=== PATIENT | female | born 1960 ===

== ENCOUNTER 2019-12-23 17:37 | Outpatient (REF) | payer MEDICARE, MEDICAID, SELFPAY ==
--- NOTE | 2019-12-23 18:15 | MR_ITS ---
EXAMINATION: MR LUMBAR SPINE WITHOUT CONTRAST CLINICAL INFORMATION: Post laminectomy syndrome. Bilateral lower extremity numbness. COMPARISON: Lumbar spine radiographs 06/26/2017. CT abdomen and pelvis 10/28/2019. TECHNIQUE: MRI of the lumbar spine was obtained using routine sequences without contrast. FINDINGS: There are chronic postoperative changes of a spinal fusion with interbody hardware at L5-S1. Alignment is normal. There is a subtle chronic compression deformity of the L1 vertebral body with subtle impaction upper endplate resulting in 20% vertebral height loss anteriorly. Vertebral heights are otherwise maintained. There is slight loss of intervertebral disc height and T2 signal intensity at multiple levels related to disc degeneration. The tip of the conus medullaris is located at L2. No mass effect on the conus. Visualized distal cord signal intensity is normal. At L1-L2 there is a shallow central protrusion. No canal stenosis. No mass effect on the traversing or foraminal nerve roots. At L2-L3 there is a tiny left subarticular protrusion superimposed upon a bulging disc. Bilateral facet degenerative change. No canal stenosis. No mass effect on the traversing or foraminal nerve roots. At L3-L4 there is a slightly bulging disc. Bilateral facet degenerative change. No canal stenosis. No mass effect on the traversing or foraminal nerve root. At L4-L5 there is a shallow right foraminal protrusion superimposed upon a bulging disc. Bilateral facet degenerative change. No canal stenosis. Mild mass effect on the foraminal/extraforaminal segment of the right L4 nerve root. At L5-S1 the canal is decompressed. No mass effect on the traversing or foraminal nerve roots. Limited visualization of the retroperitoneal anatomy reveals no abnormal finding. Psoas and paraspinal muscle groups are symmetric. IMPRESSION: There chronic changes of a spinal fusion with interbody hardware at L5-S1. Mild degenerative spondylosis at multiple levels. A shallow right foraminal protrusion superimposed upon a bulging disc at L4-L5 causes mild mass effect on the foraminal/extraforaminal segment of the right L4 nerve root. Otherwise no substantial mass effect on the traversing or foraminal nerve roots elsewhere within the [id number] of this examination.
== END 2019-12-23 17:38 | disposition home or self-care (01) ==
LOC: HO.MRI 17:37
PROVIDERS: Visit Provider Anesthesiology
DX: M96.1 Postlaminectomy syndrome, not elsewhere classified (principal)
CPT/HCPCS: 72148

== ENCOUNTER → 2019-12-28 15:55 | Outpatient (BNVA) | payer MEDICARE, MEDICAID, SELFPAY | PROVIDERS: PCP Internal Medicine; Visit Provider Anesthesiology | DX: M51.36 Other intervertebral disc degeneration, lumbar region (principal); M54.16 Radiculopathy, lumbar region; M46.1 Sacroiliitis, not elsewhere classified; M16.11 Unilateral primary osteoarthritis, right hip | CPT/HCPCS: 99213 ==

== ENCOUNTER 2019-12-29 15:50 | Outpatient (REF) | payer MEDICARE, MEDICAID, SELFPAY ==
--- NOTE | 2019-12-29 15:58 | XR_ITS ---
EXAMINATION: XR HIP, RIGHT CLINICAL INFORMATION: Primary osteoarthritis of the right hip. COMPARISON: 09/22/2018 TECHNIQUE: Two views of the right hip. FINDINGS: There is no fracture or dislocation. The right hip is well aligned. The joint space is maintained. The right hemipelvis is intact. IMPRESSION: Normal appearance of the right hip.
== END 2019-12-29 15:51 | disposition home or self-care (01) ==
LOC: HO.XRAY 15:50
PROVIDERS: PCP Internal Medicine; Visit Provider Nurse Practitioner Family
DX: M16.11 Unilateral primary osteoarthritis, right hip (principal)
CPT/HCPCS: 73502

== ENCOUNTER → 2020-01-11 12:57 | Outpatient (BNVA) | payer MEDICARE, MEDICAID, SELFPAY | PROVIDERS: PCP Internal Medicine; Visit Provider Anesthesiology | DX: M51.36 Other intervertebral disc degeneration, lumbar region (principal); M46.1 Sacroiliitis, not elsewhere classified; M54.16 Radiculopathy, lumbar region; M16.11 Unilateral primary osteoarthritis, right hip | CPT/HCPCS: 99212 ==

== ENCOUNTER → 2020-01-25 10:05 | Outpatient (BNVA) | payer MEDICARE, MEDICAID, SELFPAY | PROVIDERS: Visit Provider Orthopaedic Surgery | DX: M25.562 Pain in left knee (principal) | CPT/HCPCS: 20610; 99212; J1100 ==

== ENCOUNTER 2020-02-18 11:26 | Outpatient (REF) | payer MEDICARE, MEDICAID, SELFPAY | END 2020-02-18 11:27 | disposition home or self-care (01) | LOC: HO.LAB 11:26 | PROVIDERS: PCP Internal Medicine; Visit Provider Internal Medicine | DX: Z20.828 Contact with and (suspected) exposure to other viral communicable diseases (principal) | CPT/HCPCS: C9803; U0003 ==

== ENCOUNTER → 2020-02-25 11:42 | Outpatient (BNVA) | payer MEDICARE, MEDICAID, SELFPAY | PROVIDERS: Visit Provider Internal Medicine | DX: Z13.89 Encounter for screening for other disorder (principal) | CPT/HCPCS: Q3014 ==

== ENCOUNTER → 2020-06-29 11:48 | Outpatient (BNVA) | payer MEDICARE, MEDICAID, SELFPAY | PROVIDERS: Visit Provider Internal Medicine | DX: J44.1 Chronic obstructive pulmonary disease with (acute) exacerbation (principal) | CPT/HCPCS: Q3014 ==

== ENCOUNTER 2020-08-22 11:16 | Outpatient (REF) | payer MEDICARE, MEDICAID, SELFPAY ==
[2020-08-22 12:49] LABS: Alanine Aminotransferase 23 U/L (0-31); Albumin Level 4.4 g/dL (3.5-5.0); Alkaline Phosphatase 128 U/L (39-117); Anion Gap 12 (12-20); Aspartate Amino Transferase 19 U/L (5-31); Bilirubin Total 0.5 mg/dL (0.0-1.0); Blood Urea Nitrogen 7 mg/dL (9-16); Calcium 9.8 mg/dL (8.4-10.2); Carbon Dioxide 24 mmol/L (22-29); Chloride 106 mmol/L (96-108); Cholesterol 175 mg/dL; Estimated Glomerular Filt Rate > 60; Glucose Fasting 111 mg/dL (60-99); HDL Cholesterol 32 mg/dL; LDL Cholesterol Calculated 100 mg/dl; Potassium 4.4 mmol/L (3.3-5.1); Sodium 138 mmol/L (135-145); Total Protein 7.2 g/dL (6.5-8.0); Triglycerides 217 mg/dL
[2020-08-26 17:02] LABS: Vitamin D 25-OH, D2 <4 ng/mL; Vitamin D 25-OH, D3 32 ng/mL; Vitamin D 25-OH, Total 32 ng/mL (30-100)
== END 2020-08-22 11:17 | disposition home or self-care (01) ==
LOC: HO.LAB 11:16
PROVIDERS: PCP Internal Medicine; Visit Provider Internal Medicine
DX: E78.5 Hyperlipidemia, unspecified (principal); I10 Essential (primary) hypertension; E55.9 Vitamin D deficiency, unspecified
CPT/HCPCS: 36415; 80053; 80061; 82306

== ENCOUNTER 2020-08-23 10:39 | Outpatient (REF) | payer MEDICARE, MEDICAID, SELFPAY ==
--- NOTE | ~2020-08-23 | MM_ITS ---
EXAMINATION: MM SCREENING DIGITAL BREAST TOMOSYNTHESIS, BILATERAL CLINICAL INFORMATION: Screening. Asymptomatic. Family history breast cancer, sister. The lifetime risk of breast cancer based on the Tyrer-Cuzick Model is 11%. COMPARISON: Mammography: 05/12/2019, 04/11/2018; outside mammography 12/09/2017 and 12/03/2016 ([facility]) TECHNIQUE: Digital breast tomosynthesis is performed in both the craniocaudal and mediolateral oblique views along with computer-aided detection (CAD). Synthesized 2D images are generated from the tomosynthesis. FINDINGS: There are scattered areas of fibroglandular density (ACR BI-RADS breast composition Category b). The left breast is unremarkable. There is no interval mass or architectural abnormality. Neither breast shows abnormal calcifications. The bilateral axilla and skin contours are unremarkable. There is a biopsy clip marker again noted anterior medial right breast. There is a chronic circumscribed nodule central right breast 4.5 cm from nipple which is increased in size. Current measurements are 0.8 x 0.6 cm compared with prior measurement 0.5 x 0.3 cm. This could represent a small cyst. Patient will be recalled for targeted ultrasound to further characterize. MM/MM tomosynthesis screening BI IMPRESSION: 1. Right: Chronic circumscribed nodule central breast slightly increased in size from prior studies, possibly a cyst. 2. Left: No mammographic evidence of malignancy. ASSESSMENT: BI-RADS 0: Incomplete - Need Additional Imaging Evaluation RECOMMENDATION: 1. Targeted ultrasound right breast. 2. Radiology department staff will contact the patient for additional imaging. This patient's information was entered into a reminder system with a target due date for their next mammogram.
== END 2020-08-23 10:40 | disposition home or self-care (01) ==
LOC: HO.MAMMO 10:39
PROVIDERS: PCP Internal Medicine; Visit Provider Internal Medicine
DX: Z12.31 Encounter for screening mammogram for malignant neoplasm of breast (principal)
CPT/HCPCS: 77063; 77067

== ENCOUNTER 2020-08-30 13:22 | Outpatient (REF) | payer MEDICARE, MEDICAID, SELFPAY ==
--- NOTE | ~2020-08-30 | US_ITS ---
EXAMINATION: US DIAGNOSTIC ULTRASOUND BREAST, RIGHT CLINICAL INFORMATION: Recall from screening for chronic subcentimeter nodule central right breast but increased in size from prior exams. COMPARISON: Mammography 08/23/2020, 05/12/2019, 04/11/2018, 12/20/2017. TECHNIQUE: Ultrasound right breast is targeted to the central breast is imaged from 9:00 through 12:00 position. Grayscale imaging and color Doppler are performed without and with harmonics. FINDINGS: There is a bilobed simple cyst central breast best visualized scanning from 9:00 position and measuring 0.7 x 0.5 cm. This is anechoic and shows increased through-transmission of sound on real-time imaging and no color flow and consistent with a cyst. There are a few other punctate cyst noted in the upper outer right breast. No solid mass or architectural abnormality. Results are discussed with the patient at time of visit. US/US breast RT limited IMPRESSION: Incidental cyst central right breast corresponding to finding on mammography. ASSESSMENT: BI-RADS 2: Benign RECOMMENDATION: Routine annual mammography screening. This patient's information was entered into a reminder system with a target due date for their next mammogram.
== END 2020-08-30 13:23 | disposition home or self-care (01) ==
LOC: HO.MAMMO 13:22
PROVIDERS: Visit Provider Internal Medicine
DX: N63.15 Unspecified lump in the right breast, overlapping quadrants (principal)
CPT/HCPCS: 76642

== ENCOUNTER 2020-08-31 10:03 | Outpatient (REF) | payer MEDICARE, MEDICAID, SELFPAY ==
--- NOTE | ~2020-08-31 | XR_ITS ---
EXAMINATION: XR LUMBOSACRAL SPINE CLINICAL INFORMATION: Radiculopathy. COMPARISON: MRI lumbar spine 12/23/2019. TECHNIQUE: Three views of the lumbosacral spine. FINDINGS: There is normal lumbar lordosis. There is an L1 deformity, likely old fracture. The vertebral heights and alignment are normal. There are 2 metallic cages at the L5-S1 disc level for fusion. There are posterior epidural electrodes at the T10-T11 disc level for pain management. XR/XR lumbar spine 2-3V IMPRESSION: L5-S1 fusion with [address] Posterior lower thoracic spine posterior epidural electrodes for pain management. Old L1 wedge deformity. Unchanged to MRI lumbar spine 12/23/2019.
== END 2020-08-31 10:04 | disposition home or self-care (01) ==
LOC: HO.XRAY 10:03
PROVIDERS: PCP Internal Medicine; Visit Provider Internal Medicine
DX: M54.16 Radiculopathy, lumbar region (principal)
CPT/HCPCS: 72100

== ENCOUNTER → 2020-09-28 11:03 | Outpatient (BNVA) | payer MEDICARE, MEDICAID, SELFPAY | PROVIDERS: PCP Internal Medicine; Visit Provider Nurse Practitioner Family | DX: M51.36 Other intervertebral disc degeneration, lumbar region (principal); M46.1 Sacroiliitis, not elsewhere classified; M54.16 Radiculopathy, lumbar region; M16.11 Unilateral primary osteoarthritis, right hip; M96.1 Postlaminectomy syndrome, not elsewhere classified; Z79.899 Other long term (current) drug therapy | CPT/HCPCS: 99212 ==

== ENCOUNTER → 2020-09-29 12:18 | Outpatient (BNVA) | payer MEDICARE, MEDICAID, SELFPAY | PROVIDERS: PCP Internal Medicine; Visit Provider Orthopaedic Surgery | DX: M25.562 Pain in left knee (principal) | CPT/HCPCS: 20610; 99212; J1100 ==

== ENCOUNTER → 2020-10-04 13:04 | Outpatient (BNVA) | payer MEDICARE, MEDICAID, SELFPAY | PROVIDERS: PCP Internal Medicine; Visit Provider Internal Medicine | DX: J30.9 Allergic rhinitis, unspecified (principal); J44.9 Chronic obstructive pulmonary disease, unspecified; F17.200 Nicotine dependence, unspecified, uncomplicated | CPT/HCPCS: 99212 ==

== ENCOUNTER → 2020-10-06 11:05 | Outpatient (BNVA) | payer MEDICARE, MEDICAID, SELFPAY | PROVIDERS: PCP Internal Medicine; Visit Provider Anesthesiology ==

== ENCOUNTER 2020-12-13 06:20 | Outpatient (REF) | payer MEDICARE, MEDICAID, SELFPAY ==
--- NOTE | ~2020-12-13 | FL_ITS ---
EXAMINATION: XR FLUOROSCOPY WITH IMAGES CLINICAL INFORMATION: Postlaminectomy syndrome COMPARISON: MRI dated 12/23/2019 TECHNIQUE: Fluoroscopy performed by Dr. Kennedy Hennessy. Fluoroscopy time: 0.4 minutes DAP: 2.28 Gycm2 Images: 1 FINDINGS: Single image submitted for review demonstrates a spinal needle projecting over the posterior epidural space at the level of L3 FL/FL guidance in treatment room IMPRESSION: Intraoperative fluoroscopy provided as above. Please see operative report.
== END 2020-12-13 06:21 | disposition home or self-care (01) ==
LOC: HO.RADIR 06:20
PROVIDERS: Visit Provider Anesthesiology
DX: M96.1 Postlaminectomy syndrome, not elsewhere classified (principal); M47.27 Other spondylosis with radiculopathy, lumbosacral region; M54.50 Low back pain, unspecified; M47.812 Spondylosis without myelopathy or radiculopathy, cervical region; M54.2 Cervicalgia
CPT/HCPCS: 62323; J1170; Q9967

== ENCOUNTER → 2020-12-21 08:41 | Outpatient (BNVA) | payer MEDICARE, MEDICAID, SELFPAY | PROVIDERS: PCP Internal Medicine; Visit Provider Anesthesiology | DX: M96.1 Postlaminectomy syndrome, not elsewhere classified (principal); M47.27 Other spondylosis with radiculopathy, lumbosacral region; M54.2 Cervicalgia; M47.812 Spondylosis without myelopathy or radiculopathy, cervical region; G89.4 Chronic pain syndrome | CPT/HCPCS: 99212 ==

== ENCOUNTER → 2021-02-15 14:32 | Outpatient (BNVA) | payer MEDICARE, MEDICAID, SELFPAY | PROVIDERS: PCP Internal Medicine; Visit Provider Internal Medicine | DX: J44.9 Chronic obstructive pulmonary disease, unspecified (principal); J30.9 Allergic rhinitis, unspecified; R05.9 Cough, unspecified; F17.210 Nicotine dependence, cigarettes, uncomplicated | CPT/HCPCS: 99212 ==

== ENCOUNTER 2021-02-21 14:03 | Outpatient (REF) | payer MEDICARE, MEDICAID, SELFPAY ==
--- NOTE | ~2021-02-21 | CT_ITS ---
EXAMINATION: CT CHEST SCREENING CLINICAL INFORMATION: Nicotine dependence. Current smoker with a 17-year history of smoking. COMPARISON: 09/07/2019 TECHNIQUE: Multidetector volumetric CT imaging of the chest is performed without contrast using low dose technique. Additional 2D coronal and sagittal reformatted images and axial 3D maximum intensity projection (MIP) images are generated on the CT workstation. This CT examination was performed using dose optimization techniques as appropriate, variously including the following: *Automated exposure control. *Adjustment of mA and/or kV according to patient size (this includes techniques or standardized protocols for targeted exams where dose is matched to indication/reason for exam; i.e. extremities or head). *Use of iterative reconstruction technique. DLP: 247 mGy-cm FINDINGS: LUNGS: Central airways are patent. There is some mild central bronchial wall thickening seen bilaterally. No bronchiectasis is noted. There are bilateral scattered sub-4 mm densities seen. No confluent parenchymal disease. Mild changes of centrilobular and paraseptal emphysema seen bilaterally. There are a few scattered calcified granulomas present. A few intrafissural lymph nodes are present. There is a linear region of scarring seen within the anterior lingula. There is a discoid density about the lateral left lower lobe measuring approximately 6 x 3 mm in size and is noncalcified with connection to the pleural surface. There is a 4 mm noncalcified nodule seen within the left upper lobe on image 174 of 517 in series #502. There is a stable 7 mm region of ground-glass opacity within the lingula on image 56 of 129 in series #9. MEDIASTINUM: There are some scattered calcifications seen about the right lobe of the thyroid. These were present previously. Heart normal size. Small amount of coronary artery calcifications seen in the main left coronary artery. No pericardial effusion. No thoracic aortic aneurysm. There is a 1.1 x 1.9 x 1.1 cm precarinal lymph node. There are other prominent but nonenlarged mediastinal lymph nodes. No definite hilar lymphadenopathy appreciated. PLEURA: There is no pleural effusion. No pleural mass or thickening. AXILLA: No lymphadenopathy. UPPER ABDOMEN: Unremarkable. OSSEOUS STRUCTURES: No suspicious destructive bony lesions identified. Patient is status post previous cervical spine surgery. A spine stimulator is seen in place with superior tip being at the level of the T9 vertebral body. CT/CT lung screening IMPRESSION: 1. Stable appearance compared to previous examination of 09/07/2019. 2. Old granulomatous disease. 3. Enlarged precarinal lymph node. ASSESSMENT: Lung-RADS category 2: Benign. RECOMMENDATION: Routine annual low-dose CT screening in 12 months.
== END 2021-02-21 14:04 | disposition home or self-care (01) ==
LOC: HO.CT 14:03
PROVIDERS: PCP Internal Medicine; Visit Provider Physician Assistant Medical
DX: F17.210 Nicotine dependence, cigarettes, uncomplicated (principal)
CPT/HCPCS: 71271

== ENCOUNTER 2021-03-11 08:13 | Emergency (ER) | payer MEDICARE, MEDICAID, SELFPAY ==
--- NOTE | ~2021-03-11 | XR_ITS ---
EXAMINATION: XR chest 1V CLINICAL INFORMATION: Pain COMPARISON: 11/03/2018 TECHNIQUE: XR chest 1V Tubes and lines: None Lungs and pleura: Both lungs are clear. Heart and mediastinum: The mediastinum is within normal limits.. Bones/soft tissue: Skeletal structures included are normal for patient's age. There are electrodes projecting over the lower dorsal spine. XR/XR chest 1V IMPRESSION: No radiographic evidence of acute cardiopulmonary disease. There are electrodes projecting over the lower dorsal spine remain in place unchanged.
[2021-03-11 09:25] VITALS: BP 136/95; PULSE 119; RESP 18; TEMP 36.4; O2SAT 99; BMI 30.1
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
== END 2021-03-11 12:26 | disposition home or self-care (01) ==
PROVIDERS: Emergency Provider Emergency Medicine; PCP Internal Medicine
DX: S39.012A Strain of muscle, fascia and tendon of lower back, initial encounter (principal); M54.6 Pain in thoracic spine; R07.89 Other chest pain; Y04.8XXA Assault by other bodily force, initial encounter; Y93.9 Activity, unspecified; Y92.9 Unspecified place or not applicable; Y99.9 Unspecified external cause status; F17.210 Nicotine dependence, cigarettes, uncomplicated; Z71.6 Tobacco abuse counseling; Z79.899 Other long term (current) drug therapy
CPT/HCPCS: 71045; 99282; 99283

== ENCOUNTER → 2021-03-29 15:11 | Outpatient (BNVA) | payer MEDICARE, MEDICAID, SELFPAY | PROVIDERS: PCP Internal Medicine; Visit Provider Anesthesiology | DX: M96.1 Postlaminectomy syndrome, not elsewhere classified (principal); M47.27 Other spondylosis with radiculopathy, lumbosacral region; M54.2 Cervicalgia; M47.812 Spondylosis without myelopathy or radiculopathy, cervical region; G89.4 Chronic pain syndrome | CPT/HCPCS: 99212 ==

== ENCOUNTER 2021-04-27 10:26 | Day surgery (SDC) | payer MEDICARE, MEDICAID, SELFPAY ==
--- NOTE | 2021-04-26 12:43 | HO.ANESPROP2 ---
Documented by User: Danna Lopez NP 04/26/21 13:03 HPI - Anesthesia Eval Consult details Narrative: 60yo F Cervical Spinal Cord Stimulation Trial *Multiple Med Allergies* Chronic opioids PMFSH Active Problems Active Problems: All Active Problems (Updated 03/29/21 @ 16:13 by Kennedy Hennessy MD) Cervical muscle strain (Acute) Cervicalgia (Acute) Spondylosis of lumbosacral spine with radiculopathy (Acute) Postlaminectomy syndrome, lumbar (Acute) Left knee pain (Acute) Chronic pain syndrome (Acute) Postlaminectomy syndrome, cervical (Acute) Spondylosis, cervical (Acute) Cervicalgia (Acute) Smoker (Acute) COPD exacerbation (Acute) Cough (Acute) COPD (chronic obstructive pulmonary disease) (Acute) Allergic rhinitis (Acute) Anterior knee pain (Acute) Osteoarthritis of right hip (Acute) Acute left lumbar radiculopathy (Acute) Sacroiliitis (Acute) Disc degeneration, lumbar (Acute) Depression with anxiety (Acute) Moderate asthma (Acute) Constipation due to opioid therapy (Acute) GERD (gastroesophageal reflux disease) (Acute) Hypovitaminosis D (Acute) Lumbar degenerative disc disease (Acute) Essential hypertension (Acute) Past Medical History Medical History Acute left lumbar radiculopathy Allergic rhinitis Anterior knee pain Asthma Cervical muscle strain Cervicalgia Cervicalgia Chronic pain syndrome Constipation due to opioid therapy COPD (chronic obstructive pulmonary disease) COPD exacerbation Cough Depression with anxiety Disc degeneration, lumbar Essential hypertension GERD (gastroesophageal reflux disease) History of DVT (deep vein thrombosis) Hypovitaminosis D Lumbar degenerative disc disease Migraines Osteoarthritis of right hip Postlaminectomy syndrome, cervical Sacroiliitis Smoker Spondylosis, cervical Family History Family History Father Diabetes Mother Diabetes Hypertension Sister Diabetes Breast cancer Maternal Uncle Prostate cancer Surgical History Surgical History History of abdominal hernia History of arthroscopy of both knees History of carpal tunnel surgery of left wrist History of carpal tunnel surgery of right wrist History of cholecystectomy History of hemicolectomy History of incisional hernia repair Hx of appendectomy Hx of fusion of cervical spine Hx of spinal fusion S/P YRN (total abdominal hysterectomy) Social History Social History Housing: Apartment Alcohol intake: never Patient Tobacco Use Status: Current everyday Tobacco user Tobacco use type: Cigarette Cigarette Packs Per Day: 0.5 Cigarettes Per Day: 10.0 e-Cigarette/Vaping Use: Never Used Second Hand Smoke Exposure: No Use of substances other than those prescribed or required for medical reasons: No Advance Directives: No Advance Directives Information Provided: Yes Recently lost weight without trying: No service: No Current occupational status: disabled Meds Allergies Allergy/AdvReac Type Severity Reaction Status Date / Time topiramate [From TOPAMAX] Allergy Severe SWELLING Verified 03/29/21 15:24 barium sulfate AdvReac Intermediate changes in Verified 03/29/21 15:24 behavior metronidazole [Flagyl] AdvReac Intermediate FISHER GILL NET, N/V Verified 03/29/21 15:24 morphine [MORPHINE] AdvReac Intermediate HEADACHE Verified 03/29/21 15:24 Penicillins AdvReac Intermediate Vomiting Verified 03/29/21 15:24 trazodone AdvReac Intermediate Palpitation Verified 03/29/21 15:24 s varenicline [From Chantix] AdvReac Mild changes in Verified 03/29/21 15:24 behavior hydrocodone-acetaminophen AdvReac Intermediate nausea Uncoded 02/13/21 12:55 Home Medications Medication Instructions Recorded Confirmed Last Taken Type aspirin 81 mg tablet,delayed 81 mg PO DAILY 12/21/19 02/13/21 Unknown History release (Adult Low Dose Aspirin) cholecalciferol (vitamin D3) 25 25 mcg PO DAILY 12/21/19 02/13/21 Unknown History mcg (1,000 unit) capsule dexlansoprazole 60 mg 60 mg PO DAILY 12/21/19 02/13/21 Unknown History capsule,biphase delayed release (Dexilant) escitalopram oxalate 10 mg tablet 10 mg PO DAILY 12/21/19 02/13/21 Unknown History fluticasone 100 mcg-salmeterol 50 1 ea PO BID 12/21/19 02/13/21 Unknown History mcg/dose blistr powdr for inhalation fluticasone propionate 50 1 spray INTRANASAL DAILY 12/21/19 02/13/21 Unknown History mcg/actuation nasal spray,suspension (Flonase Allergy Relief) linaclotide 290 mcg capsule 290 mcg PO DAILY 12/21/19 02/13/21 Unknown History (Linzess) flu vac qs 2019(4 yr up)CD(PF) 0.5 ml IM DIRECTED 12/28/19 01/03/21 Unknown History Exam Exam Date and Time: April 26, 2021 1243 Assessment and Plan Assessment Anesthesia Assessment: Chart Reviewed Documented by User: Daja Mejia MD 04/27/21 14:06 [facility] Past Medical History Medical History Acute left lumbar radiculopathy Allergic rhinitis Anterior knee pain Asthma Cervical muscle strain Cervicalgia Cervicalgia Chronic pain syndrome Constipation due to opioid therapy COPD (chronic obstructive pulmonary disease) COPD exacerbation Cough Depression with anxiety Disc degeneration, lumbar Essential hypertension GERD (gastroesophageal reflux disease) History of DVT (deep vein thrombosis) Hypovitaminosis D Lumbar degenerative disc disease Migraines Osteoarthritis of right hip Postlaminectomy syndrome, cervical Sacroiliitis Smoker Spondylosis, cervical Family History Family History Father Diabetes Mother Diabetes Hypertension Sister Diabetes Breast cancer Maternal Uncle Prostate cancer Family history of problems with anesthesia: No Surgical History Surgical History History of abdominal hernia History of arthroscopy of both knees History of carpal tunnel surgery of left wrist History of carpal tunnel surgery of right wrist History of cholecystectomy History of hemicolectomy History of incisional hernia repair Hx of appendectomy Hx of fusion of cervical spine Hx of spinal fusion S/P YRN (total abdominal hysterectomy) History of Problems with Anesthesia: No Social History Social History Housing: Apartment Alcohol intake: never Patient Tobacco Use Status: Current everyday Tobacco user Tobacco use type: Cigarette Cigarette Packs Per Day: 0.5 Cigarettes Per Day: 10.0 e-Cigarette/Vaping Use: Never Used Second Hand Smoke Exposure: No Use of substances other than those prescribed or required for medical reasons: No Advance Directives: No Advance Directives Information Provided: Yes Recently lost weight without trying: No service: No Current occupational status: disabled Meds Allergies Allergy/AdvReac Type Severity Reaction Status Date / Time topiramate [From TOPAMAX] Allergy Severe SWELLING Verified 03/29/21 15:24 barium sulfate AdvReac Intermediate changes in Verified 03/29/21 15:24 behavior metronidazole [Flagyl] AdvReac Intermediate FISHER GILL NET, N/V Verified 03/29/21 15:24 morphine [MORPHINE] AdvReac Intermediate HEADACHE Verified 03/29/21 15:24 Penicillins AdvReac Intermediate Vomiting Verified 03/29/21 15:24 trazodone AdvReac Intermediate Palpitation Verified 03/29/21 15:24 s varenicline [From Chantix] AdvReac Mild changes in Verified 03/29/21 15:24 behavior hydrocodone-acetaminophen AdvReac Intermediate nausea Uncoded 02/13/21 12:55 Home Medications Medication Instructions Recorded Confirmed Last Taken Type aspirin 81 mg tablet,delayed 81 mg PO DAILY 12/21/19 02/13/21 Unknown History release (Adult Low Dose Aspirin) cholecalciferol (vitamin D3) 25 25 mcg PO DAILY 12/21/19 02/13/21 Unknown History mcg (1,000 unit) capsule dexlansoprazole 60 mg 60 mg PO DAILY 12/21/19 02/13/21 Unknown History capsule,biphase delayed release (Dexilant) escitalopram oxalate 10 mg tablet 10 mg PO DAILY 12/21/19 02/13/21 Unknown History fluticasone 100 mcg-salmeterol 50 1 ea PO BID 12/21/19 02/13/21 Unknown History mcg/dose blistr powdr for inhalation fluticasone propionate 50 1 spray INTRANASAL DAILY 12/21/19 02/13/21 Unknown History mcg/actuation nasal spray,suspension (Flonase Allergy Relief) linaclotide 290 mcg capsule 290 mcg PO DAILY 12/21/19 02/13/21 Unknown History (Linzess) flu vac qs 2018(4 yr up)CD(PF) 0.5 ml IM DIRECTED 12/28/19 01/03/21 Unknown History Exam Height,Weight and Vital Signs: Height 5 ft 3 in Weight 77.111 kg Vital Signs Temp Pulse Resp BP Pulse Ox 04/27/21 11:09 97.3 F 90 17 120/71 97 Airway Mallampati Class: II TM Dist: >3cm Neck ROM: Full Loose/Missing/Broken Teeth: Yes (Poor dentition. Many missing. Several broken) Heart: RRR Lungs: CTAB Assessment and Plan Assessment Anesthesia Assessment: Anesthesia Plan Discussed Final Anesthetic Review Family History of Problems with Anesthesia: No History of Problems with Anesthesia: No NPO: Yes ASA Class: III Final Preanesthetic Review: No Changes in Pt Med Stat, Meds/Allgs Chart Reviewed, Consent Obtained/Reviewed and Anes Risks/Benef Reviewed Patient Risk: Intermediate Procedure Risk: Intermediate Assessment/Block/Sedation in SS: Assess/Block/Sedation-SS Anesthetic Plan Anesthetic Plan: MAC: Disposition: Standard PACU
--- NOTE | ~2021-04-27 | FL_ITS ---
EXAMINATION: XR FLUOROSCOPY WITH IMAGES CLINICAL INFORMATION: Stimulator trial COMPARISON: None. TECHNIQUE: Fluoroscopy performed by Dr. Kennedy Hennessy. Fluoroscopy time: 9.3 minus minutes DAP: 24.1 Gycm2 Images: 2 FINDINGS: 2 C-arm images are provided for review. Patient status post previous cervical spine surgery. 2 wires are seen projecting with the tips over the region of the C2-C3 disc space. FL/FL guidance in OR IMPRESSION: Stimulator trial
[2021-04-27 11:09] VITALS: BP 120/71; PULSE 90; RESP 17; TEMP 36.3; O2SAT 97; BMI 30.1
--- NOTE | 2021-04-27 11:58 | MHC.SHP ---
Pre-Procedural Eval Section A Date of Service: 04/27/21 The patient is an INPATIENT: No Changes since office visit: Yes Patient answered all questions The History & Physical has been completed within 30 days and I have reviewed it.: No Section B Chief Complaint: post laminectomy syndrome Details of Present Illness: as above Relevant Family History (Specify if Yes): No Relevant Social History: None Present Medications: see Short Stay Collaborative assessment Medical History: No relevant PMH History of Previous Operations: Relevant previous surgery/procedure and date(s) Allergies: Allergies Allergy/AdvReac Type Severity Reaction Status Date / Time topiramate [From TOPAMAX] Allergy Severe SWELLING Verified 03/29/21 15:24 barium sulfate AdvReac Intermediate changes in Verified 03/29/21 15:24 behavior metronidazole [Flagyl] AdvReac Intermediate SERVICE MANAGER, N/V Verified 03/29/21 15:24 morphine [MORPHINE] AdvReac Intermediate HEADACHE Verified 03/29/21 15:24 Penicillins AdvReac Intermediate Vomiting Verified 03/29/21 15:24 trazodone AdvReac Intermediate Palpitation Verified 03/29/21 15:24 s varenicline [From Chantix] AdvReac Mild changes in Verified 03/29/21 15:24 behavior hydrocodone-acetaminophen AdvReac Intermediate nausea Uncoded 02/13/21 12:55 Review of Systems Sugical H&P ROS: Negative: Constitution, Cardiovascular, Respiratory, Neurological, Psychiatric, Hem-Onc, Allergic/Immunologic, Gastrointestinal, Genitourinary, Musculoskeletal, Integumentary, Endocrine and Eyes/Ears/Nose/Throat Exam Surgical H&P Exam: Normal: HEENT, Normal: Heart, Normal: Lungs, Normal: Extremities, Normal: Abdomen, Normal: Skin and Normal: Neurological Plan Diagnosis/Plan: Unchanged I have reviewed the history and physical and performed a pertinent physical examination on my patient. No changes have occurred unless specified.
--- NOTE | 2021-04-27 12:51 | P.OP_ITS ---
Operative Note Operative Note Date of Service: 04/27/21 Narrative: Oriana is very pleasant 60 years old femalewho came today into the operating room for trial of spinal cord stimulator for the treatment of post laminectomy syndrome. Preoperatively patient received ..... approximately 30 minutes before the procedure. After obtaining informed consent the patient was brought to the operating room, SHE was positioned prone on operating table, [employer] monitors were applied and the patient was deeply sedated.? ?Time-out was performed delineating correct site, side, the nature of the procedure, patient's allergy, preoperative antibiotic if needed.? All operating room staff was participating in OR time-out procedure. Patient's entire back was prepped with DuraPrep twice and draped with full body fenestrated laparoscopy drape.? Sterilely draped C-arm was brought over operating field and square picture of the T6 -T7 -T8-T9 -T10 vertebrae as were demonstrated on the screen.? location of the epidural paddle at the T9-T10 posterior epidural space of previously inserted spinal cord stimulator [employer] was noted on the screen. Attention FIRST? was concentrated on the T6-T7 epidural interspace.? The location of the projection of the right pedicle center of the?T 9 vertebra was found on the skin using C-arm.? This location was injected with mixture of lidocaine 2% and Marcaine 0.5% 5 cc.? After that 11 blade was used to make a juanis on the skin.? 10 cm 14 gauge? introducer epidural needle was inserted through the juanis and advanced to? T6-T7 epidural interspace.? The advancement of the needle was performed on anterior posterior and lateral views.? Guitar wire and loss of resistance technique were used to locate epidural space.? When guitar wire was spread in the epidural fashion, epidural lead was inserted thro ugh the needle and it was advanced to T3 level. Due to epidural adhesion at this level there was difficulty to advance the lead higher. The introducer needle was withdrawn and blue sheath introducer was attempted to be inserted over the lead into the epidural space. However blue sheath introducer was deviating to the right and I was unable to advanced it beyond the T6-T7 intervertebral interspace. However I was managing to manipulate the epidural lead and I advanced the lead to the top of the C3 vertebra Strictly on the THE MIDLINE with the top of the lead slightly deviating to the right..? After that the location of the projection of the LEFT pedicle center of the T9 vertebra was found on the skin using C-arm.? This location was injected with mixture of lidocaine 2% and Marcaine 0.5% 5 cc.? After that 11 blade was used to make a juanis on the skin.? 10 cm 14 gauge introducer epidural needle was inserted through the juanis and advanced to T8-T9 epidural interspace.? The advancement of the needle was performed on anterior posterior and lateral views.? Guitar wire and loss of resistance technique were used to locate epidural space.? When guitar wire was spread in the epidural fashion, epidural lead was inserted through the needle and advanced to the middle of C3 epidural interspace slightly left to the existing electrode. Impedance was checked and was satisfactory .The needles were withdrawn, the stylette wires were removed from the epidural leads.? The anchoring devices were dislodged on the leads and advanced to the level of the skin.? The anchoring devices were sutured with two 0-0 silk sutures per each anchor to the skin of the patient. The central fixation screw of each anchor was rotated until three clicks were heard. The leads were connected to testing device.? Bacitracin ointment was applied to the entrance point of bilateral needles.? Sterile dressing was applied to the patient's back.? The testing device was also glued to the patient's back.? the patient tolerated procedure well she was awaken and taken outside of the operating room to recovery room.
[2021-04-27 14:46] VITALS: BP 95/59; PULSE 84; RESP 20; TEMP 36.1; O2SAT 95
[2021-04-27 14:51] VITALS: BP 112/69; PULSE 88; RESP 20; O2SAT 97
--- NOTE | 2021-04-27 14:51 | PM.OP ---
Brief Operative Note Date of Service: 04/27/21 Pre-op diagnosis: Postlaminectomy syndrome cervical spine Post-op diagnosis: same Procedure: trial of Nevro spinal cord stimulator Implants: none permanent Surgeon: Kennedy Hennessy MD Anesthesia: MAC Was an Registration Clerk used for this Procedure?: No Estimated blood loss (mL): 2 Pathology: none sent Condition: stable Disposition: PACU
[2021-04-27 15:01] VITALS: BP 104/81; PULSE 84; RESP 20; TEMP 36.1; O2SAT 98
== END 2021-04-27 15:35 ==
LOC: HO.SSS 10:27
PROVIDERS: PCP Internal Medicine; Visit Provider Anesthesiology
PROC: (CPT 63650; principal; 2021-04-27 12:40)
DX: M96.1 Postlaminectomy syndrome, not elsewhere classified (principal); M54.2 Cervicalgia; M47.812 Spondylosis without myelopathy or radiculopathy, cervical region; G89.4 Chronic pain syndrome; Z98.1 Arthrodesis status; M47.27 Other spondylosis with radiculopathy, lumbosacral region; M51.36 Other intervertebral disc degeneration, lumbar region; M46.1 Sacroiliitis, not elsewhere classified; M16.11 Unilateral primary osteoarthritis, right hip; J44.9 Chronic obstructive pulmonary disease, unspecified; I10 Essential (primary) hypertension; E55.9 Vitamin D deficiency, unspecified; Z88.0 Allergy status to penicillin; Z88.8 Allergy status to other drugs, medicaments and biological substances; F17.210 Nicotine dependence, cigarettes, uncomplicated
CPT/HCPCS: 63650 ×2; C1713; C1778; J2370

== ENCOUNTER → 2021-05-03 09:59 | Outpatient (BNVA) | payer MEDICARE, MEDICAID, SELFPAY | PROVIDERS: PCP Internal Medicine; Visit Provider Anesthesiology | DX: M96.1 Postlaminectomy syndrome, not elsewhere classified (principal); M47.27 Other spondylosis with radiculopathy, lumbosacral region; M54.2 Cervicalgia; M47.812 Spondylosis without myelopathy or radiculopathy, cervical region; G89.4 Chronic pain syndrome | CPT/HCPCS: 99212 ==

== ENCOUNTER 2021-05-08 15:00 | Outpatient (RCR) | payer MEDICARE, MEDICAID, SELFPAY ==
[2021-04-24 13:06] VITALS: BP 142/88; PULSE 97
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
--- NOTE | 2021-05-26 08:43 | MHC.PT.DC ---
[facility] [place] Office [place] Office [place] Office [address] Sandip Glass [address] [phone] F: [phone] F: [phone] F: [phone] F: [phone] Physical Therapy Discharge Report Diagnosis: Cervical muscle strain Date of Surgery: NA Date of Evaluation: 04/24/21 Date of Discharge: 05/26/21 Treatments to Date: 3 Cancellations to Date: 1 No Shows to Date: 3 Discharge Status: Visit Non-compliance Discharge Summary: Oriana has had 3 no shows and 1 cancellation. She is therefore being d/c for non compliance. Electronically signed by: Yocasta Dang PT DPT Please sign and return to therapist. Thank you for your referral.
== END 2021-05-26 08:43 | disposition home or self-care (01) ==
LOC: HO.PT 15:00
PROVIDERS: PCP Internal Medicine; Visit Provider Anesthesiology
DX: M54.2 Cervicalgia (principal)
CPT/HCPCS: 97110; 97112; 97161

== ENCOUNTER 2021-06-02 09:55 | Day surgery (SDC) | payer MEDICARE, MEDICAID, SELFPAY ==
[2021-05-29 11:23] VITALS: BMI 30.1
--- NOTE | 2021-06-01 10:28 | HO.ANESPROP2 ---
Documented by User: Danna Lopez NP 06/01/21 10:29 HPI - Anesthesia Eval Consult details Narrative: 60yo F for Cervical Spinal Stimulation Implant s/p trial 04/2021 with TIVA *Multiple Med Allergies* Chronic opioids PMFSH Active Problems Active Problems: All Active Problems (Updated 05/29/21 @ 11:18 by Stephanie Valenzuela, ALLIE) Spondylosis of lumbosacral spine with radiculopathy (Acute) Postlaminectomy syndrome, lumbar (Acute) Left knee pain (Acute) Tobacco abuse (Acute) Hypertriglyceridemia (Acute) Impaired fasting blood sugar (Acute) Chronic pain syndrome (Acute) Postlaminectomy syndrome, cervical (Acute) Smoker (Acute) Cough (Acute) COPD (chronic obstructive pulmonary disease) (Acute) Allergic rhinitis (Acute) Anterior knee pain (Acute) Osteoarthritis of right hip (Acute) Sacroiliitis (Acute) Depression with anxiety (Acute) Constipation due to opioid therapy (Acute) GERD (gastroesophageal reflux disease) (Acute) Hypovitaminosis D (Acute) Lumbar degenerative disc disease (Acute) Essential hypertension (Acute) Past Medical History Medical History Allergic rhinitis Anterior knee pain Asthma Chronic pain syndrome Constipation due to opioid therapy COPD (chronic obstructive pulmonary disease) COPD exacerbation Cough Depression with anxiety Essential hypertension GERD (gastroesophageal reflux disease) History of DVT (deep vein thrombosis) Hypovitaminosis D Lumbar degenerative disc disease Migraines Osteoarthritis of right hip Postlaminectomy syndrome, cervical Sacroiliitis Smoker Spondylosis, cervical Status post insertion of nerve stimulator Family History Family History Father Diabetes Mother Diabetes Hypertension Sister Diabetes Breast cancer Maternal Uncle Prostate cancer Family history of problems with anesthesia: No Surgical History Surgical History H/O colonoscopy History of abdominal hernia History of arthroscopy of both knees History of back surgery History of carpal tunnel surgery of left wrist History of carpal tunnel surgery of right wrist History of cholecystectomy History of esophagogastroduodenoscopy (EGD) History of hemicolectomy History of incisional hernia repair Hx of appendectomy Hx of fusion of cervical spine Hx of spinal fusion S/P YRN (total abdominal hysterectomy) History of Problems with Anesthesia: No Social History Social History Housing: Apartment Alcohol intake: never Patient Tobacco Use Status: Current everyday Tobacco user Tobacco use type: Cigarette Cigarette Packs Per Day: 0.5 Cigarettes Per Day: 10 e-Cigarette/Vaping Use: Never Used Second Hand Smoke Exposure: No Advance Directives: No Advance Directives Information Provided: Yes Advance Directives on File: No service: No Current occupational status: disabled Meds Allergies Allergy/AdvReac Type Severity Reaction Status Date / Time topiramate [From TOPAMAX] Allergy Severe SWELLING Verified 06/02/21 10:11 barium sulfate AdvReac Intermediate changes in Verified 06/02/21 10:11 behavior hydrocodone AdvReac Intermediate Nausea Verified 06/02/21 10:11 metronidazole [Flagyl] AdvReac Intermediate IT OPERATIONS MANAGER, N/V Verified 06/02/21 10:11 morphine [MORPHINE] AdvReac Intermediate HEADACHE Verified 06/02/21 10:11 Penicillins AdvReac Intermediate Vomiting Verified 06/02/21 10:11 trazodone AdvReac Intermediate Palpitation Verified 06/02/21 10:11 s varenicline [From Chantix] AdvReac Mild changes in Verified 06/02/21 10:11 behavior Home Medications Medication Instructions Recorded Confirmed Last Taken Type aspirin 81 mg tablet,delayed 81 mg PO DAILY 12/21/19 05/29/21 05/26/21 History release (Adult Low Dose Aspirin) cholecalciferol (vitamin D3) 25 25 mcg PO DAILY 12/21/19 05/29/21 Unknown History mcg (1,000 unit) capsule dexlansoprazole 60 mg 60 mg PO DAILY 12/21/19 05/29/21 06/02/21 08:30 History capsule,biphase delayed release (Dexilant) escitalopram oxalate 10 mg tablet 10 mg PO DAILY 12/21/19 05/29/21 Unknown History fluticasone 100 mcg-salmeterol 50 1 ea PO BID 12/21/19 05/29/21 06/02/21 08:30 History mcg/dose blistr powdr for inhalation fluticasone propionate 50 1 spray INTRANASAL DAILY 12/21/19 05/29/21 Unknown History mcg/actuation nasal spray,suspension (Flonase Allergy Relief) linaclotide 290 mcg capsule 290 mcg PO DAILY 12/21/19 05/29/21 Unknown History (Linzess) Exam Exam Date and Time: June 01, 2021 1028 Height,Weight and Vital Signs: Height 5 ft 3 in Weight 77.111 kg Assessment and Plan Assessment Anesthesia Assessment: Chart Reviewed Final Anesthetic Review Family History of Problems with Anesthesia: No History of Problems with Anesthesia: No Documented by User: Shena Camacho MD 06/02/21 13:08 [facility] Past Medical History Medical History Allergic rhinitis Anterior knee pain Asthma Chronic pain syndrome Constipation due to opioid therapy COPD (chronic obstructive pulmonary disease) COPD exacerbation Cough Depression with anxiety Essential hypertension GERD (gastroesophageal reflux disease) History of DVT (deep vein thrombosis) Hypovitaminosis D Lumbar degenerative disc disease Migraines Osteoarthritis of right hip Postlaminectomy syndrome, cervical Sacroiliitis Smoker Spondylosis, cervical Status post insertion of nerve stimulator Functional capacity: uses cane/walker Patient : No Family History Family History Father Diabetes Mother Diabetes Hypertension Sister Diabetes Breast cancer Maternal Uncle Prostate cancer Surgical History Surgical History H/O colonoscopy History of abdominal hernia History of arthroscopy of both knees History of back surgery History of carpal tunnel surgery of left wrist History of carpal tunnel surgery of right wrist History of cholecystectomy History of esophagogastroduodenoscopy (EGD) History of hemicolectomy History of incisional hernia repair Hx of appendectomy Hx of fusion of cervical spine Hx of spinal fusion S/P YRN (total abdominal hysterectomy) Social History Social History Housing: Apartment Alcohol intake: never Patient Tobacco Use Status: Current everyday Tobacco user Tobacco use type: Cigarette Cigarette Packs Per Day: 0.5 Cigarettes Per Day: 10 e-Cigarette/Vaping Use: Never Used Second Hand Smoke Exposure: No Advance Directives: No Advance Directives Information Provided: Yes Advance Directives on File: No service: No Current occupational status: disabled Meds Allergies Allergy/AdvReac Type Severity Reaction Status Date / Time topiramate [From TOPAMAX] Allergy Severe SWELLING Verified 06/02/21 10:11 barium sulfate AdvReac Intermediate changes in Verified 06/02/21 10:11 behavior hydrocodone AdvReac Intermediate Nausea Verified 06/02/21 10:11 metronidazole [Flagyl] AdvReac Intermediate IT OPERATIONS MANAGER, N/V Verified 06/02/21 10:11 morphine [MORPHINE] AdvReac Intermediate HEADACHE Verified 06/02/21 10:11 Penicillins AdvReac Intermediate Vomiting Verified 06/02/21 10:11 trazodone AdvReac Intermediate Palpitation Verified 06/02/21 10:11 s varenicline [From Chantix] AdvReac Mild changes in Verified 06/02/21 10:11 behavior Home Medications Medication Instructions Recorded Confirmed Last Taken Type aspirin 81 mg tablet,delayed 81 mg PO DAILY 12/21/19 05/29/21 05/26/21 History release (Adult Low Dose Aspirin) cholecalciferol (vitamin D3) 25 25 mcg PO DAILY 12/21/19 05/29/21 Unknown History mcg (1,000 unit) capsule dexlansoprazole 60 mg 60 mg PO DAILY 12/21/19 05/29/21 06/02/21 08:30 History capsule,biphase delayed release (Dexilant) escitalopram oxalate 10 mg tablet 10 mg PO DAILY 12/21/19 05/29/21 Unknown History fluticasone 100 mcg-salmeterol 50 1 ea PO BID 12/21/19 05/29/21 06/02/21 08:30 History mcg/dose blistr powdr for inhalation fluticasone propionate 50 1 spray INTRANASAL DAILY 12/21/19 05/29/21 Unknown History mcg/actuation nasal spray,suspension (Flonase Allergy Relief) linaclotide 290 mcg capsule 290 mcg PO DAILY 12/21/19 05/29/21 Unknown History (Linzess) Exam Airway Mallampati Class: III TM Dist: >3cm Neck ROM: Full Heart: RRR Lungs: CTA Assessment and Plan Final Anesthetic Review ASA Class: III Final Preanesthetic Review: No Changes in Pt Med Stat, Meds/Allgs Chart Reviewed, Consent Obtained/Reviewed and Anes Risks/Benef Reviewed Patient Risk: Intermediate Procedure Risk: Low Anesthetic Plan Anesthetic Plan: GA
--- NOTE | ~2021-06-02 | FL_ITS ---
EXAMINATION: XR FLUOROSCOPY WITH IMAGES CLINICAL INFORMATION: Cervical spine stimulator implant. COMPARISON: None. TECHNIQUE: Fluoroscopy performed by Dr. Kennedy Sparks Fluoroscopy time: 10 minutes DAP: 26.5 mGycm2 Images: 2 FINDINGS: There are 2 upper cervical images obtained revealing 2 cervical stimulator implants positioned posterior to C2 through C6-C7 disc levels. Visualized bones are grossly unremarkable. There is a lower anterior vertebral body fusion which is not fully included on the AP image. FL/FL guidance in OR IMPRESSION: Fluoroscopy guidance was provided to referring physician for cervical simulator implants.
[2021-06-02 10:23] VITALS: BP 137/74; PULSE 92; RESP 16; TEMP 36.3; O2SAT 97
[2021-06-02] MEDS: Lactated Ringers 1,000 ML 100 ML IVCONT (10:31)
--- NOTE | 2021-06-02 12:07 | MHC.SHP ---
Pre-Procedural Eval Section A Date of Service: 06/02/21 The patient is an INPATIENT: No Changes since office visit: Yes Cold of Flu in the past 2 weeks and Yes Patient answered all questions The History & Physical has been completed within 30 days and I have reviewed it.: No Section B Chief Complaint: Postlaminectomy syndrome Details of Present Illness: as above Relevant Family History (Specify if Yes): No Relevant Social History: None Medical History: No relevant PMH History of Previous Operations: No relevant previous surgery Allergies: Allergies Allergy/AdvReac Type Severity Reaction Status Date / Time topiramate [From TOPAMAX] Allergy Severe SWELLING Verified 06/02/21 10:11 barium sulfate AdvReac Intermediate changes in Verified 06/02/21 10:11 behavior hydrocodone AdvReac Intermediate Nausea Verified 06/02/21 10:11 metronidazole [Flagyl] AdvReac Intermediate TOBACCO WRAPPING MACHINE TENDER, N/V Verified 06/02/21 10:11 morphine [MORPHINE] AdvReac Intermediate HEADACHE Verified 06/02/21 10:11 Penicillins AdvReac Intermediate Vomiting Verified 06/02/21 10:11 trazodone AdvReac Intermediate Palpitation Verified 06/02/21 10:11 s varenicline [From Chantix] AdvReac Mild changes in Verified 06/02/21 10:11 behavior Review of Systems Sugical H&P ROS: Negative: Constitution, Cardiovascular, Respiratory, Neurological, Psychiatric, Hem-Onc, Allergic/Immunologic, Gastrointestinal, Genitourinary, Musculoskeletal, Integumentary, Endocrine and Eyes/Ears/Nose/Throat Exam Surgical H&P Exam: Normal: HEENT, Normal: Heart, Normal: Lungs, Normal: Extremities, Normal: Abdomen, Normal: Skin and Normal: Neurological Plan Diagnosis/Plan: Unchanged I have reviewed the history and physical and performed a pertinent physical examination on my patient. No changes have occurred unless specified.
--- NOTE | 2021-06-02 12:08 | W.PM.OPN ---
Operative Note Operative Note Date of Service: 04/27/21 Narrative: Oriana is very pleasant 60 years old female who came today into the operating room for trial of spinal cord stimulator for the treatment of post laminectomy syndrome. Preoperatively patient receive clindamycin 900 mgg IV approximately 30 minutes before the procedure. After obtaining informed consent the patient was brought to the operating room, SHE was positioned supine on the stretcher, [place] [employer] monitors were applied a general anesthesia of was administered with endotracheal intubation?. After that patient was repositioned prone on the operating table, all pressure points were protected. ?Time-out was performed delineating correct site, side, the nature of the procedure, patient's allergy, preoperative antibiotic if needed.? All operating room staff was participating in OR time-out procedure. Patient's entire back was prepped withChloraprep twice and draped with full body fenestrated laparoscopy drape including ioban film.? Sterilely draped C-arm was brought over operating field and square picture of the T6 -T7 -M4lfblpyce as were demonstrated on the screen.? location of the epidural paddle at the T9-T10 posterior epidural space of previously inserted spinal cord stimulator [employer] was noted on the screen. Location of the T6- T7 T8 spinous processes was injected with Local local anesthetic mixture lidocaine 2% and bupivacaine 0.5%. Strict midline 8 cm incision using scalpel 10 blade was made the projections of the spinous processes T6-T7 T8. thorough hemostasis was obtained using bipolar Bovie device and prevertebral fascia was freed from overlying tissues. Attention FIRST? was concentrated on the T5-T6 epidural interspace.? The location of the projection of the right pedicle center of the T7 vertebra was found on the skin using C-arm.? This location was injected with mixture of lidocaine 2% and Marcaine 0.5% 5 cc.?? 10 cm 14 gauge? introducer epidural needle was inserted through the juanis and advanced to? T5-T6 epidural interspace.? The advancement of the needle was performed on anterior posterior and lateral views.? Guitar wire and loss of resistance technique were used to locate epidural space.? When guitar wire was spread in the epidural fashion, epidural lead was inserted through the needle and it was advanced to bottom of C2 level in the posterior epidural space.. After that the location of the projection of the LEFT pedicle center of the T7 vertebra was foundusing C-arm.? This location was injected with mixture of lidocaine 2% and Marcaine 0.5% 5 cc.?.? 10 cm 14 gauge introducer epidural needle was inserted through the juanis and advanced to T5-T6 epidural interspace.? The advancement of the needle was performed on anterior posterior and lateral views.? Guitar wire and loss of resistance technique were used to locate epidural space.? When guitar wire was spread in the epidural fashion, epidural lead was inserted through the needle and advanced to the adenoid process of C2 projection in the posterior epidural space slightly right to the existing electrode. left to the existing electrode. The needles were withdrawn, the stylette wires were removed from the epidural leads.? The anchoring devices were dislodged on the leads and advanced to the level of the Prevertebral fascia? The anchoring devices were sutured with two 0-0 Tycron suture per each anchor to the skin of the patient. The central fixation screw of each anchor was rotated until three clicks were heard. thorough irrigation of the wound was performed and wound was packed with vancomycin soaked? 4 x 4. then attention was concentrated on the posterior flank were loin of the patient on the right were the decision was made to implant the battery. Preoperatively patient had intention to implant the battery on the left side however this specification of the Nevro battery stipulated that it should be 20 cm or more away from any other device. Because the patient had Medtronic spinal cord stimulator battery packed on the left side in the upper left buttock I had no other choice but implant the battery on the right side. 2 cm below the lowest point of the right rib horizontal incison was made 6.5 cm long using 10 blade scalpel hemostasis was performed using bipolar bovie. Using sharp and dull dissection pocket for the battery was formed in caudad direction from the incision. After that the wound pocket was ringing that we is vancomycin containing normal saline and tunneling device was used to connect midline incision and flank incision. The epidural leads were dislodged from midline incision to the flank incision through the tunneling device. After that they were connected to the Nevro HF 10 battery and H of 10 battery was connected with testing device. Impedance was found sides factory. Anchoring screws were fix on the back of the battery. Tycron of 1 0 sutures were applied to the superior lateral and superior medial corners of the upper portion of the pocket wound and after that the anchoring sutures were connected to the orifices on the battery. Electrodes were gathered behind the body of the battery and battery was dislodged into under skin pocket. The sutures were tied and regain omalley was repeated. After that 0 Vicryl sutures were used to close the both wounds and the2/o polisorb sutures were used to apptoximate the level of the skin , Joshua were applied to the skin and bacitracin ointment was applied to the staple lines. The sterile dressing comprised of several 4x4 for each wound was affixed to the skin usin medipore tape. The patient was transfered supine on the stretcher, awaken, extubated and transferred stable to the PACU.
--- NOTE | 2021-06-02 15:52 | PM.OP ---
Brief Operative Note Date of Service: 06/02/21 Pre-op diagnosis: Postlaminectomy syndrome cervical Procedure: implantation of cervical spinal cord stimulator Nevro Implants: omnia spinal cord stimulator battery and cervical epidural electrodes arrays x2 Surgeon: Kennedy Hennessy MD Anesthesia: GETA Was an Adding Machine Servicer used for this Procedure?: No Estimated blood loss (mL): 12 Pathology: none sent Condition: stable Disposition: PACU
[2021-06-02 15:55] VITALS: BP 130/70; PULSE 95; RESP 18; TEMP 36.2; O2SAT 99
[2021-06-02 16:00] VITALS: BP 141/78; PULSE 91; RESP 15; O2SAT 99
[2021-06-02 16:05] VITALS: BP 146/90; PULSE 91; RESP 16; O2SAT 100
[2021-06-02 16:10] VITALS: BP 143/88; PULSE 88; RESP 18; O2SAT 98
[2021-06-02 16:25] VITALS: BP 148/80; PULSE 83; RESP 18; TEMP 36.3; O2SAT 98
== END 2021-06-02 17:00 | disposition home or self-care (01) ==
PROVIDERS: PCP Internal Medicine; Visit Provider Anesthesiology
PROC: (CPT 63685; principal; 2021-06-02 11:30)
DX: M96.1 Postlaminectomy syndrome, not elsewhere classified (principal); G89.4 Chronic pain syndrome; M54.2 Cervicalgia; M54.50 Low back pain, unspecified; M47.27 Other spondylosis with radiculopathy, lumbosacral region; M47.812 Spondylosis without myelopathy or radiculopathy, cervical region; Z98.1 Arthrodesis status; I10 Essential (primary) hypertension; J44.9 Chronic obstructive pulmonary disease, unspecified; F32.9 Major depressive disorder, single episode, unspecified; E55.9 Vitamin D deficiency, unspecified; Z86.718 Personal history of other venous thrombosis and embolism; Z88.0 Allergy status to penicillin; Z88.8 Allergy status to other drugs, medicaments and biological substances; F17.210 Nicotine dependence, cigarettes, uncomplicated
CPT/HCPCS: 63685; 63650 ×2; C1713; C1778; C1787; C1816; J1100; J2250; J2370; J2405; J3010; J3370

== ENCOUNTER → 2021-06-08 09:09 | Outpatient (BNVA) | payer MEDICARE, MEDICAID, SELFPAY | PROVIDERS: PCP Internal Medicine; Visit Provider Anesthesiology | DX: M96.1 Postlaminectomy syndrome, not elsewhere classified (principal); M47.27 Other spondylosis with radiculopathy, lumbosacral region; M54.2 Cervicalgia; M47.812 Spondylosis without myelopathy or radiculopathy, cervical region; G89.4 Chronic pain syndrome | CPT/HCPCS: 99212 ==

== ENCOUNTER → 2021-06-15 08:58 | Outpatient (BNVA) | payer MEDICARE, MEDICAID, SELFPAY | PROVIDERS: PCP Internal Medicine; Visit Provider Anesthesiology | DX: M96.1 Postlaminectomy syndrome, not elsewhere classified (principal); M47.27 Other spondylosis with radiculopathy, lumbosacral region; M54.2 Cervicalgia; M47.812 Spondylosis without myelopathy or radiculopathy, cervical region; G89.4 Chronic pain syndrome | CPT/HCPCS: 99212 ==

== ENCOUNTER → 2021-06-19 10:15 | Outpatient (BNVA) | payer MEDICARE, MEDICAID, SELFPAY | PROVIDERS: PCP Internal Medicine; Visit Provider Orthopaedic Surgery | DX: M25.562 Pain in left knee (principal) | CPT/HCPCS: 99212 ==

== ENCOUNTER 2021-08-10 11:51 | Outpatient (REF) | payer MEDICARE, MEDICAID, SELFPAY ==
--- NOTE | ~2021-08-10 | XR_ITS ---
EXAMINATION: KNEE X-RAY CLINICAL INFORMATION: Pain COMPARISON: Previous x-ray August 2019 TECHNIQUE: Standing AP view of both knees and lateral and sunrise view of the left knee FINDINGS: Left: Bone alignment is normal. No fracture or dislocation is seen. There is mild arthritis at the patellofemoral joint. There is a small osteophyte at the quadriceps tendon insertion to the patella. Standing AP view of the right knee is unremarkable. XR/XR knee standing BI IMPRESSION: Left: Degenerative changes at the patellofemoral joint.
--- NOTE | ~2021-08-10 | XR_ITS ---
EXAMINATION: KNEE X-RAY CLINICAL INFORMATION: Pain COMPARISON: Previous x-ray August 2019 TECHNIQUE: Standing AP view of both knees and lateral and sunrise view of the left knee FINDINGS: Left: Bone alignment is normal. No fracture or dislocation is seen. There is mild arthritis at the patellofemoral joint. There is a small osteophyte at the quadriceps tendon insertion to the patella. Standing AP view of the right knee is unremarkable. XR/XR knee LT 2V IMPRESSION: Left: Degenerative changes at the patellofemoral joint.
== END 2021-08-10 11:52 | disposition home or self-care (01) ==
LOC: HO.HOSX 11:51
PROVIDERS: PCP Internal Medicine; Visit Provider Orthopaedic Surgery
DX: M17.12 Unilateral primary osteoarthritis, left knee (principal)
CPT/HCPCS: 20610; 73560; 73565; 99212; J1100

== ENCOUNTER 2021-10-03 13:38 | Outpatient (REF) | payer MEDICARE, MEDICAID, SELFPAY ==
--- NOTE | ~2021-10-03 | MM_ITS ---
EXAMINATION: MM SCREENING DIGITAL BREAST TOMOSYNTHESIS, BILATERAL CLINICAL INFORMATION: Screening. Asymptomatic. The lifetime risk of breast cancer based on the Tyrer-Cuzick Model is 8.3%. COMPARISON: Mammography: 08/30/2020 and studies dating back to 12/02/2015. TECHNIQUE: Digital breast tomosynthesis is performed in both the craniocaudal and mediolateral oblique views along with computer-aided detection (CAD). Synthesized 2D images are generated from the tomosynthesis. FINDINGS: There are scattered areas of fibroglandular density (ACR BI-RADS breast composition Category b). A stable density is seen about the right breast which was shown to represent a simple cyst on previous study. Within the inferior medial aspect of the left breast there is a circumscribed 5 mm density without calcifications lying approximately 6 cm from the nipple. Targeted left breast ultrasound is recommended. MM/MM tomosynthesis screening BI IMPRESSION: Left breast density inferior medial aspect for which ultrasound is recommended. ASSESSMENT: BI-RADS 0: Incomplete - Need Additional Imaging Evaluation RECOMMENDATION: Targeted ultrasound if warranted after review of the additional views. Radiology department staff will contact the patient for additional imaging. This patient's information was entered into a reminder system with a target due date for their next mammogram.
== END 2021-10-03 13:39 | disposition home or self-care (01) ==
LOC: HO.MAMMO 13:38
PROVIDERS: PCP Internal Medicine; Visit Provider Internal Medicine
DX: Z12.31 Encounter for screening mammogram for malignant neoplasm of breast (principal)
CPT/HCPCS: 77063; 77067

== ENCOUNTER 2021-10-06 14:02 | Outpatient (REF) | payer MEDICARE, MEDICAID, SELFPAY ==
--- NOTE | ~2021-10-06 | US_ITS ---
EXAMINATION: US DIAGNOSTIC ULTRASOUND BREAST, LEFT CLINICAL INFORMATION: Recall from screening for circumscribed nodule lower inner left breast. COMPARISON: Mammography 10/03/2021, 08/23/2020. TECHNIQUE: Ultrasound left breast is targeted to the lower inner quadrant using grayscale imaging and color Doppler without and with harmonics. FINDINGS: There is a complicated circumscribed cyst 7:00 position 7 cm from nipple measuring 4 x 5 mm in diameter with increased through-transmission of sound. There is a solitary avascular mural nodular component under 2 mm for which follow-up ultrasound in 6 months will be recommended. Remainder of the area interrogated shows no cystic or solid mass or architectural abnormality. Results are discussed with the patient at time of visit. US/US breast LT limited IMPRESSION: Complicated circumscribed cyst 4 x 5 mm lower inner quadrant corresponding to finding on mammography. ASSESSMENT: BI-RADS 3: Probably Benign RECOMMENDATION: Targeted left breast ultrasound in 6 months. This patient's information was entered into a reminder system with a target due date for their next breast imaging.
== END 2021-10-06 14:03 | disposition home or self-care (01) ==
LOC: HO.MAMMO 14:02
PROVIDERS: Visit Provider Internal Medicine
DX: R92.2 Inconclusive mammogram (principal)
CPT/HCPCS: 76642

== ENCOUNTER → 2021-10-26 14:15 | Outpatient (BNVA) | payer MEDICARE, MEDICAID, SELFPAY | PROVIDERS: PCP Internal Medicine; Visit Provider Internal Medicine | DX: J44.9 Chronic obstructive pulmonary disease, unspecified (principal); J30.9 Allergic rhinitis, unspecified; Z79.899 Other long term (current) drug therapy; Z79.891 Long term (current) use of opiate analgesic; F17.210 Nicotine dependence, cigarettes, uncomplicated; Z71.6 Tobacco abuse counseling | CPT/HCPCS: 99212 ==

== ENCOUNTER 2021-12-06 10:49 | Outpatient (REF) | payer MEDICARE, MEDICAID, SELFPAY ==
[2021-12-06 10:57] LABS: MANUAL DIFF FLAG NO
[2021-12-06 11:41] LABS: Basophils Absolute Auto 0.1 X10*3/uL (0.0-0.2); Basophils Percent Auto 0.7 % (0-2); Eosinophils Absolute Auto 0.4 X10*3/uL (0.0-0.4); Hematocrit 44.7 % (37.0-47.0); Hemoglobin 14.5 g/dl (12.0-16.0); Imm Gran Abs Auto 0.04 X10*3/uL (0.00-0.03); Imm Gran Pct Auto 0.3 % (0.0-0.4); Lymphocytes Absolute Auto 4.7 X10*3/uL (1.2-4.9); Lymphocytes Percent Auto 37.4 % (20-40); Mean Corpuscular HGB Conc 32.4 g/dl (31.0-35.0); Mean Corpuscular Hemoglobin 30.5 pg (27.0-33.0); Mean Corpuscular Volume 94.1 fL (80.0-98.0); Monocytes Absolute Auto 0.9 X10*3/uL (0.1-1.2); Monocytes Percent Auto 7.4 % (2-11); Neutrophils Absolute Auto 6.4 x10*3/uL (2.0-8.3); Neutrophils Percent Auto 51.2 % (45-73); Platelet Count 272 X10*3/uL (160-400); Red Blood Count 4.75 X10*6/uL (4.20-5.50); Red Cell Distribution Width 13.5 % (11.0-16.0); White Blood Count 12.5 X10*3/uL (4.8-10.8)
[2021-12-06 12:05] LABS: Alanine Aminotransferase 14 U/L (0-31); Alkaline Phosphatase 134 U/L (39-117); Anion Gap 19 (12-20); Aspartate Amino Transferase 13 U/L (5-31); Bilirubin Total 0.3 mg/dL (0.0-1.0); Blood Urea Nitrogen 8 mg/dL (9-16); Calcium 9.1 mg/dL (8.4-10.2); Carbon Dioxide 19 mmol/L (22-29); Chloride 107 mmol/L (96-108); Cholesterol 187 mg/dL; Estimated Glomerular Filt Rate > 60; Glucose Fasting 102 mg/dL (60-99); HDL Cholesterol 24 mg/dL; Potassium 4.5 mmol/L (3.3-5.1); Sodium 140 mmol/L (135-145); Total Protein 7.1 g/dL (6.5-8.0); Triglycerides 422 mg/dL
[2021-12-06 12:27] LABS: Vitamin D 25-OH Total 28.8 ng/mL (>30)
== END 2021-12-06 10:50 | disposition home or self-care (01) ==
LOC: HO.LAB 10:49
PROVIDERS: PCP Internal Medicine; Visit Provider Internal Medicine
DX: E55.9 Vitamin D deficiency, unspecified (principal); J44.9 Chronic obstructive pulmonary disease, unspecified; E78.5 Hyperlipidemia, unspecified
CPT/HCPCS: 36415; 80053; 80061; 82306; 85025

== ENCOUNTER → 2021-12-07 10:19 | Outpatient (REF) | payer MEDICARE, MEDICAID, SELFPAY ==
--- NOTE | 2021-12-07 10:23 | ECG_ITS ---
Test Reason : preop Blood Pressure : / mmHG Vent. Rate : 099 BPM Atrial Rate : 099 BPM P-R Int : 170 ms QRS Dur : 074 ms QT Int : 314 ms P-R-T Axes : 055 016 043 degrees QTc Int : 402 ms Normal sinus rhythm Normal ECG When compared with ECG of 03-MAR-2016 16:16, Criteria for Inferior infarct are no longer Present Heart rate has decreased Referred By: Chrissy Gao Electronically Signed By:CLEVE GUTIERREZ
== END ==
LOC: HO.CARD 10:19
PROVIDERS: Visit Provider Internal Medicine
DX: Z01.818 Encounter for other preprocedural examination (principal)
CPT/HCPCS: 93005

== ENCOUNTER 2021-12-21 12:52 | Outpatient (REF) | payer MEDICARE, MEDICAID, SELFPAY ==
--- NOTE | ~2021-12-21 | XR_ITS ---
EXAMINATION: XR SACRUM AND COCCYX CLINICAL INFORMATION: Sacrococcygeal disorder. COMPARISON: None TECHNIQUE: 2 views of the sacrum and 2 views of the coccyx were obtained. FINDINGS: There is L5-S1 cages for disc fusion. The SI joints are symmetrical and normal. No visible acute fracture or bony abnormality seen. No lytic or sclerotic process seen. XR/XR sacrum coccyx min 2V IMPRESSION: 1. Unremarkable sacrum and coccyx exam. 2. L5-S1 disc fusion with cages in place.
== END 2021-12-21 12:53 | disposition home or self-care (01) ==
LOC: HO.XRAY 12:52
PROVIDERS: PCP Internal Medicine; Visit Provider Internal Medicine
DX: M53.3 Sacrococcygeal disorders, not elsewhere classified (principal)
CPT/HCPCS: 72220

== ENCOUNTER 2022-01-26 12:42 | Emergency (ER) | payer MEDICARE, MEDICAID, SELFPAY ==
--- NOTE | ~2022-01-26 | XR_ITS ---
EXAMINATION: XR CHEST CLINICAL INFORMATION: Shortness of breath and wheezing COMPARISON: None TECHNIQUE: 2 views of the chest were obtained. FINDINGS: Lungs clear. No pleural effusions. Heart and pulmonary vessels are normal. Pain modulation device overlies the dorsal spine. There is postsurgical change in the C-spine. XR/XR chest 2V IMPRESSION: No active disease
[2022-01-26 12:50] VITALS: BP 134/83; PULSE 105; RESP 22; TEMP 36.5; O2SAT 98; BMI 29.0
--- NOTE | 2022-01-26 13:48 | ED.SOB ---
HPI - SOB/Dyspnea General Chief Complaint: Dyspnea Stated Complaint: asthma Time Seen by Provider: 01/26/22 12:55 Source: patient Mode of arrival: ambulatory Limitations: no limitations History of Present Illness HPI Narrative: Oriana is a 61-year-old female with a pertinent medical history of COPD, asthma, allergic rhinitis, and hypertension who presents to the emergency department today with chief complaint of 2 days of shortness of breath, chest tightness, wheezing and cough. She says her symptoms the past 2 days have been constant. She typically uses Advair and montelukast once a day and albuterol as needed. For the last couple days she has been using the Advair twice a day with no relief. Nothing appears to make her symptoms better. She has been treated in the hospital before for similar symptoms. She sources shortness of breath, coughing, fatigue,and lack of appetite. She is coughing clear phlegm only and reports chest tightness due to her cough. She additionally reports feeling hot, as well as one episode of diarrhea 2 days ago which resolved. She denies chills, headache, sore throat, chest pain, nausea, vomiting, constipation or difficulty urinating. She does admit to smoking 12-13 cigarettes per day. MD elicited complaint: shortness of breath and cough Pertinent past history: COPD and asthma Onset (ago): day(s) (2) Timing: constant Severity: moderate Exacerbating factors: stress and smoke Relieving factors: nothing Known history of: COPD and asthma Associated symptoms: cough and wheezing Related Data Home Medications Medication Instructions Recorded Confirmed aspirin 81 mg tablet,delayed 81 mg PO DAILY 12/21/19 12/20/21 release (Adult Low Dose Aspirin) escitalopram oxalate 10 mg tablet 10 mg PO DAILY 12/21/19 12/20/21 fluticasone 100 mcg-salmeterol 50 1 ea PO BID 12/21/19 12/20/21 mcg/dose blistr powdr for inhalation fluticasone propionate 50 1 spray intranasal DAILY 12/21/19 12/20/21 mcg/actuation nasal spray,suspension (Flonase Allergy Relief) Previous Rx's Medication Instructions Recorded albuterol sulfate 2.5 mg/3 mL 2.5 mg (3 mL) inhalation TID #90 mL 08/19/20 (0.083 %) solution for nebulization tizanidine 2 mg tablet 2 mg PO BEDTIME #30 tabs 09/28/20 montelukast 10 mg tablet 10 mg PO DAILY #30 tabs 10/11/20 lisinopril 20 mg tablet 20 mg PO DAILY #90 tabs 06/10/21 albuterol sulfate 90 mcg/actuation 2 puff PO Q4H PRN bronchospasm #54 09/18/21 aerosol inhaler grams diphenhydramine HCl 25 mg tablet 25 mg PO BEDTIME PRN sleep 90 days 09/26/21 (Allergy (diphenhydramine)) #90 tabs montelukast 10 mg tablet 10 mg PO DAILY #30 tabs 10/26/21 Advair Diskus 100 mcg-50 mcg/dose 2 ea PO BID for asthma #60 ea 11/27/21 powder for inhalation (fluticasone propion-salmeterol) cholecalciferol (vitamin D3) 25 25 mcg PO DAILY 90 days #90 caps 12/06/21 mcg (1,000 unit) capsule dexlansoprazole 60 mg 60 mg PO DAILY 90 days #90 caps 12/06/21 capsule,biphase delayed release (Dexilant) linaclotide 290 mcg capsule 290 mcg PO DAILY 90 days #90 caps 12/06/21 (Linzess) fenofibrate 160 mg tablet 160 mg PO DAILY 90 days #90 tabs 12/20/21 oxycodone 10 mg tablet 10 mg PO Q6H PRN pain 30 days #120 12/26/21 tabs prednisone 20 mg tablet 60 mg PO DAILY 5 days #15 tabs 01/26/22 Allergies Allergy/AdvReac Type Severity Reaction Status Date / Time topiramate [From TOPAMAX] Allergy Severe SWELLING Verified 01/26/22 12:53 barium sulfate AdvReac Intermediate changes in Verified 01/26/22 12:53 behavior hydrocodone AdvReac Intermediate Nausea Verified 01/26/22 12:53 metronidazole [Flagyl] AdvReac Intermediate PRODUCTION MANAGER, N/V Verified 01/26/22 12:53 morphine [MORPHINE] AdvReac Intermediate HEADACHE Verified 01/26/22 12:53 Penicillins AdvReac Intermediate Vomiting Verified 01/26/22 12:53 trazodone AdvReac Intermediate Palpitation Verified 01/26/22 12:53 s varenicline [From Chantix] AdvReac Mild changes in Verified 01/26/22 12:53 behavior Review of Systems Review of Systems: Yes all other systems are reviewed and are negative Constitutional: Constitutional: Reports chills and Reports fatigue Cardiovascular: Cardiovascular: Reports dyspnea Respiratory: Respiratory: Reports cough, Reports dyspnea and Reports wheezing (Bilateral) Endocrine: Endocrine: Reports fatigue Allergic/Immunologic: Allergic/Immunologic: Reports wheezing (Bilateral) [facility] Past Medical History [facility] Narrative: Past medical history: COPD, asthma, allergic rhinitis, hypertension Surgical history: 8 back surgery since last one in July of 2021, cholecystectomy 2003 Social: Smokes 12-13 cigarettes per day, denies alcohol, denies recreational drug Medical History Allergic rhinitis Anterior knee pain Asthma Chronic pain syndrome Constipation due to opioid therapy COPD (chronic obstructive pulmonary disease) COPD exacerbation Cough Depression with anxiety Essential hypertension GERD (gastroesophageal reflux disease) History of DVT (deep vein thrombosis) Hypovitaminosis D Lumbar degenerative disc disease Migraines Osteoarthritis of right hip Postlaminectomy syndrome, cervical Sacroiliitis Smoker Spondylosis, cervical Status post insertion of nerve stimulator Surgical History H/O colonoscopy History of abdominal hernia History of arthroscopy of both knees History of back surgery History of carpal tunnel surgery of left wrist History of carpal tunnel surgery of right wrist History of cholecystectomy History of esophagogastroduodenoscopy (EGD) History of hemicolectomy History of incisional hernia repair Hx of appendectomy Hx of fusion of cervical spine Hx of spinal fusion S/P YRN (total abdominal hysterectomy) Family History Family History Father Diabetes Mother Diabetes Hypertension Sister Diabetes Breast cancer Maternal Uncle Prostate cancer Social History Social History Housing: Apartment Alcohol intake: never Patient Tobacco Use Status: Current everyday Tobacco user Tobacco use type: Cigarette Cigarette Packs Per Day: 0.5 Cigarettes Per Day: 10 e-Cigarette/Vaping Use: Never Used Second Hand Smoke Exposure: No Advance Directives: Yes Advance Directives Information Provided: Yes Advance Directives on File: No service: No Current occupational status: disabled Cognitive needs: No Hearing needs: No Vision needs: No Physical Exam Vital Signs: Vital Signs: Last Vital Signs Temp 98.1 F 01/26/22 14:07 Pulse 100 01/26/22 15:06 Resp 18 01/26/22 15:06 BP 117/77 01/26/22 14:07 Pulse Ox 98 01/26/22 14:07 O2 Del Method 01/26/22 14:07 BMI result Body Mass Index 29.0 Const: General: cooperative, alert and awake Orientation/consciousness: oriented to person and oriented to place Limitations: no limitations HEENT: Head: Yes normal to inspection, Yes normocephalic and Yes atraumatic Ears: external ears normal General nose exam: Normal external nose present Face and sinus: Yes normal facial exam Mouth: Normal oral and palatal mucosa present Throat: Yes posterior oropharynx normal Eyes: General: appearance normal, both eyes and all related structures Pupils: Equal, round and reactive pupils present Neck: Neck: Yes normal visual inspection, Yes no lymphadenopathy, Yes trachea midline and Yes supple Chest: Chest palpation & inspection: normal inspection of the chest Resp: Effort & Inspection: able to speak in complete sentences, audible wheezes and Actively coughing Auscultation: wheezes Cardio: Rate: regular rate Rhythm: regular rhythm Heart sounds: S1 normal heart sound present, S2 normal heart sound present and no murmurs GI: Inspection: Yes normal to inspection Palpation (GI): Soft to palpation, nontender and no guarding Auscultation: normal bowel sounds : General: Yes no CVA tenderness Back/Spine/Pelvis: Back: no CVA tenderness Skin: General skin exam: no rashes or lesions noted Neuro: General: oriented to person and oriented to place Cranial nerves: Yes CN's II-XII intact bilaterally and Yes Equal, round and reactive pupils present Cognition (Neuro): normal cognition Motor exam (neuro): 5/5 motor strength present throughout Extrem: General: Yes normal to inspection Psych: Appearance: grossly normal Speech and movement: Normal speech and movement present Affect: normal affect Attitude: cooperative Thought process: Normal thought process present Thought content: Normal thought content present Course Course Course Narrative: Oriana is a 61-year-old female patient with a pertinent past medical history of COPD and asthma who presented to the emergency department today complaining of 2 days of shortness of breath. Based on her HPI and physical exam, as well as a negative chest x-ray and negative COVID and flu, it is likely her since symptoms are consistent with an exacerbation of her asthma. She was treated with a prednisone 60 mg orally and albuterol inhaler 6 puffs via spacer. Included discharge her home and I encouraged her to continue her at-home medications. Given her 60 mg of prednisone once a day for 5 days. Medications Administered Discontinued Medications Generic Name Dose Route Start Last Admin Trade Name [place] PRN Reason Stop Dose Admin Albuterol Sulfate 6 puff 01/26/22 13:36 01/26/22 15:04 Albuterol Sulfate 90 Mcg 8 Gm Inhaler INHALE 01/26/22 13:37 6 puff ONCE ONE Administration Prednisone 60 mg 01/26/22 13:36 01/26/22 13:52 Prednisone 20 Mg Tablet PO 01/26/22 13:37 60 mg ONCE STA Administration MDM - SOB/Dyspnea Lab Data Labs: Lab Results 01/26/22 01/26/22 Range/Units 13:51 13:51 COVID-19 (BELTRAN) Negative (Negative) COVID-19 Clin Com See Note Influenza Type A (DIMPLE) Negative (Negative) Influenza Type B (DIMPLE) Negative (Negative) Influenza A & B Note See Note Discharge Plan Discharge Clinical Impression: Asthma exacerbation with COPD (chronic obstructive pulmonary disease) Patient Disposition: Home, Self-Care Instructions: Asthma (ED) Additional Instructions: Based on your physical exam, x-ray, and labs, your symptoms are consistent with an exacerbation of your asthma and COPD. Your x-ray, COVID, and influenza tests were all normal. Take prednisone 60 mg every day for for 5 days. Consult continue the Advair twice a day as prescribed if you short of breath use the albuterol 2 puffs every 4 hours as needed. Follow-up with your doctor in 2 days. Please return to the emergency department if your symptoms get worse or if you develop any symptoms that are concerning to you. Prescriptions: New prednisone 20 mg tablet 60 mg PO DAILY 5 Days Qty: 15 0RF No Action albuterol sulfate 2.5 mg /3 mL (0.083 %) solution for nebulization 2.5 mg inhalation TID Qty: 90 0RF montelukast 10 mg tablet 10 mg PO DAILY Qty: 30 3RF lisinopril 20 mg tablet 20 mg PO DAILY Qty: 90 3RF albuterol sulfate 90 mcg/actuation HFA aerosol inhaler 2 puff PO Q4H PRN (Reason: bronchospasm) Qty: 54 3RF fluticasone propion-salmeterol [Advair Diskus] 100-50 mcg/dose blister with device 2 ea PO BID Qty: 60 0RF oxycodone 10 mg tablet 10 mg PO Q6H PRN (Reason: pain) 30 Days Qty: 120 0RF aspirin [Adult Low Dose Aspirin] 81 mg tablet,delayed release (DR/EC) 81 mg PO DAILY fluticasone propionate [Flonase Allergy Relief] 50 mcg/actuation spray,suspension 1 spray intranasal DAILY Rx Instructions: administer into each nostril escitalopram oxalate 10 mg tablet 10 mg PO DAILY fluticasone propion-salmeterol 100-50 mcg/dose blister with device 1 ea PO BID cholecalciferol (vitamin D3) 25 mcg (1,000 unit) capsule 25 mcg PO DAILY 90 Days Qty: 90 3RF Dexilant 60 mg capsule,biphase delayed releas 60 mg PO DAILY 90 Days Qty: 90 1RF Linzess 290 mcg capsule 290 mcg PO DAILY 90 Days Qty: 90 3RF diphenhydramine HCl [Allergy (diphenhydramine)] 25 mg tablet 25 mg PO BEDTIME PRN (Reason: sleep) 90 Days Qty: 90 0RF fenofibrate 160 mg tablet 160 mg PO DAILY 90 Days Qty: 90 1RF tizanidine 2 mg tablet 2 mg PO BEDTIME Qty: 30 0RF montelukast 10 mg tablet 10 mg PO DAILY Qty: 30 3RF
[2022-01-26] MEDS: predniSONE 20 MG TABLET 60 MG PO (13:52)
[2022-01-26 14:07] VITALS: BP 117/77; PULSE 83; RESP 20; TEMP 36.7; O2SAT 98
[2022-01-26 14:15] LABS: COVID-19 Test Negative (Negative); IDNOW Serial# 16C4AD1C; IDNOW Serial# BCCEAD1C; Influenza A Negative (Negative); Influenza B2 Negative (Negative)
[2022-01-26] MEDS: Albuterol Sulfate 90 MCG 8 GM INHALER 6 PUFF INHALE (15:04)
[2022-01-26 15:06] VITALS: PULSE 100; RESP 18; O2SAT 98
== END 2022-01-26 15:57 | disposition home or self-care (01) ==
PROVIDERS: Emergency Provider Emergency Medicine Emergency Medical Services; PCP Internal Medicine
DX: J44.1 Chronic obstructive pulmonary disease with (acute) exacerbation (principal); R06.02 Shortness of breath; Z20.822 Contact with and (suspected) exposure to COVID-19; Z79.899 Other long term (current) drug therapy
CPT/HCPCS: 71046; 87502; 87635; 94640; 99283; 99284

== ENCOUNTER 2022-04-06 13:45 | Outpatient (REF) | payer MEDICARE, MEDICAID, SELFPAY ==
--- NOTE | ~2022-04-06 | CT_ITS ---
EXAMINATION: CT CHEST SCREENING CLINICAL INFORMATION: Nicotine dependence COMPARISON: None. TECHNIQUE: Multidetector volumetric CT imaging of the chest is performed without contrast using low dose technique. Additional 2D coronal and sagittal reformatted images and axial 3D maximum intensity projection (MIP) images are generated on the CT workstation. This CT examination was performed using dose optimization techniques as appropriate, variously including the following: *Automated exposure control *Adjustment of mA and/or kV according to patient size (this includes techniques or standardized protocols for targeted exams where dose is matched to indication/reason for exam; i.e. extremities or head) *Use of iterative reconstruction technique DLP: 45 mGy-cm FINDINGS: LUNGS: The lungs are well-expanded and clear of acute pneumonic process. There is a 3 mm nodule left lower lobe laterally on axial image 33/4, 3 mm nodule along the right major fissure axial image 206/6, 1 mm punctate calcification right middle lobe axial image 31/4. No ground-glass density or atelectasis seen. MEDIASTINUM: Thyroid lobes are symmetrical and mildly enlarged. There is punctate calcification in the midpole right lobe. Mild mass effect and minimal indentation of trachea seen secondary to mild thyroid enlargement. No abnormal size mediastinal or hilar lymph nodes seen. There is no pericardial effusion. CORONARY ARTERY CALCIFICATION: None visualized on this study. PLEURA: There is no pleural effusion. No pleural mass or thickening. AXILLA: No lymphadenopathy. UPPER ABDOMEN: Visualized liver, spleen, pancreas and bilateral adrenal glands are unremarkable. OSSEOUS STRUCTURES: No aggressive lytic or sclerotic process seen. There is a low thoracic epidural electrode. CT/CT lung screening IMPRESSION: 1. Small nodules as described above. No acute pneumonic consolidation. 2. Mild thyroid enlargement with mass effect on trachea. ASSESSMENT: Lung-RADS category 2: Benign RECOMMENDATION: Low-dose annual CT chest
[2022-04-06 14:29] LABS: MANUAL DIFF FLAG NO
[2022-04-06 14:47] LABS: Basophils Absolute Auto 0.1 X10*3/uL (0.0-0.2); Basophils Percent Auto 0.6 % (0-2); Eosinophils Absolute Auto 0.3 X10*3/uL (0.0-0.4); Eosinophils Percent Auto 3.2 % (0-4); Hemoglobin 14.7 g/dl (12.0-16.0); Imm Gran Abs Auto 0.03 X10*3/uL (0.00-0.03); Imm Gran Pct Auto 0.3 % (0.0-0.4); Lymphocytes Percent Auto 38.2 % (20-40); Mean Corpuscular HGB Conc 33.4 g/dl (31.0-35.0); Mean Corpuscular Hemoglobin 30.2 pg (27.0-33.0); Mean Corpuscular Volume 90.5 fL (80.0-98.0); Mean Platelet Volume 9.1 fL (9.4-12.3); Monocytes Absolute Auto 0.7 X10*3/uL (0.1-1.2); Monocytes Percent Auto 6.4 % (2-11); Neutrophils Absolute Auto 5.4 x10*3/uL (2.0-8.3); Neutrophils Percent Auto 51.3 % (45-73); Platelet Count 293 X10*3/uL (160-400); Red Blood Count 4.86 X10*6/uL (4.20-5.50); Red Cell Distribution Width 13.2 % (11.0-16.0); White Blood Count 10.5 X10*3/uL (4.8-10.8)
[2022-04-06 15:12] LABS: Estimated Average Glucose 134 mg/dL; Hemoglobin A1c % 6.3 %
[2022-04-06 15:29] LABS: Alanine Aminotransferase 13 U/L (0-31); Albumin Level 4.1 g/dL (3.5-5.0); Alkaline Phosphatase 105 U/L (39-117); Anion Gap 13 (12-20); Aspartate Amino Transferase 12 U/L (5-31); Bilirubin Total 0.5 mg/dL (0.0-1.0); Blood Urea Nitrogen 12 mg/dL (9-16); Calcium 9.5 mg/dL (8.4-10.2); Carbon Dioxide 19 mmol/L (22-29); Chloride 107 mmol/L (96-108); Cholesterol 160 mg/dL; Estimated Glomerular Filt Rate > 60; Glucose Fasting 101 mg/dL (60-99); Glucose Random 101 mg/dL (60-115); HDL Cholesterol 34 mg/dL; LDL Cholesterol Calculated 96 mg/dl; Potassium 4.3 mmol/L (3.3-5.1); Sodium 135 mmol/L (135-145); Triglycerides 154 mg/dL
== END 2022-04-06 13:46 | disposition home or self-care (01) ==
LOC: HO.CT 13:45
PROVIDERS: Internal Medicine; Absent Provider Internal Medicine; PCP Internal Medicine; Visit Provider Physician Assistant Medical
DX: Z00.00 Encounter for general adult medical examination without abnormal findings (principal); Z12.2 Encounter for screening for malignant neoplasm of respiratory organs; F17.210 Nicotine dependence, cigarettes, uncomplicated; R73.01 Impaired fasting glucose; E78.00 Pure hypercholesterolemia, unspecified; E78.1 Pure hyperglyceridemia
CPT/HCPCS: 36415; 71271; 80053; 80061; 83036; 85025

== ENCOUNTER 2022-07-17 10:30 | Outpatient (REF) | payer MEDICARE, MEDICAID, SELFPAY ==
--- NOTE | ~2022-07-17 | US_ITS ---
EXAMINATION: US DIAGNOSTIC ULTRASOUND BREAST, LEFT CLINICAL INFORMATION: Short interval follow-up probable benign complicated circumscribed cyst 7:00 left breast. COMPARISON: Ultrasound left breast 10/06/2021, mammography 10/03/2021 TECHNIQUE: Ultrasound left breast is targeted to the lower breast using grayscale imaging and color Doppler without and with harmonics. FINDINGS: The circumscribed complicated cyst 7:00 position approximately 6 cm from nipple is similar in size measuring 5 x 4 mm. There is increased through-transmission of sound. Again, there is a tiny peripheral avascular mural nodule just under 2 mm. No increasing nodularity. No associated peripheral or internal color flow. Results are discussed with the patient at time of visit. Left nodule will be reassessed again with targeted ultrasound in 6 months. US/US breast LT limited IMPRESSION: -Benign-appearing small complicated cyst left breast, stable. ASSESSMENT: BI-RADS 3: Probably Benign RECOMMENDATION: Left breast ultrasound in 6 months. This patient's information was entered into a reminder system with a target due date for their next mammogram.
== END 2022-07-17 10:31 | disposition home or self-care (01) ==
LOC: HO.MAMMO 10:30
PROVIDERS: PCP Internal Medicine; Visit Provider Internal Medicine
DX: N60.02 Solitary cyst of left breast (principal)
CPT/HCPCS: 76642

== ENCOUNTER → 2022-07-20 10:30 | Outpatient (BNVA) | payer MEDICARE, MEDICAID, SELFPAY | PROVIDERS: PCP Internal Medicine; Visit Provider Orthopaedic Surgery | DX: M17.12 Unilateral primary osteoarthritis, left knee (principal) | CPT/HCPCS: 20610; 99212; J1100 ==

== ENCOUNTER → 2022-08-13 12:54 | Outpatient (BNVA) | payer MEDICARE, MEDICAID, SELFPAY | PROVIDERS: PCP Internal Medicine; Visit Provider Anesthesiology | DX: M96.1 Postlaminectomy syndrome, not elsewhere classified (principal); M47.27 Other spondylosis with radiculopathy, lumbosacral region; M54.2 Cervicalgia; M47.812 Spondylosis without myelopathy or radiculopathy, cervical region; G89.4 Chronic pain syndrome | CPT/HCPCS: 99212 ==

== ENCOUNTER 2022-10-18 11:20 | Outpatient (REF) | payer MEDICARE, MEDICAID, SELFPAY ==
--- NOTE | ~2022-10-18 | MM_ITS ---
EXAMINATION: MM SCREENING DIGITAL BREAST TOMOSYNTHESIS, BILATERAL CLINICAL INFORMATION: Screening. Asymptomatic. COMPARISON: Mammography: This study is compared with prior exams dating back to 2019. TECHNIQUE: Digital breast tomosynthesis is performed in both the craniocaudal and mediolateral oblique views along with computer-aided detection (CAD). Synthesized 2D images are generated from the tomosynthesis. FINDINGS: There are scattered areas of fibroglandular density (ACR BI-RADS breast composition Category b). There are no significant masses, abnormal calcifications, or other abnormalities. Mammographically, there has been no interval change of the focal asymmetry of the lower inner quadrant of the left breast found on prior ultrasounds to represent a minimally complicated, internally avascular, 5 mm cyst. MM/MM tomosynthesis screening BI IMPRESSION: No mammographic evidence of malignancy. Please note that the patient is due for a short interval follow-up ultrasound of the left breast in January 2023. This is in reference to the left lower inner quadrant focal asymmetry last evaluated with ultrasound and July 2022. Annual screening mammography is advised. ASSESSMENT: BI-RADS BI-RADS 2 - Benign Findings RECOMMENDATION: Routine annual mammography screening. 1-3 Months F/U This follow-up recommendation refers to the original recommendation from the July 2022 ultrasound report. This examination should not preclude the clinical evaluation of a suspicious palpable abnormality. This patient's information was entered into a reminder system with a target due date for their next mammogram.
== END 2022-10-18 11:21 | disposition home or self-care (01) ==
LOC: HO.MAMMO 11:20
PROVIDERS: PCP Internal Medicine; Visit Provider Internal Medicine
DX: Z12.31 Encounter for screening mammogram for malignant neoplasm of breast (principal)
CPT/HCPCS: 77063; 77067

== ENCOUNTER → 2022-10-18 12:00 | Outpatient (BNV) | payer MEDICARE, MEDICAID, SELFPAY | PROVIDERS: PCP Internal Medicine; Visit Provider Radiology Diagnostic Radiology | DX: Z12.31 Encounter for screening mammogram for malignant neoplasm of breast (principal) | CPT/HCPCS: 77063; 77067 ==

== ENCOUNTER 2022-11-01 13:04 | Outpatient (AMB) | payer MEDICARE, MEDICAID, SELFPAY ==
--- NOTE | 2022-11-01 13:13 | A.OFFVIS_ITS ---
Intake Vital Signs 11/01/22 13:14 Height 5 ft 3 in Weight 169 lb 12.095 oz BMI 30.1 BP 132/72 Blood Pressure Location Rt brachial Position Sitting Pulse 99 Pulse Source Pulse Oximeter Pulse Oximetry (%) 98 Oxygen Delivery Method Room Air Intake Visit Reasons: Asthma Allergies topiramate [From TOPAMAX] Allergy (Severe, Verified 11/01/22 13:15) SWELLING barium sulfate Adverse Reaction (Intermediate, Verified 11/01/22 13:15) changes in behavior hydrocodone Adverse Reaction (Intermediate, Verified 11/01/22 13:15) Nausea metronidazole [Flagyl] Adverse Reaction (Intermediate, Verified 11/01/22 13:15) 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 She has been traveling back and forth to [place] and during her travels her breathing gets worse sometime. She had a course of prednisone about 2 months ago, by herPCP. Which cleared her lungs . At present she denies much cough or shortness of breath. Unfortunately she is smoking back to 1 pack a day. , talked to her in detail and she would try to cut it down to . Less than half pack a day Last low-dose CT scan in March of this year was okay, Category 2 [facility] Medical History Allergic rhinitis Asthma Chronic pain syndrome Constipation due to opioid therapy COPD (chronic obstructive pulmonary disease) Cough Depression with anxiety Essential hypertension GERD (gastroesophageal reflux disease) History of colon polyps (~2012) History of DVT (deep vein thrombosis) Hypovitaminosis D Lumbar degenerative disc disease Migraines Nicotine dependence, cigarettes, uncomplicated Osteoarthritis of right hip Postlaminectomy syndrome, cervical Surgical History History of appendectomy (~1990) History of arthroscopy of both knees History of carpal tunnel surgery of left wrist History of carpal tunnel surgery of right wrist History of cholecystectomy (~2003) History of colonoscopy History of esophagogastroduodenoscopy (EGD) (~2012) History of fusion of cervical spine History of fusion of lumbar spine History of hemicolectomy History of incisional hernia repair History of total abdominal hysterectomy (~2011) Status post insertion of nerve stimulator Family History Father Diabetes Mother Diabetes Hypertension Sister Diabetes Breast cancer Maternal Uncle Prostate cancer Social History Housing: Apartment Alcohol intake: never Patient Tobacco Use Status: Current everyday Tobacco user Tobacco use type: Cigarette Cigarette Packs Per Day: 0.5 Cigarettes Per Day: 10 e-Cigarette/Vaping Use: Never Used Second Hand Smoke Exposure: No service: No Current occupational status: disabled Cognitive needs: No Hearing needs: No Vision needs: No Review of Systems Const All systems reviewed & are unremarkable except as noted in HPI and below Eyes Reports no additional complaints ENT Reports nasal congestion (Mild almost on a daily basis) and Reports neck pain Card Denies chest pain, Denies irregular heart rhythm and Denies leg edema Resp Reports as per HPI GI Reports no additional complaints Reports no additional complaints Musc Reports back pain and Reports neck pain Skin/Breast Reports system reviewed and no additional complaints, except as documented Neuro Reports no additional complaints Psych Reports no additional complaints Physical Exam Vital Signs: Last Vital Signs Pulse 99 11/01/22 13:14 BP 132/72 11/01/22 13:14 Pulse Ox 98 11/01/22 13:14 Oxygen Delivery Method Room Air 11/01/22 13:14 BMI result Body Mass Index 30.1 Const General: comfortable, no acute distress, alert and awake Orientation/consciousness: patient oriented x3 HEENT Head: Yes normal to inspection General nose exam: No nasal polyps present and No nasal discharge present Face and sinus: Yes sinuses nontender Mouth: oropharynx normal Throat: Yes posterior oropharynx normal Eyes General: appearance normal, both eyes and all related structures Neck Neck: Yes normal visual inspection, Yes no lymphadenopathy, Yes trachea midline and Yes no JVD Thyroid: Thyroid normal Chest Chest palpation & inspection: normal inspection of the chest, normal palpation of entire chest wall and no tenderness Resp Other: At this time percussion note is resonant, she has good breath sounds on both sides,. No wheezes rhonchi or crepitations are heard. Cardio Palpation: normal PMI Rate: regular rate Rhythm: regular rhythm Heart sounds: no gallops and no murmurs Peripheral pulses: Peripheral pulses 2+ throughout GI Palpation (GI): Soft to palpation, nontender, No hepatosplenomegaly present and no masses Auscultation: normal bowel sounds Back/Spine/Pelvis Thoracic/Lumbar Spine: thoracic and lumbar spine normal to inspection and thoraco-lumbar ROM limited Skin General skin exam: no rashes or lesions noted Neuro General: patient oriented x3 and no focal motor deficits Cranial nerves: Yes CN's II-XII intact bilaterally Extrem General: Yes normal to inspection, Yes no clubbing, cyanosis or edema and Yes no calf tenderness Psych Appearance: grossly normal Speech and movement: Normal speech and movement present Affect: Anxious affect present Assessment & Plan Assessment & Plan (1) COPD (chronic obstructive pulmonary disease): Comment: Her chronic obstructive disorder is more in the form of asthma, completely reversible. Controlled , at present on small dose of Advair . [place] : Cont. ADVAIR 100-50 one inh BID and Albuterol 2 puffs Q 4-6 Hrs only PRN Code(s): J44.9 - Chronic obstructive pulmonary disease, unspecified Qualifiers: COPD type: unspecified COPD Qualified Code(s): J44.9 - Chronic obstructive pulmonary disease, unspecified (2) Cough: Comment: Mild to moderate off and on . sec to All. Rhinitis, Copd , and smoking. Continue treatment for asthma/COPD as noted above. Advise that her cough is mainly related to smoking and she must stop smoking completely. Code(s): R05 - Cough (3) Allergic rhinitis: Comment: Chronic , controlled at this time Continue using Montelukast 10 mg daily and Flonase 2 sprays in each nostril daily Code(s): J30.9 - Allergic rhinitis, unspecified (4) Nicotine dependence, cigarettes, uncomplicated: Comment: (current smoker, onset 17yo, 1ppd x 44yrs, now down to 10-20 cigarettes /day - 40pyh) PATIENT IS ACTIVE IN ANNUAL LUNG SCREENING PROGRAM. LAST LDCT SCAN IN MARCH 2022 . Code(s): F17.210 - Nicotine dependence, cigarettes, uncomplicated Coding Level of Care Code Est Pt Level 3 (23544) Diagnoses COPD (chronic obstructive pulmonary disease) J44.9 COPD type: unspecified COPD Cough R05 Allergic rhinitis J30.9 Nicotine dependence, cigarettes, uncomplicated F17.210
[2022-11-01 13:14] VITALS: BP 132/72; PULSE 99; O2SAT 98; BMI 30.1
== END 2022-11-01 13:31 | disposition home or self-care (01) ==
PROVIDERS: PCP Internal Medicine; Visit Provider Internal Medicine
DX: J44.9 Chronic obstructive pulmonary disease, unspecified (principal); R05.9 Cough, unspecified; J30.9 Allergic rhinitis, unspecified; F17.210 Nicotine dependence, cigarettes, uncomplicated
CPT/HCPCS: 99213

== ENCOUNTER → 2022-11-01 13:04 | Outpatient (BNVA) | payer MEDICARE, MEDICAID, SELFPAY | PROVIDERS: PCP Internal Medicine; Visit Provider Internal Medicine | DX: J44.9 Chronic obstructive pulmonary disease, unspecified (principal); R05.9 Cough, unspecified; J30.9 Allergic rhinitis, unspecified; F17.210 Nicotine dependence, cigarettes, uncomplicated | CPT/HCPCS: 99212 ==

== ENCOUNTER 2022-12-25 12:30 | Outpatient (AMB) | payer MEDICARE, MEDICAID, SELFPAY ==
[2022-12-25 12:46] VITALS: BP 126/80; PULSE 102; O2SAT 99; BMI 29.8
--- NOTE | 2022-12-25 12:46 | MHC.PC.OV ---
Vital Signs 12/25/22 12:46 Height 5 ft 3 in Weight 168 lb BMI 29.8 BP 126/80 Blood Pressure Location Lt brachial Position Sitting Pulse 102 H Pulse Source Pulse Oximeter Pulse Oximetry (%) 99 Oxygen Delivery Method Room Air Intake Visit Reasons: Annual Exam Intake Note: Patient here for a physical exam, right ankle pain requesting xray Swatch Folder Required: No Accompanied by: Self / Same As Patient Allergies topiramate [From TOPAMAX] Allergy (Severe, Verified 12/25/22 12:57) SWELLING barium sulfate Adverse Reaction (Intermediate, Verified 12/25/22 12:57) changes in behavior hydrocodone Adverse Reaction (Intermediate, Verified 12/25/22 12:57) Nausea metronidazole [Flagyl] Adverse Reaction (Intermediate, Verified 12/25/22 12:57) DIRECTOR OF ANALYTICAL DEVELOPMENT, N/V morphine [MORPHINE] Adverse Reaction (Intermediate, Verified 12/25/22 12:57) HEADACHE Penicillins Adverse Reaction (Intermediate, Verified 12/25/22 12:57) Vomiting trazodone Adverse Reaction (Intermediate, Verified 12/25/22 12:57) Palpitations varenicline [From Chantix] Adverse Reaction (Mild, Verified 12/25/22 12:57) changes in behavior Medication List - Last Reconciled 12/25/22 by Chrissy Gao MD Advair Diskus 100-50 mcg/dose (fluticasone propion-salmeterol) 2 ea PO BID PRN NS albuterol sulfate 90 mcg/actuation 2 puffs PO Q4H PRN albuterol sulfate 2.5 mg (3 mL) inhalation TID aspirin (Adult Low Dose Aspirin) 81 mg PO DAILY cholecalciferol (vitamin D3) 25 mcg PO DAILY 90 days dexlansoprazole (Dexilant) 60 mg PO DAILY 90 days diphenhydramine HCl (Allergy (diphenhydramine)) 25 mg PO BEDTIME PRN 90 days diphenhydramine HCl (Banophen) 25 mg PO BEDTIME PRN 90 days escitalopram oxalate 10 mg PO DAILY fenofibrate 160 mg PO DAILY 90 days fluticasone propion-salmeterol 100-50 mcg/dose 1 ea PO BID 30 days fluticasone propionate 50 mcg/actuation (Flonase Allergy Relief) 1 spray intranasal DAILY linaclotide (Linzess) 290 mcg PO DAILY 90 days lisinopril 20 mg PO DAILY montelukast 10 mg PO DAILY oxycodone 10 mg PO Q6H PRN 30 days tizanidine 2 mg PO BEDTIME Tobacco use date assessed: 12/25/22 Dental Screening Dental Screen Date: 12/25/22 Did you have a dental visit in the last 12 months?: Yes Did you have a dental problem in the last 6 months where you did not have access to dental care?: No Was dental information given to patient?: Patient has dentist HPI HPI Comments History of Present Illness Details This is a 62-year-old female with moderate recurrent major depression and COPD that comes for her physical exam. No need for Pap smear due to hysterectomy. Last colonoscopy was 2012 and was normal and I will refer her to Gastroenterology for another colonoscopy. Mammogram done 2022 and will be repeated due to being abnormal. COPD follow by pulmonology and has been stable with longstanding inhaler. Use rescue inhaler few times a month. On escitalopram for depression which is still present and would like some counseling. Has family history of melanoma and will be referred to dermatology. [facility] Medical History (Updated 12/25/22 @ 13:14 by Chrissy Gao MD) History of colon polyps (~2012) Nicotine dependence, cigarettes, uncomplicated History of DVT (deep vein thrombosis) Migraines Asthma Chronic pain syndrome Postlaminectomy syndrome, cervical Cough COPD (chronic obstructive pulmonary disease) Allergic rhinitis Osteoarthritis of right hip Depression with anxiety Constipation due to opioid therapy GERD (gastroesophageal reflux disease) Hypovitaminosis D Lumbar degenerative disc disease Essential hypertension Surgical History History of colonoscopy History of fusion of lumbar spine History of fusion of cervical spine History of appendectomy (~1990) History of total abdominal hysterectomy (~2011) History of esophagogastroduodenoscopy (EGD) (~2012) Status post insertion of nerve stimulator History of cholecystectomy (~2003) History of incisional hernia repair History of arthroscopy of both knees History of carpal tunnel surgery of right wrist History of carpal tunnel surgery of left wrist History of hemicolectomy Family History Father Diabetes Mother Diabetes Hypertension Sister Diabetes Breast cancer Maternal Uncle Prostate cancer Social History Housing: Apartment Alcohol intake: never Patient Tobacco Use Status: Current everyday Tobacco user Tobacco use type: Cigarette Cigarette Packs Per Day: 0.5 Cigarettes Per Day: 10 e-Cigarette/Vaping Use: Never Used Second Hand Smoke Exposure: No service: No Current occupational status: disabled Cognitive needs: No Hearing needs: No Vision needs: No Questionnaire PHQ-9 Over the last 2 weeks, how often have you been bothered by any of the following problems? 1. Little interest or pleasure in doing things: several days 2. Feeling down, depressed, or hopeless: nearly every day 3. Trouble falling or staying asleep, or sleeping too much: nearly every day 4. Feeling tired or having little energy: more than half the days 5. Poor appetite or overeating: more than half the days 6. Feeling bad about yourself - or that you are a failure or have let yourself or your family down: more than half the days 7. Trouble concentrating on things, such as reading the newspaper or watching television: not at all 8. Moving or speaking so slowly that other people could have noticed. Or the opposite - being so fidgety or restless that you have been moving around a lot more than usual: more than half the days 9. Thoughts that you would be better off or of hurting yourself in some way: not at all Total score: 15 Depression Screening Interpretation: Positive (No suicidal thoughts) Depression Screening Follow-up: Existing condition and In treatment Depression Screening Done: Yes 44054 - PHQ-9 Billing: Yes Source: Developed by Drs. Kodak Noyola, Tiffany More, Maikel Spence and colleagues, with an educational faiza from [employer]. Thrive Questionnaire Date Thrive assessed: 12/25/22 I am a: Patient What is your living situation today?: I have a steady place to live Within the past 12 months, did the food you bought not last and you didn't have the money to get more?: Never true Within the past 12 months, did you worry whether your food would run out before you got money to buy more?: Never true Do you have trouble paying for medicines?: No Do you have trouble getting transportation to medical appointments?: No Do you have trouble paying your heating and electricity bill?: No Do you have trouble taking care of your child, family member or friend?: No Do you have trouble with day-to-day activities such as bathing, preparing meals, shopping, managing finances, etc.?: No Are you currently unemployed and looking for a job?: No Are you interested in more education?: No Please select the resources that you would like help with: None Currently or been in a relationship where the following occur: no concerns reported AUDIT C Alcohol Use Questionnaire (AUDIT-C) 1. How often do you have a drink containing alcohol?: Never Total Score: 0 ABI-7 AMB Questionnaire ABI-7 Date ABI - 7 assessed: 12/25/22 Feeling nervous, anxious, or on edge: 3 = Nearly every day Not being able to stop or control worryin = Several days Worrying too much about different things: 3 = Nearly every day Trouble relaxin = Several days Being so restless that it is hard to sit still: 1 = Several days Becoming easily annoyed or irritable: 2 = More than half the days Feeling afraid as if something awful might happen: 0 = Not at all Total ABI-7 score (0-4 normal; 5-9 mild; 10-14 moderate; 15-21 severe): 11 Source: Developed by Drs. Kodak Noyola, Tiffany More, Maikel Spence and colleagues, with an educational faiza from [employer]. ABI-7 Assessment Billing ABI-7 Assessment Tool: ABI-7 Assessment 36252 Review of Systems Const All systems reviewed & are unremarkable except as noted in HPI and below Eyes Reports no additional complaints, Denies change in vision and Denies other visual disturbances Card Denies chest pain at rest, Denies chest pain with activity, Denies edema, Denies irregular heart rhythm, Denies claudication, Denies dyspnea, Denies dyspnea on exertion, Denies orthopnea, Denies paroxysmal nocturnal dyspnea and Denies slow heart rate Resp Denies cough, Denies dyspnea and Denies dyspnea on exertion GI Denies abdominal pain, Denies change in bowel habits, Denies excessive flatus, Denies nausea and Denies vomiting Denies urinary incontinence, Denies urinary hesitancy and Denies urinary urgency Musc Denies abnormal gait, Denies atrophy, Denies deformity and Denies limited range of motion Skin/Breast Denies bleeding lesions, Denies changing lesions and Denies rash Neuro Denies abnormal gait and Denies lack of coordination Physical exam (Primary Care) Vital Signs: Last Vital Signs Pulse 102 H 12/25/22 12:46 BP 126/80 12/25/22 12:46 Pulse Ox 99 12/25/22 12:46 Oxygen Delivery Method Room Air 12/25/22 12:46 BMI result Body Mass Index 29.8 Tobacco/Smoking Status: Tobacco use Status Tobacco use date assessed 12/25/22 12/25/22 12:52 Patient Tobacco Use Status Current everyday Tobacco 12/25/22 12:47 Tobacco use type Cigarette 12/25/22 12:47 e-Cigarette/Vaping Use Never Used 12/25/22 12:47 PHQ-9: PHQ-9 Score PHQ-9: Total score 15 12/25/22 13:02 Depression Screening Interpretation: Positive (No suicidal thoughts) Depression Screening Follow-up: Existing condition and In treatment Thrive Assessment: Date of Thrive Assessment Date Thrive assessed 12/25/22 12/25/22 12:52 Currently or been in a relationship where the following occur: no concerns reported Const Orientation/consciousness: patient oriented x3 HENMT Head: Yes normal to inspection, Yes normocephalic and Yes atraumatic Ears: external ears normal Eyes General: appearance normal, both eyes and all related structures Eyelids: Yes eyelids normal Conjunctivae: conjunctivae normal Neck Neck: Yes normal visual inspection and Yes supple Resp Effort & Inspection: normal respiratory effort Auscultation: clear to auscultation bilaterally Cardio Jugular venous distension: no JVD Rate: regular rate Rhythm: regular rhythm Heart sounds: S1 normal heart sound present and S2 normal heart sound present GI Inspection: Yes normal to inspection Palpation (GI): Soft to palpation and nontender Auscultation: normal bowel sounds Skin General skin exam: no rashes or lesions noted Neuro General: patient oriented x3 and no focal motor deficits Extrem General: Yes full ROM Psych Appearance: grossly normal Office Procedures Flu Questionnaire Does the patient have a severe egg allergy?: No Does the patient have severe life threatening allergies?: No Does the patient have a fever or illness today?: No Has the patient ever had Guillain-Bradley Syndrome?: No Has the patient ever had any past reaction to a flu shot?: No Immunizations flu vacc [id number] 6mos up(PF) 60 mcg(15 mcgx4)/0.5 mL IM syringe Performing Provider: Chrissy Gao MD Performing Location: [facility] [place] [facility] Administered by: CARL Gerber on 12/25/22 13:13 Dose Route Admin Location Dispensed Lot Number Expiration Date NDC Mechanical Maintenance Technician 0.5 mL IM Left Deltoid 0.5 mL [id number] 09/08/23 25568-035-91 barcoo VIS Given Date VIS Provided VIS Publication Date 12/25/22 Single Vaccine 20 Eligibility Eligibility Date Funding Source Not VFC Eligible 12/25/22 Private pneumoc 20-shantanu conj-dip cr(PF) 0.5 mL IM syringe Performing Provider: Chrissy Gao MD Performing Location: [facility] [place] [facility] Administered by: CARL Gerber on 12/25/22 13:13 Dose Route Admin Location Dispensed Lot Number Expiration Date ND Mechanical Maintenance Technician 0.5 mL IM Right Deltoid 0.5 mL [id number] 09/09/23 [id number] Smart [employer]ipe/[employer] VIS Given Date VIS Provided VIS Publication Date 12/25/22 Single Vaccine 21 Eligibility Eligibility Date Funding Source Not VFC Eligible 12/25/22 Private Assessment and Plan Assessment & Plan (1) Physical exam: Code(s): Z00.00 - Encounter for general adult medical examination without abnormal findings Plan: Repeat in a year. (2) COPD (chronic obstructive pulmonary disease): Comment: Her chronic obstructive disorder is more in the form of asthma, completely reversible. Controlled , at present on small dose of Advair . [place] : Cont. ADVAIR 100-50 one inh BID and Albuterol 2 puffs Q 4-6 Hrs only PRN Code(s): J44.9 - Chronic obstructive pulmonary disease, unspecified Qualifiers: COPD type: unspecified COPD Qualified Code(s): J44.9 - Chronic obstructive pulmonary disease, unspecified Plan: Continue longstanding inhaler. Use rescue inhaler as needed. (3) Moderate recurrent major depression: Code(s): F33.1 - Major depressive disorder, recurrent, moderate Plan: Continue escitalopram. Referred to counseling. Orders: Orders Lipid Panel Today E78.5 - Hyperlipidemia, unspecified Comprehensive [place]. Panel Fast Today J44.9 - Chronic obstructive pulmonary disease, unspecified Influenza 4031-2060 Immunization Today Z23 - Encounter for immunization XR DEXA axial skeleton Today N95.9 - Unspecified menopausal and perimenopausal disorder Vitamin D 25-OH Total Today E55.9 - Vitamin D deficiency, unspecified XR ankle RT 2V Today M25.571 - Pain in right ankle and joints of right foot Pneumococcal 20 Immunization Today Z23 - Encounter for immunization Referrals Gastroenterology Referral Z12.11 - Encounter for screening for malignant neoplasm of colon Dermatology Referral Z80.8 - Family history of malignant neoplasm of other organs or systems Counseling Referral F41.8 - Other specified anxiety disorders Medications: New flu vacc [id number] 6mos up(PF) 0.5 mL IM ONCE 0.5 mL 0RF Z23 - Encounter for immunization alprazolam Take 1 tab 45 minutes before taking the airplane. 0.5 mg PO DAILY 2 days PRN 2 tabs 0RF anxiety pneumoc 20-shantanu conj-dip cr(PF) 0.5 mL IM ONCE 0.5 mL 0RF Z23 - Encounter for immunization Coding Level of Care Code Est Pt Prev Care 40-64y(31497) Diagnoses Physical exam Z00.00 Chronic obstructive pulmonary disease, unspecified COPD type J44.9 COPD type: unspecified COPD Moderate recurrent major depression F33.1 Additional Codes ABI-7 Assessment Billing - ABI-7 Assessment Tool: ABI-7 Assessment [id number] ([id number]) Time Spent (min) 33
== END 2022-12-25 13:13 | disposition home or self-care (01) ==
PROVIDERS: Visit Provider Internal Medicine
DX: Z00.00 Encounter for general adult medical examination without abnormal findings (principal); J44.9 Chronic obstructive pulmonary disease, unspecified; F33.1 Major depressive disorder, recurrent, moderate; Z23 Encounter for immunization
CPT/HCPCS: 90471; 90677; 90686; 96127; 99396

== ENCOUNTER 2022-12-25 13:36 | Outpatient (REF) | payer MEDICARE, MEDICAID, SELFPAY ==
--- NOTE | ~2022-12-25 | XR_ITS ---
EXAMINATION: XR ANKLE, RIGHT CLINICAL INFORMATION: Right ankle pain COMPARISON: None available. TECHNIQUE: AP, lateral, and mortise views of the right ankle. FINDINGS: No fracture. Alignment is anatomic. No erosions. Joint spaces are maintained. There is soft tissue calcification adjacent to the distal fibula on the right. There is minimal spurring of the right calcaneus and there is enthesopathy at the insertion of Achilles tendon. XR/XR ankle RT 2V IMPRESSION: No abnormal findings in right ankle. Soft tissue swelling in the higher position of soft tissues of distal fibula.
[2022-12-25 14:55] LABS: Alanine Aminotransferase 18 U/L (0-31); Albumin Level 4.3 g/dL (3.5-5.0); Alkaline Phosphatase 98 U/L (39-117); Anion Gap 13 (12-20); Aspartate Amino Transferase 15 U/L (5-31); Bilirubin Total 0.3 mg/dL (0.0-1.0); Blood Urea Nitrogen 7 mg/dL (9-16); Calcium 9.8 mg/dL (8.4-10.2); Carbon Dioxide 23 mmol/L (22-29); Chloride 106 mmol/L (96-108); Cholesterol 164 mg/dL (<200); Estimated Glomerular Filt Rate > 60; Glucose Fasting 90 mg/dL (60-99); HDL Cholesterol 36 mg/dL (>40); LDL Cholesterol Calculated 95 mg/dL (<100); Potassium 4.2 mmol/L (3.3-5.1); Sodium 138 mmol/L (135-145); Total Protein 7.6 g/dL (6.5-8.0); Triglycerides 165 mg/dL (<150)
[2022-12-25 15:15] LABS: Vitamin D 25-OH Total 35.8 ng/mL (>30)
== END 2022-12-25 13:37 | disposition home or self-care (01) ==
LOC: HO.XRAY 13:36
PROVIDERS: PCP Internal Medicine; Visit Provider Internal Medicine
DX: Z00.00 Encounter for general adult medical examination without abnormal findings (principal); M25.571 Pain in right ankle and joints of right foot; J44.9 Chronic obstructive pulmonary disease, unspecified; E78.5 Hyperlipidemia, unspecified; E55.9 Vitamin D deficiency, unspecified
CPT/HCPCS: 36415; 73600; 80053; 80061; 82306

== ENCOUNTER 2022-12-27 14:23 | Outpatient (AMB) | payer MEDICARE, MEDICAID, SELFPAY ==
[2022-12-27 14:27] VITALS: BMI 29.8
--- NOTE | 2022-12-27 14:27 | MHC.OFFVIS ---
Intake Vital Signs 12/27/22 14:27 Height 5 ft 3 in Weight 168 lb BMI 29.8 Intake Visit Reasons: OV-left knee injection-last injection 07/20/22 Intake Note: Oriana is a 62 year old female who presents today for a left knee injection. Last injection done 07/20/22. injection drawn 80mg depo Allergies topiramate [From TOPAMAX] Allergy (Severe, Verified 12/25/22 12:57) SWELLING barium sulfate Adverse Reaction (Intermediate, Verified 12/25/22 12:57) changes in behavior hydrocodone Adverse Reaction (Intermediate, Verified 12/25/22 12:57) Nausea metronidazole [Flagyl] Adverse Reaction (Intermediate, Verified 12/25/22 12:57) SENIOR TECHNICAL WRITER, N/V morphine [MORPHINE] Adverse Reaction (Intermediate, Verified 12/25/22 12:57) HEADACHE Penicillins Adverse Reaction (Intermediate, Verified 12/25/22 12:57) Vomiting trazodone Adverse Reaction (Intermediate, Verified 12/25/22 12:57) Palpitations varenicline [From Chantix] Adverse Reaction (Mild, Verified 12/25/22 12:57) changes in behavior HPI OV-left knee injection-last injection 07/20/22 HPI Details 62-year-old female, who is Estonian speaking, presents in the office today for a follow up of left knee pain. The patient had a Decadron injection in the left knee on 07/20/2022. She would like an injection while in the office today. [facility] Medical History History of colon polyps (~2012) Nicotine dependence, cigarettes, uncomplicated History of DVT (deep vein thrombosis) Migraines Asthma Chronic pain syndrome Postlaminectomy syndrome, cervical Cough COPD (chronic obstructive pulmonary disease) Allergic rhinitis Osteoarthritis of right hip Depression with anxiety Constipation due to opioid therapy GERD (gastroesophageal reflux disease) Hypovitaminosis D Lumbar degenerative disc disease Essential hypertension Surgical History History of colonoscopy History of fusion of lumbar spine History of fusion of cervical spine History of appendectomy (~1990) History of total abdominal hysterectomy (~2011) History of esophagogastroduodenoscopy (EGD) (~2012) Status post insertion of nerve stimulator History of cholecystectomy (~2003) History of incisional hernia repair History of arthroscopy of both knees History of carpal tunnel surgery of right wrist History of carpal tunnel surgery of left wrist History of hemicolectomy Family History Father Diabetes Mother Diabetes Hypertension Sister Diabetes Breast cancer Maternal Uncle Prostate cancer Social History Housing: Apartment Alcohol intake: never Patient Tobacco Use Status: Current everyday Tobacco user Tobacco use type: Cigarette Cigarette Packs Per Day: 0.5 Cigarettes Per Day: 10 e-Cigarette/Vaping Use: Never Used Second Hand Smoke Exposure: No service: No Current occupational status: disabled Cognitive needs: No Hearing needs: No Vision needs: No Review of Systems Const All systems reviewed & are unremarkable except as noted in HPI and below Physical Exam Vital Signs: BMI result Body Mass Index 29.8 Const General: no acute distress and alert Orientation/consciousness: patient oriented x3 Neuro General: patient oriented x3 Extrem Other: Left Knee: Skin C/D/I No effusion TTP medial joint line Psych Appearance: grossly normal Affect: normal affect Attitude: cooperative Office Procedures Joint Injection/Drain Joint Injection/Drain Primary Site: left knee Prep: site was prepped using aseptic technique, ethochloride spray was applied and injection warnings given Injected: 80 mg of, DepoMedrol, with 8 mL of (2% plain lido ) and in the joint Approach Used: anterolateral Procedure: The patient tolerated the procedure well, but had some pain with the injection and there was some relief with the local anesthesia Coding 45777 - Large joint Procedure code (CPT) selection complete Results Reviewed Results Reviewed: 12/27/22 14:20 Lidocaine HCl 2 % MPF [Xylocaine 2 % MPF] 5 ml .ROUTE .STK-MED ONE methylPREDNISolone acetate [DEPO-MedroL] 80 mg .ROUTE .STK-MED ONE Assessment & Plan Assessment & Plan (1) Osteoarthritis of left knee: Code(s): M17.12 - Unilateral primary osteoarthritis, left knee Qualifiers: Osteoarthritis type: unspecified Qualified Code(s): M17.12 - Unilateral primary osteoarthritis, left knee Plan Ms. Chito Guallpa is a 62-year-old female, who is Estonian speaking, presents in the office today for a follow up of left knee pain. The patient had a Decadron injection in the left knee on 07/20/2022. She would like an injection while in the office today. The patient was offered a cortisone injection in the left knee with 80 mg of DepoMedrol. The patient was explained the risk, benefits, and alternatives to receiving this injection. After receiving consent for the injection, the patient had the procedure done while in office today. The patient tolerated the procedure well with no complications. Follow up will be PRN, or sooner if needed. Patient Instructions: Scribed for Carmita Alexandra PA-C by Kaylah Mckeon medical laboratory technicians, on 12/11/2022 at 2:28 pm, EST. Coding Level of Care Code Est Pt Level 3 (79864) Diagnoses Osteoarthritis of left knee, unspecified osteoarthritis type M17.12 Osteoarthritis type: unspecified CPT Codes Coding - 51131 Large joint: 83692 - Large joint ([id number])
== END 2022-12-27 14:32 | disposition home or self-care (01) ==
PROVIDERS: PCP Internal Medicine; Visit Provider Physician Assistant
DX: M17.12 Unilateral primary osteoarthritis, left knee (principal)
CPT/HCPCS: 20610

== ENCOUNTER → 2022-12-27 14:23 | Outpatient (BNVA) | payer MEDICARE, MEDICAID, SELFPAY | PROVIDERS: PCP Internal Medicine; Visit Provider Physician Assistant | DX: M17.12 Unilateral primary osteoarthritis, left knee (principal) | CPT/HCPCS: 20610; J1040 ==

== ENCOUNTER 2023-04-08 15:18 | Outpatient (REF) | payer MEDICARE, MEDICAID, SELFPAY ==
--- NOTE | ~2023-04-08 | CT_ITS ---
EXAMINATION: CT CHEST SCREENING CLINICAL INFORMATION: Current smoker with 45 pack-year smoking history. COMPARISON: Previous studies, most recent, 04/06/2022 TECHNIQUE: Multidetector volumetric CT imaging of the chest is performed without contrast using low dose technique. Additional 2D coronal and sagittal reformatted images and axial 3D maximum intensity projection (MIP) images are generated on the CT workstation. This CT examination was performed using dose optimization techniques as appropriate, variously including the following: *Automated exposure control *Adjustment of mA and/or kV according to patient size (this includes techniques or standardized protocols for targeted exams where dose is matched to indication/reason for exam; i.e. extremities or head) *Use of iterative reconstruction technique DLP: 48 mGy-cm FINDINGS: EXTRUSION PRESS ADJUSTER: Neurostimulator. Surgical hardware lower cervical spine. Clear lungs. LUNGS: Trachea and bronchi are patent. Diffuse mild bronchial wall thickening. Minor atelectasis. No change 3 mm subpleural nodules, LLL and RML, 4::35. Stable 4-5 mm LLL subpleural, 4:43. No consolidations or groundglass opacities. MEDIASTINUM: Prominent thyroid with unchanged right calcification. Nonspecific lymph nodes. 1.5 cm right paratracheal lymph node is unchanged. Nonenlarged heart. No pericardial effusion. Nonaneurysmal aorta. Nonenlarged pulmonary arteries. CORONARY ARTERY CALCIFICATION: None visualized on this study. PLEURA: There is no pleural effusion. No pleural mass or thickening. AXILLA: No lymphadenopathy. UPPER ABDOMEN: Status post cholecystectomy. OSSEOUS STRUCTURES: Spinal stimulator. No suspicious osseous lesions. CT/CT lung screening IMPRESSION: Stable pulmonary nodules, none larger than 4-5 mm. No new or enlarging pulmonary nodules. ASSESSMENT: Lung-RADS category 2: Benign RECOMMENDATION: Routine annual low-dose CT screening in 12 months.
== END 2023-04-08 15:19 | disposition home or self-care (01) ==
LOC: HO.CT 15:18
PROVIDERS: PCP Internal Medicine; Visit Provider Nurse Practitioner Family
DX: F17.210 Nicotine dependence, cigarettes, uncomplicated (principal)
CPT/HCPCS: 71271

== ENCOUNTER 2023-04-09 12:48 | Outpatient (REF) | payer MEDICARE, MEDICAID, SELFPAY ==
--- NOTE | ~2023-04-09 | US_ITS ---
EXAMINATION: US DIAGNOSTIC ULTRASOUND BREAST, LEFT CLINICAL INFORMATION: 6 month Follow-up minimally complicated left breast cyst 7:00 axis. COMPARISON: Ultrasounds 07/17/2022, 10/03/2021 (BI-RADS 0). Mammography 10/03/2021. TECHNIQUE: Ultrasound of the left breast is performed with real-time middleton scale imaging and color Doppler. Attention was given to the 7:00 axis of the left breast, approximately 6 cm from the nipple. FINDINGS: There is a stable 3 x 3 x 3 cm minimally complicated cyst in the left breast at the 7:00 axis, 6 cm from the nipple, unchanged in size from the index exam of 10/03/2021. It is slightly decreased in size when compared with 07/17/2022. There is through transmission. Finding is circumscribed. Solitary 2 mm mural nodule is now seen superiorly, previously inferiorly, suggesting it is an intracystic floating focus. This finding remains probably benign. Results were provided to the patient at time of visit by the technologist. US/US breast LT limited mamm only IMPRESSION: Stable 3 mm minimally complicated cysts left breast 7:00 axis, 6 cm from the nipple. Recommend final six-month interval targeted ultrasound follow-up to establish two-year stability in October 2023, when the patient is due for bilateral screening mammography. ASSESSMENT: BI-RADS 3 - Probably benign finding(s) - 6 month follow-up suggested RECOMMENDATION: 6 Month F/U This patient's information was entered into a reminder system with a target due date for their next mammogram.
--- NOTE | ~2023-04-09 | MM_ITS ---
EXAMINATION: BONE DENSITOMETRY CLINICAL INDICATION: Unspecified menopausal and perimenopausal disorder. COMPARISON: This is the patient's baseline examination. TECHNIQUE: Using a rPath DXA System (software version: 13.1) manufactured by [employer], dual-energy x-ray absorptiometry was performed of the lumbar spine and left hip. The images are of good technical quality. Summary results are attached. FINDINGS: AP SPINE L1-L3 (excluding L4): The data of L1-L4 has been changed to exclude the L4 vertebral body, because sclerosis and metallic artifact at this level may cause overestimation of lumbar spine density. BMD 0.900 g/cm2, Z-score -1.2, T-score -2.3, osteopenia. LEFT FEMUR, NECK: BMD 0.624 g/cm2, Z-score -1.8, T-score -3.0, osteoporosis. LEFT FEMUR, TOTAL: BMD 0.768 g/cm2, Z-score -1.1, T-score -1.9, osteopenia. IDENTIFIED RISK FACTORS: Recurrent falls. History of adult fracture. Secondary osteoporosis (early menopause). Hysterectomy. Bilateral oophorectomy. Current smoker. HISTORY OF FRACTURE: Spine. MEDICATIONS: Vitamin D. MM/XR DEXA axial skeleton IMPRESSION: 1. DIAGNOSIS: Severe osteoporosis based on the lowest T-score value of -3.0 in the femoral neck and the prior history of fracture applying World Health Organization criteria. 2. 10-YEAR FRACTURE RISK PREDICTION, FRAX: According to the guidelines, FRAX calculation should only be performed on patients in the osteopenia bone density category.?Therefore, FRAX was not performed on this patient.? 3. Treatment Recommendations: NOF guidelines recommend consideration for treatment in postmenopausal women and men age 50 and older presenting with the following: -A hip or vertebral (clinical or morphometric) fracture. -T-score less than or equal to -2.5 at the femoral neck or spine after appropriate evaluation to exclude secondary causes. -Low bone mass at the hip or spine and a 10-year fracture probability by FRAX of greater than or equal to 3% for hip fracture or greater than or equal to 20% for major osteoporotic fracture based on the [place] adapted WHO algorithm. 4. Other Recommendations: All treatment decisions require clinical judgment and consideration of individual patient factors, including patient preferences, comorbidities, previous drug use, risk factors not captured in the FRAX model (e.g. frailty, falls, vitamin D deficiency, increased bone turnover, interval significant decline in bone density) and possible under or overestimation of fracture risk by FRAX. Additional medical evaluation for secondary cause of low bone mineral density may be appropriate. FUTURE SCAN RECOMMENDATION: People with diagnosed cases of osteoporosis or at high risk for fracture should have regular bone mineral density tests. For patients eligible for Medicare, routine testing is allowed once every 2 years. The testing frequency can be increased to one year for patients who have rapidly progressing disease, those who are receiving or discontinuing medical therapy to restore bone mass, or have additional risk factors.
== END 2023-04-09 12:49 | disposition home or self-care (01) ==
LOC: HO.MAMMO 12:48
PROVIDERS: PCP Internal Medicine; Visit Provider Internal Medicine
DX: N64.89 Other specified disorders of breast (principal); N60.02 Solitary cyst of left breast; Z13.820 Encounter for screening for osteoporosis; N95.9 Unspecified menopausal and perimenopausal disorder; R29.6 Repeated falls; F17.210 Nicotine dependence, cigarettes, uncomplicated; Z90.710 Acquired absence of both cervix and uterus; Z90.722 Acquired absence of ovaries, bilateral
CPT/HCPCS: 76642; 77080

== ENCOUNTER → 2023-04-09 13:30 | Outpatient (BNV) | payer MEDICARE, MEDICAID, SELFPAY | PROVIDERS: PCP Internal Medicine; Visit Provider Radiology Diagnostic Radiology | DX: N60.02 Solitary cyst of left breast (principal) | CPT/HCPCS: 76642 ==

== ENCOUNTER 2023-04-24 12:32 | Outpatient (AMB) | payer MEDICARE, MEDICAID, SELFPAY ==
--- NOTE | 2023-04-24 12:38 | MHC.OFFVIS ---
Intake Intake Visit Reasons: OV-left k inj-last injection 12/27/22/ Confirmed Intake Note: Oriana is a 62 year old female who presents today for a left knee injection, last injection 12/27/22. Patient reports her last injection gave her of relief. Her last injection gave her about 4 months of relief. She would like to repeat her injection. Allergies topiramate [From TOPAMAX] Allergy (Severe, Verified 04/24/23 12:47) SWELLING barium sulfate Adverse Reaction (Intermediate, Verified 04/24/23 12:47) changes in behavior hydrocodone Adverse Reaction (Intermediate, Verified 04/24/23 12:47) Nausea metronidazole [Flagyl] Adverse Reaction (Intermediate, Verified 04/24/23 12:47) SALES SUPPORT ASSISTANT, N/V morphine [MORPHINE] Adverse Reaction (Intermediate, Verified 04/24/23 12:47) HEADACHE Penicillins Adverse Reaction (Intermediate, Verified 04/24/23 12:47) Vomiting trazodone Adverse Reaction (Intermediate, Verified 04/24/23 12:47) Palpitations varenicline [From Chantix] Adverse Reaction (Mild, Verified 04/24/23 12:47) changes in behavior HPI OV-left k inj-last injection 12/27/22/ Confirmed HPI Details 62-year-old female, who is Albanian speaking, presents in the office today for a follow up of left knee pain. I last saw the patient in the office on 12/27/2022 when she received a cortisone injection in the knee. The patient reports her last injection gave her relief. [facility] Medical History History of colon polyps (~2012) Nicotine dependence, cigarettes, uncomplicated History of DVT (deep vein thrombosis) Migraines Asthma Chronic pain syndrome Postlaminectomy syndrome, cervical Cough COPD (chronic obstructive pulmonary disease) Allergic rhinitis Osteoarthritis of right hip Depression with anxiety Constipation due to opioid therapy GERD (gastroesophageal reflux disease) Hypovitaminosis D Lumbar degenerative disc disease Essential hypertension Surgical History History of colonoscopy History of fusion of lumbar spine History of fusion of cervical spine History of appendectomy (~1990) History of total abdominal hysterectomy (~2011) History of esophagogastroduodenoscopy (EGD) (~2012) Status post insertion of nerve stimulator History of cholecystectomy (~2003) History of incisional hernia repair History of arthroscopy of both knees History of carpal tunnel surgery of right wrist History of carpal tunnel surgery of left wrist History of hemicolectomy Family History Father Diabetes Mother Diabetes Hypertension Sister Diabetes Breast cancer Maternal Uncle Prostate cancer Social History Housing: Apartment Alcohol intake: never Comment: movement only Patient Tobacco Use Status: Current everyday Tobacco user Tobacco use type: Cigarette Cigarette Packs Per Day: 0.5 Cigarettes Per Day: 10 e-Cigarette/Vaping Use: Never Used Second Hand Smoke Exposure: No service: No Current occupational status: disabled Cognitive needs: No Hearing needs: No Vision needs: No Review of Systems Const All systems reviewed & are unremarkable except as noted in HPI and below Physical Exam Const General: no acute distress and alert Orientation/consciousness: patient oriented x3 Neuro General: patient oriented x3 Extrem Other: Left Knee: Skin C/D/I No effusion TTP medial joint line Psych Appearance: grossly normal Affect: normal affect Attitude: cooperative Office Procedures Joint Injection/Drain Joint Injection/Drain Primary Site: left knee Prep: site was prepped using aseptic technique, ethochloride spray was applied and injection warnings given Injected: 80 mg of, with 8 mL of (2% plain lido ) and in the joint Approach Used: anterolateral Procedure: The patient tolerated the procedure well, but had some pain with the injection and there was some relief with the local anesthesia Coding 35378 - Large joint Procedure code (CPT) selection complete Assessment & Plan Assessment & Plan (1) Osteoarthritis of left knee: Code(s): M17.12 - Unilateral primary osteoarthritis, left knee Qualifiers: Osteoarthritis type: unspecified Qualified Code(s): M17.12 - Unilateral primary osteoarthritis, left knee Plan Ms. Chito Guallpa is a 62-year-old female, who is Albanian speaking, presents in the office today for a follow up of left knee pain. I last saw the patient in the office on 12/27/2022 when she received a cortisone injection in the knee. The patient reports her last injection gave her relief. The patient was offered a cortisone injection in the left knee with 80 mg of DepoMedrol. The patient was explained the risk, benefits, and alternatives to receiving this injection. After receiving consent for the injection, the patient had the procedure done while in office today. The patient tolerated the procedure well with no complications. Follow up will be PRN, or sooner if needed. Patient Instructions: Scribed by Kaylah Mckeon medical office representative, for Carmita Alexandra PA-C on 04/24/2023 at 12:35 pm, EST. Coding Level of Care Code Est Pt Level 3 (79707) Diagnoses Osteoarthritis of left knee, unspecified osteoarthritis type M17.12 Osteoarthritis type: unspecified CPT Codes Coding - 23533 Large joint: 87288 - Large joint ([id number])
== END 2023-04-24 13:14 | disposition home or self-care (01) ==
PROVIDERS: PCP Internal Medicine; Visit Provider Physician Assistant
DX: M17.12 Unilateral primary osteoarthritis, left knee (principal)
CPT/HCPCS: 20610

== ENCOUNTER → 2023-04-24 12:32 | Outpatient (BNVA) | payer MEDICARE, MEDICAID, SELFPAY | PROVIDERS: PCP Internal Medicine; Visit Provider Physician Assistant | DX: M17.12 Unilateral primary osteoarthritis, left knee (principal) | CPT/HCPCS: 20610; J1040 ==

== ENCOUNTER 2023-05-15 13:45 | Outpatient (AMB) | payer MEDICARE, MEDICAID, SELFPAY ==
--- NOTE | 2023-05-15 13:57 | MHC.OFFVIS ---
Intake Vital Signs 05/15/23 14:01 Height 5 ft 3 in Weight 168 lb 4 oz BMI 29.8 BP 118/60 Blood Pressure Location Lt brachial Position Sitting Respiration 14 Pulse 97 Pulse Source Pulse Oximeter Pulse Oximetry (%) 98 Oxygen Delivery Method Room Air Intake Visit Reasons: Lower Back Pain/CONFIRM Intake Note: Patient comes in for low back pain. Reports pain 9/10. Allergies topiramate [From TOPAMAX] Allergy (Severe, Verified 05/15/23 14:01) SWELLING barium sulfate Adverse Reaction (Intermediate, Verified 05/15/23 14:01) changes in behavior hydrocodone Adverse Reaction (Intermediate, Verified 05/15/23 14:01) Nausea metronidazole [Flagyl] Adverse Reaction (Intermediate, Verified 05/15/23 14:01) CERTIFIED NURSE PRACTITIONER, N/V morphine [MORPHINE] Adverse Reaction (Intermediate, Verified 05/15/23 14:01) HEADACHE Penicillins Adverse Reaction (Intermediate, Verified 05/15/23 14:01) Vomiting trazodone Adverse Reaction (Intermediate, Verified 05/15/23 14:01) Palpitations varenicline [From Chantix] Adverse Reaction (Mild, Verified 05/15/23 14:01) changes in behavior HPI HPI Comments History of Present Illness Details Oriana is in my office today complaining on pain in the lumbar spine. In the past she received thoracic spinal cord stimulator [employer] to help postlaminectomy syndrome. She reports that it does not work anymore. She has good results of Nevro spinal cord stimulator implantation on 06/02/2021 for cervicalgia. Unfortunately I can not offer her Nevro SCS new implant. Replacement of the battery of [employer] for Nevro SCS might not result in good pain relief. I offered her Intrathecal drug delivery system pain pump trial but for that she needs to go for psychological evaluation. We will schedule her for psychological evaluation in the office. One she past psychological evaluation I will schedule her for a trial. Dr. Moon prescribes her oxycodone 10 mg 4 times a day therefore she has not opioid naive patient. We may try bupivacaine and other non opioid medications to help her pain. Prior: History of lower back pain and neck pain.? She went for trial of intrathecal drug delivery system pain pump with Dilaudid, she reported severe nausea and vomiting she reported also face swelling.? I do not think Dilaudid is a good medicine for this patient.? Report of face swelling might indicate complications as generalized edema.? This complication may lead to congestive heart failure.? The nature of this complication is not clear yet however it develops more on water soluble medications.? Therefore since she developed this complication on Dilaudid trial with more water soluble morphine would not be a good option for her.? History of postlaminectomy syndrome of cervical and lumbar spine.? She reported severe pain in the back as the main aggravation.? She has paddle spinal cord stimulator by [employer] and she reports good help with the peripheral radiating to lower extremity pain.? However on the background of pain in the legs improved her pain in the axial back remains very severe pain. [facility] Medical History History of colon polyps (~2012) Nicotine dependence, cigarettes, uncomplicated History of DVT (deep vein thrombosis) Migraines Asthma Chronic pain syndrome Postlaminectomy syndrome, cervical Cough COPD (chronic obstructive pulmonary disease) Allergic rhinitis Osteoarthritis of right hip Depression with anxiety Constipation due to opioid therapy GERD (gastroesophageal reflux disease) Hypovitaminosis D Lumbar degenerative disc disease Essential hypertension Surgical History History of colonoscopy History of fusion of lumbar spine History of fusion of cervical spine History of appendectomy (~1990) History of total abdominal hysterectomy (~2011) History of esophagogastroduodenoscopy (EGD) (~2012) Status post insertion of nerve stimulator History of cholecystectomy (~2003) History of incisional hernia repair History of arthroscopy of both knees History of carpal tunnel surgery of right wrist History of carpal tunnel surgery of left wrist History of hemicolectomy Family History Father Diabetes Mother Diabetes Hypertension Sister Diabetes Breast cancer Maternal Uncle Prostate cancer Social History Housing: Apartment Alcohol intake: never Comment: movement only Patient Tobacco Use Status: Current everyday Tobacco user Tobacco use type: Cigarette Cigarette Packs Per Day: 0.5 Cigarettes Per Day: 10 e-Cigarette/Vaping Use: Never Used Second Hand Smoke Exposure: No service: No Current occupational status: disabled Cognitive needs: No Hearing needs: No Vision needs: No Review of Systems Const All systems reviewed & are unremarkable except as noted in HPI and below Physical Exam Vital Signs: Last Vital Signs Pulse 97 05/15/23 14:01 Resp 14 05/15/23 14:01 BP 118/60 05/15/23 14:01 Pulse Ox 98 05/15/23 14:01 Oxygen Delivery Method Room Air 05/15/23 14:01 BMI result Body Mass Index 29.8 Const General: no acute distress and alert Orientation/consciousness: patient oriented x3 Neuro General: patient oriented x3 Extrem Other: Left Knee: Skin C/D/I No effusion TTP medial joint line Psych Appearance: grossly normal Affect: normal affect Attitude: cooperative Results Reviewed Results Reviewed: Right hip x-rays is normal MRI lumbar spine 12/23/2019 There are chronic postoperative changes of spinal fusion with interbody hardware at L5-S1. Alignment is normal. There is subtle chronic compression deformity of the L1 vertebral body with subtle impaction upper endplate resulting in 20% vertebral height loss anteriorly vertebral height otherwise maintained there is a slight loss of intervertebral disc height at T12 signal intensity at multiple levels related to disc degeneration the tip of the conus medullaris is located at L2. No mass effect of the conus. Visualized distal cord signal intensity is normal. L1-L2 shallow central protrusion no canal stenosis no mass effect on the traversing foraminal nerve roots. L2-L3 tiny left subarticular protrusion superimposed upon bone a bulging disc. Bilateral facet degenerative changes. No canal stenosis. No mass effect on the traversing of foraminal nerve roots. L3-L4: Slight bulging disc. Bilateral facet degenerative changes. No canal stenosis. No mass effect on the traversing foraminal nerve roots. At L4-5 shallow right foraminal protrusion superimposed upon a bulging disc. Bilateral facet degenerative changes. No canal stenosis. Mild mass effect on the foraminal extraforaminal segment of the right L4 nerve root. At L5-S1 the canal is decompressed. No mass effect of the traversing of foraminal nerve root. Assessment & Plan Assessment & Plan (1) Postlaminectomy syndrome, lumbar: Code(s): M96.1 - Postlaminectomy syndrome, not elsewhere classified (2) Spondylosis of lumbosacral spine with radiculopathy: Code(s): M47.27 - Other spondylosis with radiculopathy, lumbosacral region (3) Cervicalgia: Code(s): M54.2 - Cervicalgia (4) Spondylosis, cervical: Code(s): M47.812 - Spondylosis without myelopathy or radiculopathy, cervical region (5) Postlaminectomy syndrome, cervical: Code(s): M96.1 - Postlaminectomy syndrome, not elsewhere classified (6) Chronic pain syndrome: Code(s): G89.4 - Chronic pain syndrome Plan Implantation of Nevro SCS is done the pain relief from the cervical spine is satisfactory. She now is interested in more pain relief from the lower back. She needs to go for psychological evaluation and after that we can try bupivacaine and clonidine as well as baclofen intrathecal trials to control her pain. I am not sure if she can - afford Prialt. Unfortunately she is on significant doses of the opioid medications 60 MME and therefore the trial of pain pump with opioids would not be considered. In the future if she will have with pain relief from non opioid medications we can taper down and wean her off of the oral opioids and introduce intrathecal opioids for better pain control. She also suffers from patellofemoral osteoarthritis she received injections from Dr. Ambrocio. This could be another hindrance in terms of pain relief on pain pump. Patient Instructions: I here by testify that I spent 32 minutes in conversation with this patient as well as evaluating her prior records, planning her care, and organizing this note. Coding Level of Care Code Est Pt Level 4 (55738) Diagnoses Postlaminectomy syndrome, lumbar M96.1 Spondylosis of lumbosacral spine with radiculopathy M47.27 Cervicalgia M54.2 Spondylosis, cervical M47.812 Postlaminectomy syndrome, cervical M96.1 Chronic pain syndrome G89.4
[2023-05-15 14:01] VITALS: BP 118/60; PULSE 97; RESP 14; O2SAT 98; BMI 29.8
== END 2023-05-15 14:30 | disposition home or self-care (01) ==
PROVIDERS: PCP Internal Medicine; Visit Provider Anesthesiology
DX: M96.1 Postlaminectomy syndrome, not elsewhere classified (principal); M47.27 Other spondylosis with radiculopathy, lumbosacral region; M54.2 Cervicalgia; M47.812 Spondylosis without myelopathy or radiculopathy, cervical region; G89.4 Chronic pain syndrome
CPT/HCPCS: 99214

== ENCOUNTER → 2023-05-15 13:45 | Outpatient (BNVA) | payer MEDICARE, MEDICAID, SELFPAY | PROVIDERS: PCP Internal Medicine; Visit Provider Anesthesiology | DX: M96.1 Postlaminectomy syndrome, not elsewhere classified (principal); M47.27 Other spondylosis with radiculopathy, lumbosacral region; M54.2 Cervicalgia; M47.812 Spondylosis without myelopathy or radiculopathy, cervical region; G89.4 Chronic pain syndrome | CPT/HCPCS: 99212 ==

== ENCOUNTER 2023-05-21 07:01 | Day surgery (SDC) | payer MEDICARE, MEDICAID, SELFPAY ==
--- NOTE | 2023-05-17 14:07 | P.CONAN_ITS ---
Documented by User: Danna Lopez NP 05/17/23 14:15 HPI - Anesthesia Eval Consult details Narrative: 62yo F for Colonoscopy C spine stimulator implant 2021 [facility] Active Problems Active Problems: All Active Problems (Updated 12/27/22 @ 14:34 by Kaylah Mckeon) Moderate recurrent major depression (Acute) Screen for colon cancer (Acute) Family history of melanoma (Acute) Right ankle pain (Acute) Thyroid enlargement (Acute) Essential hypertension (Acute) Hypertriglyceridemia (Acute) Impaired fasting blood sugar (Acute) COPD (chronic obstructive pulmonary disease) (Acute) Nicotine dependence, cigarettes, uncomplicated (Acute) Cough (Acute) Allergic rhinitis (Acute) Depression with anxiety (Acute) Opioid dependence (Acute) Chronic pain syndrome (Acute) Postlaminectomy syndrome, cervical (Acute) Postlaminectomy syndrome, lumbar (Acute) Osteoarthritis of left knee (Acute) Constipation due to opioid therapy (Acute) GERD (gastroesophageal reflux disease) (Acute) History of colon polyps (Acute ~2012) Hypovitaminosis D (Acute) Past Medical History Medical History History of colon polyps (~2012) Nicotine dependence, cigarettes, uncomplicated History of DVT (deep vein thrombosis) Migraines Asthma Chronic pain syndrome Postlaminectomy syndrome, cervical Cough COPD (chronic obstructive pulmonary disease) Allergic rhinitis Osteoarthritis of right hip Depression with anxiety Constipation due to opioid therapy GERD (gastroesophageal reflux disease) Hypovitaminosis D Lumbar degenerative disc disease Essential hypertension Family History Family History Father Diabetes Mother Diabetes Hypertension Sister Diabetes Breast cancer Maternal Uncle Prostate cancer Family history of problems with anesthesia: No Surgical History Surgical History History of colonoscopy History of fusion of lumbar spine History of fusion of cervical spine History of appendectomy (~1990) History of total abdominal hysterectomy (~2011) History of esophagogastroduodenoscopy (EGD) (~2012) Status post insertion of nerve stimulator History of cholecystectomy (~2003) History of incisional hernia repair History of arthroscopy of both knees History of carpal tunnel surgery of right wrist History of carpal tunnel surgery of left wrist History of hemicolectomy History of Problems with Anesthesia: No Social History Social History Housing: Apartment Alcohol intake: never Comment: movement only Patient Tobacco Use Status: Current everyday Tobacco user Tobacco use type: Cigarette Cigarette Packs Per Day: 0.5 Cigarettes Per Day: 10 e-Cigarette/Vaping Use: Never Used Second Hand Smoke Exposure: No Are you DNR?: No Advance Directives: No Advance Directives Information Provided: Yes Recently lost weight without trying: No Nutrition Risks: No Nutritional Risk service: No Current occupational status: disabled Cognitive needs: No Hearing needs: No Vision needs: No Meds Allergies Allergy/AdvReac Type Severity Reaction Status Date / Time topiramate [From TOPAMAX] Allergy Severe SWELLING Verified 05/15/23 14:01 barium sulfate AdvReac Intermediate changes in Verified 05/15/23 14:01 behavior hydrocodone AdvReac Intermediate Nausea Verified 05/15/23 14:01 metronidazole [Flagyl] AdvReac Intermediate MOISTURE METER OPERATOR, N/V Verified 05/15/23 14:01 morphine [MORPHINE] AdvReac Intermediate HEADACHE Verified 05/15/23 14:01 Penicillins AdvReac Intermediate Vomiting Verified 05/15/23 14:01 trazodone AdvReac Intermediate Palpitation Verified 05/15/23 14:01 s varenicline [From Chantix] AdvReac Mild changes in Verified 05/15/23 14:01 behavior Home Medications Medication Instructions Recorded Confirmed Last Taken Type aspirin 81 mg tablet,delayed 81 mg PO DAILY 12/21/19 05/21/23 05/13/23 History release (Adult Low Dose Aspirin) escitalopram oxalate 10 mg tablet 10 mg PO DAILY 12/21/19 05/21/23 Unknown History fluticasone propionate 50 1 spray intranasal DAILY 12/21/19 05/21/23 Unknown History mcg/actuation nasal spray,suspension (Flonase Allergy Relief) Exam Pertinent Lab Results Pertinent Lab Results: Laboratory Tests 12/25/22 13:51 Sodium 138 Potassium 4.2 Chloride 106 Carbon Dioxide 23 BUN 7 L Creatinine 0.73 Assessment and Plan Assessment Anesthesia Assessment: Chart Reviewed Final Anesthetic Review Family History of Problems with Anesthesia: No History of Problems with Anesthesia: No Documented by User: Christina Go MD 05/21/23 08:51 PMF Past Medical History Medical History History of colon polyps (~2012) Nicotine dependence, cigarettes, uncomplicated History of DVT (deep vein thrombosis) Migraines Asthma Chronic pain syndrome Postlaminectomy syndrome, cervical Cough COPD (chronic obstructive pulmonary disease) Allergic rhinitis Osteoarthritis of right hip Depression with anxiety Constipation due to opioid therapy GERD (gastroesophageal reflux disease) Hypovitaminosis D Lumbar degenerative disc disease Essential hypertension Family History Family History Father Diabetes Mother Diabetes Hypertension Sister Diabetes Breast cancer Maternal Uncle Prostate cancer Surgical History Surgical History History of colonoscopy History of fusion of lumbar spine History of fusion of cervical spine History of appendectomy (~1990) History of total abdominal hysterectomy (~2011) History of esophagogastroduodenoscopy (EGD) (~2012) Status post insertion of nerve stimulator History of cholecystectomy (~2003) History of incisional hernia repair History of arthroscopy of both knees History of carpal tunnel surgery of right wrist History of carpal tunnel surgery of left wrist History of hemicolectomy Social History Social History Housing: Apartment Alcohol intake: never Comment: movement only Patient Tobacco Use Status: Current everyday Tobacco user Tobacco use type: Cigarette Cigarette Packs Per Day: 0.5 Cigarettes Per Day: 10 e-Cigarette/Vaping Use: Never Used Second Hand Smoke Exposure: No Are you DNR?: No Advance Directives: No Advance Directives Information Provided: Yes Recently lost weight without trying: No Nutrition Risks: No Nutritional Risk service: No Current occupational status: disabled Cognitive needs: No Hearing needs: No Vision needs: No Meds Allergies Allergy/AdvReac Type Severity Reaction Status Date / Time topiramate [From TOPAMAX] Allergy Severe SWELLING Verified 05/15/23 14:01 barium sulfate AdvReac Intermediate changes in Verified 05/15/23 14:01 behavior hydrocodone AdvReac Intermediate Nausea Verified 05/15/23 14:01 metronidazole [Flagyl] AdvReac Intermediate MOISTURE METER OPERATOR, N/V Verified 05/15/23 14:01 morphine [MORPHINE] AdvReac Intermediate HEADACHE Verified 05/15/23 14:01 Penicillins AdvReac Intermediate Vomiting Verified 05/15/23 14:01 trazodone AdvReac Intermediate Palpitation Verified 05/15/23 14:01 s varenicline [From Chantix] AdvReac Mild changes in Verified 05/15/23 14:01 behavior Home Medications Medication Instructions Recorded Confirmed Last Taken Type aspirin 81 mg tablet,delayed 81 mg PO DAILY 12/21/19 05/21/23 05/13/23 History release (Adult Low Dose Aspirin) escitalopram oxalate 10 mg tablet 10 mg PO DAILY 12/21/19 05/21/23 Unknown History fluticasone propionate 50 1 spray intranasal DAILY 12/21/19 05/21/23 Unknown History mcg/actuation nasal spray,suspension (Flonase Allergy Relief) Exam Airway Mallampati Class: II TM Dist: >3cm Neck ROM: Full Loose/Missing/Broken Teeth: Yes and Upper Heart: RRR Lungs: CTA Assessment and Plan Assessment Anesthesia Assessment: Anesthesia Plan Discussed Final Anesthetic Review NPO: Yes ASA Class: III Final Preanesthetic Review: Meds/Allgs Chart Reviewed and Consent Obtained/Reviewed Patient Risk: Intermediate Procedure Risk: Low Anesthetic Plan Anesthetic Plan: MAC: Disposition: Standard PACU
[2023-05-21 07:40] VITALS: BP 128/66; PULSE 84; RESP 19; TEMP 36.1; O2SAT 97; BMI 28.8
[2023-05-21] MEDS: Lactated Ringers 1,000 ML 100 ML IVCONT (08:01)
--- NOTE | 2023-05-21 09:14 | MHC.SHP ---
Pre-Procedural Eval Section A - 24 Hr Update-Section A only Date of Service: 05/21/23 Section B - Complete if H&P > 30 days Chief Complaint: Encounter for screening for malignant neoplasm of Details of Present Illness: see H^P no changes Relevant Family History (Specify if Yes): No Relevant Social History: None Present Medications: see Short Stay Collaborative assessment Medical History: No relevant PMH History of Previous Operations: No relevant previous surgery Allergies: Allergies Allergy/AdvReac Type Severity Reaction Status Date / Time topiramate [From TOPAMAX] Allergy Severe SWELLING Verified 05/15/23 14:01 barium sulfate AdvReac Intermediate changes in Verified 05/15/23 14:01 behavior hydrocodone AdvReac Intermediate Nausea Verified 05/15/23 14:01 metronidazole [Flagyl] AdvReac Intermediate CONFIGURATION MANAGER, N/V Verified 05/15/23 14:01 morphine [MORPHINE] AdvReac Intermediate HEADACHE Verified 05/15/23 14:01 Penicillins AdvReac Intermediate Vomiting Verified 05/15/23 14:01 trazodone AdvReac Intermediate Palpitation Verified 05/15/23 14:01 s varenicline [From Chantix] AdvReac Mild changes in Verified 05/15/23 14:01 behavior Review of Systems Sugical H&P ROS: Negative: Constitution, Cardiovascular, Respiratory, Neurological, Psychiatric, Hem-Onc, Allergic/Immunologic, Gastrointestinal, Genitourinary, Musculoskeletal, Integumentary, Endocrine and Eyes/Ears/Nose/Throat Exam Surgical H&P Exam: Normal: HEENT, Normal: Heart, Normal: Lungs, Normal: Extremities, Normal: Abdomen, Normal: Skin and Normal: Neurological Plan Diagnosis/Plan: Unchanged I have reviewed the history and physical and performed a pertinent physical examination on my patient. No changes have occurred unless specified. Time Spent With Patient Time: Total time managing care of this patient today ____ minutes.
[2023-05-21 09:50] VITALS: BP 91/50; PULSE 74; RESP 18; TEMP 36.6; O2SAT 98
[2023-05-21 10:05] VITALS: BP 104/61; PULSE 77; RESP 20; TEMP 36.2; O2SAT 100
--- NOTE | 2023-05-21 10:30 | OP_ITS ---
DATE OF SERVICE: 05/21/2023 SURGEON: Kaushik Ahumada MD INDICATIONS: Colon cancer screening and prior history of hyperplastic colon polyps. PREOPERATIVE DIAGNOSIS: POSTOPERATIVE DIAGNOSIS: PROCEDURE PERFORMED: Colonoscopy to the terminal ileum with biopsy. ESTIMATED BLOOD LOSS: COMPLICATIONS: ANESTHESIA: Monitored anesthesia care. ASSISTANTS: SPECIMENS: DESCRIPTION OF PROCEDURE: History and physical was performed. The risks and benefits of the procedure were explained to the patient and informed consent was obtained. The patient was placed in the left lateral decubitus position. A digital rectal exam was performed and was found to be normal. The Olympus pediatric video colonoscope was introduced into the rectum and advanced to the cecum. The cecum was identified by transillumination, palpation, and identification of ileocecal valve. Examination was performed. The scope was removed. She tolerated the procedure well and was taken to recovery area in stable condition. FINDINGS: The terminal ileum was examined and appeared normal. The visualized colonic mucosa was normal. The quality of the prep was good. A single polyp measuring less than 5 mm was identified in the rectum and removed with a biopsy forceps. No other polyps were identified. Retroflexed examination showed small internal hemorrhoids. IMPRESSION: Colon polyp. RECOMMENDATION: Follow up the biopsy results. MD ALFREDO Oliver/YURY / [id number]
== END 2023-05-21 10:19 | disposition home or self-care (01) ==
PROVIDERS: PCP Internal Medicine; Visit Provider Internal Medicine Gastroenterology
PROC: 0DJD8ZZ Inspection of Lower Intestinal Tract, Via Natural or Artificial Opening Endoscopic (ICD-10-PCS; CPT 45378; principal; 2023-05-21 09:20)
DX: Z12.11 Encounter for screening for malignant neoplasm of colon (principal); K62.1 Rectal polyp; Z86.010 Personal history of colon polyps; I10 Essential (primary) hypertension; E78.5 Hyperlipidemia, unspecified; K21.9 Gastro-esophageal reflux disease without esophagitis; J45.909 Unspecified asthma, uncomplicated; Z79.891 Long term (current) use of opiate analgesic; Z79.899 Other long term (current) drug therapy
CPT/HCPCS: 45380; 88305; J2704

== ENCOUNTER → 2023-05-30 12:57 | Outpatient (BNVA) | payer MEDICARE, MEDICAID, SELFPAY | PROVIDERS: PCP Internal Medicine; Visit Provider Anesthesiology | DX: Z51.81 Encounter for therapeutic drug level monitoring (principal) | CPT/HCPCS: 99211 ==

== ENCOUNTER 2023-06-26 12:51 | Outpatient (AMB) | payer MEDICARE, MEDICAID, SELFPAY ==
[2023-06-26 13:06] VITALS: BP 120/80; BMI 29.9
--- NOTE | 2023-06-26 13:06 | MHC.PC.OV ---
Vital Signs 06/26/23 13:06 Height 5 ft 3 in Weight 169 lb BMI 29.9 BP 120/80 Blood Pressure Location Lt brachial Position Sitting Intake Visit Reasons: bp Intake Note: Patient here for a follow up BP Packer Denture Required: No Accompanied by: Self / Same As Patient Allergies topiramate [From TOPAMAX] Allergy (Severe, Verified 06/26/23 13:20) SWELLING barium sulfate Adverse Reaction (Intermediate, Verified 06/26/23 13:20) changes in behavior hydrocodone Adverse Reaction (Intermediate, Verified 06/26/23 13:20) Nausea metronidazole [Flagyl] Adverse Reaction (Intermediate, Verified 06/26/23 13:20) PHOTONICS TECHNICIAN, N/V morphine [MORPHINE] Adverse Reaction (Intermediate, Verified 06/26/23 13:20) HEADACHE Penicillins Adverse Reaction (Intermediate, Verified 06/26/23 13:20) Vomiting trazodone Adverse Reaction (Intermediate, Verified 06/26/23 13:20) Palpitations varenicline [From Chantix] Adverse Reaction (Mild, Verified 06/26/23 13:20) changes in behavior Medication List - Last Reconciled 06/26/23 by Chrissy Gao MD Advair Diskus 100-50 mcg/dose (fluticasone propion-salmeterol) 2 ea PO BID PRN NS albuterol sulfate 90 mcg/actuation 2 puffs PO Q4H PRN albuterol sulfate 2.5 mg (3 mL) inhalation TID alprazolam 0.5 mg PO DAILY PRN 2 days aspirin (Adult Low Dose Aspirin) 81 mg PO DAILY cholecalciferol (vitamin D3) 25 mcg PO DAILY 90 days dexlansoprazole (Dexilant) 60 mg PO DAILY 90 days diphenhydramine HCl (Allergy (diphenhydramine)) 25 mg PO BEDTIME PRN 90 days escitalopram oxalate 10 mg PO DAILY fenofibrate 160 mg PO DAILY 90 days fluticasone propion-salmeterol 100-50 mcg/dose 1 ea PO BID 30 days fluticasone propionate 50 mcg/actuation (Flonase Allergy Relief) 1 spray intranasal DAILY linaclotide (Linzess) 290 mcg PO DAILY 90 days lisinopril 20 mg PO DAILY montelukast 10 mg PO DAILY oxycodone 10 mg PO Q6H PRN 30 days tizanidine 2 mg PO BEDTIME Ventolin HFA 90 mcg/actuation (albuterol sulfate) 2 puffs inhalation Q6H PRN 30 days NS Tobacco use date assessed: 06/26/23 Dental Screening Dental Screen Date: 06/26/23 Did you have a dental visit in the last 12 months?: Yes Did you have a dental problem in the last 6 months where you did not have access to dental care?: No Was dental information given to patient?: Patient has dentist HPI HPI Comments History of Present Illness Details This is a 62-year-old female with hypertension, COPD, moderate recurrent major depression and opioid dependence that comes today for follow-up on her conditions. Blood pressure stable. Use rescue inhaler few times a month for her COPD and is compliant with Advair. COPD is follow by pulmonology. Depression has been somewhat stable with medications. On oxycodone due to chronic low back pain and has a TENS unit now. No red flags on oxycodone use. And does relieved the pain and decreasing intensity. Had bone density showing severe osteoporosis and I will start her on alendronate. She removed her teeth already. Will be referred to rheumatology. FORMERLY [facility], [facility] Medical History (Updated 06/26/23 @ 13:37 by Chrissy Gao MD) History of colon polyps (~2012) Nicotine dependence, cigarettes, uncomplicated History of DVT (deep vein thrombosis) Migraines Asthma Chronic pain syndrome Postlaminectomy syndrome, cervical Cough COPD (chronic obstructive pulmonary disease) Allergic rhinitis Osteoarthritis of right hip Depression with anxiety Constipation due to opioid therapy GERD (gastroesophageal reflux disease) Hypovitaminosis D Lumbar degenerative disc disease Essential hypertension Surgical History History of colonoscopy History of fusion of lumbar spine History of fusion of cervical spine History of appendectomy (~1990) History of total abdominal hysterectomy (~2011) History of esophagogastroduodenoscopy (EGD) (~2012) Status post insertion of nerve stimulator History of cholecystectomy (~2003) History of incisional hernia repair History of arthroscopy of both knees History of carpal tunnel surgery of right wrist History of carpal tunnel surgery of left wrist History of hemicolectomy Family History Father Diabetes Mother Diabetes Hypertension Sister Diabetes Breast cancer Maternal Uncle Prostate cancer Social History Housing: Apartment Alcohol intake: never Comment: movement only Patient Tobacco Use Status: Current everyday Tobacco user Tobacco use type: Cigarette Cigarettes Per Day: 6 e-Cigarette/Vaping Use: Never Used Second Hand Smoke Exposure: No service: No Current occupational status: disabled Cognitive needs: No Hearing needs: No Vision needs: Yes Questionnaire PHQ-9 Over the last 2 weeks, how often have you been bothered by any of the following problems? 1. Little interest or pleasure in doing things: several days 2. Feeling down, depressed, or hopeless: nearly every day 3. Trouble falling or staying asleep, or sleeping too much: nearly every day 4. Feeling tired or having little energy: more than half the days 5. Poor appetite or overeating: more than half the days 6. Feeling bad about yourself - or that you are a failure or have let yourself or your family down: more than half the days 7. Trouble concentrating on things, such as reading the newspaper or watching television: not at all 8. Moving or speaking so slowly that other people could have noticed. Or the opposite - being so fidgety or restless that you have been moving around a lot more than usual: more than half the days 9. Thoughts that you would be better off or of hurting yourself in some way: not at all Total score: 15 Depression Screening Interpretation: Positive (no suicidal thoughts) Depression Screening Follow-up: Existing condition Depression Screening Done: Yes 31251 - PHQ-9 Billing: Yes Source: Developed by Drs. Kodak Noyola, Tiffany More, Maikel Spence and colleagues, with an educational faiza from [employer]. Thrive Questionnaire Date Thrive assessed: 06/26/23 I am a: Patient What is your living situation today?: I have a steady place to live Within the past 12 months, did the food you bought not last and you didn't have the money to get more?: Never true Within the past 12 months, did you worry whether your food would run out before you got money to buy more?: Never true Do you have trouble paying for medicines?: No Do you have trouble getting transportation to medical appointments?: No Do you have trouble paying your heating and electricity bill?: No Do you have trouble taking care of your child, family member or friend?: No Do you have trouble with day-to-day activities such as bathing, preparing meals, shopping, managing finances, etc.?: No Are you currently unemployed and looking for a job?: No Are you interested in more education?: No Please select the resources that you would like help with: None Currently or been in a relationship where the following occur: no concerns reported THRIVE Score: 0 AUDIT C Alcohol Use Questionnaire (AUDIT-C) 1. How often do you have a drink containing alcohol?: Never Total Score: 0 ABI-7 AMB Questionnaire ABI-7 Date ABI - 7 assessed: 06/26/23 Feeling nervous, anxious, or on edge: 3 = Nearly every day Not being able to stop or control worryin = Several days Worrying too much about different things: 3 = Nearly every day Trouble relaxin = Several days Being so restless that it is hard to sit still: 2 = More than half the days Becoming easily annoyed or irritable: 3 = Nearly every day Feeling afraid as if something awful might happen: 0 = Not at all Total ABI-7 score (0-4 normal; 5-9 mild; 10-14 moderate; 15-21 severe): 13 Source: Developed by Drs. Kodak Noyola, Tiffany More, Maikel Spence and colleagues, with an educational faiza from [employer]. ABI-7 Assessment Billing ABI-7 Assessment Tool: ABI-7 Assessment 69729 Review of Systems Const All systems reviewed & are unremarkable except as noted in HPI and below Eyes Reports no additional complaints, Denies change in vision and Denies other visual disturbances Card Denies chest pain at rest, Denies chest pain with activity, Denies edema, Denies irregular heart rhythm, Denies claudication, Denies dyspnea, Denies dyspnea on exertion, Denies orthopnea, Denies paroxysmal nocturnal dyspnea and Denies slow heart rate Resp Denies cough, Denies dyspnea and Denies dyspnea on exertion Physical exam (Primary Care) Vital Signs: Last Vital Signs BP 120/80 06/26/23 13:06 BMI result Body Mass Index 29.9 Tobacco/Smoking Status: Tobacco use Status Tobacco use date assessed 06/26/23 06/26/23 13:12 Patient Tobacco Use Status Current everyday Tobacco 06/26/23 13:12 Tobacco use type Cigarette 06/26/23 13:12 e-Cigarette/Vaping Use Never Used 06/26/23 13:12 PHQ-9: PHQ-9 Score PHQ-9: Total score 15 06/26/23 13:24 Depression Screening Interpretation: Positive (no suicidal thoughts) Depression Screening Follow-up: Existing condition Thrive Assessment: Date of Thrive Assessment Date Thrive assessed 06/26/23 06/26/23 13:12 Currently or been in a relationship where the following occur: no concerns reported Resp Effort & Inspection: normal respiratory effort Auscultation: clear to auscultation bilaterally Cardio Jugular venous distension: no JVD Rate: regular rate Rhythm: regular rhythm Heart sounds: S1 normal heart sound present and S2 normal heart sound present Extrem General: Yes full ROM Psych Appearance: grossly normal Assessment and Plan Assessment & Plan (1) Moderate recurrent major depression: Code(s): F33.1 - Major depressive disorder, recurrent, moderate Plan: Continue escitalopram. (2) Osteoporosis: Code(s): M81.0 - Age-related osteoporosis without current pathological fracture Plan: Start alendronate. Referred to rheumatology. (3) Essential hypertension: Code(s): I10 - Essential (primary) hypertension Plan: Continue lisinopril. Blood pressure goal is equal or less than 130/80. (4) COPD (chronic obstructive pulmonary disease): Comment: Her chronic obstructive disorder is more in the form of asthma, completely reversible. Controlled , at present on small dose of Advair . [place] : Cont. ADVAIR 100-50 one inh BID and Albuterol 2 puffs Q 4-6 Hrs only PRN Code(s): J44.9 - Chronic obstructive pulmonary disease, unspecified Qualifiers: COPD type: unspecified COPD Qualified Code(s): J44.9 - Chronic obstructive pulmonary disease, unspecified Plan: Continue long-acting inhaler. Use rescue inhaler as needed. Follow-up with pulmonology. (5) Opioid dependence: Code(s): F11.20 - Opioid dependence, uncomplicated Qualifiers: Substance use status: uncomplicated Qualified Code(s): F11.20 - Opioid dependence, uncomplicated Plan: Continue oxycodone as needed. Orders: Referrals Rheumatology Referral M81.0 - Age-related osteoporosis without current pathological fracture Medications: New alendronate 70 mg PO QWEEK 90 days 13 tabs 1RF M81.0 - Age-related osteoporosis without current pathological fracture Refilled oxycodone 10 mg PO Q6H 30 days PRN 120 tabs 0RF pain Coding Level of Care Code Est Pt Level 4 (97385) Diagnoses Moderate recurrent major depression F33.1 Osteoporosis M81.0 Essential hypertension I10 Chronic obstructive pulmonary disease, unspecified COPD type J44.9 COPD type: unspecified COPD Uncomplicated opioid dependence F11.20 Substance use status: uncomplicated Additional Codes ABI-7 Assessment Billing - ABI-7 Assessment Tool: ABI-7 Assessment 98609 ([id number]) Time Spent (min) 24
== END 2023-06-26 13:28 | disposition home or self-care (01) ==
PROVIDERS: PCP Internal Medicine; Visit Provider Internal Medicine
DX: I10 Essential (primary) hypertension (principal); J44.9 Chronic obstructive pulmonary disease, unspecified; F33.1 Major depressive disorder, recurrent, moderate; M46.1 Sacroiliitis, not elsewhere classified; F11.20 Opioid dependence, uncomplicated
CPT/HCPCS: 99214

== ENCOUNTER 2023-07-26 11:07 | Outpatient (AMB) | payer MEDICARE, MEDICAID, SELFPAY ==
--- NOTE | 2023-07-26 11:25 | A.OFFVIS_ITS ---
Intake Visit Reasons: left knee injection, last inj 04/2023 Intake Note: Oriana is a 62 year old female who presents today for a left knee injection, last injection 04/24/23. Patient reports her last injection gave her about 3 months of relief and she would like to repeat. Allergies topiramate [From TOPAMAX] Allergy (Severe, Verified 06/26/23 13:20) SWELLING barium sulfate Adverse Reaction (Intermediate, Verified 06/26/23 13:20) changes in behavior hydrocodone Adverse Reaction (Intermediate, Verified 06/26/23 13:20) Nausea metronidazole [Flagyl] Adverse Reaction (Intermediate, Verified 06/26/23 13:20) COATING MIXER, N/V morphine [MORPHINE] Adverse Reaction (Intermediate, Verified 06/26/23 13:20) HEADACHE Penicillins Adverse Reaction (Intermediate, Verified 06/26/23 13:20) Vomiting trazodone Adverse Reaction (Intermediate, Verified 06/26/23 13:20) Palpitations varenicline [From Chantix] Adverse Reaction (Mild, Verified 06/26/23 13:20) changes in behavior HPI HPI left knee injection, last inj 04/2023: Details: 62-year-old female who presents in the office today for a follow up of left knee osteoarthritis. I last saw the patient in the office on 04/24/2023 when she received a cortisone injection. While in the office today the patient reports her last injection gave her about 3 months of relief. She would like to have another cortisone injection in the left knee. [facility] Medical History History of colon polyps (~2012) Nicotine dependence, cigarettes, uncomplicated History of DVT (deep vein thrombosis) Migraines Asthma Chronic pain syndrome Postlaminectomy syndrome, cervical Cough COPD (chronic obstructive pulmonary disease) Allergic rhinitis Osteoarthritis of right hip Depression with anxiety Constipation due to opioid therapy GERD (gastroesophageal reflux disease) Hypovitaminosis D Lumbar degenerative disc disease Essential hypertension Surgical History History of colonoscopy History of fusion of lumbar spine History of fusion of cervical spine History of appendectomy (~1990) History of total abdominal hysterectomy (~2011) History of esophagogastroduodenoscopy (EGD) (~2013) Status post insertion of nerve stimulator History of cholecystectomy (~2003) History of incisional hernia repair History of arthroscopy of both knees History of carpal tunnel surgery of right wrist History of carpal tunnel surgery of left wrist History of hemicolectomy Family History Father Diabetes Mother Diabetes Hypertension Sister Diabetes Breast cancer Maternal Uncle Prostate cancer Social History Housing: Apartment Alcohol intake: never Comment: movement only Patient Tobacco Use Status: Current everyday Tobacco user Tobacco use type: Cigarette Cigarettes Per Day: 6 e-Cigarette/Vaping Use: Never Used Second Hand Smoke Exposure: No service: No Current occupational status: disabled Cognitive needs: No Hearing needs: No Vision needs: Yes Review of Systems Const All systems reviewed & are unremarkable except as noted in HPI and below Physical Exam Const General: cooperative, healthy appearing and no acute distress Resp Effort & Inspection: normal respiratory effort and able to speak in complete sentences Cardio Rate: regular rate Peripheral pulses: Peripheral pulses 2+ throughout GI Palpation (GI): Soft to palpation Skin Lesions: no lesions Rashes: no rashes Extrem Other: Left Knee: Skin C/D/I No effusion TTP medial joint line Office Procedures Joint Injection/Drain Joint Injection/Drain Primary Site: left knee Prep: site was prepped using aseptic technique, ethochloride spray was applied and injection warnings given Injected: 80 mg of, DepoMedrol, with 8 mL of (2% plain lido ) and in the joint Approach Used: anterolateral Procedure: The patient tolerated the procedure well, but had some pain with the injection and there was some relief with the local anesthesia Coding 54634 - Large joint Procedure code (CPT) selection complete Assessment & Plan Assessment & Plan (1) Osteoarthritis of left knee: Code(s): M17.12 - Unilateral primary osteoarthritis, left knee Category: Medical Qualifiers: Osteoarthritis type: unspecified Qualified Code(s): M17.12 - Unilateral primary osteoarthritis, left knee Plan Ms. Chito Guallpa is a 62-year-old female who presents in the office today for a follow up of left knee osteoarthritis. I last saw the patient in the office on 04/24/2023 when she received a cortisone injection. While in the office today the patient reports her last injection gave her about 3 months of relief. She would like to have another cortisone injection in the left knee. The patient was offered a cortisone injection in the left knee with 80 mg of DepoMedrol. The patient was explained the risk, benefits, and alternatives to receiving this injection. After receiving consent for the injection, the patient had the procedure done while in the office today. The patient tolerated the procedure well with no complications. Follow up will be PRN, or sooner if needed. Patient Instructions: Scribed by Kaylah Mckeon medical reception specialist, for Carmita Alexandra PA-C on 07/26/2023 at 11:31 am, EST. Coding Level of Care Code Est Pt Level 3 (66888) Diagnoses Osteoarthritis of left knee, unspecified osteoarthritis type M17.12 Osteoarthritis type: unspecified CPT Codes Coding - 99882 Large joint: 25241 - Large joint ([id number])
== END 2023-07-26 11:27 | disposition home or self-care (01) ==
PROVIDERS: PCP Internal Medicine; Visit Provider Physician Assistant
DX: M17.12 Unilateral primary osteoarthritis, left knee (principal)
CPT/HCPCS: 20610

== ENCOUNTER → 2023-07-26 11:07 | Outpatient (BNVA) | payer MEDICARE, MEDICAID, SELFPAY | PROVIDERS: PCP Internal Medicine; Visit Provider Physician Assistant | DX: M17.12 Unilateral primary osteoarthritis, left knee (principal) | CPT/HCPCS: 20610; J1010 ==

== ENCOUNTER 2023-08-15 10:05 | Outpatient (REF) | payer MEDICARE, MEDICAID, SELFPAY ==
--- NOTE | ~2023-08-15 | XR_ITS ---
EXAMINATION: XR SHOULDER, RIGHT CLINICAL INFORMATION: Right shoulder pain. COMPARISON: None available. TECHNIQUE: Three views of the right shoulder. FINDINGS: Moderate narrowing of the acromioclavicular joint. Glenohumeral alignment is maintained. Leads overlie the upper thoracic line projecting over the cervical spine, incompletely imaged. Fixation hardware in the partially imaged cervical spine. No abnormal soft tissue calcifications identified adjacent to the humeral head. XR/XR shoulder RT min 2V IMPRESSION: Moderate degenerative changes right acromioclavicular joint.
== END 2023-08-15 10:06 | disposition home or self-care (01) ==
LOC: HO.HOSX 10:05
PROVIDERS: Visit Provider Physician Assistant
DX: M75.101 Unspecified rotator cuff tear or rupture of right shoulder, not specified as traumatic (principal)
CPT/HCPCS: 73030; 99212

== ENCOUNTER 2023-08-15 13:18 | Outpatient (AMB) | payer MEDICARE, MEDICAID, SELFPAY ==
--- NOTE | 2023-08-15 13:53 | MHC.OFFVIS ---
Intake Visit Reasons: New Prob - right shoulder pain Intake Note: Oriana is a 63 year old right hand dominant female who presents today for a evaluation of her right shoulder pain. Patient reports having ongoing/ off and on pain for about 3 months. She states that her pain has gotten worse over the time due to over use since that is her dominant hand. Patient describes her pain sharp/throbbing/numb/ burning sensation/achy especially at night. Her pain is on the anterior aspect of the shoulder and it radiates up to her neck sometimes. Her pain is worse when sleeping and brushing her hair. Patient finds mild relief when taking advil/oxycodone that her spine doctor prescribed her. Allergies topiramate [From TOPAMAX] Allergy (Severe, Verified 08/15/23 13:55) SWELLING barium sulfate Adverse Reaction (Intermediate, Verified 08/15/23 13:55) changes in behavior hydrocodone Adverse Reaction (Intermediate, Verified 08/15/23 13:55) Nausea metronidazole [Flagyl] Adverse Reaction (Intermediate, Verified 08/15/23 13:55) BRANCH OPERATIONS MANAGER, N/V morphine [MORPHINE] Adverse Reaction (Intermediate, Verified 08/15/23 13:55) HEADACHE Penicillins Adverse Reaction (Intermediate, Verified 08/15/23 13:55) Vomiting trazodone Adverse Reaction (Intermediate, Verified 08/15/23 13:55) Palpitations varenicline [From Chantix] Adverse Reaction (Mild, Verified 08/15/23 13:55) changes in behavior HPI HPI New Prob - right shoulder pain: Details: 62-year-old right hand dominant female who presents in the office today for an evaluation of right shoulder pain. While in the office today the patient reports intermittent pain for about 3 months, since 05/2023. She claims her pain has increased over time due to overuse of her dominant upper extremity. She describes her pain as sharp, throbbing, numbness, burning sensation, and achy. She states the pain increases at night, when sleeping, and when brushing her hair. She reports relief when taking Advil or oxycodone, which is prescribed by her spine doctor. She denies any history of injury recently. She reports a fall ?a long time ago.? Patient reports her pain is on the anterior aspect of the right shoulder radiating up to her neck occasionally. Patient confirms having a stimulator placed in her neck with minor pain relief. Patient reports she will be out of town on vacation to [place] for three months. [facility]LY [facility] Medical History History of colon polyps (~2012) Nicotine dependence, cigarettes, uncomplicated History of DVT (deep vein thrombosis) Migraines Asthma Chronic pain syndrome Postlaminectomy syndrome, cervical Cough COPD (chronic obstructive pulmonary disease) Allergic rhinitis Osteoarthritis of right hip Depression with anxiety Constipation due to opioid therapy GERD (gastroesophageal reflux disease) Hypovitaminosis D Lumbar degenerative disc disease Essential hypertension Surgical History History of colonoscopy History of fusion of lumbar spine History of fusion of cervical spine History of appendectomy (~1990) History of total abdominal hysterectomy (~2011) History of esophagogastroduodenoscopy (EGD) (~2012) Status post insertion of nerve stimulator History of cholecystectomy (~2003) History of incisional hernia repair History of arthroscopy of both knees History of carpal tunnel surgery of right wrist History of carpal tunnel surgery of left wrist History of hemicolectomy Family History Father Diabetes Mother Diabetes Hypertension Sister Diabetes Breast cancer Maternal Uncle Prostate cancer Social History Housing: Apartment Alcohol intake: never Comment: movement only Patient Tobacco Use Status: Current everyday Tobacco user Tobacco use type: Cigarette Cigarettes Per Day: 6 e-Cigarette/Vaping Use: Never Used Second Hand Smoke Exposure: No service: No Current occupational status: disabled Cognitive needs: No Hearing needs: No Vision needs: Yes Review of Systems Const All systems reviewed & are unremarkable except as noted in HPI and below Physical Exam Const General: cooperative and no acute distress Orientation/consciousness: patient oriented x3 Resp Effort & Inspection: normal respiratory effort and able to speak in complete sentences Cardio Peripheral pulses: Peripheral pulses 2+ throughout Skin General skin exam: no rashes or lesions noted Neuro General: patient oriented x3 Extrem Other: Right shoulder: Normal to inspection. No ecchymosis, erythema, or edema. Full shoulder ROM in all planes. Pain with cross-body reach. 3/5 strength with empty can. Negative drop arm. NVI. Assessment & Plan Assessment & Plan (1) Painful arc syndrome of right shoulder: Code(s): M75.101 - Unspecified rotator cuff tear or rupture of right shoulder, not specified as traumatic Category: Medical Plan Ms. Chito Guallpa is a 62-year-old right hand dominant female who presents in the office today for an evaluation of right shoulder pain. While in the office today the patient reports intermittent pain for about 3 months, since 05/2023. She claims her pain has increased over time due to overuse of her dominant upper extremity. She describes her pain as sharp, throbbing, numbness, burning sensation, and achy. She states the pain increases at night, when sleeping, and when brushing her hair. She reports relief when taking Advil or oxycodone, which is prescribed by her spine doctor. She denies any history of injury recently. She reports a fall ?a long time ago.? Patient reports her pain is on the anterior aspect of the right shoulder radiating up to her neck occasionally. Patient confirms having a stimulator placed in her neck with minor pain relief. Patient reports she will be out of town on vacation to [place] for three months. We discussed the role of cortisone injections in the right shoulder. The patient would like to return to the office on Saturday08/19/2023 for this injection, which was scheduled today. We discussed the role of physical therapy but will defer due to the patient leaving town for three months. Follow-up will be PRN, or sooner if needed. X-rays of the right shoulder which were obtained while in the office today and were reviewed by me, Carmita Alexandra PA-C, revealed no acute fracture or dislocation. Orders: Orders XR shoulder RT min 2V Today M25.519 - Pain in unspecified shoulder Patient Instructions: Scribed by Kaylah Mckeon medical clinic manager, for Carmita Alexandra PA-C on 08/15/2023 at 1:24 pm, EST. Coding Level of Care Code Est Pt Level 3 (20313) Diagnoses Painful arc syndrome of right shoulder M75.101
== END 2023-08-15 14:10 | disposition home or self-care (01) ==
LOC: HO.HOS 13:18
PROVIDERS: PCP Internal Medicine; Visit Provider Physician Assistant
DX: M75.101 Unspecified rotator cuff tear or rupture of right shoulder, not specified as traumatic (principal)
CPT/HCPCS: 99213

== ENCOUNTER 2023-08-19 13:21 | Outpatient (AMB) | payer MEDICARE, MEDICAID, SELFPAY ==
--- NOTE | 2023-08-19 13:27 | MHC.OFFVIS ---
Intake Visit Reasons: right shoulder injection Intake Note: Oriana is a 63 year old right hand dominant female who presents today for a injection for her right shoulder. Pt denies any prior injections in her right shoulder. Allergies topiramate [From TOPAMAX] Allergy (Severe, Verified 08/19/23 13:27) SWELLING barium sulfate Adverse Reaction (Intermediate, Verified 08/19/23 13:27) changes in behavior hydrocodone Adverse Reaction (Intermediate, Verified 08/19/23 13:27) Nausea metronidazole [Flagyl] Adverse Reaction (Intermediate, Verified 08/19/23 13:27) [employer], N/V morphine [MORPHINE] Adverse Reaction (Intermediate, Verified 08/19/23 13:27) HEADACHE Penicillins Adverse Reaction (Intermediate, Verified 08/19/23 13:27) Vomiting trazodone Adverse Reaction (Intermediate, Verified 08/19/23 13:27) Palpitations varenicline [From Chantix] Adverse Reaction (Mild, Verified 08/19/23 13:27) changes in behavior HPI HPI right shoulder injection: Details: 62-year-old right hand dominant female who presents in the office today for a follow up of right shoulder pain. I last saw the patient in the office on 08/15/2023 when we discuss cortisone injections. However, the patient wished to have the injection given in the office today instead of 08/15/2023. We also discussed physical therapy but due to the patient going on vacation for three months this was deferred. While in the office today the patient denies any prior injections in the right shoulder. COUNTS INCLUDE 234 BEDS AT THE [facility] Medical History History of colon polyps (~2012) Nicotine dependence, cigarettes, uncomplicated History of DVT (deep vein thrombosis) Migraines Asthma Chronic pain syndrome Postlaminectomy syndrome, cervical Cough COPD (chronic obstructive pulmonary disease) Allergic rhinitis Osteoarthritis of right hip Depression with anxiety Constipation due to opioid therapy GERD (gastroesophageal reflux disease) Hypovitaminosis D Lumbar degenerative disc disease Essential hypertension Surgical History History of colonoscopy History of fusion of lumbar spine History of fusion of cervical spine History of appendectomy (~1990) History of total abdominal hysterectomy (~2011) History of esophagogastroduodenoscopy (EGD) (~2012) Status post insertion of nerve stimulator History of cholecystectomy (~2003) History of incisional hernia repair History of arthroscopy of both knees History of carpal tunnel surgery of right wrist History of carpal tunnel surgery of left wrist History of hemicolectomy Family History Father Diabetes Mother Diabetes Hypertension Sister Diabetes Breast cancer Maternal Uncle Prostate cancer Social History Housing: Apartment Alcohol intake: never Comment: movement only Patient Tobacco Use Status: Current everyday Tobacco user Tobacco use type: Cigarette Cigarettes Per Day: 6 e-Cigarette/Vaping Use: Never Used Second Hand Smoke Exposure: No service: No Current occupational status: disabled Cognitive needs: No Hearing needs: No Vision needs: Yes Review of Systems Const All systems reviewed & are unremarkable except as noted in HPI and below Physical Exam Const General: cooperative, healthy appearing and no acute distress Resp Effort & Inspection: normal respiratory effort and able to speak in complete sentences Cardio Rate: regular rate Peripheral pulses: Peripheral pulses 2+ throughout GI Palpation (GI): Soft to palpation Skin Lesions: no lesions Rashes: no rashes Extrem Other: Right shoulder: Normal to inspection. No ecchymosis, erythema, or edema. Full shoulder ROM in all planes. Pain with cross-body reach. 3/5 strength with empty can. Negative drop arm. NVI. Office Procedures Joint Injection/Drain Joint Injection/Drain Primary Site: right shoulder Prep: site was prepped using aseptic technique, ethochloride spray was applied and injection warnings given Injected: 80 mg of, DepoMedrol, with 8 mL of (2% plain lido ) and in the joint Approach Used: anterolateral Procedure: The patient tolerated the procedure well, but had some pain with the injection and there was some relief with the local anesthesia Coding 82556 - Large joint Procedure code (CPT) selection complete Assessment & Plan Assessment & Plan (1) Painful arc syndrome of right shoulder: Code(s): M75.101 - Unspecified rotator cuff tear or rupture of right shoulder, not specified as traumatic Category: Medical Plan Ms. Chito Guallpa is a 62-year-old right hand dominant female who presents in the office today for a follow up of right shoulder pain. I last saw the patient in the office on 08/15/2023 when we discuss cortisone injections. However, the patient wished to have the injection given in the office today instead of 08/15/2023. We also discussed physical therapy but due to the patient going on vacation for three months this was deferred. While in the office today the patient denies any prior injections in the right shoulder. The patient was offered a cortisone injection in the right shoulder with 80 mg of DepoMedrol. The patient was explained the risk, benefits, and alternatives to receiving this injection. After receiving consent for the injection, the patient had the procedure done while in the office today. The patient tolerated the procedure well with no complications. Follow up will be PRN, or sooner if needed. Patient Instructions: Scribed by Kaylah Mckeon medical coordinator pesticide use, for Carmita Alexandra PA-C on 08/19/2023 at 1:26 pm, EST. Coding Level of Care Code Est Pt Level 3 (46018) Diagnoses Painful arc syndrome of right shoulder M75.101 CPT Codes Coding - 26114 Large joint: 74079 - Large joint ([id number])
== END 2023-08-19 13:42 | disposition home or self-care (01) ==
LOC: HO.HOS 13:21
PROVIDERS: PCP Internal Medicine; Visit Provider Physician Assistant
DX: M75.101 Unspecified rotator cuff tear or rupture of right shoulder, not specified as traumatic (principal)
CPT/HCPCS: 20610

== ENCOUNTER → 2023-08-19 13:21 | Outpatient (BNVA) | payer MEDICARE, MEDICAID, SELFPAY | PROVIDERS: PCP Internal Medicine; Visit Provider Physician Assistant | DX: M75.101 Unspecified rotator cuff tear or rupture of right shoulder, not specified as traumatic (principal) | CPT/HCPCS: 20610; J1010 ==

== ENCOUNTER 2023-08-21 14:44 | Outpatient (AMB) | payer MEDICARE, MEDICAID, SELFPAY ==
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
[2023-08-21 15:12] VITALS: BP 130/72; PULSE 62; O2SAT 100; BMI 30.1
== END 2023-08-21 15:33 | disposition home or self-care (01) ==
PROVIDERS: PCP Internal Medicine; Visit Provider Student in an Organized Health Care Education/Training Program
DX: M81.0 Age-related osteoporosis without current pathological fracture (principal)
CPT/HCPCS: 99203

== ENCOUNTER → 2023-08-21 14:44 | Outpatient (BNVA) | payer MEDICARE, MEDICAID, SELFPAY | PROVIDERS: PCP Internal Medicine; Visit Provider Student in an Organized Health Care Education/Training Program | DX: M81.0 Age-related osteoporosis without current pathological fracture (principal); R29.6 Repeated falls; F17.210 Nicotine dependence, cigarettes, uncomplicated; Z78.0 Asymptomatic menopausal state; Z90.710 Acquired absence of both cervix and uterus; Z90.722 Acquired absence of ovaries, bilateral | CPT/HCPCS: 99202 ==

== ENCOUNTER 2023-08-22 11:46 | Outpatient (REF) | payer MEDICARE, MEDICAID, SELFPAY ==
[2023-08-22 13:13] LABS: Parathyroid Hormone Intact 50.2 pg/mL (8.7-77.1)
[2023-08-22 13:16] LABS: Alanine Aminotransferase 10 U/L (0-31); Alkaline Phosphatase 106 U/L (39-117); Anion Gap 12 (12-20); Aspartate Amino Transferase 9 U/L (5-31); Bilirubin Total 0.2 mg/dL (0.0-1.0); Blood Urea Nitrogen 8 mg/dL (9-16); Calcium 9.3 mg/dL (8.4-10.2); Carbon Dioxide 23 mmol/L (22-29); Chloride 105 mmol/L (96-108); Estimated Glomerular Filt Rate > 60; Glucose Random 147 mg/dL (60-115); Magnesium 2.1 mg/dL (1.6-2.6); Phosphorus 2.8 mg/dL (2.7-4.5); Sodium 136 mmol/L (135-145); Total Protein 7.2 g/dL (6.5-8.0)
[2023-08-22 13:33] LABS: TSH reflex Free T4 0.71 uIU/mL (0.32-4.0); Vitamin D 25-OH Total 30.4 ng/mL (>30)
[2023-08-23 20:44] LABS: Prot Elec - Alpha1 0.3 g/dL (0.2-0.3); Prot Elec - Alpha2 0.7 g/dL (0.5-0.9); Prot Elec - Beta 1 0.5 g/dL (0.4-0.6); Prot Elec - Beta 2 0.5 g/dL (0.2-0.5); Prot Elec - Gamma 1.2 g/dL (0.8-1.7); Prot Elec - Total Protein 7.1 g/dL (6.1-8.1)
== END 2023-08-22 11:47 | disposition home or self-care (01) ==
LOC: HO.LAB 11:46
PROVIDERS: PCP Internal Medicine; Visit Provider Student in an Organized Health Care Education/Training Program
DX: M81.0 Age-related osteoporosis without current pathological fracture (principal); E55.9 Vitamin D deficiency, unspecified
CPT/HCPCS: 36415; 80053; 82306; 83735; 83970; 84100; 84165; 84443

== ENCOUNTER 2023-08-26 07:47 | Outpatient (REF) | payer MEDICARE, MEDICAID, SELFPAY ==
[2023-08-29 21:48] LABS: Collagen Type I C-Telopeptide 434 pg/mL (see note)
== END 2023-08-26 07:48 | disposition home or self-care (01) ==
LOC: HO.LAB 07:47
PROVIDERS: Absent Provider Student in an Organized Health Care Education/Training Program; PCP Internal Medicine; Visit Provider Internal Medicine
DX: M81.0 Age-related osteoporosis without current pathological fracture (principal)
CPT/HCPCS: 36415; 82523

== ENCOUNTER 2023-12-30 12:36 | Outpatient (AMB) | payer MEDICARE, MEDICAID, SELFPAY ==
--- NOTE | 2023-12-30 12:38 | A.OFFPC_ITS ---
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 Accompanied by: Spouse Allergies topiramate [From TOPAMAX] Allergy (Severe, Verified 12/30/23 12:45) SWELLING barium sulfate Adverse Reaction (Intermediate, Verified 12/30/23 12:45) changes in behavior hydrocodone Adverse Reaction (Intermediate, Verified 12/30/23 12:45) Nausea metronidazole [Flagyl] Adverse Reaction (Intermediate, Verified 12/30/23 12:45) 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, 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 morphine [MORPHINE] Adverse Reaction (Intermediate, Verified 12/30/23 12:45) HEADACHE Penicillins Adverse Reaction (Intermediate, Verified 12/30/23 12:45) Vomiting trazodone Adverse Reaction (Intermediate, Verified 12/30/23 12:45) Palpitations varenicline [From Chantix] Adverse Reaction (Mild, Verified 12/30/23 12:45) changes in behavior Medication List - Last Reconciled 12/30/23 by Chrissy Gao MD Advair Diskus 100-50 mcg/dose (fluticasone propion-salmeterol) 2 ea PO BID PRN NS albuterol sulfate 90 mcg/actuation 2 puffs PO Q4H PRN albuterol sulfate 2.5 mg (3 mL) inhalation TID alendronate 70 mg PO QWEEK 90 days alprazolam 0.5 mg PO DAILY PRN 2 days aspirin (Adult Low Dose Aspirin) 81 mg PO DAILY cholecalciferol (vitamin D3) 25 mcg PO DAILY 90 days dexlansoprazole (Dexilant) 60 mg PO DAILY 90 days diphenhydramine HCl (Allergy (diphenhydramine)) 25 mg PO BEDTIME PRN 90 days escitalopram oxalate 10 mg PO DAILY fenofibrate 160 mg PO DAILY 90 days fluticasone propion-salmeterol 100-50 mcg/dose 1 ea PO BID 30 days fluticasone propionate 50 mcg/actuation (Flonase Allergy Relief) 1 spray intranasal DAILY linaclotide (Linzess) 290 mcg PO DAILY 90 days lisinopril 20 mg PO DAILY montelukast 10 mg PO DAILY oxycodone 10 mg PO Q6H PRN 30 days Ventolin HFA 90 mcg/actuation (albuterol sulfate) 2 puffs inhalation Q6H PRN 30 days NS Tobacco use date assessed: 06/26/23 Dental Screening Dental Screen Date: 06/26/23 HPI HPI Comments History of Present Illness Details This is a 63-year-old female with moderate recurrent major depression and COPD that comes accompanied by for her physical exam. Mammogram scheduled for February. No need for Pap smear due to hysterectomy for benign reasons. DEXA scan done 2023 showing osteoporosis and follow by Rheumatology which is giving her Reclast. Colonoscopy done 2023 showing hyperplastic polyp. On escitalopram for her depression. COPD follow by pulmonology. She complains of chest wall pain and some shortness of breath and would like a chest x-ray. [facility] Medical History History of colon polyps (~2012) Nicotine dependence, cigarettes, uncomplicated History of DVT (deep vein thrombosis) Migraines Asthma Chronic pain syndrome Postlaminectomy syndrome, cervical Cough COPD (chronic obstructive pulmonary disease) Allergic rhinitis Osteoarthritis of right hip Depression with anxiety Constipation due to opioid therapy GERD (gastroesophageal reflux disease) Hypovitaminosis D Lumbar degenerative disc disease Essential hypertension Surgical History History of colonoscopy History of fusion of lumbar spine History of fusion of cervical spine History of appendectomy (~1990) History of total abdominal hysterectomy (~2011) History of esophagogastroduodenoscopy (EGD) (~2012) Status post insertion of nerve stimulator History of cholecystectomy (~2003) History of incisional hernia repair History of arthroscopy of both knees History of carpal tunnel surgery of right wrist History of carpal tunnel surgery of left wrist History of hemicolectomy Family History Father Diabetes Mother Diabetes Hypertension Sister Diabetes Breast cancer Rheumatoid arthritis Osteoporosis Maternal Uncle Prostate cancer Social History Housing: Apartment Alcohol intake: never Comment: movement only Patient Tobacco Use Status: Current everyday Tobacco user Tobacco use type: Cigarette Cigarettes Per Day: 6 e-Cigarette/Vaping Use: Never Used Second Hand Smoke Exposure: No service: No Current occupational status: disabled Cognitive needs: No Hearing needs: No Vision needs: Yes Questionnaire Thrive Questionnaire Date Thrive assessed: 06/26/23 ABI-7 AMB Questionnaire ABI-7 Date ABI - 7 assessed: 06/26/23 Source: Developed by Drs. Kodak Noyola, Tiffany More, Maikel Spence and colleagues, with an educational faiza from [employer]. Review of Systems Const All systems reviewed & are unremarkable except as noted in HPI and below Card Reports chest pain at rest, Denies chest pain with activity, Denies edema, Denies irregular heart rhythm, Denies claudication, Reports dyspnea, Denies dyspnea on exertion, Denies orthopnea, Denies paroxysmal nocturnal dyspnea and Denies slow heart rate Resp Reports cough, Reports dyspnea and Denies dyspnea on exertion GI Denies abdominal pain, Denies change in bowel habits, Denies excessive flatus, Denies nausea and Denies vomiting Physical exam (Primary Care) Vital Signs: Last Vital Signs BP 132/80 12/30/23 12:39 BMI result Body Mass Index 30.1 BMI Assessment/Plan discussion: High BMI High, discussed plan: lifestyle, weight reduction, dietary and physical activity Tobacco/Smoking Status: Tobacco use Status Tobacco use date assessed 06/26/23 12/30/23 12:45 Patient Tobacco Use Status Current everyday Tobacco 12/30/23 12:45 Tobacco use type Cigarette 12/30/23 12:45 e-Cigarette/Vaping Use Never Used 12/30/23 12:45 Are you ready to quit: No Tobacco cessation counseling provided: Yes Items discussed: QuitWorks Relapse Prevention: discussed the importance of a supportive environment, discussed negative mood or depression after quitting, weight gain after smoking is common and discussed dietary, exercise and/or lifestyle changes Number of minutes spent counselin CPT code: 84595 - 4-10 Minutes Thrive Assessment: Date of Thrive Assessment Date Thrive assessed 06/26/23 12/30/23 12:45 HENMT Head: Yes normal to inspection, Yes normocephalic and Yes atraumatic Ears: external ears normal Eyes General: appearance normal, both eyes and all related structures Eyelids: Yes eyelids normal Conjunctivae: conjunctivae normal Neck Neck: Yes normal visual inspection and Yes supple Resp Effort & Inspection: audible wheezes Auscultation: wheezes lower bilaterally Cardio Jugular venous distension: no JVD Rate: regular rate Rhythm: regular rhythm Heart sounds: S1 normal heart sound present and S2 normal heart sound present GI Inspection: Yes normal to inspection Palpation (GI): Soft to palpation and nontender Auscultation: normal bowel sounds Skin General skin exam: no rashes or lesions noted Neuro General: no focal motor deficits Extrem General: Yes full ROM Psych Appearance: grossly normal Office Procedures Flu Questionnaire Does the patient have a severe egg allergy?: No Does the patient have severe life threatening allergies?: No Does the patient have a fever or illness today?: No Has the patient ever had Guillain-[place] Syndrome?: No Has the patient ever had any past reaction to a flu shot?: No Immunizations Fluarix Triv [id number] (PF) 45 mcg (15 mcg x 3)/0.5 mL IM syringe Performing Provider: Chrissy Gao MD [facility] Administered by: CARL Gerber on 12/30/23 13:03 2 Dose Route Admin Location Dispensed Lot Number Expiration Date NDC Embossing Toolsetter 0.5 mL IM Left Deltoid 0.5 mL [id number] 09/07/24 16340-406-23 [employer] VIS Given Date VIS Provided VIS Publication Date 12/30/23 Single Vaccine 20 Eligibility Eligibility Date Funding Source Not [facility] Eligible 12/30/23 Private Coding Level of Care Code Est Pt Level 3 (00286) Est Pt Prev Care 40-64y(95659) Diagnoses Physical exam Z00.00 Moderate recurrent major depression F33.1 Chest wall pain R07.89 Chronic obstructive pulmonary disease, unspecified COPD type J44.9 COPD type: unspecified COPD Additional Codes Vital Signs *Quality* - CPT code: 38224 - 4-10 Minutes ([id number]) Time Spent (min) 35 Assessment & Plan Assessment & Plan (1) Physical exam: Code(s): Z00.00 - Encounter for general adult medical examination without abnormal findings Category: Medical Plan: Repeat in a year. (2) Moderate recurrent major depression: Code(s): F33.1 - Major depressive disorder, recurrent, moderate Category: Medical Plan: Continue escitalopram. (3) Chest wall pain: Code(s): R07.89 - Other chest pain Category: Medical Plan: Chest x-ray ordered. (4) COPD (chronic obstructive pulmonary disease): Comment: Her chronic obstructive disorder is more in the form of asthma, completely reversible. Controlled , at present on small dose of Advair . [place] : Cont. ADVAIR 100-50 one inh BID and Albuterol 2 puffs Q 4-6 Hrs only PRN Code(s): J44.9 - Chronic obstructive pulmonary disease, unspecified Category: Medical Qualifiers: COPD type: unspecified COPD Qualified Code(s): J44.9 - Chronic obstructive pulmonary disease, unspecified Plan: Continue long-acting inhaler. Use rescue inhaler as needed. Orders: Orders Influenza [id number] Immunization Today Z23 - Encounter for immunization XR chest 2V Today R07.89 - Other chest pain Lipid Panel Today E78.5 - Hyperlipidemia, unspecified Comprehensive [place]. Panel Fast Today Z00.00 - Encounter for general adult medical examination without abnormal findings
[2023-12-30 12:39] VITALS: BP 132/80; BMI 30.1
== END 2023-12-30 13:02 | disposition home or self-care (01) ==
PROVIDERS: PCP Internal Medicine; Visit Provider Internal Medicine
DX: Z00.00 Encounter for general adult medical examination without abnormal findings (principal); F33.1 Major depressive disorder, recurrent, moderate; J44.9 Chronic obstructive pulmonary disease, unspecified; R07.89 Other chest pain

== ENCOUNTER → 2023-12-30 12:36 | Outpatient (BNVA) | payer MEDICARE, MEDICAID, SELFPAY | PROVIDERS: PCP Internal Medicine; Visit Provider Internal Medicine | DX: Z00.01 Encounter for general adult medical examination with abnormal findings (principal); F33.1 Major depressive disorder, recurrent, moderate; R07.89 Other chest pain; J44.9 Chronic obstructive pulmonary disease, unspecified; Z23 Encounter for immunization | CPT/HCPCS: 90471; 90656; 99212; 99396 ==

== ENCOUNTER 2024-01-01 10:47 | Outpatient (REF) | payer MEDICARE, MEDICAID, SELFPAY ==
[2024-01-01 12:31] LABS: Alanine Aminotransferase 19 U/L (0-31); Albumin Level 4.1 g/dL (3.5-5.0); Alkaline Phosphatase 88 U/L (39-117); Anion Gap 11 (12-20); Aspartate Amino Transferase 19 U/L (5-31); Bilirubin Total 0.3 mg/dL (0.0-1.0); Blood Urea Nitrogen 5 mg/dL (9-16); Calcium 9.1 mg/dL (8.4-10.2); Carbon Dioxide 25 mmol/L (22-29); Chloride 110 mmol/L (96-108); Cholesterol 154 mg/dL (<200); Estimated Glomerular Filt Rate > 60; Glucose Fasting 111 mg/dL (60-99); HDL Cholesterol 35 mg/dL (>40); LDL Cholesterol Calculated 93 mg/dL (<100); Sodium 142 mmol/L (135-145); Total Protein 7.1 g/dL (6.5-8.0); Triglycerides 134 mg/dL (<150)
== END 2024-01-01 10:48 | disposition home or self-care (01) ==
LOC: HO.XRAY 10:47
PROVIDERS: PCP Internal Medicine; Visit Provider Internal Medicine
DX: Z00.00 Encounter for general adult medical examination without abnormal findings (principal); E78.5 Hyperlipidemia, unspecified; R07.89 Other chest pain
CPT/HCPCS: 36415; 71046; 80053; 80061

== ENCOUNTER 2024-01-10 12:14 | Outpatient (AMB) | payer MEDICARE, MEDICAID, SELFPAY ==
--- NOTE | 2024-01-10 12:24 | MHC.OFFVIS ---
Vital Signs 01/10/24 12:27 Height 5 ft 3 in Weight 169 lb 1.513 oz BMI 30.0 BP 124/70 Blood Pressure Location Lt brachial Position Sitting Respiration 16 Pulse 85 Pulse Source Pulse Oximeter Pulse Oximetry (%) 98 Oxygen Delivery Method Room Air Intake Visit Reasons: Osteoporosis/CM Intake Note: Patient presents for Osteoporosis. 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 morphine [MORPHINE] Adverse Reaction (Intermediate, Verified 01/10/24 12:26) HEADACHE Penicillins Adverse Reaction (Intermediate, Verified 01/10/24 12:26) Vomiting trazodone Adverse Reaction (Intermediate, Verified 01/10/24 12:26) Palpitations varenicline [From Chantix] Adverse Reaction (Mild, Verified 01/10/24 12:26) changes in behavior Medication List - Last Reconciled 01/10/24 by Suly Stockton MD Advair Diskus 100-50 mcg/dose (fluticasone propion-salmeterol) 2 ea PO BID PRN NS albuterol sulfate 90 mcg/actuation 2 puffs PO Q4H PRN albuterol sulfate 2.5 mg (3 mL) inhalation TID alendronate 70 mg PO QWEEK 90 days alprazolam 0.5 mg PO DAILY PRN 2 days aspirin (Adult Low Dose Aspirin) 81 mg PO DAILY cholecalciferol (vitamin D3) 25 mcg PO DAILY 90 days dexlansoprazole (Dexilant) 60 mg PO DAILY 90 days diphenhydramine HCl (Allergy (diphenhydramine)) 25 mg PO BEDTIME PRN 90 days escitalopram oxalate 10 mg PO DAILY 90 days fenofibrate 160 mg PO DAILY 90 days fluticasone propion-salmeterol 100-50 mcg/dose 1 ea PO BID 30 days fluticasone propionate 50 mcg/actuation (Flonase Allergy Relief) 1 spray intranasal DAILY linaclotide (Linzess) 290 mcg PO DAILY 90 days lisinopril 20 mg PO DAILY montelukast 10 mg PO DAILY oxycodone 10 mg PO Q6H PRN 30 days Ventolin HFA 90 mcg/actuation (albuterol sulfate) 2 puffs inhalation Q6H PRN 30 days NS HPI Comments Details: Patient is a 63-year-old female with COPD, hypertension, hyperlipidemia, depression with anxiety, polyarticular osteoarthritis and osteoporosis here today for follow up. Interval History: Last seen 08/21/[address] Tasneem Gee. At that time she was started on IV Reclast for her osteoporosis Had her Reclast infusion in August but the following 3-4 days she noted vomiting, fever and whole body pain. Fell in November 2023 x 2. Did not break any bones. Injured her knees Rheumatologic History: Patient establish care 08/2023. Referred for DEXA scan showing osteoporosis with highest T-score-3 at neck of the femur. Initially started on alendronate but could not tolerate it. Started on zoledronic acid 08/2023 Current Rheumatology Medication(s): IV Zolendronic Acid 08/2023 [facility] Medical History (Updated 01/10/24 @ 12:48 by Suly Stockton MD) Intravenous bisphosphonates causing adverse effect in therapeutic use Encounter for monitoring bisphosphonate therapy History of colon polyps (~2012) Nicotine dependence, cigarettes, uncomplicated History of DVT (deep vein thrombosis) Migraines Asthma Chronic pain syndrome Postlaminectomy syndrome, cervical Cough COPD (chronic obstructive pulmonary disease) Allergic rhinitis Osteoarthritis of right hip Depression with anxiety Constipation due to opioid therapy GERD (gastroesophageal reflux disease) Hypovitaminosis D Lumbar degenerative disc disease Essential hypertension Surgical History History of colonoscopy History of fusion of lumbar spine History of fusion of cervical spine History of appendectomy (~1990) History of total abdominal hysterectomy (~2011) History of esophagogastroduodenoscopy (EGD) (~2012) Status post insertion of nerve stimulator History of cholecystectomy (~2003) History of incisional hernia repair History of arthroscopy of both knees History of carpal tunnel surgery of right wrist History of carpal tunnel surgery of left wrist History of hemicolectomy Family History Father Diabetes Mother Diabetes Hypertension Sister Diabetes Breast cancer Rheumatoid arthritis Osteoporosis Maternal Uncle Prostate cancer Social History (Reviewed 01/10/24 @ 12:27 by Kathleen Emerson [facility]) Housing: Apartment Alcohol intake: never Comment: movement only Patient Tobacco Use Status: Current everyday Tobacco user Tobacco use type: Cigarette Cigarettes Per Day: 6 e-Cigarette/Vaping Use: Never Used Second Hand Smoke Exposure: No service: No Current occupational status: disabled Cognitive needs: No Hearing needs: No Vision needs: Yes Physical Exam Vital Signs: Last Vital Signs Pulse 85 01/10/24 12:27 Resp 16 01/10/24 12:27 BP 124/70 01/10/24 12:27 Pulse Ox 98 01/10/24 12:27 Oxygen Delivery Method Room Air 01/10/24 12:27 BMI result Body Mass Index 30.0 Physical Examination CONSTITUITIONAL Patient alert and cooperative. Well appearing and in no apparent painful distress HEENT Conjunctiva and sclera clear. ?Pupils equal round and reactive to light. ?No lymphadenopathy. ?Normal dentition. No oral or nasal ulcers noted. No evidence of discoid rash to the michelle of ears CHEST/RESPIRATORY SYSTEM Normal respiratory effort and able to speak in complete sentences. ?Clear to auscultation bilaterally. ?No crackles, rales, rhonchi, wheezes heard. CARDIAC SYSTEM Regular rate and rhythm. ?S1 and S2 heard no murmurs. 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 ?Heberden's nodes noted to DIPs bilaterally. ?No synovitis noted to the MCPs, PIPs or DIPs. ?No tenderness to palpation of these joints. Wrists: ?Full range of motion at the wrists without pain. ?No tenderness to palpation or synovitis noted to the wrists. Elbows: Full range of motion without pain. No tenderness, weakness, swelling, increased warmth or erythema. Shoulders: Full range of motion without pain. No tenderness, weakness, swelling, increased warmth or erythema. Hips: Full range of motion without pain. Hip bursa: No tenderness to palpation Knees: ?Full range of motion. ?No tenderness, swelling, increased warmth or erythema.?No effusion or crepitations Ankles: Full range of motion. ?No tenderness, swelling, increased warmth or erythema.? Feet: ?Negative squeeze test. ?No tenderness to palpation or swelling of the MTPs. Tender points:??No tenderness to palpation of the neck, shoulders, chest, elbows, hips, buttocks or knees. SKIN Skin intact without rashes. Results Reviewed Results Reviewed: Laboratory Tests 04/06/22 12/25/22 08/22/23 14:26 13:51 12:05 WBC 10.5 RBC 4.86 Hgb 14.7 Hct 44.0 Sodium Potassium Chloride Carbon Dioxide BUN Creatinine Collgn I C-Telopeptide 25-OH Vitamin D Total 35.8 30.4 L 08/26/23 01/01/24 08:05 11:14 WBC RBC Hgb Hct Sodium 142 Potassium 4.0 Chloride 110 H Carbon Dioxide 25 BUN 5 L Creatinine 0.66 Collgn I C-Telopeptide 434 25-OH Vitamin D Total DEXA 03/2023 FINDINGS: AP SPINE L1-L3 (excluding L4): The data of L1-L4 has been changed to exclude the L4 vertebral body, because sclerosis and metallic artifact at this level may cause overestimation of lumbar spine density. BMD 0.900 g/cm2, Z-score -1.2, T-score -2.3, osteopenia. LEFT FEMUR, NECK: BMD 0.624 g/cm2, Z-score -1.8, T-score -3.0, osteoporosis. LEFT FEMUR, TOTAL: BMD 0.768 g/cm2, Z-score -1.1, T-score -1.9, osteopenia. Assessment & Plan Assessment & Plan (1) Osteoporosis: Comment: DEXA 03/2023. AP Spine L1-L3 -2.3, left femur neck -3.0, left femur total -1.9 Started Alendronate 03/2023 - 08/2023. Did not tolerate IV Reclast started 08/2023 Code(s): M81.0 - Age-related osteoporosis without current pathological fracture Category: Medical Qualifiers: Osteoporosis type: age-related Presence of current pathological fracture: without current pathological fracture Qualified Code(s): M81.0 - Age-related osteoporosis without current pathological fracture Plan: #Osteoporosis Patient meeting criteria for osteoporosis based on highest T-score -3 at the hip. Started oral bisphosphonates but did not tolerate and so started on IV bisphosphonates. Had reaction to IV Reclast but this was not detrimental. She will likely need pretreatment for her IV Reclast in the future. While she has had falls since her last visit she has not had any fractures. Upgraded her vitamin-D to vitamin-D with calcium. Since patient does does not appear to get adequate calcium from her diet. Encouraged weight-bearing exercises. (2) Encounter for monitoring bisphosphonate therapy: Comment: Started Alendronate 03/2023 - 08/2023. 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.83 - detention (current) use of bisphosphonates Category: Medical Plan: #Long-term Use of Bisphosphonates Risks and benefits of bisphosphonates in the management of osteoporosis Benefits include improved bone density, decreased fracture risk Risks include atypical femoral fractures, GI upset, esophageal strictures Contraindicated in patients with a creatinine clearance < 30 to 35 ml/min Keep vitamin-D at least 35 ng/mL (3) Intravenous bisphosphonates causing adverse effect in therapeutic use: Code(s): T45.8X5A - Adverse effect of other primarily systemic and hematological agents, initial encounter Category: Medical Qualifiers: Encounter type: initial encounter Qualified Code(s): T45.8X5A - Adverse effect of other primarily systemic and hematological agents, initial encounter Plan: #Reaction to IV Reclast Patient with 2-3 day reaction after receiving IV Reclast. For next infusion we will add premedications including Tylenol, Benadryl, Zofran. Plan I spent 35 minutes reviewing the record and labs, seeing the patient, discussing the treatment plan and documenting in the medical record ? Orders: Orders Collagen Type I C-Telopeptide 6 Months M81.0 - Age-related osteoporosis without current pathological fracture Comprehensive Met. Panel 6 Months M81.0 - Age-related osteoporosis without current pathological fracture Vitamin D 25-OH (D2 and D3) 6 Months M81.0 - Age-related osteoporosis without current pathological fracture Medications: New calcium carbonate-vitamin D3 600 mg-25 mcg (1,000 unit) 1 cap PO DAILY 90 caps 2RF E55.9 - Vitamin D deficiency, unspecified, M81.0 - Age-related osteoporosis without current pathological fracture Coding Level of Care Code Est Pt Level 4 (68389) Diagnoses Age-related osteoporosis without current pathological fracture M81.0 Osteoporosis type: age-related Presence of current pathological fracture: without current pathological fracture Encounter for monitoring bisphosphonate therapy Z51.81; Z79.83 Intravenous bisphosphonates causing adverse effect in therapeutic use, initial encounter T45.8X5A Encounter type: initial encounter
[2024-01-10 12:27] VITALS: BP 124/70; PULSE 85; RESP 16; O2SAT 98
== END 2024-01-10 12:51 | disposition home or self-care (01) ==
LOC: HO.RHE 12:15
PROVIDERS: PCP Internal Medicine; Visit Provider Student in an Organized Health Care Education/Training Program
DX: M81.0 Age-related osteoporosis without current pathological fracture (principal); Z51.81 Encounter for therapeutic drug level monitoring; Z79.83 Long term (current) use of bisphosphonates; T45.8X5A Adverse effect of other primarily systemic and hematological agents, initial encounter
CPT/HCPCS: 99214

== ENCOUNTER → 2024-01-10 12:14 | Outpatient (BNVA) | payer MEDICARE, MEDICAID, SELFPAY | PROVIDERS: PCP Internal Medicine; Visit Provider Student in an Organized Health Care Education/Training Program | DX: M81.0 Age-related osteoporosis without current pathological fracture (principal); T45.8X5A Adverse effect of other primarily systemic and hematological agents, initial encounter; Z51.81 Encounter for therapeutic drug level monitoring; Z79.83 Long term (current) use of bisphosphonates | CPT/HCPCS: 99212 ==

== ENCOUNTER 2024-01-23 14:00 | Outpatient (AMB) | payer MEDICARE, MEDICAID, SELFPAY ==
[2024-01-23 14:19] VITALS: BP 112/70; PULSE 86; O2SAT 95; BMI 30.1
--- NOTE | 2024-01-23 14:19 | A.OFFVIS_ITS ---
Vital Signs 01/23/24 14:19 Height 5 ft 3 in Weight 170 lb BMI 30.1 BP 112/70 Blood Pressure Location Lt brachial Position Sitting Pulse 86 Pulse Source Pulse Oximeter Pulse Oximetry (%) 95 Oxygen Delivery Method Room Air Intake Visit Reasons: Asthma Intake Note: pt is here for follow up and states she is having a lot of coughing, asthma flaring for about a month. wheezy, and nightime is not good. Furnace Process Supervisor Required: No Allergies topiramate [From TOPAMAX] Allergy (Severe, Verified 01/23/24 14:37) SWELLING barium sulfate Adverse Reaction (Intermediate, Verified 01/23/24 14:37) changes in behavior hydrocodone Adverse Reaction (Intermediate, Verified 01/23/24 14:37) Nausea metronidazole [Flagyl] Adverse Reaction (Intermediate, Verified 01/23/24 14:37) MOTION PICTURE DIRECTOR, N/V morphine [MORPHINE] Adverse Reaction (Intermediate, Verified 01/23/24 14:37) HEADACHE Penicillins Adverse Reaction (Intermediate, Verified 01/23/24 14:37) Vomiting trazodone Adverse Reaction (Intermediate, Verified 01/23/24 14:37) Palpitations varenicline [From Chantix] Adverse Reaction (Mild, Verified 01/23/24 14:37) changes in behavior Medication List - Last Reconciled 01/23/24 by Ashley Priest MD Advair Diskus 100-50 mcg/dose (fluticasone propion-salmeterol) 2 ea PO BID PRN NS albuterol sulfate 90 mcg/actuation 2 puffs PO Q4H PRN albuterol sulfate 2.5 mg (3 mL) inhalation TID alendronate 70 mg PO QWEEK 90 days alprazolam 0.5 mg PO DAILY PRN 2 days aspirin (Adult Low Dose Aspirin) 81 mg PO DAILY calcium carbonate-vitamin D3 600 mg-20 mcg (800 unit) 1 tab PO BID cholecalciferol (vitamin D3) 25 mcg PO DAILY 90 days dexlansoprazole (Dexilant) 60 mg PO DAILY 90 days diphenhydramine HCl (Allergy (diphenhydramine)) 25 mg PO BEDTIME PRN 90 days escitalopram oxalate 10 mg PO DAILY 90 days fenofibrate 160 mg PO DAILY 90 days fluticasone propionate 50 mcg/actuation (Flonase Allergy Relief) 1 spray intranasal DAILY linaclotide (Linzess) 290 mcg PO DAILY 90 days lisinopril 20 mg PO DAILY montelukast 10 mg PO DAILY oxycodone 10 mg PO Q6H PRN 30 days Ventolin HFA 90 mcg/actuation (albuterol sulfate) 2 puffs inhalation Q6H PRN 30 days NS Do you need a note to return to daycare/school/sports/work: No HPI HPI Asthma: Details: THIS 63 YEARS OLD FEMALE, WITH CHRONIC COUGH AND SHORTNESS OF BREATH SECONDARY TO CHRONIC OBSTRUCTIVE PULMONARY DISEASE, IS COMING TO SEE ME AFTER ALMOST 1 YEAR. SHE SAY IS THAT ABOUT A MONTH AGO WHEN SHE RETURNED FROM [place] SINCE THEN SHE HAS HAD LOT OF COUGH AND INCREASED SHORTNESS OF BREATH. DENIES ANY FEVER OR CHILLS, HAD A CHEST X-RAY FEW WEEKS AGO, WHICH I HAVE LOOKED AT, IN DOES NOT SHOW ANY ACUTE CHANGES. SHE TELLS ME THAT SHE HAS BEEN OUT OF ADVAIR, SHE STILL SMOKING 1 PACK A DAY. [facility] Medical History Intravenous bisphosphonates causing adverse effect in therapeutic use Encounter for monitoring bisphosphonate therapy History of colon polyps (~2012) Nicotine dependence, cigarettes, uncomplicated History of DVT (deep vein thrombosis) Migraines Asthma Chronic pain syndrome Postlaminectomy syndrome, cervical Cough COPD (chronic obstructive pulmonary disease) Allergic rhinitis Osteoarthritis of right hip Depression with anxiety Constipation due to opioid therapy GERD (gastroesophageal reflux disease) Hypovitaminosis D Lumbar degenerative disc disease Essential hypertension Surgical History History of colonoscopy History of fusion of lumbar spine History of fusion of cervical spine History of appendectomy (~1990) History of total abdominal hysterectomy (~2011) History of esophagogastroduodenoscopy (EGD) (~2012) Status post insertion of nerve stimulator History of cholecystectomy (~2003) History of incisional hernia repair History of arthroscopy of both knees History of carpal tunnel surgery of right wrist History of carpal tunnel surgery of left wrist History of hemicolectomy Family History Father Diabetes Mother Diabetes Hypertension Sister Diabetes Breast cancer Rheumatoid arthritis Osteoporosis Maternal Uncle Prostate cancer Social History Housing: Apartment Alcohol intake: never Comment: movement only Patient Tobacco Use Status: Current everyday Tobacco user Tobacco use type: Cigarette Cigarettes Per Day: 10 e-Cigarette/Vaping Use: Never Used Second Hand Smoke Exposure: No service: No Current occupational status: disabled Cognitive needs: No Hearing needs: No Vision needs: Yes Review of Systems Const All systems reviewed & are unremarkable except as noted in HPI and below Eyes Reports no additional complaints ENT Reports nasal congestion (Mild almost on a daily basis) and Reports neck pain Card Denies chest pain, Denies irregular heart rhythm and Denies leg edema Resp Reports as per HPI GI Reports no additional complaints Reports no additional complaints Musc Reports back pain and Reports neck pain Skin/Breast Reports system reviewed and no additional complaints, except as documented Neuro Reports no additional complaints Psych Reports no additional complaints Physical Exam Vital Signs: Last Vital Signs Pulse 86 01/23/24 14:19 BP 112/70 01/23/24 14:19 Pulse Ox 95 01/23/24 14:19 Oxygen Delivery Method Room Air 01/23/24 14:19 BMI result Body Mass Index 30.1 Const General: comfortable, no acute distress, alert and awake Orientation/consciousness: patient oriented x3 HEENT Head: Yes normal to inspection General nose exam: No nasal polyps present and No nasal discharge present Face and sinus: Yes sinuses nontender Mouth: oropharynx normal Throat: Yes posterior oropharynx normal Eyes General: appearance normal, both eyes and all related structures Neck Neck: Yes normal visual inspection, Yes no lymphadenopathy, Yes trachea midline and Yes no JVD Thyroid: Thyroid normal Chest Chest palpation & inspection: normal inspection of the chest, normal palpation of entire chest wall and no tenderness Resp Other: At this time percussion note is resonant, breath sounds are distant on both sides. She has expiratory wheezes on both sides. No crepitations. Cardio Palpation: normal PMI Rate: regular rate Rhythm: regular rhythm Heart sounds: no gallops and no murmurs Peripheral pulses: Peripheral pulses 2+ throughout GI Palpation (GI): Soft to palpation, nontender, No hepatosplenomegaly present and no masses Auscultation: normal bowel sounds Back/Spine/Pelvis Thoracic/Lumbar Spine: thoracic and lumbar spine normal to inspection and thoraco-lumbar ROM limited Skin General skin exam: no rashes or lesions noted Neuro General: patient oriented x3 and no focal motor deficits Cranial nerves: Yes CN's II-XII intact bilaterally Extrem General: Yes normal to inspection, Yes no clubbing, cyanosis or edema and Yes no calf tenderness Psych Appearance: grossly normal Speech and movement: Normal speech and movement present Affect: Anxious affect present Assessment & Plan Assessment & Plan (1) COPD (chronic obstructive pulmonary disease): Comment: Her chronic obstructive disorder is more in the form of asthma, completely reversible. Was controlled with use of Advair 100-50 1 inhalation b.i.d. At present she has been out of this medicine for a few weeks. She has the a subacute exacerbation, with significant wheezes on auscultation. Code(s): J44.9 - Chronic obstructive pulmonary disease, unspecified Category: Medical Qualifiers: COPD type: unspecified COPD Qualified Code(s): J44.9 - Chronic obstructive pulmonary disease, unspecified Plan: Counseled that she has to try to quit smoking completely. Advair/ Wixela 250-51 inhalation b.i.d.. A short course of prednisone is prescribed. Use albuterol HFA 2 puffs Q 6 hours p.r.n. (2) Nicotine dependence, cigarettes, uncomplicated: Comment: (current smoker, onset 17yo, 1ppd x 44yrs, She had try to cut down but now back to 1 pack a day. Code(s): F17.210 - Nicotine dependence, cigarettes, uncomplicated Category: Medical Plan: Counseled again that she needs to quit smoking. Asking for some help and I offered to try nicotine patch. She is agreeable to that. Nicotine patch 21 mg once a day is prescribed. (3) Allergic rhinitis: Comment: Chronic , controlled at this time Code(s): J30.9 - Allergic rhinitis, unspecified Category: Medical Plan: Continue using Montelukast 10 mg daily and Flonase 2 sprays in each nostril daily Medications: New fluticasone propion-salmeterol 250-50 mcg/dose (Advair Diskus) 1 inh inhalation BID 30 days 60 ea 4RF copd prednisone 10 mg PO BID 1 week 14 tabs 0RF copd excerbation nicotine 1 patch transdermal DAILY 28 days 28 ea 2RF tobacco addiction Coding Level of Care Code Est Pt Level 4 (45818) Diagnoses Chronic obstructive pulmonary disease, unspecified COPD type J44.9 COPD type: unspecified COPD Nicotine dependence, cigarettes, uncomplicated F17.210 Allergic rhinitis J30.9
== END 2024-01-23 14:44 | disposition home or self-care (01) ==
PROVIDERS: PCP Internal Medicine; Visit Provider Internal Medicine
DX: J44.9 Chronic obstructive pulmonary disease, unspecified (principal); F17.210 Nicotine dependence, cigarettes, uncomplicated; J30.9 Allergic rhinitis, unspecified
CPT/HCPCS: 99214

== ENCOUNTER → 2024-01-23 14:00 | Outpatient (BNVA) | payer MEDICARE, MEDICAID, SELFPAY | PROVIDERS: PCP Internal Medicine; Visit Provider Internal Medicine | DX: J44.9 Chronic obstructive pulmonary disease, unspecified (principal); J30.9 Allergic rhinitis, unspecified; F17.210 Nicotine dependence, cigarettes, uncomplicated | CPT/HCPCS: 99212 ==

== ENCOUNTER 2024-01-24 10:22 | Outpatient (AMB) | payer MEDICARE, MEDICAID, SELFPAY ==
--- NOTE | 2024-01-24 11:06 | A.OFFVIS_ITS ---
Intake Visit Reasons: Inj-left knee injection, last inj 07/26/23 Intake Note: Oriana is a 62 year old female who presents today for a left knee injection, last injection 07/26/23. Patient reports her last injection gave her about 2 months of relief. She mentions that she still want to repeat the injection to see if it will work. Allergies topiramate [From TOPAMAX] Allergy (Severe, Verified 01/24/24 11:07) SWELLING barium sulfate Adverse Reaction (Intermediate, Verified 01/24/24 11:07) changes in behavior hydrocodone Adverse Reaction (Intermediate, Verified 01/24/24 11:07) Nausea metronidazole [Flagyl] Adverse Reaction (Intermediate, Verified 01/24/24 11:07) INVOICE CLERK, N/V morphine [MORPHINE] Adverse Reaction (Intermediate, Verified 01/24/24 11:07) HEADACHE Penicillins Adverse Reaction (Intermediate, Verified 01/24/24 11:07) Vomiting trazodone Adverse Reaction (Intermediate, Verified 01/24/24 11:07) Palpitations varenicline [From Chantix] Adverse Reaction (Mild, Verified 01/24/24 11:07) changes in behavior HPI HPI Inj-left knee injection, last inj 07/26/23: Details: 63-year-old right hand dominant female who presents in the office today for a follow-up of left knee pain. Her last cortisone injection in the left knee was on 07/26/23. I last saw the patient in the office on 08/19/23 when she was given a cortisone injection to the right shoulder. While in the office today, the patient reports her last cortisone injection in the left knee provided about 2 months of relief. She mentions that she would like to have a repeat injection today. [facility] Medical History Intravenous bisphosphonates causing adverse effect in therapeutic use Encounter for monitoring bisphosphonate therapy History of colon polyps (~2012) Nicotine dependence, cigarettes, uncomplicated History of DVT (deep vein thrombosis) Migraines Asthma Chronic pain syndrome Postlaminectomy syndrome, cervical Cough COPD (chronic obstructive pulmonary disease) Allergic rhinitis Osteoarthritis of right hip Depression with anxiety Constipation due to opioid therapy GERD (gastroesophageal reflux disease) Hypovitaminosis D Lumbar degenerative disc disease Essential hypertension Surgical History History of colonoscopy History of fusion of lumbar spine History of fusion of cervical spine History of appendectomy (~1990) History of total abdominal hysterectomy (~2011) History of esophagogastroduodenoscopy (EGD) (~2012) Status post insertion of nerve stimulator History of cholecystectomy (~2003) History of incisional hernia repair History of arthroscopy of both knees History of carpal tunnel surgery of right wrist History of carpal tunnel surgery of left wrist History of hemicolectomy Family History Father Diabetes Mother Diabetes Hypertension Sister Diabetes Breast cancer Rheumatoid arthritis Osteoporosis Maternal Uncle Prostate cancer Social History Housing: Apartment Alcohol intake: never Comment: movement only Patient Tobacco Use Status: Current everyday Tobacco user Tobacco use type: Cigarette Cigarettes Per Day: 10 e-Cigarette/Vaping Use: Never Used Second Hand Smoke Exposure: No service: No Current occupational status: disabled Cognitive needs: No Hearing needs: No Vision needs: Yes Review of Systems Const All systems reviewed & are unremarkable except as noted in HPI and below Physical Exam Const General: cooperative, healthy appearing and no acute distress Resp Effort & Inspection: normal respiratory effort and able to speak in complete sentences Cardio Rate: regular rate Peripheral pulses: Peripheral pulses 2+ throughout GI Palpation (GI): Soft to palpation Skin Lesions: no lesions Rashes: no rashes Extrem Other: Left Knee: Skin C/D/I. No effusion. TTP medial joint line Office Procedures AMB Joint Injection/Aspiration Joint Injection/Aspiration Primary Site: left knee Prep: site was prepped using aseptic technique, ethochloride spray was applied and injection warnings given Injected: 80 mg of, DepoMedrol, with 8 mL of (2% plain lido ) and in the joint Approach Used: anterolateral Procedure: The patient tolerated the procedure well, but had some pain with the injection and there was some relief with the local anesthesia Coding 39509 - Large joint Procedure code (CPT) selection complete Assessment & Plan Assessment & Plan (1) Osteoarthritis of left knee: Code(s): M17.12 - Unilateral primary osteoarthritis, left knee Category: Medical Qualifiers: Osteoarthritis type: unspecified Qualified Code(s): M17.12 - Unilateral primary osteoarthritis, left knee Plan Ms. Chito Franklin is a 63-year-old right hand dominant female who presents in the office today for a follow-up of left knee pain. Her last cortisone injection in the left knee was on 07/26/23. I last saw the patient in the office on 08/19/23 when she was given a cortisone injection to the right shoulder. While in the office today, the patient reports her last cortisone injection in the left knee provided about 2 months of relief. She mentions that she would like to have a repeat injection today. The patient was offered a cortisone injection in the left knee with 80 mg of Depo-Medrol. The patient was explained the risk, benefits, and alternatives to receiving this injection. After receiving consent for the injection, the patient had the procedure done while in the office today. The patient tolerated the procedure well with no complications. Follow up will be PRN, or sooner if needed. Patient Instructions: Scribed by [facility]ign[facility] medical staff credentialing coordinator, for Carmita Alexandra PA-C on 01/24/24 at 11:35 am EST. Coding Level of Care Code Est Pt Level 3 (30732) Diagnoses Osteoarthritis of left knee, unspecified osteoarthritis type M17.12 Osteoarthritis type: unspecified CPT Codes Coding - 19745 Large joint: 60567 - Large joint ([id number])
== END 2024-01-24 11:17 | disposition home or self-care (01) ==
PROVIDERS: PCP Internal Medicine; Visit Provider Physician Assistant
DX: M17.12 Unilateral primary osteoarthritis, left knee (principal)
CPT/HCPCS: 20610; 99213

== ENCOUNTER → 2024-01-24 10:22 | Outpatient (BNVA) | payer MEDICARE, MEDICAID, SELFPAY | PROVIDERS: PCP Internal Medicine; Visit Provider Physician Assistant | DX: M17.12 Unilateral primary osteoarthritis, left knee (principal) | CPT/HCPCS: 20610; 99212; J1010; J2003 ==

== ENCOUNTER 2024-02-11 13:28 | Outpatient (AMB) | payer MEDICARE, MEDICAID, SELFPAY ==
--- NOTE | 2024-02-11 13:44 | MHC.OFFVIS ---
Vital Signs 02/11/24 13:53 Height 5 ft 3 in Weight 170 lb BMI 30.1 Intake Visit Reasons: right shoulder injection, last inj 08/19/23 Intake Note: Oriana is a 62 year old female who presents today for a right shoulder injection, last injection 08/19/23. Patient reports last injection provided her with some relief, her pain has returned about 1.5 months ago. Allergies topiramate [From TOPAMAX] Allergy (Severe, Verified 02/11/24 13:54) SWELLING barium sulfate Adverse Reaction (Intermediate, Verified 02/11/24 13:54) changes in behavior hydrocodone Adverse Reaction (Intermediate, Verified 02/11/24 13:54) Nausea metronidazole [Flagyl] Adverse Reaction (Intermediate, Verified 02/11/24 13:54) EXHIBIT DISPLAY REPRESENTATIVE, N/V morphine [MORPHINE] Adverse Reaction (Intermediate, Verified 02/11/24 13:54) HEADACHE Penicillins Adverse Reaction (Intermediate, Verified 02/11/24 13:54) Vomiting trazodone Adverse Reaction (Intermediate, Verified 02/11/24 13:54) Palpitations varenicline [From Chantix] Adverse Reaction (Mild, Verified 02/11/24 13:54) changes in behavior HPI HPI right shoulder injection, last inj 08/19/23: Details: 63-year-old right hand dominant female who presents in the office today for a follow-up of right shoulder pain. The patient was seen by me on 08/19/23 for right shoulder pain and was given a cortisone injection in the right shoulder. I last saw the patient in the office on 01/24/24 when she was given a cortisone injection in the left knee. While in the office today, the patient reports her last injection in the right shoulder provided her mild relief for 1.5 months then her pain returned. The patient confirms having a stimulator placed in her neck with minor pain relief. [facility] Medical History (Updated 01/28/24 @ 13:26 by Liyah Pereira PA-C) Intravenous bisphosphonates causing adverse effect in therapeutic use Encounter for monitoring bisphosphonate therapy History of colon polyps (~2012) Nicotine dependence, cigarettes, uncomplicated History of DVT (deep vein thrombosis) Migraines Asthma Chronic pain syndrome Postlaminectomy syndrome, cervical Cough COPD (chronic obstructive pulmonary disease) Allergic rhinitis Osteoarthritis of right hip Depression with anxiety Constipation due to opioid therapy GERD (gastroesophageal reflux disease) Hypovitaminosis D Lumbar degenerative disc disease Essential hypertension Surgical History History of colonoscopy History of fusion of lumbar spine History of fusion of cervical spine History of appendectomy (~1990) History of total abdominal hysterectomy (~2011) History of esophagogastroduodenoscopy (EGD) (~2012) Status post insertion of nerve stimulator History of cholecystectomy (~2003) History of incisional hernia repair History of arthroscopy of both knees History of carpal tunnel surgery of right wrist History of carpal tunnel surgery of left wrist History of hemicolectomy Family History Father Diabetes Mother Diabetes Hypertension Sister Diabetes Breast cancer Rheumatoid arthritis Osteoporosis Maternal Uncle Prostate cancer Social History Housing: Apartment Alcohol intake: never Comment: movement only Patient Tobacco Use Status: Current everyday Tobacco user Tobacco use type: Cigarette Cigarettes Per Day: 10 e-Cigarette/Vaping Use: Never Used Second Hand Smoke Exposure: No service: No Current occupational status: disabled Cognitive needs: No Hearing needs: No Vision needs: Yes Review of Systems Const All systems reviewed & are unremarkable except as noted in HPI and below Physical Exam Vital Signs: BMI result Body Mass Index 30.1 Const General: cooperative, healthy appearing and no acute distress Resp Effort & Inspection: normal respiratory effort and able to speak in complete sentences Cardio Rate: regular rate Peripheral pulses: Peripheral pulses 2+ throughout GI Palpation (GI): Soft to palpation Skin Lesions: no lesions Rashes: no rashes Extrem Other: Right shoulder: Normal to inspection. No ecchymosis, erythema, or edema. Full shoulder ROM in all planes. Pain with cross-body reach. 3/5 strength with empty can. Negative drop arm. NVI. Office Procedures AMB Joint Injection/Aspiration Joint Injection/Aspiration Primary Site: right shoulder Prep: site was prepped using aseptic technique, ethochloride spray was applied and injection warnings given Injected: 80 mg of, DepoMedrol, with 8 mL of (2% plain lido ) and in the subcromial space Approach Used: posterolateral Procedure: The patient tolerated the procedure well, but had some pain with the injection and there was some relief with the local anesthesia Coding 02199 - Large joint Procedure code (CPT) selection complete Assessment & Plan Assessment & Plan (1) Painful arc syndrome of right shoulder: Code(s): M75.101 - Unspecified rotator cuff tear or rupture of right shoulder, not specified as traumatic Category: Medical Plan Ms. Chito Guallpa is a 63-year-old right hand dominant female who presents in the office today for a follow-up of right shoulder pain. The patient was seen by me on 08/19/23 for right shoulder pain and was given a cortisone injection in the right shoulder. I last saw the patient in the office on 01/24/24 when she was given a cortisone injection in the left knee. While in the office today, the patient reports her last injection in the right shoulder provided her mild relief for 1.5 months then her pain returned. The patient confirms having a stimulator placed in her neck with minor pain relief. The patient was offered a cortisone injection in the right shoulder with 80 mg of Depo-Medrol. The patient was explained the risks, benefits, and alternatives to receiving this injection. After receiving consent for the injection, the patient had the procedure done while in the office today. The patient tolerated the procedure well with no complication. Follow-up will be PRN, or sooner if needed. Patient Instructions: Scribed by [facility]ign[facility] medical and health services manager, for Carmita Alexandra PA-C on 02/11/24 at 2:02 pm EST. Coding Level of Care Code Est Pt Level 3 (06765) Diagnoses Painful arc syndrome of right shoulder M75.101 CPT Codes Coding - 63540 Large joint: 10936 - Large joint ([id number])
[2024-02-11 13:53] VITALS: BMI 30.1
== END 2024-02-11 14:56 | disposition home or self-care (01) ==
PROVIDERS: PCP Internal Medicine; Visit Provider Physician Assistant
DX: M75.101 Unspecified rotator cuff tear or rupture of right shoulder, not specified as traumatic (principal)
CPT/HCPCS: 20610; 99213

== ENCOUNTER → 2024-02-11 13:28 | Outpatient (BNVA) | payer MEDICARE, MEDICAID, SELFPAY | PROVIDERS: PCP Internal Medicine; Visit Provider Physician Assistant | DX: M75.101 Unspecified rotator cuff tear or rupture of right shoulder, not specified as traumatic (principal) | CPT/HCPCS: 20610; 99212; J1010; J2003 ==

== ENCOUNTER 2024-02-18 06:18 | Outpatient (REF) | payer MEDICARE, MEDICAID, SELFPAY ==
--- NOTE | ~2024-02-18 | FL_ITS ---
EXAMINATION: FLUORO GUIDANCE IN TREATMENT ROOM CLINICAL INFORMATION: Chronic pain syndrome. COMPARISON: None available. TECHNIQUE: Fluoroscopy supervised by: Dr. Kennedy Hennessy. Fluoroscopy time: 0.1 minutes. Cumulative Dose: 1.98 mGy. DAP: 0.0339 mGy-m2 (milligray-meter squared). Images: 1. FINDINGS: A single needle overlies the lumbar spine for epidural. FL/FL guidance in treatment room IMPRESSION: Fluoroscopy during procedure. Please see procedure report for additional information. Electronically signed by: Omar Gates MD 04/09/2024 07:29 AM [facility]
== END 2024-02-18 06:19 | disposition home or self-care (01) ==
LOC: CF 06:18
PROVIDERS: Visit Provider Anesthesiology
DX: M96.1 Postlaminectomy syndrome, not elsewhere classified (principal); G89.4 Chronic pain syndrome; F11.20 Opioid dependence, uncomplicated; K59.03 Drug induced constipation; T40.2X5A Adverse effect of other opioids, initial encounter
CPT/HCPCS: 62323; J0665; J2003

== ENCOUNTER 2024-02-18 12:20 | Outpatient (AMB) | payer MEDICARE, MEDICAID, SELFPAY ==
[2024-02-18 12:54] VITALS: BP 126/68; PULSE 94; RESP 14; O2SAT 95
--- NOTE | 2024-02-18 12:54 | A.OFFVIS_ITS ---
Vital Signs 02/18/24 12:54 02/18/24 13:36 BP 126/68 122/68 Blood Pressure Location Lt brachial Rt brachial Position Sitting Supine Respiration 14 14 Pulse 94 86 Pulse Source Pulse Oximeter Pulse Oximeter Pulse Oximetry (%) 95 97 Oxygen Delivery Method Room Air Room Air Intake Visit Reasons: ITDD TRIAL WITH BUPIVACAINE Allergies topiramate [From TOPAMAX] Allergy (Severe, Verified 02/18/24 12:54) SWELLING barium sulfate Adverse Reaction (Intermediate, Verified 02/18/24 12:54) changes in behavior hydrocodone Adverse Reaction (Intermediate, Verified 02/18/24 12:54) Nausea metronidazole [Flagyl] Adverse Reaction (Intermediate, Verified 02/18/24 12:54) WEB FEEDER, N/V morphine [MORPHINE] Adverse Reaction (Intermediate, Verified 02/18/24 12:54) HEADACHE Penicillins Adverse Reaction (Intermediate, Verified 02/18/24 12:54) Vomiting trazodone Adverse Reaction (Intermediate, Verified 02/18/24 12:54) Palpitations varenicline [From Chantix] Adverse Reaction (Mild, Verified 02/18/24 12:54) changes in behavior Medication List - Last Reconciled 02/18/24 by Nicole Gonzales LPN Advair Diskus 100-50 mcg/dose (fluticasone propion-salmeterol) 2 ea PO BID PRN NS albuterol sulfate 90 mcg/actuation 2 puffs PO Q4H PRN albuterol sulfate 2.5 mg (3 mL) inhalation TID alendronate 70 mg PO QWEEK 90 days alprazolam 0.5 mg PO DAILY PRN 2 days aspirin (Adult Low Dose Aspirin) 81 mg PO DAILY calcium carbonate-vitamin D3 600 mg-20 mcg (800 unit) 1 tab PO BID cholecalciferol (vitamin D3) 25 mcg PO DAILY 90 days dexlansoprazole (Dexilant) 60 mg PO DAILY 90 days diphenhydramine HCl (Allergy (diphenhydramine)) 25 mg PO BEDTIME PRN 90 days escitalopram oxalate 10 mg PO DAILY 90 days fenofibrate 160 mg PO DAILY 90 days fluticasone propion-salmeterol 250-50 mcg/dose (Advair Diskus) 1 inh inhalation BID 30 days fluticasone propionate 50 mcg/actuation (Flonase Allergy Relief) 1 spray intranasal DAILY linaclotide (Linzess) 290 mcg PO DAILY 90 days lisinopril 20 mg PO DAILY montelukast 10 mg PO DAILY nicotine 1 patch transdermal DAILY 28 days oxycodone 10 mg PO Q6H PRN 30 days prednisone 10 mg PO BID 1 week Ventolin HFA 90 mcg/actuation (albuterol sulfate) 2 puffs inhalation Q6H PRN 30 days NS [facility] Medical History (Updated 01/28/24 @ 13:26 by Liyah Pereira PA-C) Intravenous bisphosphonates causing adverse effect in therapeutic use Encounter for monitoring bisphosphonate therapy History of colon polyps (~2012) Nicotine dependence, cigarettes, uncomplicated History of DVT (deep vein thrombosis) Migraines Asthma Chronic pain syndrome Postlaminectomy syndrome, cervical Cough COPD (chronic obstructive pulmonary disease) Allergic rhinitis Osteoarthritis of right hip Depression with anxiety Constipation due to opioid therapy GERD (gastroesophageal reflux disease) Hypovitaminosis D Lumbar degenerative disc disease Essential hypertension Surgical History History of colonoscopy History of fusion of lumbar spine History of fusion of cervical spine History of appendectomy (~1990) History of total abdominal hysterectomy (~2011) History of esophagogastroduodenoscopy (EGD) (~2012) Status post insertion of nerve stimulator History of cholecystectomy (~2003) History of incisional hernia repair History of arthroscopy of both knees History of carpal tunnel surgery of right wrist History of carpal tunnel surgery of left wrist History of hemicolectomy Family History Father Diabetes Mother Diabetes Hypertension Sister Diabetes Breast cancer Rheumatoid arthritis Osteoporosis Maternal Uncle Prostate cancer Social History Housing: Apartment Alcohol intake: never Comment: movement only Patient Tobacco Use Status: Current everyday Tobacco user Tobacco use type: Cigarette Cigarettes Per Day: 10 e-Cigarette/Vaping Use: Never Used Second Hand Smoke Exposure: No service: No Current occupational status: disabled Cognitive needs: No Hearing needs: No Vision needs: Yes Physical Exam Vital Signs: Last Vital Signs Pulse 86 02/18/24 13:36 Resp 14 02/18/24 13:36 BP 122/68 02/18/24 13:36 Pulse Ox 97 02/18/24 13:36 Oxygen Delivery Method Room Air 02/18/24 13:36 Assessment & Plan Assessment & Plan (1) Opioid dependence: Code(s): F11.20 - Opioid dependence, uncomplicated Category: Medical Qualifiers: Substance use status: uncomplicated Qualified Code(s): F11.20 - Opioid dependence, uncomplicated (2) Postlaminectomy syndrome, lumbar: Code(s): M96.1 - Postlaminectomy syndrome, not elsewhere classified Category: Medical (3) Constipation due to opioid therapy: Code(s): K59.03 - Drug induced constipation; T40.2X5A - Adverse effect of other opioids, initial encounter Category: Medical (4) Chronic pain syndrome: Code(s): G89.4 - Chronic pain syndrome Category: Medical Plan Intrathecal pain pump trial bupivacaine. Informed consent was explained to the patient. All questions were explained and answered.? The patient was taken inside of the operating room where he was positioned prone on the operating table.? Time-out was performed delineating patient's name and date of , correct site, side, the nature of the procedure, patient's allergy, preoperative antibiotic if needed.? All operating room staff And the patient were participating in OR time-out procedure. ?the patient's lower back was prepped with ChloraPrep and draped with sterile? utility draped.? Sterilely draped C-arm was brought over the operating field and sq picture of? lumbar vertebrae were delineated on the screen. the target of needle insertion was chosen between L2 and L3 vertebrae. The projection of the right lamina of the L3 vertebra was chosen as the starting point of the injection.? 22 gauge 3-1/2 inch pencil point needle was inserted through the skin after skin wheal was raised with lidocaine 2%.? The needle was directed to the L2-L3 interlaminar space.? The advancement of the needle was performed on intermittent anterior posterior and lateral views.? On anterior posterior view needle was kept strictly in the midline.? On the lateral view needle entered in the projection of the center of the spinal canal.? At that moment the stylet was removed from the needle and clear flow CSF was detected in the needle hub.? After that? 0.8 mL of the solution containing 2 mg of bupivacaine was injected into the needle.? After that needle was removed sterile dressing was applied.? Patient tolerated procedure well.? She was taken outside of the operating room to the recovery room where she recovered uneventfully. Coding Level of Care Code Procedure Only Diagnoses Uncomplicated opioid dependence F11.20 Substance use status: uncomplicated Postlaminectomy syndrome, lumbar M96.1 Constipation due to opioid therapy K59.03; T40.2X5A Chronic pain syndrome G89.4
[2024-02-18 13:36] VITALS: BP 122/68; PULSE 86; RESP 14; O2SAT 97
== END 2024-02-18 14:28 | disposition home or self-care (01) ==
LOC: HO.PMCPRC 12:20
PROVIDERS: PCP Internal Medicine; Visit Provider Anesthesiology
DX: M96.1 Postlaminectomy syndrome, not elsewhere classified (principal); G89.4 Chronic pain syndrome
CPT/HCPCS: 62323

== ENCOUNTER 2024-02-24 13:09 | Outpatient (AMB) | payer MEDICARE, MEDICAID, SELFPAY ==
--- NOTE | 2024-02-24 13:14 | A.OFFVIS_ITS ---
Vital Signs 02/24/24 13:15 Height 5 ft 3 in Weight 172 lb BMI 30.5 BP 141/70 H Blood Pressure Location Lt brachial Position Sitting Respiration 15 Pulse 101 H Pulse Source Pulse Oximeter Pulse Oximetry (%) 98 Oxygen Delivery Method Room Air Intake Visit Reasons: ITDD TRIAL Allergies topiramate [From TOPAMAX] Allergy (Severe, Verified 02/24/24 13:17) SWELLING barium sulfate Adverse Reaction (Intermediate, Verified 02/24/24 13:17) changes in behavior hydrocodone Adverse Reaction (Intermediate, Verified 02/24/24 13:17) Nausea metronidazole [Flagyl] Adverse Reaction (Intermediate, Verified 02/24/24 13:17) PATTERN DRUM MAKER, N/V morphine [MORPHINE] Adverse Reaction (Intermediate, Verified 02/24/24 13:17) HEADACHE Penicillins Adverse Reaction (Intermediate, Verified 02/24/24 13:17) Vomiting trazodone Adverse Reaction (Intermediate, Verified 02/24/24 13:17) Palpitations varenicline [From Chantix] Adverse Reaction (Mild, Verified 02/24/24 13:17) changes in behavior Medication List - Last Reconciled 02/24/24 by Nicole Gonzales LPN Advair Diskus 100-50 mcg/dose (fluticasone propion-salmeterol) 2 ea PO BID PRN NS albuterol sulfate 90 mcg/actuation 2 puffs PO Q4H PRN albuterol sulfate 2.5 mg (3 mL) inhalation TID alendronate 70 mg PO QWEEK 90 days alprazolam 0.5 mg PO DAILY PRN 2 days aspirin (Adult Low Dose Aspirin) 81 mg PO DAILY calcium carbonate-vitamin D3 600 mg-20 mcg (800 unit) 1 tab PO BID cholecalciferol (vitamin D3) 25 mcg PO DAILY 90 days dexlansoprazole (Dexilant) 60 mg PO DAILY 90 days diphenhydramine HCl (Allergy (diphenhydramine)) 25 mg PO BEDTIME PRN 90 days escitalopram oxalate 10 mg PO DAILY 90 days fenofibrate 160 mg PO DAILY 90 days fluticasone propion-salmeterol 250-50 mcg/dose (Advair Diskus) 1 inh inhalation BID 30 days fluticasone propionate 50 mcg/actuation (Flonase Allergy Relief) 1 spray intranasal DAILY linaclotide (Linzess) 290 mcg PO DAILY 90 days lisinopril 20 mg PO DAILY montelukast 10 mg PO DAILY nicotine 1 patch transdermal DAILY 28 days oxycodone 10 mg PO Q6H PRN 30 days prednisone 10 mg PO BID 1 week Ventolin HFA 90 mcg/actuation (albuterol sulfate) 2 puffs inhalation Q6H PRN 30 days NS HPI Comments Details: Oriana is in my office today after the trial of intrathecal pain pump with bupivacaine. She denied any pain improvement after bupivacaine injection. She requested me to perform trial with opioid. Unfortunately last time she had a trial with Dilaudid she experienced severe complications including what described below. I decided to try this time pain pump trial with the fentanyl. Because she has opioid exposed patient the dose of the fentanyl on the trial will be 40 micro g. We agreed that she will stop her opioid medications for about 1 week before the trial. Prior: History of lower back pain and neck pain.? She went for trial of intrathecal drug delivery system pain pump with Dilaudid, she reported severe nausea and vomiting she reported also face swelling.? I do not think Dilaudid is a good medicine for this patient.? Report of face swelling might indicate complications as generalized edema.? This complication may lead to congestive heart failure.? The nature of this complication is not clear yet however it develops more on water soluble medications.? Therefore since she developed this complication on Dilaudid trial with more water soluble morphine would not be a good option for her.? History of postlaminectomy syndrome of cervical and lumbar spine.? She reported severe pain in the back as the main aggravation.? She has paddle spinal cord stimulator by [employer] and she reports good help with the peripheral radiating to lower extremity pain.? However on the background of pain in the legs improved her pain in the axial back remains very severe pain. [facility] Medical History (Updated 01/28/24 @ 13:26 by Liyah Pereira PA-C) Intravenous bisphosphonates causing adverse effect in therapeutic use Encounter for monitoring bisphosphonate therapy History of colon polyps (~2012) Nicotine dependence, cigarettes, uncomplicated History of DVT (deep vein thrombosis) Migraines Asthma Chronic pain syndrome Postlaminectomy syndrome, cervical Cough COPD (chronic obstructive pulmonary disease) Allergic rhinitis Osteoarthritis of right hip Depression with anxiety Constipation due to opioid therapy GERD (gastroesophageal reflux disease) Hypovitaminosis D Lumbar degenerative disc disease Essential hypertension Surgical History History of colonoscopy History of fusion of lumbar spine History of fusion of cervical spine History of appendectomy (~1990) History of total abdominal hysterectomy (~2011) History of esophagogastroduodenoscopy (EGD) (~2012) Status post insertion of nerve stimulator History of cholecystectomy (~2003) History of incisional hernia repair History of arthroscopy of both knees History of carpal tunnel surgery of right wrist History of carpal tunnel surgery of left wrist History of hemicolectomy Family History Father Diabetes Mother Diabetes Hypertension Sister Diabetes Breast cancer Rheumatoid arthritis Osteoporosis Maternal Uncle Prostate cancer Social History Housing: Apartment Alcohol intake: never Comment: movement only Patient Tobacco Use Status: Current everyday Tobacco user Tobacco use type: Cigarette Cigarettes Per Day: 10 e-Cigarette/Vaping Use: Never Used Second Hand Smoke Exposure: No service: No Current occupational status: disabled Cognitive needs: No Hearing needs: No Vision needs: Yes Review of Systems Const All systems reviewed & are unremarkable except as noted in HPI and below ENT Reports Normal hearing present Neuro Reports Normal hearing present, Denies confusion and Denies Sensory deficit (Neuro) Psych Denies confusion Physical Exam Vital Signs: Last Vital Signs Pulse 101 H 02/24/24 13:15 Resp 15 02/24/24 13:15 BP 141/70 H 02/24/24 13:15 Pulse Ox 98 02/24/24 13:15 Oxygen Delivery Method Room Air 02/24/24 13:15 BMI result Body Mass Index 30.5 Const General: comfortable, no acute distress, well developed, alert and awake; No confusion Orientation/consciousness: No confusion Eyes Pupils: Equal, round and reactive pupils present EOM: EOMs intact bilaterally Chest Chest palpation & inspection: normal inspection of the chest Resp Effort & Inspection: normal respiratory effort, able to speak in complete sentences, normal respiratory pattern, no audible wheezes and no cough Cardio Jugular venous distension: no JVD Back/Spine/Pelvis Other: tenderness on palpation in paraspinal spinal region in lumbar spine. Loading test is positive. Range of motion in lumbar spine is limited. Neuro General: No confusion Cranial nerves: Yes Equal, round and reactive pupils present and Yes Normal hearing present Sensory Exam: No Sensory deficit (Neuro) Psych Speech and movement: Normal speech and movement present Affect: normal affect Attitude: cooperative Thought process: Normal thought process present Thought content: Normal thought content present Insight: Good insight present (Psych) Judgement: Good judgement present (Psych) Assessment & Plan Assessment & Plan (1) Postlaminectomy syndrome, lumbar: Code(s): M96.1 - Postlaminectomy syndrome, not elsewhere classified Category: Medical (2) Spondylosis of lumbosacral spine with radiculopathy: Code(s): M47.27 - Other spondylosis with radiculopathy, lumbosacral region Category: Medical (3) Cervicalgia: Code(s): M54.2 - Cervicalgia Category: Medical (4) Spondylosis, cervical: Code(s): M47.812 - Spondylosis without myelopathy or radiculopathy, cervical region Category: Medical (5) Postlaminectomy syndrome, cervical: Code(s): M96.1 - Postlaminectomy syndrome, not elsewhere classified Category: Medical (6) Chronic pain syndrome: Code(s): G89.4 - Chronic pain syndrome Category: Medical Plan Implantation of Nevro SCS is done the pain relief from the cervical spine is satisfactory. She now is interested in more pain relief from the lower back. She completed psychological evaluation and went for pain pump trial with Dilaudid. Severe complications occurred. Trial of pain pump with bupivacaine she reported no pain improvement. Today I offered her pain pump trial with fentanyl. This is very unfortunate situation she is taking oxycodone/acetaminophen prescribed by PCP. I recommended her not to take this medication for at least 2 days before the trial with fentanyl better yet 1 full week. Patient expressed understanding. I will schedule her for the trial with fentanyl 40 micro g because she has opioid exposed patient. Coding Level of Care Code Est Pt Level 3 (55516) Diagnoses Postlaminectomy syndrome, lumbar M96.1 Spondylosis of lumbosacral spine with radiculopathy M47.27 Cervicalgia M54.2 Spondylosis, cervical M47.812 Postlaminectomy syndrome, cervical M96.1 Chronic pain syndrome G89.4
[2024-02-24 13:15] VITALS: BP 141/70; PULSE 101; RESP 15; O2SAT 98; BMI 30.5
== END 2024-02-24 14:19 | disposition home or self-care (01) ==
PROVIDERS: PCP Internal Medicine; Visit Provider Anesthesiology
DX: M96.1 Postlaminectomy syndrome, not elsewhere classified (principal); M47.27 Other spondylosis with radiculopathy, lumbosacral region; M54.2 Cervicalgia; M47.812 Spondylosis without myelopathy or radiculopathy, cervical region; G89.4 Chronic pain syndrome
CPT/HCPCS: 99213

== ENCOUNTER → 2024-02-24 13:09 | Outpatient (BNVA) | payer MEDICARE, MEDICAID, SELFPAY | PROVIDERS: PCP Internal Medicine; Visit Provider Anesthesiology | DX: M96.1 Postlaminectomy syndrome, not elsewhere classified (principal); M47.27 Other spondylosis with radiculopathy, lumbosacral region; M54.2 Cervicalgia; M47.812 Spondylosis without myelopathy or radiculopathy, cervical region; G89.4 Chronic pain syndrome; Z96.89 Presence of other specified functional implants | CPT/HCPCS: 99212 ==

== ENCOUNTER 2024-03-02 09:24 | Outpatient (REF) | payer MEDICARE, MEDICAID, SELFPAY ==
--- NOTE | ~2024-03-02 | MM_ITS ---
EXAMINATION: MM DIAGNOSTIC DIGITAL BREAST TOMOSYNTHESIS, BILATERAL Limited left breast ultrasound. CLINICAL INFORMATION: Two-year follow-up for probable complicated cyst in the left breast at 7:00 6 cm from the nipple. Patient due for annual mammography. COMPARISON: Mammography: Comparison is made with relevant prior exams. TECHNIQUE: Digital breast mammography with tomosynthesis is performed in both the craniocaudal and mediolateral oblique views along with computer-aided detection (CAD). Limited left breast ultrasound. FINDINGS: There are scattered areas of fibroglandular density (ACR BI-RADS breast composition Category b). There are no significant masses, abnormal calcifications, or other abnormalities. Targeted color Doppler ultrasound at 7:00 6 cm from nipple demonstrates decreased size of minimally complicated cyst measuring 3 x 2 x 3 mm. This minimally complicated cyst has been followed for 2 years and decreased in size and therefore benign. Results are provided to the patient at time of visit by the technologist. MM/MM tomosynthesis diagnostic BI IMPRESSION: Bilateral breast: Benign. ASSESSMENT: BI-RADS BI-RADS 2 - Benign Findings RECOMMENDATION: 1 year F/U This patient's information was entered into a reminder system with a target due date for their next mammogram. Electronically signed by: Sadia Quesada DO 03/02/2024 10:43 AM [facility]
== END 2024-03-02 09:25 | disposition home or self-care (01) ==
LOC: HO.MAMMO 09:24
PROVIDERS: PCP Internal Medicine; Visit Provider Internal Medicine
DX: N60.02 Solitary cyst of left breast (principal); R92.323 Mammographic fibroglandular density, bilateral breasts
CPT/HCPCS: 76642; 77062; 77066

== ENCOUNTER → 2024-03-02 10:15 | Outpatient (BNV) | payer MEDICARE, MEDICAID, SELFPAY | PROVIDERS: PCP Internal Medicine; Visit Provider Internal Medicine | DX: N60.02 Solitary cyst of left breast (principal) | CPT/HCPCS: 76642; 77066; G0279 ==

== ENCOUNTER 2024-03-17 13:09 | Outpatient (AMB) | payer MEDICARE, MEDICAID, SELFPAY ==
--- NOTE | 2024-03-17 13:20 | A.OFFVIS_ITS ---
Intake Visit Reasons: New Prob - Right knee pain Intake Note: Oriana is a 63 year old female who presents today for a evaluation of her right knee pain. Hx of left knee OA, last injection on her left knee was on 01/24/24. Patient reports ongoing pain for since November which she had a fall. She mentions that her pain is all over the knee. Patient states that her pain is worse when she is sitting/standing/walking for more than 30 min. She has tried Oxycodone which she was prescribed for her back which gives her relief. She mentions that she had a fall today 03/17/24 which she rolled her ankle and landed on her left knee. Allergies topiramate [From TOPAMAX] Allergy (Severe, Verified 03/17/24 13:23) SWELLING barium sulfate Adverse Reaction (Intermediate, Verified 03/17/24 13:23) changes in behavior hydrocodone Adverse Reaction (Intermediate, Verified 03/17/24 13:23) Nausea metronidazole [Flagyl] Adverse Reaction (Intermediate, Verified 03/17/24 13:23) BIOLOGIST, N/V morphine [MORPHINE] Adverse Reaction (Intermediate, Verified 03/17/24 13:23) HEADACHE Penicillins Adverse Reaction (Intermediate, Verified 03/17/24 13:23) Vomiting trazodone Adverse Reaction (Intermediate, Verified 03/17/24 13:23) Palpitations varenicline [From Chantix] Adverse Reaction (Mild, Verified 03/17/24 13:23) changes in behavior HPI HPI New Prob - Right knee pain: Details: Ms. Chito Guallpa is a 63-year-old female who presents to the office today for evaluation of right knee pain. She reports the pain has been ongoing since November after sustaining a mechanical fall landing onto her knees. She was last seen in the office on 01/24/2024 for her right knee which she received a cortisone injection for. She reports that she has difficulty with sitting standing and walking for more than 30 minutes. She has tried oxycodone which is prescribed for her lower back pain which gives her mild relief. Of note, the patient did sustain a mechanical fall today while walking into the office. During this incident she reportedly rolled her right ankle and landed on her left knee. She has been able to weightbear but reports pain and an antalgic gait. [facility] Medical History (Updated 03/17/24 @ 14:54 by Carmita Alexandra PA-C) Intravenous bisphosphonates causing adverse effect in therapeutic use Encounter for monitoring bisphosphonate therapy History of colon polyps (~2012) Nicotine dependence, cigarettes, uncomplicated History of DVT (deep vein thrombosis) Migraines Asthma Chronic pain syndrome Postlaminectomy syndrome, cervical Cough COPD (chronic obstructive pulmonary disease) Allergic rhinitis Osteoarthritis of right hip Depression with anxiety Constipation due to opioid therapy GERD (gastroesophageal reflux disease) Hypovitaminosis D Lumbar degenerative disc disease Essential hypertension Surgical History (Reviewed 02/11/24 @ 13:54 by Mariza Troy [facility]) History of colonoscopy History of fusion of lumbar spine History of fusion of cervical spine History of appendectomy (~1990) History of total abdominal hysterectomy (~2011) History of esophagogastroduodenoscopy (EGD) (~2012) Status post insertion of nerve stimulator History of cholecystectomy (~2003) History of incisional hernia repair History of arthroscopy of both knees History of carpal tunnel surgery of right wrist History of carpal tunnel surgery of left wrist History of hemicolectomy Family History Father Diabetes Mother Diabetes Hypertension Sister Diabetes Breast cancer Rheumatoid arthritis Osteoporosis Maternal Uncle Prostate cancer Social History Housing: Apartment Alcohol intake: never Comment: movement only Patient Tobacco Use Status: Current everyday Tobacco user Tobacco use type: Cigarette Cigarettes Per Day: 10 e-Cigarette/Vaping Use: Never Used Second Hand Smoke Exposure: No service: No Current occupational status: disabled Cognitive needs: No Hearing needs: No Vision needs: Yes Review of Systems Const All systems reviewed & are unremarkable except as noted in HPI and below Physical Exam Const General: cooperative, healthy appearing and no acute distress Resp Effort & Inspection: normal respiratory effort and able to speak in complete sentences Cardio Rate: regular rate Peripheral pulses: Peripheral pulses 2+ throughout Skin Lesions: no lesions Rashes: no rashes Extrem Other: Right knee able to perform range of motion 0-100 degrees. NVI Right ankle normal to inspection no ecchymosis erythema or edema. Able to perform dorsiflexion and plantar flexion with pain. Slight tenderness to palpat ion of the medial and lateral malleolus. Sensation is intact. Assessment & Plan Assessment & Plan (1) Internal derangement of right knee: Code(s): M23.91 - Unspecified internal derangement of right knee Category: Medical (2) Right ankle sprain: Code(s): S93.401A - Sprain of unspecified ligament of right ankle, initial encounter Category: Medical Plan Ms. Chito Guallpa is a 63-year-old female who presents to the office today for evaluation of right knee pain. She reports the pain has been ongoing since November after sustaining a mechanical fall landing onto her knees. She was last seen in the office on 01/24/2024 for her right knee which she received a cortisone injection for. She reports that she has difficulty with sitting standing and walking for more than 30 minutes. She has tried oxycodone which is prescribed for her lower back pain which gives her mild relief. Of note, the patient did sustain a mechanical fall today while walking into the office. During this incident she reportedly rolled her right ankle and landed on her left knee. She has been able to weightbear but reports pain and an antal gic gait. We discussed the role of cortisone injection into the right knee in the office today. However, the patient reports that after sustaining her fall outside she is in too much pain to move forward with this at this time. In regards to her right ankle it did provide the patient with a tall walking boot off a shelf. She may weightbear as tolerated. I did agree to see the patient next week to perform a right knee cortisone injection. She will follow up next week in regards to her knee and I will also follow up with her ankle at that time. X-rays of the right knee which were obtained while in the office today and were reviewed by Carmita spencer PA-C, revealed mild degenerative changes. No acute fracture or dislocation. X-rays of the right ankle which were obtained while in the office today and were reviewed by Carmita spencer PA-C, revealed no acute fracture dislocation. Orders: Orders XR ankle RT min 3V Today M25.579 - Pain in unspecified ankle and joints of unspecified foot XR knee RT 3V Today M25.569 - Pain in unspecified knee XR knee LT 1V Today M25.569 - Pain in unspecified knee Coding Level of Care Code Est Pt Level 4 (41070) Diagnoses Internal derangement of right knee M23.91 Right ankle sprain S93.401A
== END 2024-03-17 14:35 | disposition home or self-care (01) ==
PROVIDERS: PCP Internal Medicine; Visit Provider Physician Assistant
DX: M23.91 Unspecified internal derangement of right knee (principal); S93.401A Sprain of unspecified ligament of right ankle, initial encounter
CPT/HCPCS: 99214

== ENCOUNTER 2024-03-17 13:17 | Outpatient (REF) | payer MEDICARE, MEDICAID, SELFPAY ==
--- NOTE | ~2024-03-17 | XR_ITS ---
CLINICAL HISTORY: M25.569 - Pain in unspecified knee AP standing view bilateral knees Comparison: None Findings: No fractures or dislocations. No significant loss of joint space, osteophytes, or erosions. No radiopaque foreign body. IMPRESSION: 1. No acute findings. This document has been electronically signed by: Vivian Meléndez MD on 03/20/2024 14:47:26
--- NOTE | ~2024-03-17 | XR_ITS ---
CLINICAL HISTORY: M25.579 - Pain in unspecified ankle and joints of unspecified foot 3 view right ankle Comparison: None Findings: No acute fracture. Chronic appearing bone fragment adjacent to the medial malleolus. No dislocations. No significant arthritic change or erosions. No ankle effusion. There are 3 circumscribed hyperdensities within the posterolateral soft tissues at the level of the distal diaphysis of the fibula measuring 1.2, 1.2 and 0.3 cm in size respectively. IMPRESSION: 1. There are 3 circumscribed hyperdensities within the posterolateral soft tissues at the level of the distal diaphysis of the fibula. These could represent calcifications or foreign bodies. 2. No acute bony injury. This document has been electronically signed by: Vivian Meléndez MD on 03/20/2024 14:47:14
--- NOTE | ~2024-03-17 | XR_ITS ---
CLINICAL HISTORY: M25.569 - Pain in unspecified knee 2 view right knee Comparison: None Findings: Bones intact. No dislocations. There are tiny patellar osteophytes. No significant joint space loss enthesopathy is present at the quadriceps tendon insertion. No joint effusion. No radiopaque foreign body. IMPRESSION: 1. No acute findings. This document has been electronically signed by: Vivian Meléndez MD on 03/20/2024 14:49:16
== END 2024-03-17 13:18 | disposition home or self-care (01) ==
LOC: HO.HOSX 13:17
PROVIDERS: Visit Provider Physician Assistant
DX: M25.561 Pain in right knee (principal); M25.562 Pain in left knee; M25.571 Pain in right ankle and joints of right foot
CPT/HCPCS: 73560; 73562; 73610; 99212

== ENCOUNTER 2024-03-26 14:24 | Outpatient (AMB) | payer MEDICARE, MEDICAID, SELFPAY ==
--- NOTE | 2024-03-26 15:17 | A.OFFVIS_ITS ---
Intake Visit Reasons: right knee injection Allergies topiramate [From TOPAMAX] Allergy (Severe, Verified 03/17/24 13:23) SWELLING barium sulfate Adverse Reaction (Intermediate, Verified 03/17/24 13:23) changes in behavior hydrocodone Adverse Reaction (Intermediate, Verified 03/17/24 13:23) Nausea metronidazole [Flagyl] Adverse Reaction (Intermediate, Verified 03/17/24 13:23) CARDIAC REHABILITATION PROGRAM DIRECTOR, N/V morphine [MORPHINE] Adverse Reaction (Intermediate, Verified 03/17/24 13:23) HEADACHE Penicillins Adverse Reaction (Intermediate, Verified 03/17/24 13:23) Vomiting trazodone Adverse Reaction (Intermediate, Verified 03/17/24 13:23) Palpitations varenicline [From Chantix] Adverse Reaction (Mild, Verified 03/17/24 13:23) changes in behavior HPI HPI right knee injection: Details: Patient presents to the office today for right knee injection and follow up of right ankle sprain. Patient reports that her right ankle is inflamed and causes her pain. She is using a tall walking boot as directed from her last appointment. [facility] Medical History (Updated 03/17/24 @ 14:54 by Carmita Alexandra PA-C) Intravenous bisphosphonates causing adverse effect in therapeutic use Encounter for monitoring bisphosphonate therapy History of colon polyps (~2012) Nicotine dependence, cigarettes, uncomplicated History of DVT (deep vein thrombosis) Migraines Asthma Chronic pain syndrome Postlaminectomy syndrome, cervical Cough COPD (chronic obstructive pulmonary disease) Allergic rhinitis Osteoarthritis of right hip Depression with anxiety Constipation due to opioid therapy GERD (gastroesophageal reflux disease) Hypovitaminosis D Lumbar degenerative disc disease Essential hypertension Surgical History History of colonoscopy History of fusion of lumbar spine History of fusion of cervical spine History of appendectomy (~1990) History of total abdominal hysterectomy (~2011) History of esophagogastroduodenoscopy (EGD) (~2012) Status post insertion of nerve stimulator History of cholecystectomy (~2003) History of incisional hernia repair History of arthroscopy of both knees History of carpal tunnel surgery of right wrist History of carpal tunnel surgery of left wrist History of hemicolectomy Family History Father Diabetes Mother Diabetes Hypertension Sister Diabetes Breast cancer Rheumatoid arthritis Osteoporosis Maternal Uncle Prostate cancer Social History Housing: Apartment Alcohol intake: never Comment: movement only Patient Tobacco Use Status: Current everyday Tobacco user Tobacco use type: Cigarette Cigarettes Per Day: 10 e-Cigarette/Vaping Use: Never Used Second Hand Smoke Exposure: No service: No Current occupational status: disabled Cognitive needs: No Hearing needs: No Vision needs: Yes Review of Systems Const All systems reviewed & are unremarkable except as noted in HPI and below Office Procedures AMB Joint Injection/Aspiration Joint Injection/Aspiration Primary Site: right knee Prep: site was prepped using aseptic technique, ethochloride spray was applied and injection warnings given Injected: 80 mg of, DepoMedrol, with 8 mL of (2% plain lido ) and in the joint Approach Used: anterolateral Procedure: The patient tolerated the procedure well, but had some pain with the injection and there was some relief with the local anesthesia Coding 78075 - Large joint Procedure code (CPT) selection complete Assessment & Plan Assessment & Plan (1) Internal derangement of right knee: Code(s): M23.91 - Unspecified internal derangement of right knee Category: Medical (2) Right ankle sprain: Code(s): S93.401A - Sprain of unspecified ligament of right ankle, initial encounter Category: Medical Plan Patient presents to the office today for right knee injection and follow up of right ankle sprain. The patient was offered a cortisone injection in the right knee with 80 mg of DepoMedrol. The patient was explained the risks, benefits, and alternatives to receiving this injection. After receiving consent for the injection, the patient had the procedure done while in the office today. The patient tolerated the procedure well with no complications. I have also placed an order for physical therapy to begin in 2 weeks for the right ankle. I anticipate that she should be weaning out of the boot in the next 2 weeks. Follow-up will be 4 weeks for her right ankle, or sooner if needed Orders: Orders PT Evaluation and Treatment Today M25.571 - Pain in right ankle and joints of right foot, S93.401A - Sprain of unspecified ligament of right ankle, initial encounter Coding Level of Care Code Est Pt Level 3 (49554) Diagnoses Internal derangement of right knee M23.91 Right ankle sprain S93.401A CPT Codes Coding - 92041 Large joint: 91369 - Large joint ([id number])
== END 2024-03-26 15:00 | disposition home or self-care (01) ==
PROVIDERS: PCP Internal Medicine; Visit Provider Physician Assistant
DX: M23.91 Unspecified internal derangement of right knee (principal); S93.401A Sprain of unspecified ligament of right ankle, initial encounter
CPT/HCPCS: 20610; 99213

== ENCOUNTER → 2024-03-26 14:24 | Outpatient (BNVA) | payer MEDICARE, MEDICAID, SELFPAY | PROVIDERS: PCP Internal Medicine; Visit Provider Physician Assistant | DX: M23.91 Unspecified internal derangement of right knee (principal); S93.401D Sprain of unspecified ligament of right ankle, subsequent encounter | CPT/HCPCS: 20610; 99212; J1010; J2003 ==

== ENCOUNTER 2024-05-05 13:44 | Outpatient (AMB) | payer MEDICARE, MEDICAID, SELFPAY ==
--- NOTE | 2024-05-05 13:55 | MHC.PC.OV ---
Vital Signs 05/05/24 13:56 Height 5 ft 3 in Weight 171 lb BMI 30.3 BP 130/80 Blood Pressure Location Lt brachial Position Sitting Intake Visit Reasons: bp Intake Note: Patient here for a follow up BP Skein Yarn Dyer Required: Yes Skein Yarn Dyer Language: Financial Risk Manager Name: Chrissy Gao MD Information Interpreted: non-clinical & clinical Accompanied by: Self / Same As Patient Allergies topiramate [From TOPAMAX] Allergy (Severe, Verified 05/05/24 14:46) SWELLING barium sulfate Adverse Reaction (Intermediate, Verified 05/05/24 14:46) changes in behavior hydrocodone Adverse Reaction (Intermediate, Verified 05/05/24 14:46) Nausea metronidazole [Flagyl] Adverse Reaction (Intermediate, Verified 05/05/24 14:46) CORPORATE COORDINATOR, N/V morphine [MORPHINE] Adverse Reaction (Intermediate, Verified 05/05/24 14:46) HEADACHE Penicillins Adverse Reaction (Intermediate, Verified 05/05/24 14:46) Vomiting trazodone Adverse Reaction (Intermediate, Verified 05/05/24 14:46) Palpitations varenicline [From Chantix] Adverse Reaction (Mild, Verified 05/05/24 14:46) changes in behavior Medication List - Last Reconciled 05/05/24 by Chrissy Gao MD Advair Diskus 100-50 mcg/dose (fluticasone propion-salmeterol) 2 ea PO BID PRN NS albuterol sulfate 90 mcg/actuation 2 puffs PO Q4H PRN albuterol sulfate 2.5 mg (3 mL) inhalation TID alendronate 70 mg PO QWEEK 90 days alprazolam 0.5 mg PO DAILY PRN 2 days aspirin (Adult Low Dose Aspirin) 81 mg PO DAILY calcium carbonate-vitamin D3 600 mg-20 mcg (800 unit) 1 tab PO BID cholecalciferol (vitamin D3) 25 mcg PO DAILY 90 days dexlansoprazole (Dexilant) 60 mg PO DAILY 90 days diphenhydramine HCl (Allergy (diphenhydramine)) 25 mg PO BEDTIME PRN 90 days escitalopram oxalate 10 mg PO DAILY 90 days fenofibrate 160 mg PO DAILY 90 days fluticasone propion-salmeterol 250-50 mcg/dose (Advair Diskus) 1 inh inhalation BID 30 days fluticasone propionate 50 mcg/actuation (Flonase Allergy Relief) 1 spray intranasal DAILY linaclotide (Linzess) 290 mcg PO DAILY 90 days lisinopril 20 mg PO DAILY montelukast 10 mg PO DAILY nicotine 1 patch transdermal DAILY 28 days oxycodone 10 mg PO Q6H PRN 30 days prednisone 10 mg PO BID 1 week Ventolin HFA 90 mcg/actuation (albuterol sulfate) 2 puffs inhalation Q6H PRN 30 days NS Tobacco use date assessed: 05/05/24 Dental Screening Dental Screen Date: 05/05/24 Did you have a dental visit in the last 12 months?: Yes Did you have a dental problem in the last 6 months where you did not have access to dental care?: No Was dental information given to patient?: Patient has dentist HPI HPI Comments History of Present Illness Details The patient is a 63-year-old female presenting with concerns regarding hypertension and COPD. Her hypertension has been an ongoing condition; however, the conversation did not provide specific details on the history or management here. The patient?s COPD has been well-controlled with inhaler use, specifically once weekly. She has been following up with pulmonology to maintain stability. Regarding severe osteoporosis, she is under rheumatological care, focusing on managing bone density and minimizing fracture risk. For mild major depression with anxiety, the conversation did not reveal further details, but it is noted as a chronic condition. Chronic low back pain is being managed with opiates, control in the pain and she is opiate dependent. There is an awareness of benzodiazepines related to sedation and addiction mentioned during flying. [facility] Medical History Intravenous bisphosphonates causing adverse effect in therapeutic use Encounter for monitoring bisphosphonate therapy History of colon polyps (~2012) Nicotine dependence, cigarettes, uncomplicated History of DVT (deep vein thrombosis) Migraines Asthma Chronic pain syndrome Postlaminectomy syndrome, cervical Cough COPD (chronic obstructive pulmonary disease) Allergic rhinitis Osteoarthritis of right hip Depression with anxiety Constipation due to opioid therapy GERD (gastroesophageal reflux disease) Hypovitaminosis D Lumbar degenerative disc disease Essential hypertension Surgical History History of colonoscopy History of fusion of lumbar spine History of fusion of cervical spine History of appendectomy (~1990) History of total abdominal hysterectomy (~2011) History of esophagogastroduodenoscopy (EGD) (~2012) Status post insertion of nerve stimulator History of cholecystectomy (~2003) History of incisional hernia repair History of arthroscopy of both knees History of carpal tunnel surgery of right wrist History of carpal tunnel surgery of left wrist History of hemicolectomy Family History Father Diabetes Mother Diabetes Hypertension Sister Diabetes Breast cancer Rheumatoid arthritis Osteoporosis Maternal Uncle Prostate cancer Social History (Updated 05/05/24 @ 14:52 by Chrissy Gao MD) Housing: Apartment Alcohol intake: never Comment: movement only Patient Tobacco Use Status: Current everyday Tobacco user Tobacco use type: Cigarette Cigarettes Per Day: 4 e-Cigarette/Vaping Use: Never Used Second Hand Smoke Exposure: No service: No Current occupational status: disabled Cognitive needs: No Hearing needs: No Vision needs: Yes Questionnaire PHQ-9 Over the last 2 weeks, how often have you been bothered by any of the following problems? 1. Little interest or pleasure in doing things: several days 2. Feeling down, depressed, or hopeless: several days 3. Trouble falling or staying asleep, or sleeping too much: nearly every day 4. Feeling tired or having little energy: nearly every day 5. Poor appetite or overeating: several days 6. Feeling bad about yourself - or that you are a failure or have let yourself or your family down: not at all 7. Trouble concentrating on things, such as reading the newspaper or watching television: not at all 8. Moving or speaking so slowly that other people could have noticed. Or the opposite - being so fidgety or restless that you have been moving around a lot more than usual: several days 9. Thoughts that you would be better off or of hurting yourself in some way: not at all Total score: 10 Depression Screening Interpretation: Positive Depression Screening Follow-up: Existing condition, In treatment and Follow-up Visit Requested Depression Screening Done: Yes 70952 - PHQ-9 Billing: Yes Source: Developed by Drs. Kodak Noyola, Tiffany More, Maikel Spence and colleagues, with an educational faiza from [employer]. Thrive Questionnaire Date Thrive assessed: 05/05/24 I am a: Patient What is your living situation today?: I have a steady place to live Within the past 12 months, did the food you bought not last and you didn't have the money to get more?: Never true Within the past 12 months, did you worry whether your food would run out before you got money to buy more?: Never true Do you have trouble paying for medicines?: No Do you have trouble getting transportation to medical appointments?: No Do you have trouble paying your heating and electricity bill?: No Do you have trouble taking care of your child, family member or friend?: No Do you have trouble with day-to-day activities such as bathing, preparing meals, shopping, managing finances, etc.?: No Are you currently unemployed and looking for a job?: No Are you interested in more education?: No Please select the resources that you would like help with: None Currently or been in a relationship where the following occur: No concerns reported THRIVE Score: 0 AUDIT C Alcohol Use Questionnaire (AUDIT-C) 1. How often do you have a drink containing alcohol?: Never Total Score: 0 Score Reviewed/Action Taken: No ABI-7 AMB Questionnaire ABI-7 Date ABI - 7 assessed: 05/05/24 Feeling nervous, anxious, or on edge: 1 = Several days Not being able to stop or control worryin = Not at all Worrying too much about different things: 1 = Several days Trouble relaxin = Several days Being so restless that it is hard to sit still: 1 = Several days Becoming easily annoyed or irritable: 1 = Several days Feeling afraid as if something awful might happen: 0 = Not at all Total ABI-7 score (0-4 normal; 5-9 mild; 10-14 moderate; 15-21 severe): 5 Source: Developed by Drs. Kodak Noyola, Tiffany More, Maikel Spence and colleagues, with an educational faiza from [employer]. ABI-7 Assessment Billing ABI-7 Assessment Tool: ABI-7 Assessment 61829 Review of Systems Const All systems reviewed & are unremarkable except as noted in HPI and below Card Denies chest pain at rest, Denies chest pain with activity, Denies edema, Denies irregular heart rhythm, Denies claudication, Denies dyspnea, Denies dyspnea on exertion, Denies orthopnea, Denies paroxysmal nocturnal dyspnea and Denies slow heart rate Resp Denies cough, Denies dyspnea and Denies dyspnea on exertion GI Denies abdominal pain, Denies change in bowel habits, Denies excessive flatus, Denies nausea and Denies vomiting Physical exam (Primary Care) Vital Signs: Last Vital Signs BP 130/80 05/05/24 13:56 BMI result Body Mass Index 30.3 BMI Assessment/Plan discussion: High BMI High, discussed plan: lifestyle, weight reduction, dietary and physical activity Tobacco/Smoking Status: Tobacco use Status Tobacco use date assessed 05/05/24 05/05/24 14:01 Patient Tobacco Use Status Current everyday Tobacco 05/05/24 14:52 Tobacco use type Cigarette 05/05/24 14:52 e-Cigarette/Vaping Use Never Used 05/05/24 14:52 Are you ready to quit: No Tobacco cessation counseling provided: Yes Items discussed: Nicotine replacement and QuitWorks Relapse Prevention: discussed the importance of a supportive environment, discussed extending NRT, discussed negative mood or depression after quitting, weight gain after smoking is common and discussed dietary, exercise and/or lifestyle changes Number of minutes spent counselin CPT code: 52697 - 4-10 Minutes PHQ-9: PHQ-9 Score PHQ-9: Total score 10 05/05/24 14:49 Depression Screening Interpretation: Positive Depression Screening Follow-up: Existing condition, In treatment and Follow-up Visit Requested Thrive Assessment: Date of Thrive Assessment Date Thrive assessed 05/05/24 05/05/24 14:01 Currently or been in a relationship where the following occur: No concerns reported Resp Effort & Inspection: normal respiratory effort Auscultation: clear to auscultation bilaterally Cardio Jugular venous distension: no JVD Rate: regular rate Rhythm: regular rhythm Heart sounds: S1 normal heart sound present and S2 normal heart sound present Extrem General: Yes full ROM Coding Level of Care Code Est Pt Level 4 (68182) Complex EM visit Add On G2211 Diagnoses Moderate recurrent major depression F33.1 Age-related osteoporosis without current pathological fracture M81.0 Osteoporosis type: age-related Presence of current pathological fracture: without current pathological fracture Essential hypertension I10 Chronic obstructive pulmonary disease, unspecified COPD type J44.9 COPD type: unspecified COPD Uncomplicated opioid dependence F11.20 Substance use status: uncomplicated Additional Codes ABI-7 Assessment Billing - ABI-7 Assessment Tool: ABI-7 Assessment 09903 ([id number]) PHQ-9 - 34432 - PHQ-9 Billing: Yes ([id number]) Vital Signs *Quality* - CPT code: 87301 - 4-10 Minutes ([id number]) Time Spent (min) 25 Assessment & Plan Assessment & Plan (1) Moderate recurrent major depression: Code(s): F33.1 - Major depressive disorder, recurrent, moderate Category: Medical (2) Osteoporosis: Comment: DEXA 03/2023. AP Spine L1-L3 -2.3, left femur neck -3.0, left femur total -1.9 Started Alendronate 03/2023 - 08/2023. Did not tolerate IV Reclast started 08/2023 Code(s): M81.0 - Age-related osteoporosis without current pathological fracture Category: Medical Qualifiers: Osteoporosis type: age-related Presence of current pathological fracture: without current pathological fracture Qualified Code(s): M81.0 - Age-related osteoporosis without current pathological fracture (3) Essential hypertension: Code(s): I10 - Essential (primary) hypertension Category: Medical (4) COPD (chronic obstructive pulmonary disease): Comment: Her chronic obstructive disorder is more in the form of asthma, completely reversible. Was controlled with use of Advair 100-50 1 inhalation b.i.d. At present she has been out of this medicine for a few weeks. She has the a subacute exacerbation, with significant wheezes on auscultation. Code(s): J44.9 - Chronic obstructive pulmonary disease, unspecified Category: Medical Qualifiers: COPD type: unspecified COPD Qualified Code(s): J44.9 - Chronic obstructive pulmonary disease, unspecified (5) Opioid dependence: Code(s): F11.20 - Opioid dependence, uncomplicated Category: Medical Qualifiers: Substance use status: uncomplicated Qualified Code(s): F11.20 - Opioid dependence, uncomplicated Plan - Continue current inhaler regimen for COPD and follow up with pulmonology as planned. - Manage hypertension as per established treatment protocols. - Monitor osteoporosis through rheumatology and maintain current management plan. - Address mild major depression and anxiety as part of a broader mental health care plan. Consider management of anxiety related to flying. - Continue management for chronic low back pain, ensuring awareness of medication risks and potential sedatives during travel. Patient was informed and verbally consented to the use of an ambient scribe for clinic note documentation during this visit. The patient and I discussed the management strategies for her hypertension and COPD, including the ongoing use of inhalers and regular follow-up with pulmonology. We talked about the importance of adhering to her current regimen for osteoporosis under the guidance of rheumatology. Anxiety management, particularly related to flying, was reviewed, with considerations for the temporary use of medications if needed. There was an acknowledgment of the sedation risks associated with her back pain management medications during travel. We agreed on maintaining regular follow-ups per her specialists' advice. Medications: Refilled alprazolam Take 1 tab 45 minutes before taking the airplane. 0.5 mg PO DAILY PRN 2 tabs 0RF anxiety 2 days Discontinued alendronate Discontinued Reason: Patient Completed Course 70 mg PO QWEEK 90 days 13 tabs 1RF M81.0 - Age-related osteoporosis without current pathological fracture Patient Instructions: - Continue using the COPD inhaler as prescribed and follow up with your cannon fire direction specialist. - Maintain your hypertension treatment regimen. - Follow the osteoporosis management plan with your outside installation machinist. - Consider managing anxiety during flights with appropriate measures as previously discussed with your mental health care provider. - Be aware of sedation risks if using back pain medications before travel.
[2024-05-05 13:56] VITALS: BP 130/80; BMI 30.3
--- OUTSIDE RECORDS SUMMARY | 2024-05-05 17:01 | XMS_ITS ---
Author Organization [facility] Address [address] [place] [address] Care Team Providers Care Pig Machine Crane Operator Name Role Phone Chrissy Osborne Primary Care Provider UnavailKaushik Duenas Jr REASON FOR VISIT screening colon PROBLEMS Problem Type ICD Code Onset Dates Problem Status W/U Status Risk SNOMED Code Notes Problem Personal history of colonic polyps (Z86.010) Active confirmed History of polyp of colon (situation) (238942114) Encounters Encounter Location Date Provider Diagnosis [facility] Outpatient [address] [place], [place] [id number] 05/21/2023 Kaushik Ahumada Jr Encounter for screening colonoscopy Z12.11 ; Personal history of colonic polyps Z86.010 and Colon polyps K63.5 ASSESSMENTS Encounter Date Diagnosis Assessment Notes Treatment Notes Treatment Clinical Notes 05/21/2023 Encounter for screening colonoscopy (ICD-10 - Z12.11) 05/21/2023 Personal history of colonic polyps (ICD-10 - Z86.010) 05/21/2023 Colon polyps (ICD-10 - K63.5) PLAN OF TREATMENT No Information
--- OUTSIDE RECORDS SUMMARY | 2024-05-05 17:01 | XMS_ITS | Clinical Summary ---
Author Organization [facility] Address [address] [place], [place] [id number] Care Team Providers Care Drop Wire Aliner Name Role Phone Chrissy Osborne MD Primary Care Provid er Allergies Active Allergy Reactions Criticality Noted Date Comments Morphine 12/18/2016 Topiramate 12/18/2016 Medications No known medications Active Problems Problem Noted Date Diagnosed Date Arthralgia of left knee 12/18/2016 Social History Tobacco Use Types Packs/Day Years Used Date Smoking Tobacco: Never Assessed Sex and Gender Information Value Date Recorded Sex Assigned at Not on file Gender Identity Not on file Sexual Orientation Not on file Last Filed Vital Signs Vital Sign Reading Time Taken Comments Blood Pressure - - Pulse - - Temperature - - Respiratory Rate - - Oxygen Saturation - - Inhaled Oxygen Concentration - - Weight 72.6 kg (160 lb) 12/18/2016 11:09 AM EDT Height 160 cm (5' 3 ) 12/18/2016 11:09 AM EDT Body Mass Index 28.34 12/18/2016 11:09 AM EDT Plan of Treatment Health Maintenance Due Date Last Done Comments Hepatitis C Screening 1960 COVID-19 Vaccine (#1) 02/28/1961 Depression Screening 1972 Preventative Health Evaluation 1978 DTap / Tdap / Td (1 - Tdap) 08/30/1979 Cervical Cancer Screening (P ap Smear) 1981 Colon Cancer Screening (Colonoscopy) 2005 Breast Cancer Screening (Mammogram) 2010 Shingrix-Zoster Vaccine (1 of 2) 2010 Influenza Vaccine (#1) 2023 RSV Adult > 60+ Yrs or Pregn ant (1 - 1-dose 75+ series) 08/30/2035 Hepatitis B Vaccines Aged Out No long er eligible based on patient's age to complete this topic Pneumococcal Vaccine Aged Out No long er eligible based on patient's age to complete this topic RSV Ped < 20 months Aged Out No longe r eligible based on patient's age to complete this topic Care Teams Drop Wire Aliner Relationship Specialty Start Date End Date Chrissy Osborne MD [address] [facility] , [address] [facility] [place] [address] PCP - General Internal Medicine 11/16/16
--- OUTSIDE RECORDS SUMMARY | 2024-05-05 17:01 | XMS_ITS ---
Author Organization [facility] Address [address] [place] [address] Care Team Providers Care Lodge Officer Name Role Phone Chrissy Osborne Primary Care Provider Kaushik Castano Jr Unavailable ALLERGIES No Known Allergies REASON FOR VISIT Patient presents today for a colon screening MEDICATIONS Medication SIG (Take, Route, Frequency, Duration) Notes Start Date End Date Status MiraLax (colon prep) 17 GM/SCOOP mixed with Gatorade or Crystal Light Orally begin at 5:00 p.m. the day before the procedure for 1 day 04/22/2023 Active Linzess 290 MCG TAKE 1 CAPSULE BY MO UTH EVERY DAY Oral for 90 Active Advair Diskus 100-50 MCG/ACT INHALE 2 PU FFS ORALLY 2 TIMES A DAY NEEDED FOR FOR ASTHMA Inhalation for 30 Active D3-1000 25 MCG (1000 UT) TAKE 1 CAPSULE BY MOUTH EVERY DAY Oral for 90 Active Dexlansoprazole 60 MG TAKE 1 CAPSULE BY MOUTH EVERY DAY Oral for 90 Active Fenofibrate 160 MG Oral for 90 Active Banophen 25 MG TAKE 1 CAPSULE BY MO UTH EVERY DAY AT BEDTIME NEEDED FOR SLEEP Oral for 90 Active oxyCODONE HCl 10 MG Oral for 30 Active Montelukast Sodium 10 MG TAKE 1 TABLET B Y MOUTH EVERY DAY Oral for 90 Active Ventolin HFA 108 (90 Base) MCG/ACT Inhalation for 25 Active Lisinopril 20 MG Oral for 90 A ctive SOCIAL HISTORY Tobacco Use: Social History Observation Description Date Details (start date - stop date) Current Smoker NA - NA Sex Assigned At : Social History Observation Description Sex Assigned At Unknown Tobacco Use/Smoking Question Answer Notes Patient is a current smoker Alcohol Screen Question Answer Notes Did you have a drink containing alcohol in the p ast year? No Points 0 Interpretation Negative PROBLEMS Problem Type ICD Code Onset Dates Problem Status W/U Status Risk SNOMED Code Notes Problem Colon cancer screening (Z12.11) Active confirmed [id number] VITAL SIGNS Temperature 98.6 degrees Fahrenheit 04/22/19 24 Blood pressure systolic 000 mm Hg 04/22/19 24 Blood pressure diastolic 00 mm Hg 024 Height 5 ft 3 in in 04/22/2023 Weight 172 lbs 04/22/2023 BMI 30.47 kg/m2 04/22/2023 Encounters Encounter Location Date Provider Diagnosis [facility] [address] [place] [address] 04/22/2023 Kaushik Ahumada Jr Colon cancer screening Z12.11 ASSESSMENTS Encounter Date Diagnosis Assessment Notes Treatment Notes Treatment Clinical Notes 04/22/2023 Colon cancer screening (ICD-10 - Z12.11) PLAN OF TREATMENT Medication Medication Name Sig Start Date Stop Date Notes MiraLax (colon prep) 17 GM/SCOOP mixed with Gatorade or Crystal Light Orally begin at 5:00 p.m. the day before the procedure for 1 day 04/22/2023 Future Test Test Name Order Date COLONOSCOPY 04/22/2023 Next Appt Details Follow Up: prn, Reason: Progress Notes * Examination Category Sub-Category Detail Notes General Examination GENERAL APPEARANCE: in no ac [place] distress HEAD: normocephalic EYES: sclera non-icteric NECK/THYROID: no lymphadenopathy HEART: S1, S2 normal, no mu rmurs CHEST: normal shape and exp ansion LUNGS: clear to auscultatio n bilaterally ABDOMEN: soft, nontender, non distended, bowel sounds present, no organomegaly SKIN: anicteric EXTREMITIES: no clubbing, cyanosi s, or edema PSYCH: cognitive function i ntact ORAL CAVITY: mucosa moist
--- OUTSIDE RECORDS SUMMARY | 2024-05-05 17:01 | XMS_ITS ---
Author Organization [facility] Address [address] [place] [address] Care Team Providers Care Wildland Fire Fighter Name Role Phone Chrissy Osborne Primary Care Provider Unavailab Kaushik Zaidi Jr REASON FOR VISIT pathology Encounters Encounter Location Date Provider Diagnosis [facility] [address] [place] [address] 05/30/2023 Kaushik Ahumada Jr PLAN OF TREATMENT No Information
--- OUTSIDE RECORDS SUMMARY | 2024-05-05 17:02 | XMS_ITS | Patient Health Record ---
Author Organization [facility] Address [address] [place] [address] Care Team Providers Care Clerical Administrative Assistant Name Role Phone Chrissy Osborne Primary Care Provider UnavailKaushik Duenas Jr Unavailable ALLERGIES No Known Allergies RESULTS Component Value Reference Range Notes Pathology Reviewed date:05/30/2023 08:43:44 AM Interpretation: Performing Lab:[facility], [address] [place] [phone] Notes/Report: REASON FOR REFERRAL No Information MEDICATIONS Medication SIG (Take, Route, Frequency, Duration) [...] MOUTH EVERY DAY Oral for 90 Active Lisinopril 20 MG Oral for 90 A ctive Ventolin HFA 108 (90 Base) MCG/ACT Inhalation for 25 Active IMMUNIZATIONS Vaccine Route Administration Date Status Comme nts Influenza Unknown 12/25/2022 Administered SOCIAL HISTORY Tobacco Use: Social History Observation [...] Problem Colon cancer screening (Z12.11) Active confirmed 386898481 Problem Personal history of colonic polyps (Z86.010) Active confirmed History of polyp of colon (situation) (115937819) Encounters Encounter Location Date Provider Diagnosis [facility] [place] [address] [place], [place] [phone] 05/21/2023 Kaushik Ahumada Jr Encounter for screening colonoscopy Z12.11 ; Personal history of colonic polyps Z86.010 and Colon polyps K63.5 [facility] [address] [facility] [address] [place] [address] 05/30/2023 Kaushik Ahumada Jr ASSESSMENTS Encounter Date Diagnosis Assessment Notes Treatment Notes Treatment Clinical Notes 05/21/2023 Encounter for screening colonoscopy (ICD-10 - Z12.11) 05/21/2023 Personal history of colonic polyps (ICD-10 - Z86.010) 05/21/2023 Colon polyps (ICD-10 - K63.5) PLAN OF TREATMENT Future Test Test Name Order Date COLONOSCOPY 04/22/2023 Insurance Providers Payer Name Payer Address Payer Phone Subscriber Number Group Number Insured Name Patient Relationship to Insured Coverage Start Date Coverage End Date MEDICARE OF [place] [address] [place] [address] [id number] MELODY CHAO Self - patient is the insured MEDICAID OF [facility] [employer] [address] [place] [address] [id number] MELODY CHAO Self - patient is the insured MEDICAL (GENERAL) HISTORY Medical History History ICD Code Hypertension Hyperlipidemia Gastroesophageal reflux disease Disc disease Anxiety/depression Chronic opioid use Asthma Surgical History Surgery Date(Month/Year) Spinal stimulator, cervical 05/30
== END 2024-05-05 14:58 | disposition home or self-care (01) ==
PROVIDERS: PCP Internal Medicine; Visit Provider Internal Medicine
DX: F33.1 Major depressive disorder, recurrent, moderate (principal); M81.0 Age-related osteoporosis without current pathological fracture; I10 Essential (primary) hypertension; J44.9 Chronic obstructive pulmonary disease, unspecified; F11.20 Opioid dependence, uncomplicated

== ENCOUNTER → 2024-05-05 13:44 | Outpatient (BNVA) | payer MEDICARE, MEDICAID, SELFPAY | PROVIDERS: PCP Internal Medicine; Visit Provider Internal Medicine | DX: F33.1 Major depressive disorder, recurrent, moderate (principal); M81.0 Age-related osteoporosis without current pathological fracture; I10 Essential (primary) hypertension; J44.9 Chronic obstructive pulmonary disease, unspecified; F11.20 Opioid dependence, uncomplicated | CPT/HCPCS: 96127; 99212 ==

== ENCOUNTER 2024-05-12 12:25 | Outpatient (AMB) | payer MEDICARE, MEDICAID, SELFPAY ==
--- NOTE | 2024-05-12 12:33 | MHC.OFFVIS ---
Vital Signs 05/12/24 12:44 Height 5 ft 3 in Weight 171 lb BMI 30.3 Intake Visit Reasons: New Prob - right ankle pain Intake Note: Oriana is a 63 year old female who presents today without her tall walking boot for a follow up of her right ankle pain. Patient reports she is still having pain. She states that PT didnt reach out to her yet. Allergies topiramate [From TOPAMAX] Allergy (Severe, Verified 05/12/24 12:43) SWELLING barium sulfate Adverse Reaction (Intermediate, Verified 05/12/24 12:43) changes in behavior hydrocodone Adverse Reaction (Intermediate, Verified 05/12/24 12:43) Nausea metronidazole [Flagyl] Adverse Reaction (Intermediate, Verified 05/12/24 12:43) MAGNET PLACER, N/V morphine [MORPHINE] Adverse Reaction (Intermediate, Verified 05/12/24 12:43) HEADACHE Penicillins Adverse Reaction (Intermediate, Verified 05/12/24 12:43) Vomiting trazodone Adverse Reaction (Intermediate, Verified 05/12/24 12:43) Palpitations varenicline [From Chantix] Adverse Reaction (Mild, Verified 05/12/24 12:43) changes in behavior HPI HPI New Prob - right ankle pain: Details: Ms. Chito Guallpa is a 63-year-old female who presents to the office today for follow-up of a right ankle injury that she sustained on 03/17/2024 when she was walking into the orthopedics building and she fell in the parking lot twisting her ankle. She was given a tall walking boot at that appointment and instructed to follow up. At her last appointment on 03/26/2024, an order for physical therapy was placed. Unfortunately the patient reports that she did not hear anything from physical therapy. This is likely due to no showing 3 appointments and being discharged for prior appointments regarding her C-spine. She presents to the office today with no boot in a supportive walking shoe. She reports that she continues to have right ankle pain and difficulty with ambulation. [facility] Medical History Intravenous bisphosphonates causing adverse effect in therapeutic use Encounter for monitoring bisphosphonate therapy History of colon polyps (~2012) Nicotine dependence, cigarettes, uncomplicated History of DVT (deep vein thrombosis) Migraines Asthma Chronic pain syndrome Postlaminectomy syndrome, cervical Cough COPD (chronic obstructive pulmonary disease) Allergic rhinitis Osteoarthritis of right hip Depression with anxiety Constipation due to opioid therapy GERD (gastroesophageal reflux disease) Hypovitaminosis D Lumbar degenerative disc disease Essential hypertension Surgical History History of colonoscopy History of fusion of lumbar spine History of fusion of cervical spine History of appendectomy (~1990) History of total abdominal hysterectomy (~2011) History of esophagogastroduodenoscopy (EGD) (~2012) Status post insertion of nerve stimulator History of cholecystectomy (~2003) History of incisional hernia repair History of arthroscopy of both knees History of carpal tunnel surgery of right wrist History of carpal tunnel surgery of left wrist History of hemicolectomy Family History Father Diabetes Mother Diabetes Hypertension Sister Diabetes Breast cancer Rheumatoid arthritis Osteoporosis Maternal Uncle Prostate cancer Social History Housing: Apartment Alcohol intake: never Comment: movement only Patient Tobacco Use Status: Current everyday Tobacco user Tobacco use type: Cigarette Cigarettes Per Day: 4 e-Cigarette/Vaping Use: Never Used Second Hand Smoke Exposure: No service: No Current occupational status: disabled Cognitive needs: No Hearing needs: No Vision needs: Yes Review of Systems Const All systems reviewed & are unremarkable except as noted in HPI and below Physical Exam Vital Signs: BMI result Body Mass Index 30.3 Const General: cooperative, healthy appearing and no acute distress Resp Effort & Inspection: normal respiratory effort and able to speak in complete sentences Cardio Rate: regular rate Peripheral pulses: Peripheral pulses 2+ throughout Skin Lesions: no lesions Rashes: no rashes Extrem Other: Right ankle normal to inspection no ecchymosis erythema or edema. Able to perform dorsiflexion and plantar flexion with pain. Slight tenderness to palpation of the medial and lateral malleolus. Sensation is intact. Assessment & Plan Assessment & Plan (1) Right ankle sprain: Code(s): S93.401A - Sprain of unspecified ligament of right ankle, initial encounter Category: Medical Plan Ms. Chito Guallpa is a 63-year-old female who presents to the office today for follow-up of a right ankle injury that she sustained on 03/17/2024 when she was walking into the orthopedics building and she fell in the parking lot twisting her ankle. She was given a tall walking boot at that appointment and instructed to follow up. At her last appointment on 03/26/2024, an order for physical therapy was placed. Unfortunately the patient reports that she did not hear anything from physical therapy. This is likely due to no showing 3 appointments and being discharged for prior appointments regarding her C-spine. She presents to the office today with no boot in a supportive walking shoe. She reports that she continues to have right ankle pain and difficulty with ambulation. On the office today, I did repeat x-rays to re-evaluate the possibility of foreign bodies on the lateral aspect of the lower extremity. Patient reports that she has no history of foreign bodies in this area. I believe this is likely due to calcifications that are seen on the x-rays. I would like to order an MRI of the right ankle to further evaluate the integrity of the ankle and surrounding structures. She will follow up after the MRI is obtained, sooner if needed. X-rays of the running which were obtained while in the office today and were reviewed by me, Carmita Alexandra PA-C, revealed no acute fracture dislocation. Calcifications along the fibula. Of note, the patient reports that she is having a difficult time managing her asthma symptoms and was escorted over to the emergency department with her for further evaluation and treatment. Orders: Orders XR ankle RT min 3V Today M25.579 - Pain in unspecified ankle and joints of unspecified foot Coding Level of Care Code Est Pt Level 3 (51871) Diagnoses Right ankle sprain S93.401A
[2024-05-12 12:44] VITALS: BMI 30.3
--- OUTSIDE RECORDS SUMMARY | 2024-05-12 15:28 | XMS_ITS | Clinical Summary ---
Author Organization [facility] Address [address] [place], [place] [id number] Care Team Providers Care Human Resource Advisor Name Role Phone Chrissy Osborne MD Primary [...] age to complete this topic Care Teams Human Resource Advisor Relationship Specialty Start Date End Date Chrissy Osborne MD [address] [facility] , [address] [facility] Physician Associ D/B/A: [facility] [facility] [place] [address] PCP - General Internal Medicine 11/16/16
--- OUTSIDE RECORDS SUMMARY | 2024-05-12 15:28 | XMS_ITS ---
Author Organization [facility] Address [address] [place] [address] Care Team Providers Care Superior Court Clerk Name Role Phone Chrissy Osborne Primary Care [...] Problem Colon cancer screening (Z12.11) Active confirmed [id number] VITAL SIGNS Temperature 98.6 degrees Fahrenheit 04/22/19 24 Blood pressure systolic 000 mm Hg 04/22/19 24 Blood pressure diastolic 00 mm Hg 024 Height 5 ft 3 in in 04/22/2023 Weight 172 lbs 04/22/2023 BMI 30.47 kg/m2 04/22/2023 Encounters Encounter Location Date Provider Diagnosis [facility] [address] [place] [address] 04/22/2023 Kaushik Ahumada Jr Colon cancer screening [...] General Examination GENERAL APPEARANCE: in no ac tara distress HEAD: normocephalic EYES: sclera non-icteric NECK/THYROID: no lymphadenopathy HEART: S1, S2 normal, no mu rmurs CHEST: normal shape and exp ansion LUNGS: clear to auscultatio n bilaterally ABDOMEN: soft, nontender, non distended, bowel sounds present, no organomegaly SKIN: anicteric EXTREMITIES: no clubbing, cyanosi s, or edema PSYCH: cognitive function i ntact ORAL CAVITY: mucosa moist
--- OUTSIDE RECORDS SUMMARY | 2024-05-12 15:29 | XMS_ITS ---
Author Organization [facility] Address [address] [place] [address] Care Team Providers Care Post Tensioning Ironworker Helper Name Role Phone Chrissy Osborne Primary Care Provider Unavailab Kaushik Zaidi Jr REASON FOR VISIT pathology Encounters Encounter Location Date Provider Diagnosis [facility] [address] [place] [address] 05/30/2023 Kaushik Ahumada Jr PLAN OF TREATMENT No Information
--- OUTSIDE RECORDS SUMMARY | 2024-05-12 15:29 | XMS_ITS ---
Author Organization [facility] Address [address] [place] [address] Care Team Providers Care Cement Finishing Supervisor Name Role Phone Chrissy Osborne Primary Care Provider UnavailKaushik Duenas Jr REASON FOR VISIT screening colon PROBLEMS Problem Type ICD Code Onset Dates Problem Status W/U Status Risk SNOMED Code Notes Problem Personal history of colonic polyps (Z86.010) Active confirmed History of polyp of colon (situation) (835117176) Encounters Encounter Location Date Provider Diagnosis [facility] [place] [address] [place], [place] [phone] 05/21/2023 Kaushik Ahumada Jr Encounter for screening [...]
--- OUTSIDE RECORDS SUMMARY | 2024-05-12 15:29 | XMS_ITS | Patient Health Record ---
Author Organization [facility] Address [address] [place] [address] Care Team Providers Care Mail Distribution Clerk Name Role Phone Chrissy Osborne Primary Care Provider UnavailKaushik Duenas Jr Unavailable [phone] ALLERGIES No Known Allergies RESULTS Component Value Reference Range Notes Pathology Reviewed date:05/30/2023 08:43:44 AM Interpretation: Performing Lab:[facility], [address] [place] [phone] Notes/Report: REASON FOR REFERRAL No Information MEDICATIONS [...] Problem Colon cancer screening (Z12.11) Active confirmed 190416072 Problem Personal history of colonic polyps (Z86.010) Active confirmed History of polyp of colon (situation) (301591924) Encounters Encounter Location Date Provider [place] [facility] [place] [address] [place], [place] [phone] 05/21/2023 Kaushik Ahumada Jr Encounter for screening colonoscopy Z12.11 ; Personal history of colonic polyps Z86.010 and Colon polyps K63.5 [facility] [address] [facility] [address] [place] [address] 05/30/2023 Kaushik Ahumada Jr ASSESSMENTS Encounter Date [...] OF [place] [address] [place] [address] [id number] MELODY CHAO Self - patient is the insured MEDICAID OF [facility] [address] [place] [phone] [id number] MELODY CHAO Self - patient is the insured MEDICAL (GENERAL) HISTORY Medical History History ICD Code Hypertension Hyperlipidemia Gastroesophageal reflux disease Disc disease Anxiety/depression Chronic opioid use Asthma Surgical History Surgery Date(Month/Year) Spinal stimulator, cervical 05/30
== END 2024-05-12 15:42 | disposition home or self-care (01) ==
PROVIDERS: PCP Internal Medicine; Visit Provider Physician Assistant
DX: S93.401A Sprain of unspecified ligament of right ankle, initial encounter (principal)
CPT/HCPCS: 99213

== ENCOUNTER 2024-05-12 12:25 | Outpatient (REF) | payer MEDICARE, MEDICAID, SELFPAY ==
--- NOTE | ~2024-05-12 | XR_ITS ---
EXAMINATION: XR ANKLE 3 OR MORE VIEWS RIGHT HISTORY: M25.579 - Pain in unspecified ankle and joints of unspecified foot COMPARISON: Comparison is made with the prior examination dated 03/17/2024. FINDINGS: Three views of the right ankle are submitted. Osseous mineralization is normal. Again seen is a tiny osseous density adjacent to the tip of the medial malleolus which is likely related to old trauma. There is no acute fracture or dislocation. The joint spaces are preserved. Again seen are soft tissue calcifications adjacent to the fibula. XR/XR ankle RT min 3V IMPRESSION: No evidence of fracture of the right ankle. Electronically signed by: Kodak Roldan MD 06/12/2024 07:06 AM EDT
--- OUTSIDE RECORDS SUMMARY | 2024-05-12 16:04 | XMS_ITS | Clinical Summary ---
Author Organization [facility] Address [address] [place], [place] [phone] Care Team Providers Care Pattern Generator Operator Name Role Phone Chrissy Osborne MD Primary [...] age to complete this topic Care Teams Pattern Generator Operator Relationship Specialty Start Date End Date Chrissy Osborne MD [address] [facility] , [address] [facility] Physician Associ D/B/A: [facility] [place] [address] PCP - General Internal Medicine 11/16/16
== END 2024-05-12 12:26 | disposition home or self-care (01) ==
LOC: HO.HOSX 12:25
PROVIDERS: PCP Internal Medicine; Visit Provider Physician Assistant
DX: Z13.89 Encounter for screening for other disorder (principal)
CPT/HCPCS: 73610

== ENCOUNTER 2024-05-12 13:21 | Emergency (ER) | payer MEDICARE, MEDICAID, SELFPAY ==
--- NOTE | ~2024-05-12 | XR_ITS ---
EXAMINATION: XR CHEST CLINICAL INFORMATION: cough, fever COMPARISON: January 01, 2024. TECHNIQUE: 2 views of the chest were obtained. FINDINGS: No consolidation, pleural effusion or pneumothorax. Cardiomediastinal silhouette size is normal. Calcified plaque aortic arch. There are 2 electrode leads in the mid to lower thoracic spine and at the mid cervical spine. Metallic plate in the anterior cervical spine. XR/XR chest 2V IMPRESSION: No acute airspace disease. Stable chest. Electronically signed by: Jeremias Monae MD 05/12/2024 02:39 PM PARVIN SANDS
[2024-05-12 13:42] VITALS: BP 127/59; PULSE 101; RESP 22; TEMP 37.1; O2SAT 99; BMI 31.1
[2024-05-12 15:12] LABS: MANUAL DIFF FLAG NO
[2024-05-12 15:35] LABS: Basophils Percent Auto 0.5 % (0-2); Eosinophils Percent Auto 0.1 % (0-4); Hematocrit 42.9 % (37.0-47.0); Hemoglobin 14.3 g/dl (12.0-16.0); Imm Gran Abs Auto 0.04 X10*3/uL (0.00-0.03); Imm Gran Pct Auto 0.5 % (0.0-0.4); Lymphocytes Absolute Auto 1.5 X10*3/uL (1.2-4.9); Lymphocytes Percent Auto 18.7 % (20-40); Mean Corpuscular HGB Conc 33.3 g/dl (31.0-35.0); Mean Corpuscular Hemoglobin 30.8 pg (27.0-33.0); Mean Corpuscular Volume 92.3 fL (80.0-98.0); Mean Platelet Volume 9.9 fL (9.4-12.3); Monocytes Absolute Auto 0.7 X10*3/uL (0.1-1.2); Monocytes Percent Auto 8.7 % (2-11); Neutrophils Absolute Auto 5.7 x10*3/uL (2.0-8.3); Neutrophils Percent Auto 71.5 % (45-73); Platelet Count 143 X10*3/uL (160-400); Red Blood Count 4.65 X10*6/uL (4.20-5.50); Red Cell Distribution Width 13.5 % (11.0-16.0); White Blood Count 7.9 X10*3/uL (4.8-10.8)
[2024-05-12 15:37] LABS: Alanine Aminotransferase 33 U/L (0-31); Albumin Level 3.8 g/dL (3.5-5.0); Anion Gap 12 (12-20); Aspartate Amino Transferase 34 U/L (5-31); Bilirubin Total 0.2 mg/dL (0.0-1.0); Blood Urea Nitrogen 8 mg/dL (9-16); Calcium 8.8 mg/dL (8.4-10.2); Carbon Dioxide 20 mmol/L (22-29); Chloride 108 mmol/L (96-108); Creatinine Clr Calc Pharmacy 74.8; Estimated Glomerular Filt Rate > 60; Glucose Random 159 mg/dL (60-115); Potassium 3.6 mmol/L (3.3-5.1); Sodium 136 mmol/L (135-145); Total Protein 7.3 g/dL (6.5-8.0)
[2024-05-12 16:12] LABS: Alkaline Phosphatase 94 U/L (39-117)
== END 2024-05-12 23:14 | disposition left against medical advice (07) ==
LOC: HO.ED 23:05
PROVIDERS: Emergency Provider Emergency Medicine; PCP Internal Medicine
DX: R06.02 Shortness of breath (principal); R05.9 Cough, unspecified; R50.9 Fever, unspecified
CPT/HCPCS: 36415; 71046; 73610; 80053; 85025; 99212; 99281; 99282

== ENCOUNTER → 2024-05-12 14:19 | Outpatient (BNV) | payer MEDICARE, MEDICAID, SELFPAY | PROVIDERS: PCP Internal Medicine; Visit Provider Radiology Diagnostic Radiology | DX: R05.9 Cough, unspecified (principal); R50.9 Fever, unspecified | CPT/HCPCS: 71046 ==

== ENCOUNTER 2024-05-17 16:06 | Outpatient (REF) | payer MEDICARE, MEDICAID, SELFPAY ==
--- NOTE | ~2024-05-17 | MR_ITS ---
CLINICAL HISTORY: M25.571 - Pain in right ankle and joints of right foot MR right ankle without gadolinium Comparison: DX - XR ANKLE RT MIN 3V - 05/12/24 13:02 EST Findings: No acute fracture or pathologic bone lesion. No effusion. Medial and lateral ligamentous complexes are intact. Extensor tendons are intact. There is full-thickness tearing of the peroneus longus and brevis tendons, which are retracted proximally. Medial flexor tendons are intact. No disruption of the Achilles tendon. Intact plantar fascia. IMPRESSION: Full-thickness lateral flexor tendon tearing. This document has been electronically signed by: Kofi Wadsworth MD on 05/18/2024 15:21:12
--- NOTE | ~2024-05-17 | MR_ITS ---
CLINICAL HISTORY: M17.11 - Unilateral primary osteoarthritis, right knee MR right knee without gadolinium Comparison: DX - XR KNEE RT 3V - 03/17/24 13:14 EST Findings: Examination is degraded by motion artifact. No fractures. No pathologic bone lesions. Small knee joint effusion. No tears of the cruciate or collateral ligaments. No disruption of the patellar retinacula or iliotibial band. Quadriceps, patellar, popliteus, and flexor tendons are intact. There are no meniscal tears. IMPRESSION: 1. No internal derangement. 2. Small knee joint effusion. This document has been electronically signed by: Kofi Wadsworth MD on 05/18/2024 15:44:09
--- OUTSIDE RECORDS SUMMARY | 2024-05-17 16:08 | XMS_ITS | Patient Health Record ---
Author Organization [facility] Address [address] [place] [address] Care Team Providers Care Senior Reservations Agent Name Role Phone Chrissy Osborne Primary Care Provider Unavailab Kaushik Zaidi Jr [phone] Allergies No Known Allergies Results Component Value Reference Range Notes Pathology Reviewed date:05/30/2023 08:43:44 AM Interpretation: Performing Lab:[facility], [address] [place] [phone] Notes/Report: Name: Melody Baxter Age/Sex: 62/F : 1960 Unit#: [id number] Attend Dr: Kaushik Ahumada MD Re05/21/23 Status : [facility] Location: [facility] Disch: SPEC : [id number] RECD : 05/21/23 STATUS: JAMMIE SCHERER NUM: [id number] ARSH: 05/21/[address] [facility] [address]: Kaushik Ahumada MD ENTERED: 05/21/23-01 10 SP TYPE: Surgical OTHR DR: Chrissy Osborne MD ORDERED: HE Stain/3, Gross Micro L4 Diagnosis Colon rectal polyp: Hyperplastic polyp. Clinical History Pre-Op Dx: Screening Post-Op Dx: Colon polyp Microscopic Description Microscopic sections reviewed. Material Received Polyp rectum Gross Description Received in formalin labeled ?polyp rectum? is a 0.3 cm velásquez irregular tissue fragment, submitted in toto in a cassette labeled A. CEDS Copies To: Kaushik Ahumada MD [address] [place] [address] [address] [place] [address] Chrissy Osborne MD [address] [place] [address] [address] [place] [address] Signed (si gnature on file) Anny [place] 05/22/23 1603 END OF REPORT Reason For Referral No Information Medications Medication SIG (Take, Route, Frequency, Duration) Notes [...] (90 Base) MCG/ACT Inhalation for 25 Active Immunizations Vaccine Route Administration Date Status Comme nts Influenza Unknown 12/25/2022 Administered Social History Tobacco Use: Social History Observation Description Date Details (start date - stop date) Current Smoker NA - NA Tobacco Use/Smoking Question Answer Notes Patient is a current smoker Alcohol Screen Question Answer Notes Did you have a drink containing alcohol in the p ast year? No Points 0 Interpretation Negative Problems Problem Type SNOMED Code ICD Code Onset Dates Problem Status W/U Status Risk Notes Problem [id number] Colon cancer screening (Z12.11) Active confirmed Problem History of polyp of colon (situation) (523936489) Personal history of colonic polyps (Z86.010) Active confirmed Encounters Encounter Location Date Provider Diagnosis [facility] [place] Out[place] [address] [place] [phone] 05/21/2023 Kaushik Ahumada Jr Encounter for screening colonoscopy Z12.11 ; Personal history of colonic polyps Z86.010 and Colon polyps K63.5 [facility] [address] [address] [place] [address] 05/30/2023 Kaushik Ahumada Jr Assessments Encounter Date Diagnosis (ICD Code) Assessment Notes Treatment Notes Treatment Clinical Notes Section Notes 05/21/2023 Encounter for screening colonoscopy (ICD-10 - Z12.11) 05/21/2023 Personal history of colonic polyps (ICD-10 - Z86.010) 05/21/2023 Colon polyps (ICD-10 - K63.5) Plan Of Treatment Future Test Test Name Order Date COLONOSCOPY 04/22/2023 Insurance Providers Payer Name Payer Address Payer Phone Subscriber Number Group Number Insured Name Patient Relationship to Insured Coverage Start Date Coverage End Date MEDICARE OF [place] [address] [place] [id number] MELODY BAXTER Self - patient is the insured MEDICAID OF [facility] [employer] [facility] [address] [facility] [place] [phone] [id number] MELODY BAXTER Self - patient is the insured Medical (General) History Medical History History ICD Code Hypertension Hyperlipidemia Gastroesophageal reflux disease Disc disease Anxiety/depression Chronic opioid use Asthma Surgical History Surgery Date(Month/Year) Spinal stimulator, cervical 05/30
--- OUTSIDE RECORDS SUMMARY | 2024-05-17 16:08 | XMS_ITS ---
Author Organization [facility] Address [address] [place] [address] Care Team Providers Care Fbi Special Agent Name Role Phone Chrissy Osborne Primary Care Provider Kaushik Castano Jr REASON FOR VISIT screening colon Problems Problem Type SNOMED Code ICD Code Onset Dates Problem Status W/U Status Risk Notes Problem History of polyp of colon (situation) (253402811) Personal history of colonic polyps (Z86.010) Active confirmed Encounters Encounter Location Date Provider Diagnosis [facility] [place] Outpatient [address] [place], [place] [phone] 05/21/2023 Kaushik Ahumada Jr Encounter for screening [...] Progress Notes * MELODY MILIAN EDOB: 1960 (63 yo F)Acc No.[id number]:05/21/2023 COLON WITH MAC Patient:?ELVIA MILIAN Provider:?Kaushik Ahumada MD :1960???Age:62 Y???Sex:Female D ate:05/21/2023 Address:[address] [place] [address] [place] [address] Pcp:Chrissy Gao Subjective: * Chief Complaints: * ???1. Screening colon. * Medical History:? Objective: * Vitals:? Assessment: * Assessment: 1.?Encounter for screening c olonoscopy - Z12.11 (Primary)???2.?Personal history of colonic polyps - Z86.010???3.?Colon polyps - K63.5??? Plan: * Treatment: * Procedure Codes:?29899 COLON OSCOPY AND BIOPSY, 0529F INTRVL 3+YRS PTS CLNSCP DOCD * * The named appointment provid er may or may not be the originator of this progress note, and it is not deemed complete until electronically signed by the appointment provider. Sign off status: Pending * Provider:?Kaushik Ahumada MD Date:?0 05/21/2023 Generated for Jared mooney/Verito/Estrellitaitting on:?05/17/2024 04:07 PM EDT
--- OUTSIDE RECORDS SUMMARY | 2024-05-17 16:08 | XMS_ITS ---
Author Organization [facility] Address [address] [place] [address] Care Team Providers Care Coil Placer Name Role Phone Chrissy Osborne Primary Care Provider UnavailKaushik Duenas Jr [phone] REASON FOR VISIT pathology Encounters Encounter Location Date Provider Diagnosis [facility] [address] [place] [address] 05/30/2023 Kaushik Ahumada Jr Plan Of Treatment No Information Progress Notes * MELODY MILIAN EDOB: 1960 (62 yo F)Acc No.[id number]:05/30/2023 Patient:?ELVIA MILIAN :1960???Age:62 Y???Sex:Female Address:[address] [place] [address], [place], [address] * true * Date:? Generated for Maria Ai jesica/Verito/eTransmitting on:?05/17/2024 04:07 PM EDT
--- OUTSIDE RECORDS SUMMARY | 2024-05-17 16:08 | XMS_ITS ---
Author Organization [facility] Address [address] [place] [address] Care Team Providers Care Contact Center Specialist Name Role Phone Chrissy Osborne Primary Care Provider Kaushik Castano Jr Unavailable [phone] Allergies No Known Allergies REASON FOR VISIT Patient presents today for a colon screening Medications Medication SIG (Take, Route, Frequency, Duration) [...] 20 MG Oral for 90 A ctive Social History Tobacco Use: Social History Observation [...] Problem Status W/U Status Risk Notes Problem [id number] Colon cancer screening (Z12.11) Active confirmed Vital Signs Temperature 98.6 degrees Fahrenheit 04/22/19 24 Blood pressure systolic 000 mm Hg 04/22/19 24 Blood pressure diastolic 00 mm Hg 024 Height 5 ft 3 in in 04/22/2023 Weight 172 lbs 04/22/2023 BMI 30.47 kg/m2 04/22/2023 Encounters Encounter Location Date Provider Diagnosis [facility] [address] [place] [address] 04/22/2023 Kaushik Ahumada Jr Colon cancer screening Z12.11 Assessments Encounter Date Diagnosis (ICD Code) Assessment Notes Treatment Notes Treatment Clinical Notes Section Notes 04/22/2023 Colon cancer screening (ICD-10 - Z12.11) We discussed colonoscopy today. We discussed risks and benefits of the procedure today. She understands these and agrees to proceed. This will be scheduled at her convenience. Plan Of Treatment Medication Medication Name Sig Start Date Stop Date Notes MiraLax (colon prep) 17 GM/SCOOP mixed with Gatorade or Crystal Light Orally begin at 5:00 p.m. the day before the procedure for 1 day 04/22/2023 Future Test Test Name Order Date COLONOSCOPY 04/22/2023 Next Appt Details Follow Up: prn, Reason: Progress Notes * MELODY MILIAN EDOB: 1960 (62 yo F)Acc No.[id number]:04/22/2023 Progress Notes Patient:?ELVIA MILIAN Provider:?Kaushik Ahumada MD :1960???Age:62 Y???Sex:Female D ate:04/22/2023 Address:[address] [place] [address] [place] [address] Pcp:Chrissy Gao Subjective: * Chief Complaints: * ???1. Patient presents today for a colon screening. * HPI: ???New symptom(s):? Melody is a 62-year-old woman seen today for consultation. She has a history of colon polyps, and last underwent colonoscopy in 2012 with removal of a hyperplastic polyp. She has no complaints of rectal bleeding or change in her bowel habits. She does have chronic constipation treated effectively by linzess 290 mg daily. * ROS:?General/Constitutional:?Change in appetite?denies.?Fatigue?denies.?ENT:?Patient denies?difficulty swallowing.?Respiratory:?Patient denies?shortness of breath.?Cardiovascular:?Patient denies?chest pain.?Gastrointestinal:?Comments?See HPI for details.?Genitourinary:?Difficulty urinating?denies.?Incontinence?denies.?Musculoskeletal:?Patient denies?muscle aches.?Skin:?Patient denies?pruritis.?Neurologic:?Patient denies?low back pain.?Psychiatric:?Patient denies?mental or physical abuse.? * Medical History:?Hypertensio n, Hyperlipidemia, Gastroesophageal reflux disease, Disc disease, Anxiety/depression, Chronic opioid use, Asthma. * Surgical History:?Spinal sti mulator, cervical 05/30. * Family History:?Father: dece ased, diagnosed with HTN (hypertension), Diabetes.?Mother: , diagnosed with Diabetes, HTN (hypertension).? No family history of colon cancer. Sister 3 years ago with liver cancer. * Social History:?Tobacco Use:?Tobacco Use/Smoking?Patient is a?current smoker.?Drugs/Alcohol:?Alcohol Screen?Did you have a drink containing alcohol in the past year??No,?Points?0,?Interpretation?Negative.?Miscellaneous:?Marital status: single. * Medications:?Taking Lisinopr il 20 MG Tablet Oral , Taking Ventolin HFA 108 (90 Base) MCG/ACT Aerosol Solution Inhalation , Taking oxyCODONE HCl 10 MG Tablet Oral , Taking Montelukast Sodium 10 MG Tablet TAKE 1 TABLET BY MOUTH EVERY DAY Oral , Taking Fenofibrate 160 MG Tablet Oral , Taking Banophen 25 MG Capsule TAKE 1 CAPSULE BY MOUTH EVERY DAY AT BEDTIME NEEDED FOR SLEEP Oral , Taking D3-1000 25 MCG (1000 UT) Capsule TAKE 1 CAPSULE BY MOUTH EVERY DAY Oral , Taking Dexlansoprazole 60 MG Capsule Delayed Release TAKE 1 CAPSULE BY MOUTH EVERY DAY Oral , Taking Linzess 290 MCG Capsule TAKE 1 CAPSULE BY MOUTH EVERY DAY Oral , Taking Advair Diskus 100-50 MCG/ACT Aerosol Powder Breath Activated INHALE 2 PUFFS ORALLY 2 TIMES A DAY NEEDED FOR FOR ASTHMA Inhalation , Medication List reviewed and reconciled with the patient * Allergies:?N.K.D.A. Objective: * Vitals:?Wt: 172 lbs, Ht: 5 f t 3 in, BMI:30.47 Index, BP: 000/00 mm Hg, Temp: 98.6. * Examination: ???General Examination: ?GENERAL APPEARANCE:?in no acute distress.?HEAD:?normocephalic.?EYES:?sclera non-icteric.?ORAL CAVITY:?mucosa moist.?NECK/THYROID:?no lymphadenopathy.?SKIN:?anicteric.?HEART:?S1, S2 normal, no murmurs.?LUNGS:?clear to auscultation bilaterally.?CHEST:?normal shape and expansion.?ABDOMEN:?soft, nontender, nondistended, bowel sounds present, no organomegaly .?EXTREMITIES:?no clubbing, cyanosis, or edema.?PSYCH:?cognitive function intact.? Assessment: * Assessment: 1.?Colon cancer screening - Z12.11 (Primary)? We discussed colonoscopy tod ay. We discussed risks and benefits of the procedure today. She understands these and agrees to proceed. This will be scheduled at her convenience. Plan: * Treatment: * Preventive Medicine:? ??Counseling:?Care goal follow-up plan:?Above Normal BMI Follow-up?Giving encouragement to exercise,?BMI management provided?Yes.? * Follow Up:?prn * * Sign off status: Completed true * Provider:?Kaushik Ahumada MD Date:?0 04/22/2023 Generated for Maria Ai jesica/Verito/eTransmitting on:?05/17/2024 04:07 PM EDT History and Physical Notes * HPI (History of Present Illness) Category Sub-Category Detail Notes Category Not es New symptom(s) Melody is a 62 -year-old woman seen today for consultation. She has a history of colon polyps, and last underwent colonoscopy in 2012 with removal of a hyperplastic polyp. She has no complaints of rectal bleeding or change in her bowel habits. She does have chronic constipation treated effectively by linzess 290 mg daily. Examination Category Sub-Category Detail Notes Category Not es General Examination GENERAL APPEARANCE: in no acute di stress HEAD: normocephalic EYES: sclera non-icteric NECK/THYROID: no lymphadenopathy HEART: S1, S2 normal, no mu rmurs CHEST: normal shape and exp ansion LUNGS: clear to auscultatio n bilaterally ABDOMEN: soft, nontender, non distended, bowel sounds present, no organomegaly SKIN: anicteric EXTREMITIES: no clubbing, cyanosi s, or edema PSYCH: cognitive function i ntact ORAL CAVITY: mucosa moist
== END 2024-05-17 16:07 | disposition home or self-care (01) ==
LOC: HO.MRI 16:06
PROVIDERS: PCP Internal Medicine; Visit Provider Physician Assistant
DX: M25.571 Pain in right ankle and joints of right foot (principal); S93.401A Sprain of unspecified ligament of right ankle, initial encounter; M17.11 Unilateral primary osteoarthritis, right knee
CPT/HCPCS: 73721

== ENCOUNTER → 2024-05-17 16:21 | Outpatient (BNV) | payer MEDICARE, MEDICAID, SELFPAY | PROVIDERS: PCP Internal Medicine; Visit Provider Radiology Diagnostic Radiology | DX: M25.571 Pain in right ankle and joints of right foot (principal); M17.11 Unilateral primary osteoarthritis, right knee | CPT/HCPCS: 73721 ==

== ENCOUNTER 2024-06-15 08:57 | Outpatient (AMB) | payer MEDICARE, MEDICAID, SELFPAY ==
--- NOTE | 2024-06-15 08:57 | MHC.OFFVIS ---
Vital Signs 06/15/24 08:59 Height 5 ft 2 in Weight 169 lb BMI 30.9 Intake Visit Reasons: TEL- Right ankle/RT knee MRI review Intake Note: Oriana is a 63 year old female who presents today via telephone for a MRI review of her right knee and ankle. Patient reports no changes in his pain and notices that her ankle swells. IMPRESSION (right knee): 1. No internal derangement. 2. Small knee joint effusion. IMPRESSION (right ankle): Full-thickness lateral flexor tendon tearing. Allergies topiramate [From TOPAMAX] Allergy (Severe, Verified 06/15/24 08:58) SWELLING barium sulfate Adverse Reaction (Intermediate, Verified 06/15/24 08:58) changes in behavior hydrocodone Adverse Reaction (Intermediate, Verified 06/15/24 08:58) Nausea metronidazole [Flagyl] Adverse Reaction (Intermediate, Verified 06/15/24 08:58) PLYWOOD LAYUP LINE CORE LAYER, N/V morphine [MORPHINE] Adverse Reaction (Intermediate, Verified 06/15/24 08:58) HEADACHE Penicillins Adverse Reaction (Intermediate, Verified 06/15/24 08:58) Vomiting trazodone Adverse Reaction (Intermediate, Verified 06/15/24 08:58) Palpitations varenicline [From Chantix] Adverse Reaction (Mild, Verified 06/15/24 08:58) changes in behavior HPI HPI TEL- Right ankle/RT knee MRI review: Details: Ms. Chito Guallpa is a 63-year-old female who presents via telehealth appointment for review of right ankle and right knee MRI. She reports that she continues to have pain and swelling in the right ankle. She reports no change in right knee pain. [facility] Medical History Intravenous bisphosphonates causing adverse effect in therapeutic use Encounter for monitoring bisphosphonate therapy History of colon polyps (~2012) Nicotine dependence, cigarettes, uncomplicated History of DVT (deep vein thrombosis) Migraines Asthma Chronic pain syndrome Postlaminectomy syndrome, cervical Cough COPD (chronic obstructive pulmonary disease) Allergic rhinitis Osteoarthritis of right hip Depression with anxiety Constipation due to opioid therapy GERD (gastroesophageal reflux disease) Hypovitaminosis D Lumbar degenerative disc disease Essential hypertension Surgical History History of colonoscopy History of fusion of lumbar spine History of fusion of cervical spine History of appendectomy (~1990) History of total abdominal hysterectomy (~2011) History of esophagogastroduodenoscopy (EGD) (~2012) Status post insertion of nerve stimulator History of cholecystectomy (~2003) History of incisional hernia repair History of arthroscopy of both knees History of carpal tunnel surgery of right wrist History of carpal tunnel surgery of left wrist History of hemicolectomy Family History Father Diabetes Mother Diabetes Hypertension Sister Diabetes Breast cancer Rheumatoid arthritis Osteoporosis Maternal Uncle Prostate cancer Social History Housing: Apartment Alcohol intake: never Comment: movement only Patient Tobacco Use Status: Current everyday Tobacco user Tobacco use type: Cigarette Cigarettes Per Day: 4 e-Cigarette/Vaping Use: Never Used Second Hand Smoke Exposure: No service: No Current occupational status: disabled Cognitive needs: No Hearing needs: No Vision needs: Yes Review of Systems Const All systems reviewed & are unremarkable except as noted in HPI and below Physical Exam Vital Signs: BMI result Body Mass Index 30.9 Extrem Other: Deferred due to tele health Telehealth Telehealth Telehealth Platform: Telephone Location of provider rendering services: practice address Location of patient: address on file Patient Identification confirmed using: Name, : Yes Telehealth method: voice only Patient verbally consented to treatment: Yes Patient verbally consented to billing insurance company: Yes Patient informed of any privacy concerns related to visit: Yes Minutes spent on Phone/Video with Pt.: 15 Assessment & Plan Assessment & Plan (1) Right ankle sprain: Code(s): S93.401A - Sprain of unspecified ligament of right ankle, initial encounter Category: Medical (2) Internal derangement of right knee: Code(s): M23.91 - Unspecified internal derangement of right knee Category: Medical Plan For via telehealth appointment I discussed the MRI findings of both the right knee and right ankle. For the right knee we will continue the current treatment plan of cortisone injections as needed. As far as the right ankle she appears to have full-thickness lateral flexor tendon tearing with retraction leading me to believe that this is more of a chronic finding. We have tried using a boot in the past but the patient has weaned out of that successfully. I recommended physical therapy in which the patient reports that she has not yet attended. This is the treatment plan that she truly needs to aid in her recovery. She will follow-up in 6 weeks, sooner if needed. Right ankle MRI obtained on 05/17/2024 IMPRESSION: Full-thickness lateral flexor tendon tearing. Right knee MRI obtained on 05/17/2024 IMPRESSION: 1. No internal derangement. 2. Small knee joint effusion. Orders: Orders PT Evaluation and Treatment Today S93.401A - Sprain of unspecified ligament of right ankle, initial encounter Coding Level of Care Code Tele Est Pt Level 3 (46346) Diagnoses Right ankle sprain S93.401A Internal derangement of right knee M23.91
[2024-06-15 08:59] VITALS: BMI 30.9
--- OUTSIDE RECORDS SUMMARY | 2024-06-15 09:48 | XMS_ITS ---
Author Organization [facility] Address [address] [place] [address] Care Team Providers Care Direct Care Counselor Name Role Phone Chrissy Osborne Primary Care Provider Kaushik Castano Jr Unavailable Allergies No Known Allergies REASON FOR VISIT [...] Problem Status W/U Status Risk Notes Problem [id number] Colon cancer screening (Z12.11) Active confirmed Vital Signs Temperature 98.6 degrees Fahrenheit 04/22/19 24 Blood pressure systolic 000 mm Hg 04/22/19 24 Blood pressure diastolic 00 mm Hg 024 Height 5 ft 3 in in 04/22/2023 Weight 172 lbs 04/22/2023 BMI 30.47 kg/m2 04/22/2023 Encounters Encounter Location Date Provider Diagnosis [facility] [address] [place] [address] 04/22/2023 Kaushik Ahumada Jr Colon cancer screening [...] MELODY MILIAN EDOB: 1960 (62 yo F)Acc No.[id number]:04/22/2023 Progress Notes Patient:?ELVIA MILIAN Provider:?Kaushik Ahumada MD :1960???Age:62 Y???Sex:Female D ate:04/22/2023 Address:[address] [place] [address] [place] [address] Pcp:Chrissy Gao Subjective: * Chief Complaints: * [...] Date:?0 04/22/2023 Generated for Maria Ai jesica/Verito/eTransmitting on:?06/15/2024 09:48 AM EDT History and Physical Notes * HPI [...]
--- OUTSIDE RECORDS SUMMARY | 2024-06-15 09:49 | XMS_ITS ---
Author Organization [facility] Address [address] [place] [address] Care Team Providers Care Order Runner Name Role Phone Chrissy Osborne Primary Care Provider Kaushik Castano Jr REASON FOR VISIT screening colon Problems Problem Type SNOMED Code ICD Code Onset Dates Problem Status W/U Status Risk Notes Problem History of polyp of colon (situation) (003066911) Personal history of colonic polyps (Z86.010) Active confirmed Encounters Encounter Location Date Provider Diagnosis [facility] [place] [address] [place], [place] [id number] 05/21/2023 Kaushik Ahumada Jr Encounter for screening [...] MELODY MILIAN EDOB: 1960 (63 yo F)Acc No.[id number]:05/21/2023 COLON WITH MAC Patient:?ELVIA MILIAN Provider:?Kaushik Ahumada MD :1960???Age:62 Y???Sex:Female D ate:05/21/2023 Address:[address] [place] [address] [place] [address] Pcp:Chrissy Gao Subjective: * Chief Complaints: * ???1. Screening colon. * Medical History:? Objective: * Vitals:? Assessment: * Assessment: 1.?Encounter for screening c olonoscopy - Z12.11 (Primary)???2.?Personal history of colonic polyps - Z86.010???3.?Colon polyps - K63.5??? Plan: * Treatment: * Procedure Codes:?76097 COLON OSCOPY AND BIOPSY, 0529F INTRVL 3+YRS PTS CLNSCP DOCD * * The named appointment provid er may or may not be the originator of this progress note, and it is not deemed complete until electronically signed by the appointment provider. Sign off status: Pending * Provider:?Kaushik Ahumada MD Date:?0 05/21/2023 Generated for Jared mooney/Verito/Estrellitaitting on:?06/15/2024 09:48 AM EDT
--- OUTSIDE RECORDS SUMMARY | 2024-06-15 09:49 | XMS_ITS ---
Author Organization [facility] Address [address] [place] [address] Care Team Providers Care Neurourologist Name Role Phone Chrissy Osborne Primary Care Provider UnavailKaushik Duenas Jr REASON FOR VISIT pathology Encounters Encounter Location Date Provider Diagnosis [facility] [address] [place] [address] 05/30/2023 Kaushik Ahumada Jr Plan Of Treatment No Information Progress Notes * MELODY MILIAN EDOB: 1960 (62 yo F)Acc No.[id number]:05/30/2023 Patient:?ELVIA MILIAN :1960???Age:62 Y???Sex:Female Address:[address] [place] [address], [place], [address] * true * Date:? Generated for Maria Ai jesica/Verito/eTransmitting on:?06/15/2024 09:49 AM EDT
--- OUTSIDE RECORDS SUMMARY | 2024-06-15 09:49 | XMS_ITS | Patient Health Record ---
Author Organization [facility] Address [address] [place] [address] Care Team Providers Care Commercial Agent Name Role Phone Chrissy Osborne Primary Care Provider UnavailKaushik Duenas Jr Unavailable Allergies No Known Allergies Reason For Referral No Information Medications Medication [...] Problem Status W/U Status Risk Notes Problem [id number] Colon cancer screening (Z12.11) Active confirmed Problem History of polyp of colon (situation) (432187592) Personal history of colonic polyps (Z86.010) Active confirmed Plan Of Treatment Future Test Test Name Order Date COLONOSCOPY 04/22/2023 Insurance Providers Payer Name Payer Address Payer Phone Subscriber Number Group Number Insured Name Patient Relationship to Insured Coverage Start Date Coverage End Date MEDICARE OF [place] [address] [place] [address] [id number] MELODY CHAO Self - patient is the insured MEDICAID OF [facility] [address] [place] [address] [id number] MELODY CHAO Self - patient is the insured Medical (General) History Medical History History ICD Code Hypertension Hyperlipidemia Gastroesophageal reflux disease Disc disease Anxiety/depression Chronic opioid use Asthma Surgical History Surgery Date(Month/Year) Spinal stimulator, cervical 05/30
== END 2024-06-15 08:58 | disposition home or self-care (01) ==
LOC: HO.HOS 08:57
PROVIDERS: PCP Internal Medicine; Visit Provider Physician Assistant
DX: S93.401A Sprain of unspecified ligament of right ankle, initial encounter (principal); M23.91 Unspecified internal derangement of right knee
CPT/HCPCS: 99213

== ENCOUNTER → 2024-06-15 08:57 | Outpatient (BNVA) | payer MEDICARE, MEDICAID, SELFPAY | PROVIDERS: PCP Internal Medicine; Visit Provider Physician Assistant | DX: S93.401A Sprain of unspecified ligament of right ankle, initial encounter (principal); Z13.89 Encounter for screening for other disorder ==

== ENCOUNTER 2024-07-21 14:29 | Outpatient (REF) | payer MEDICARE, MEDICAID, SELFPAY ==
--- OUTSIDE RECORDS SUMMARY | 2024-07-21 15:37 | XMS_ITS | Clinical Summary ---
Author Organization [facility] Address [address] [place], [place] [id number] Care Team Providers Care It Systems Analyst Name Role Phone Chrissy Osborne MD Primary [...] age to complete this topic Care Teams It Systems Analyst Relationship Specialty Start Date End Date Chrissy Osborne MD [address] [facility] , [address] [facility]A: [facility] [place] [address] PCP - General Internal Medicine 11/16/16
--- OUTSIDE RECORDS SUMMARY | 2024-07-21 15:37 | XMS_ITS ---
Author Organization [facility] Address [address] [place] [address] Care Team Providers Care Hat And Cap Parts Cutter Hand Name Role Phone Chrissy Osborne Primary Care Provider Kaushik Castano Jr Unavailable [phone] Allergies No Known Allergies REASON FOR VISIT [...] Problem Status W/U Status Risk Notes Problem 848957994 Colon cancer screening (Z12.11) Active confirmed Vital Signs Temperature 98.6 degrees Fahrenheit 04/22/19 24 Blood pressure systolic 000 mm Hg 04/22/19 24 Blood pressure diastolic 00 mm Hg 024 Height 5 ft 3 in in 04/22/2023 Weight 172 lbs 04/22/2023 BMI 30.47 kg/m2 04/22/2023 Encounters Encounter Location Date Provider Diagnosis [facility] [address] [place] [address] 04/22/2023 Kaushik Ahumada Jr Colon cancer screening [...] MELODY MILIAN EDOB: 1960 (62 yo F)Acc No.[id number]:04/22/2023 Progress Notes Patient:?ELVIA MILIAN Provider:?Kaushik Ahumada MD :1960???Age:62 Y???Sex:Female D ate:04/22/2023 Address:[address] [place] [address] [place] [address] Pcp:Chrissy Gao Subjective: * Chief Complaints: * [...] Date:?0 04/22/2023 Generated for Maria Ai jesica/Verito/eTransmitting on:?07/21/2024 03:37 PM EDT History and Physical Notes * [...]
--- OUTSIDE RECORDS SUMMARY | 2024-07-21 15:37 | XMS_ITS ---
Author Organization [facility] Address [address] [place] [address] Care Team Providers Care Developmental Writing Instructor Name Role Phone Chrissy Osborne Primary Care Provider Kaushik Castano Jr REASON FOR VISIT screening colon Problems Problem Type SNOMED Code ICD Code Onset Dates Problem Status W/U Status Risk Notes Problem History of polyp of colon (situation) (820263284) Personal history of colonic polyps (Z86.010) Active confirmed Encounters Encounter Location Date Provider Diagnosis [facility] [address] [place], [place] [id number] 05/21/2023 Kaushik Ahumada Jr Encounter for screening [...] MELODY MILIAN EDOB: 1960 (63 yo F)Acc No.[id number]:05/21/2023 COLON WITH MAC Patient:?ELVIA MILIAN Provider:?Kaushik Ahumada MD :1960???Age:62 Y???Sex:Female D ate:05/21/2023 Address:[address] [place] [address] [place] [address] Pcp:Chrissy Gao Subjective: * Chief Complaints: * ???1. Screening colon. * Medical History:? Objective: * Vitals:? Assessment: * Assessment: 1.?Encounter for screening c olonoscopy - Z12.11 (Primary)???2.?Personal history of colonic polyps - Z86.010???3.?Colon polyps - K63.5??? Plan: * Treatment: * Procedure Codes:?04334 COLON OSCOPY AND BIOPSY, 0529F INTRVL 3+YRS PTS CLNSCP DOCD * * The named appointment provid er may or may not be the originator of this progress note, and it is not deemed complete until electronically signed by the appointment provider. Sign off status: Pending * Provider:?Kaushik Ahumada MD Date:?0 05/21/2023 Generated for Jared mooney/Verito/Estrellitaitting on:?07/21/2024 03:37 PM EDT
--- OUTSIDE RECORDS SUMMARY | 2024-07-21 15:38 | XMS_ITS | Patient Health Record ---
Author Organization [facility] Address [address] [place] [address] Care Team Providers Care Circle Cutting Saw Operator Name Role Phone Chrissy Osborne Primary [...] Problem Status W/U Status Risk Notes Problem 932073251 Colon cancer screening (Z12.11) Active confirmed Problem History of polyp of colon (situation) (793962323) Personal history of colonic polyps (Z86.010) Active confirmed Plan Of Treatment Future Test Test Name Order Date COLONOSCOPY 04/22/2023 Insurance Providers Payer Name Payer Address Payer Phone Subscriber Number Group Number Insured Name Patient Relationship to Insured Coverage Start Date Coverage End Date MEDICARE OF [place] [address] [place] [address] [id number] MELODY CHAO Self - patient is the insured MEDICAID OF [facility] [address] [place] [address] [id number] MELODY CHAO Self - patient is the insured Medical (General) History Medical History History ICD Code Hypertension Hyperlipidemia Gastroesophageal reflux disease Disc disease Anxiety/depression Chronic opioid use Asthma Surgical History Surgery Date(Month/Year) Spinal stimulator, cervical 05/30
--- OUTSIDE RECORDS SUMMARY | 2024-07-21 15:38 | XMS_ITS ---
Author Organization [facility] Address [address] [place] [address] Care Team Providers Care Aprn Name Role Phone Chrissy Osborne Primary Care Provider UnavailKaushik Duenas Jr REASON FOR VISIT pathology Encounters Encounter Location Date Provider Diagnosis [facility] [address] [place] [address] 05/30/2023 Kaushik Ahumada Jr Plan Of Treatment No Information Progress Notes * MELODY MILIAN EDOB: 1960 (62 yo F)Acc No.[id number]:05/30/2023 Patient:?ELVIA MILIAN :1960???Age:62 Y???Sex:Female Address:[address] [place] [address], [place], [address] * true * Date:? Generated for Maria Ai jesica/Verito/eTransmitting on:?07/21/2024 03:37 PM EDT
== END 2024-07-21 14:30 | disposition home or self-care (01) ==
LOC: HO.LAB 14:29
PROVIDERS: PCP Internal Medicine; Visit Provider Student in an Organized Health Care Education/Training Program
DX: Z13.89 Encounter for screening for other disorder (principal)

== ENCOUNTER 2024-07-23 09:12 | Outpatient (REF) | payer MEDICARE, MEDICAID, SELFPAY ==
--- OUTSIDE RECORDS SUMMARY | 2024-07-23 09:47 | XMS_ITS ---
Author Organization [facility] Address [address] [place] [address] Care Team Providers Care Forensic Investigator Name Role Phone Chrissy Osborne Primary Care [...] Problem Status W/U Status Risk Notes Problem [id number] Colon cancer screening (Z12.11) Active confirmed Vital Signs Temperature 98.6 degrees Fahrenheit 04/22/19 24 Blood pressure systolic 000 mm Hg 04/22/19 24 Blood pressure diastolic 00 mm Hg 024 Height 5 ft 3 in in 04/22/2023 Weight 172 lbs 04/22/2023 BMI 30.47 kg/m2 04/22/2023 Encounters Encounter Location Date Provider Diagnosis [facility] [address] [place] [address] 04/22/2023 Kaushik Ahumada Jr Colon cancer screening [...] MELODY MILIAN EDOB: 1960 (62 yo F)Acc No.[id number]:04/22/2023 Progress Notes Patient:?ELVIA MILIAN Provider:?Kaushik Ahumada MD :1960???Age:62 Y???Sex:Female D ate:04/22/2023 Address:[address] [place] [address] [place] [address] Pcp:Chrissy Gao Subjective: * Chief Complaints: * [...] Date:?0 04/22/2023 Generated for Maria Ai jesica/Verito/eTransmitting on:?07/23/2024 09:47 AM EDT History and Physical Notes * [...]
--- OUTSIDE RECORDS SUMMARY | 2024-07-23 09:47 | XMS_ITS ---
Author Organization [facility] Address [address] [place] [address] Care Team Providers Care Children'S Author Name Role Phone Chrissy Osborne Primary Care Provider UnavailKaushik Duneas Jr REASON FOR VISIT pathology Encounters Encounter Location Date Provider Diagnosis [facility] [address] [place] [address] 05/30/2023 Kaushik Ahumada Jr Plan Of Treatment No Information Progress Notes * MELODY MILIAN EDOB: 1960 (62 yo F)Acc No.[id number]:05/30/2023 Patient:?ELVIA MILIAN :1960???Age:62 Y???Sex:Female Address:[address] [place] [address], [place], [address] * true * Date:? Generated for Maria Ai jesica/Verito/eTransmitting on:?07/23/2024 09:47 AM EDT
--- OUTSIDE RECORDS SUMMARY | 2024-07-23 09:47 | XMS_ITS ---
Author Organization [facility] Address [address] [place] [address] Care Team Providers Care Mine Car Dispatcher Name Role Phone Chrissy Osborne Primary Care Provider Kaushik Castano Jr [phone] REASON FOR VISIT screening colon Problems Problem Type SNOMED Code ICD Code Onset Dates Problem Status W/U Status Risk Notes Problem History of polyp of colon (situation) (499276911) Personal history of colonic polyps (Z86.010) Active confirmed Encounters Encounter Location Date Provider Diagnosis [facility] [address] [place], [place] [id number] 05/21/2023 Kaushik Ahumada Jr Encounter for screening [...] MELODY MILIAN EDOB: 1960 (63 yo F)Acc No.[id number]:05/21/2023 COLON WITH MAC Patient:?ELVIA MILIAN Provider:?Kaushik Ahumada MD :1960???Age:62 Y???Sex:Female D ate:05/21/2023 Address:[address] [place] [address] [place] [address] Pcp:Chrissy Gao Subjective: * Chief Complaints: * ???1. Screening colon. * Medical History:? Objective: * Vitals:? Assessment: * Assessment: 1.?Encounter for screening c olonoscopy - Z12.11 (Primary)???2.?Personal history of colonic polyps - Z86.010???3.?Colon polyps - K63.5??? Plan: * Treatment: * Procedure Codes:?01330 COLON OSCOPY AND BIOPSY, 0529F INTRVL 3+YRS PTS CLNSCP DOCD * * The named appointment provid er may or may not be the originator of this progress note, and it is not deemed complete until electronically signed by the appointment provider. Sign off status: Pending * Provider:?Kaushik Ahumada MD Date:?0 05/21/2023 Generated for Jared mooney/Verito/Finessesmitting on:?07/23/2024 09:47 AM EDT
--- OUTSIDE RECORDS SUMMARY | 2024-07-23 09:48 | XMS_ITS | Patient Health Record ---
Author Organization [facility] Address [address] [place] [address] Care Team Providers Care Hand Coper Name Role Phone Chrissy Osborne Primary Care [...] Problem Status W/U Status Risk Notes Problem [id number] Colon cancer screening (Z12.11) Active confirmed Problem Personal history of colonic polyps (Z86.010) Active confirmed Plan Of Treatment Future Test Test Name Order Date COLONOSCOPY 04/22/2023 Insurance Providers Payer Name Payer Address Payer Phone Subscriber Number Group Number Insured Name Patient Relationship to Insured Coverage Start Date Coverage End Date MEDICARE OF [place] [address] [place] [address] [id number] MELODY CHAO Self - patient is the insured MEDICAID OF [facility] [address] [place] [address] [id number] MELODY CHAO Self - patient is the insured Medical (General) History Medical History History ICD Code Hypertension Hyperlipidemia Gastroesophageal reflux disease Disc disease Anxiety/depression Chronic opioid use Asthma Surgical History Surgery Date(Month/Year) Spinal stimulator, cervical 05/30
[2024-07-23 11:30] LABS: Alanine Aminotransferase 17 U/L (0-31); Alkaline Phosphatase 93 U/L (39-117); Anion Gap 12 (12-20); Aspartate Amino Transferase 16 U/L (5-31); Bilirubin Total 0.3 mg/dL (0.0-1.0); Blood Urea Nitrogen 6 mg/dL (9-16); Calcium 9.3 mg/dL (8.4-10.2); Carbon Dioxide 23 mmol/L (22-29); Chloride 109 mmol/L (96-108); Estimated Glomerular Filt Rate > 60; Glucose Random 149 mg/dL (60-115); Potassium 3.8 mmol/L (3.3-5.1); Sodium 140 mmol/L (135-145)
[2024-07-27 11:54] LABS: Vitamin D 25-OH, D2 <4 ng/mL; Vitamin D 25-OH, D3 28 ng/mL; Vitamin D 25-OH, Total 28 ng/mL (30-100)
[2024-07-27 22:38] LABS: Collagen Type I C-Telopeptide 220 pg/mL (see note)
== END 2024-07-23 09:13 | disposition home or self-care (01) ==
LOC: HO.LAB 09:12
PROVIDERS: PCP Internal Medicine; Visit Provider Student in an Organized Health Care Education/Training Program
DX: M81.0 Age-related osteoporosis without current pathological fracture (principal)
CPT/HCPCS: 36415; 80053; 82306; 82523

== ENCOUNTER 2024-08-13 08:58 | Outpatient (REF) | payer MEDICARE, MEDICAID, SELFPAY ==
--- NOTE | ~2024-08-13 | XR_ITS ---
EXAMINATION: XR ANKLE 3 OR MORE VIEWS RIGHT HISTORY: M25.579 - Pain in unspecified ankle and joints of unspecified foot COMPARISON: Comparison is made with the prior examination dated 05/12/2024. FINDINGS: Three views of the right ankle are submitted. Osseous mineralization is normal. There is a new punctate osseous density adjacent to the tip of the distal fibula which could represent an avulsion fracture fragment. A well-corticated osseous density adjacent to the tip of the medial malleolus is unchanged and may be the result of old trauma. The joint spaces are preserved. Soft tissue calcifications. XR/XR ankle RT min 3V IMPRESSION: Punctate density adjacent to the tip of the distal fibula which could represent an avulsion fracture fragment. Clinical correlation is recommended. Electronically signed by: Kodak Roldan MD 08/13/2024 10:49 AM EDT
--- OUTSIDE RECORDS SUMMARY | 2024-08-13 09:36 | XMS_ITS | Clinical Summary ---
Author Organization [facility] Address [address] [place], [place] [id number] Care Team Providers Care Chemistry Manager Name Role Phone Chrissy Osborne MD Primary [...] Vaccine (1 of 2) 2010 Influenza Vaccine (Season Ended) 2024 RSV Adult > 60+ Yrs or Pregn [...] age to complete this topic Care Teams Chemistry Manager Relationship Specialty Start Date End Date Chrissy Osborne MD [address] [facility] , [address] [facility] D[facility]A: [facility] [place] [address] PCP - General Internal Medicine 11/16/16
== END 2024-08-13 08:59 | disposition home or self-care (01) ==
LOC: HO.HOSX 08:58
PROVIDERS: Visit Provider Physician Assistant
DX: M25.571 Pain in right ankle and joints of right foot (principal); S93.401A Sprain of unspecified ligament of right ankle, initial encounter
CPT/HCPCS: 73610; 99212

== ENCOUNTER 2024-08-13 09:48 | Outpatient (AMB) | payer MEDICARE, MEDICAID, SELFPAY ==
--- NOTE | 2024-08-13 10:01 | MHC.OFFVIS ---
Vital Signs 08/13/24 10:17 Height 5 ft 2 in Weight 169 lb BMI 30.9 Intake Visit Reasons: OV - right ankle pain Intake Note: Oriana is a 63 year old female who presents today for a follow up of her right ankle sprain, DOI 03/17/24. Patient reports that she has been going to physical therapy she has done 4 sessions with no improvement. She mentions that her pain is on the lateral aspect of the ankle. Patient notices that she is walking on the side of her foot and she is limping. Allergies topiramate [From TOPAMAX] Allergy (Severe, Verified 08/13/24 10:16) SWELLING barium sulfate Adverse Reaction (Intermediate, Verified 08/13/24 10:16) changes in behavior hydrocodone Adverse Reaction (Intermediate, Verified 08/13/24 10:16) Nausea metronidazole [Flagyl] Adverse Reaction (Intermediate, Verified 08/13/24 10:16) DIRECTOR OF FINANCIAL AID, N/V morphine [MORPHINE] Adverse Reaction (Intermediate, Verified 08/13/24 10:16) HEADACHE Penicillins Adverse Reaction (Intermediate, Verified 08/13/24 10:16) Vomiting trazodone Adverse Reaction (Intermediate, Verified 08/13/24 10:16) Palpitations varenicline [From Chantix] Adverse Reaction (Mild, Verified 08/13/24 10:16) changes in behavior HPI HPI OV - right ankle pain: Details: Ms. Chito Guallpa is a 63-year-old female who presents to the office today for follow-up of a right ankle sprain that she sustained on 03/17/2024 when she was walked into the orthopedics office and fell in the parking lot twisting her ankle. At that time she was given a tall walking boot. An MRI was then obtained and was found to have a full-thickness lateral flexor tendon tear with retraction. This is likely chronic in nature. The patient was in a boot and was weaned out appropriately. A physical therapy order was also placed at the 03/17/2024 appointment. However the patient has only recently attended 3 appointments with in the past few weeks. She reports that she is continuing to have pain and swelling in the left ankle. She presents to the office today in [facility]. [facility] Medical History Intravenous bisphosphonates causing adverse effect in therapeutic use Encounter for monitoring bisphosphonate therapy History of colon polyps (~2012) Nicotine dependence, cigarettes, uncomplicated History of DVT (deep vein thrombosis) Migraines Asthma Chronic pain syndrome Postlaminectomy syndrome, cervical Cough COPD (chronic obstructive pulmonary disease) Allergic rhinitis Osteoarthritis of right hip Depression with anxiety Constipation due to opioid therapy GERD (gastroesophageal reflux disease) Hypovitaminosis D Lumbar degenerative disc disease Essential hypertension Surgical History History of colonoscopy History of fusion of lumbar spine History of fusion of cervical spine History of appendectomy (~1990) History of total abdominal hysterectomy (~2011) History of esophagogastroduodenoscopy (EGD) (~2012) Status post insertion of nerve stimulator History of cholecystectomy (~2003) History of incisional hernia repair History of arthroscopy of both knees History of carpal tunnel surgery of right wrist History of carpal tunnel surgery of left wrist History of hemicolectomy Family History Father Diabetes Mother Diabetes Hypertension Sister Diabetes Breast cancer Rheumatoid arthritis Osteoporosis Maternal Uncle Prostate cancer Social History Housing: Apartment Alcohol intake: never Comment: movement only Patient Tobacco Use Status: Current everyday Tobacco user Tobacco use type: Cigarette Cigarettes Per Day: 4 e-Cigarette/Vaping Use: Never Used Second Hand Smoke Exposure: No service: No Current occupational status: disabled Cognitive needs: No Hearing needs: No Vision needs: Yes Review of Systems Const All systems reviewed & are unremarkable except as noted in HPI and below Physical Exam Vital Signs: BMI result Body Mass Index 30.9 Const General: cooperative, healthy appearing and no acute distress Resp Effort & Inspection: normal respiratory effort and able to speak in complete sentences Extrem Other: Right ankle normal to inspection no ecchymosis erythema or edema. Able to perform dorsiflexion and plantar flexion with pain. Slight tenderness to palpation of the medial and lateral malleolus. Sensation is intact. Assessment & Plan Assessment & Plan (1) Right ankle sprain: Code(s): S93.401A - Sprain of unspecified ligament of right ankle, initial encounter Category: Medical Plan Ms. Chito Guallpa is a 63-year-old female who presents to the office today for follow-up of a right ankle sprain that she sustained on 03/17/2024 when she was walked into the orthopedics office and fell in the parking lot twisting her ankle. At that time she was given a tall walking boot. An MRI was then obtained and was found to have a full-thickness lateral flexor tendon tear with retraction. This is likely chronic in nature. The patient was in a boot and was weaned out appropriately. A physical therapy order was also placed at the 03/17/2024 appointment. However the patient has only recently attended 3 appointments with in the past few weeks. She reports that she is continuing to have pain and swelling in the left ankle. She presents to the office today in [facility]. While the office today, we discussed referral to a foot and ankle specialist. The patient is amenable to have this evaluation. I recommended that she continue with physical therapy in the meantime. I referral has been made to [facility]. She will follow up with [facility], sooner if needed. X-rays of the right ankle which were obtained while in the office today and were reviewed by me, Carmita Alexandra PA-C, revealed calcifications along the lateral aspect of the fibula which were previously viewed on prior films. No additional acute fracture or dislocation. Orders: Orders XR ankle RT min 3V Today M25.579 - Pain in unspecified ankle and joints of unspecified foot Coding Level of Care Code Est Pt Level 3 (73304) Diagnoses Right ankle sprain S93.401A
[2024-08-13 10:17] VITALS: BMI 30.9
== END 2024-08-13 10:39 | disposition home or self-care (01) ==
PROVIDERS: PCP Internal Medicine; Visit Provider Physician Assistant
DX: S93.401A Sprain of unspecified ligament of right ankle, initial encounter (principal)
CPT/HCPCS: 99213

== ENCOUNTER → 2024-08-13 10:05 | Outpatient (BNV) | payer MEDICARE, MEDICAID, SELFPAY | PROVIDERS: Visit Provider Radiology Diagnostic Radiology | DX: M25.571 Pain in right ankle and joints of right foot (principal) | CPT/HCPCS: 73610 ==

== ENCOUNTER 2024-08-19 13:31 | Outpatient (AMB) | payer MEDICARE, MEDICAID, SELFPAY ==
[2024-08-19 13:40] VITALS: BP 102/70; PULSE 85; O2SAT 100; BMI 32.1
--- NOTE | 2024-08-19 13:40 | A.OFFVIS_ITS ---
Vital Signs 08/19/24 13:40 Height 5 ft 2 in Weight 175 lb 4.28 oz BMI 32.1 BP 102/70 Blood Pressure Location Lt brachial Position Sitting Pulse 85 Pulse Source Pulse Oximeter Pulse Oximetry (%) 100 Oxygen Delivery Method Room Air Intake Visit Reasons: asthma Intake Note: pt is here for follow up and states she had an asthma attack last month,tx with prednisone, today ok. She did not get one of the inhalers from the last visit, and no call on ct scan yet. Roadway Technician Required: No Allergies topiramate [From TOPAMAX] Allergy (Severe, Verified 08/19/24 14:06) SWELLING barium sulfate Adverse Reaction (Intermediate, Verified 08/19/24 14:06) changes in behavior hydrocodone Adverse Reaction (Intermediate, Verified 08/19/24 14:06) Nausea metronidazole [Flagyl] Adverse Reaction (Intermediate, Verified 08/19/24 14:06) ELECTRICAL MAINTENANCE ENGINEER, N/V morphine [MORPHINE] Adverse Reaction (Intermediate, Verified 08/19/24 14:06) HEADACHE Penicillins Adverse Reaction (Intermediate, Verified 08/19/24 14:06) Vomiting trazodone Adverse Reaction (Intermediate, Verified 08/19/24 14:06) Palpitations varenicline [From Chantix] Adverse Reaction (Mild, Verified 08/19/24 14:06) changes in behavior Medication List - Last Reconciled 08/19/24 by Ashley Priest MD albuterol sulfate 90 mcg/actuation 2 puffs PO Q4H PRN albuterol sulfate 2.5 mg (3 mL) inhalation TID alprazolam 0.5 mg PO DAILY PRN 2 days aspirin (Adult Low Dose Aspirin) 81 mg PO DAILY calcium carbonate-vitamin D3 600 mg-20 mcg (800 unit) 1 tab PO BID cholecalciferol (vitamin D3) 25 mcg PO BID 90 days dexlansoprazole (Dexilant) 60 mg PO DAILY 90 days diphenhydramine HCl (Allergy (diphenhydramine)) 25 mg PO BEDTIME PRN 90 days escitalopram oxalate 10 mg PO DAILY 90 days fenofibrate 160 mg PO DAILY 90 days fluticasone propion-salmeterol 250-50 mcg/dose (Advair Diskus) 1 inh inhalation BID 30 days fluticasone propionate 50 mcg/actuation (Flonase Allergy Relief) 1 spray intranasal DAILY linaclotide (Linzess) 290 mcg PO DAILY 90 days lisinopril 20 mg PO DAILY montelukast 10 mg PO DAILY nicotine 1 patch transdermal DAILY 28 days oxycodone 10 mg PO Q6H PRN 30 days Ventolin HFA 90 mcg/actuation (albuterol sulfate) 2 puffs inhalation Q6H PRN 30 days NS Do you need a note to return to daycare/school/sports/work: No HPI HPI asthma: Details: 63 years old very pleasant female case of chronic obstructive pulmonary disease who is still an active smoker, comes for follow-up after 6 months. Overall she has been stable and doing well, with her usual intermittent cough mostly nonproductive. A few months ago she was in [place] and had an acute exacerbation of COPD. She was able to get prednisone from the pharmacy without prescription, took it for a few days and got better. At present she is using the albuterol updraft or albuterol HFA Q 6 hours p.r.n.. She was supposed to be on Advair 250-50 1 inhalation b.i.d. but she never got that inhaler. She smokes about 10 cigarettes a day, has cut it down from 1 pack. She is participating in annual lung screening program . [facility] Medical History Intravenous bisphosphonates causing adverse effect in therapeutic use Encounter for monitoring bisphosphonate therapy History of colon polyps (~2012) Nicotine dependence, cigarettes, uncomplicated History of DVT (deep vein thrombosis) Migraines Asthma Chronic pain syndrome Postlaminectomy syndrome, cervical Cough COPD (chronic obstructive pulmonary disease) Allergic rhinitis Osteoarthritis of right hip Depression with anxiety Constipation due to opioid therapy GERD (gastroesophageal reflux disease) Hypovitaminosis D Lumbar degenerative disc disease Essential hypertension Surgical History History of colonoscopy History of fusion of lumbar spine History of fusion of cervical spine History of appendectomy (~1990) History of total abdominal hysterectomy (~2011) History of esophagogastroduodenoscopy (EGD) (~2012) Status post insertion of nerve stimulator History of cholecystectomy (~2003) History of incisional hernia repair History of arthroscopy of both knees History of carpal tunnel surgery of right wrist History of carpal tunnel surgery of left wrist History of hemicolectomy Family History Father Diabetes Mother Diabetes Hypertension Sister Diabetes Breast cancer Rheumatoid arthritis Osteoporosis Maternal Uncle Prostate cancer Social History Housing: Apartment Alcohol intake: never Comment: movement only Patient Tobacco Use Status: Current everyday Tobacco user Tobacco use type: Cigarette Cigarettes Per Day: 4 e-Cigarette/Vaping Use: Never Used Second Hand Smoke Exposure: No service: No Current occupational status: disabled Cognitive needs: No Hearing needs: No Vision needs: Yes Review of Systems Const All systems reviewed & are unremarkable except as noted in HPI and below Eyes Reports no additional complaints ENT Reports nasal congestion (Mild almost on a daily basis) and Reports neck pain Card Denies chest pain, Denies irregular heart rhythm and Denies leg edema Resp Reports as per HPI GI Reports no additional complaints Reports no additional complaints Musc Reports back pain and Reports neck pain Skin/Breast Reports system reviewed and no additional complaints, except as documented Neuro Reports no additional complaints Psych Reports no additional complaints Physical Exam Vital Signs: Last Vital Signs Pulse 85 08/19/24 13:40 BP 102/70 08/19/24 13:40 Pulse Ox 100 08/19/24 13:40 Oxygen Delivery Method Room Air 08/19/24 13:40 BMI result Body Mass Index 32.1 Const General: comfortable, no acute distress, alert and awake Orientation/consciousness: patient oriented x3 HEENT Head: Yes normal to inspection General nose exam: No nasal polyps present and No nasal discharge present Face and sinus: Yes sinuses nontender Mouth: oropharynx normal Throat: Yes posterior oropharynx normal Eyes General: appearance normal, both eyes and all related structures Neck Neck: Yes normal visual inspection, Yes no lymphadenopathy, Yes trachea midline and Yes no JVD Thyroid: Thyroid normal Chest Chest palpation & inspection: normal inspection of the chest, normal palpation of entire chest wall and no tenderness Resp Other: At this time percussion note is resonant, breath sounds are distant on both sides. She has expiratory wheezes on both sides. No crepitations. Cardio Palpation: normal PMI Rate: regular rate Rhythm: regular rhythm Heart sounds: no gallops and no murmurs Peripheral pulses: Peripheral pulses 2+ throughout GI Palpation (GI): Soft to palpation, nontender, No hepatosplenomegaly present and no masses Auscultation: normal bowel sounds Back/Spine/Pelvis Thoracic/Lumbar Spine: thoracic and lumbar spine normal to inspection and thorac o-lumbar ROM limited Skin General skin exam: no rashes or lesions noted Neuro General: patient oriented x3 and no focal motor deficits Cranial nerves: Yes CN's II-XII intact bilaterally Extrem General: Yes normal to inspection, Yes no clubbing, cyanosis or edema and Yes no calf tenderness Psych Appearance: grossly normal Speech and movement: Normal speech and movement present Affect: Anxious affect present Assessment & Plan Assessment & Plan (1) COPD (chronic obstructive pulmonary disease): Comment: Her chronic obstructive disorder is more in the form of asthma, completely reversible. Was controlled with use of Advair 100-50 1 inhalation b.i.d. At present she has been out of this medicine for a few weeks. She has the a subacute exacerbation, with significant wheezes on auscultation. Code(s): J44.9 - Chronic obstructive pulmonary disease, unspecified Category: Medical Qualifiers: COPD type: unspecified COPD Qualified Code(s): J44.9 - Chronic obstructive pulmonary disease, unspecified Plan: Advised to start using Advair 250-51 inhalation b.i.d.. Albuterol HFA 2 puffs Q 6 hours p.r.n. alternating with albuterol solution in the nebulizer Q 4-6 hours p.r.n. when she is at home. She will need short courses of prednisone only once or twice a year not more than that (2) Cough: Comment: Mild to moderate off and on . sec to All. Rhinitis, Copd , and smoking. Continue treatment for asthma/COPD as noted above. Advised that her cough is mainly related to smoking and she must stop smoking completely. Code(s): R05 - Cough Category: Medical Plan: Advised to quit smoking, by gradually tapering down the number of cigarettes . (3) Nicotine dependence, cigarettes, uncomplicated: Comment: (current smoker, onset 17yo, 1ppd x 44yrs, She had tried to cut down but went back to smoke i/2 pack a day . Code(s): F17.210 - Nicotine dependence, cigarettes, uncomplicated Category: Medical Plan: Had a good talk with her encouraged her to cut down the number of cigarettes by 2 every month until she is ready to quit completely. Also advised that she should continue to participate in annual lung screening program. Medications: Refilled fluticasone propion-salmeterol 250-50 mcg/dose (Advair Diskus) 1 inh inhalation BID 30 days 60 ea 5RF copd Coding Level of Care Code Est Pt Level 3 (60350) Diagnoses Chronic obstructive pulmonary disease, unspecified COPD type J44.9 COPD type: unspecified COPD Cough R05 Nicotine dependence, cigarettes, uncomplicated F17.210
--- OUTSIDE RECORDS SUMMARY | 2024-08-19 15:15 | XMS_ITS | Clinical Summary ---
Author Organization [facility] Address [address] [place], [place] [id number] Care Team Providers Care Brim Rounder Name Role Phone Chrissy Osborne MD Primary [...] age to complete this topic Care Teams Brim Rounder Relationship Specialty Start Date End Date Chrissy Osborne MD [address] [facility] , [address] [facility] Physician Associ D/B/A: [facility] [place] [id number] PCP - General Internal Medicine 11/16/16
== END 2024-08-19 14:06 | disposition home or self-care (01) ==
LOC: HO.HPS 13:31
PROVIDERS: PCP Internal Medicine; Visit Provider Internal Medicine
DX: J44.9 Chronic obstructive pulmonary disease, unspecified (principal); R05.9 Cough, unspecified; F17.210 Nicotine dependence, cigarettes, uncomplicated
CPT/HCPCS: 99213

== ENCOUNTER → 2024-08-19 13:31 | Outpatient (BNVA) | payer MEDICARE, MEDICAID, SELFPAY | PROVIDERS: PCP Internal Medicine; Visit Provider Internal Medicine | DX: J44.9 Chronic obstructive pulmonary disease, unspecified (principal); R05.9 Cough, unspecified; F17.210 Nicotine dependence, cigarettes, uncomplicated | CPT/HCPCS: 99212 ==

== ENCOUNTER 2024-08-24 10:46 | Outpatient (AMB) | payer MEDICARE, MEDICAID, SELFPAY ==
--- NOTE | 2024-08-24 11:12 | MHC.OFFVIS ---
Vital Signs 08/24/24 11:20 Height 5 ft 2 in Weight 175 lb 11.335 oz BMI 32.1 BP 140/82 H Blood Pressure Location Rt brachial Position Sitting Pulse 89 Pulse Source Pulse Oximeter Pulse Oximetry (%) 97 Oxygen Delivery Method Room Air Intake Visit Reasons: follow up Intake Note: Patient presents for follow up. 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 morphine [MORPHINE] Adverse Reaction (Intermediate, Verified 08/24/24 11:19) HEADACHE Penicillins Adverse Reaction (Intermediate, Verified 08/24/24 11:19) Vomiting trazodone Adverse Reaction (Intermediate, Verified 08/24/24 11:19) Palpitations varenicline [From Chantix] Adverse Reaction (Mild, Verified 08/24/24 11:19) changes in behavior Medication List - Last Reconciled 08/24/24 by Suly Stockton MD albuterol sulfate 90 mcg/actuation 2 puffs PO Q4H PRN albuterol sulfate 2.5 mg (3 mL) inhalation TID alprazolam 0.5 mg PO DAILY PRN 2 days aspirin (Adult Low Dose Aspirin) 81 mg PO DAILY calcium carbonate-vitamin D3 600 mg-20 mcg (800 unit) 1 tab PO BID cholecalciferol (vitamin D3) 125 mcg PO DAILY dexlansoprazole (Dexilant) 60 mg PO DAILY 90 days diphenhydramine HCl (Allergy (diphenhydramine)) 25 mg PO BEDTIME PRN 90 days escitalopram oxalate 10 mg PO DAILY 90 days fenofibrate 160 mg PO DAILY 90 days fluticasone furoate-vilanterol 100-25 mcg/dose (Breo Ellipta) 1 inh inhalation DAILY 30 days fluticasone propion-salmeterol 250-50 mcg/dose (Advair Diskus) 1 inh inhalation BID 30 days fluticasone propionate 50 mcg/actuation (Flonase Allergy Relief) 1 spray intranasal DAILY linaclotide (Linzess) 290 mcg PO DAILY 90 days lisinopril 20 mg PO DAILY montelukast 10 mg PO DAILY nicotine 1 patch transdermal DAILY 28 days oxycodone 10 mg PO Q6H PRN 30 days Ventolin HFA 90 mcg/actuation (albuterol sulfate) 2 puffs inhalation Q6H PRN 30 days NS HPI Comments Details: Patient is a 63-year-old female with COPD, hypertension, hyperlipidemia, depression with anxiety, polyarticular osteoarthritis and osteoporosis here today for follow up. Interval History: Last seen last seen 01/10/2024 with me. At that time she was following up for her osteoporosis on IV Reclast. She had some nausea associated with her IV Reclast infusion but no other concerning side effects. Vitamin-D supplementation was encouraged Today Patient had a fall 06/2024 with subsequent avulsion fracture assoc with ligamentous injury Rheumatologic History: Patient establish care 08/2023. Referred for DEXA scan showing osteoporosis with highest T-score-3 at neck of the femur. Initially started on alendronate but could not tolerate it. Started on zoledronic acid 08/2023 Current Rheumatology Medication(s): IV Zolendronic Acid Vit D supplementation PFSH Medical History Intravenous bisphosphonates causing adverse effect in therapeutic use Encounter for monitoring bisphosphonate therapy History of colon polyps (~2012) Nicotine dependence, cigarettes, uncomplicated History of DVT (deep vein thrombosis) Migraines Asthma Chronic pain syndrome Postlaminectomy syndrome, cervical Cough COPD (chronic obstructive pulmonary disease) Allergic rhinitis Osteoarthritis of right hip Depression with anxiety Constipation due to opioid therapy GERD (gastroesophageal reflux disease) Hypovitaminosis D Lumbar degenerative disc disease Essential hypertension Surgical History History of colonoscopy History of fusion of lumbar spine History of fusion of cervical spine History of appendectomy (~1990) History of total abdominal hysterectomy (~2011) History of esophagogastroduodenoscopy (EGD) (~2012) Status post insertion of nerve stimulator History of cholecystectomy (~2003) History of incisional hernia repair History of arthroscopy of both knees History of carpal tunnel surgery of right wrist History of carpal tunnel surgery of left wrist History of hemicolectomy Family History Father Diabetes Mother Diabetes Hypertension Sister Diabetes Breast cancer Rheumatoid arthritis Osteoporosis Maternal Uncle Prostate cancer Social History Housing: Apartment Alcohol intake: never Comment: movement only Patient Tobacco Use Status: Current everyday Tobacco user Tobacco use type: Cigarette Cigarettes Per Day: 4 e-Cigarette/Vaping Use: Never Used Second Hand Smoke Exposure: No service: No Current occupational status: disabled Cognitive needs: No Hearing needs: No Vision needs: Yes Review of Systems Const Details: Review of Systems Constitutional: Denies fever, chills, weight loss ENT: Denies vision changes, eye pain or eye redness, dental caries, dry mouth GI: Denies nausea, vomiting, diarrhea, abdominal pain, change in BM Pulm: Denies SOB, MERCADO, hemoptysis, wheezing Cards: Denies chest pain, palpitations Skin: Denies Raynaud's, rash, nail changes, photosensitivity, DIRECTOR OF LEADERSHIP DEVELOPMENT: Denies headaches, weakness, paresthesias, recurrent falls MSK: as per HPI All other systems reviewed and are unremarkable except noted above Physical Exam Vital Signs: Last Vital Signs Pulse 89 08/24/24 11:20 BP 140/82 H 08/24/24 11:20 Pulse Ox 97 08/24/24 11:20 Oxygen Delivery Method Room Air 08/24/24 11:20 BMI result Body Mass Index 32.1 Vital signs reviewed Physical Examination CONSTITUITIONAL Patient alert and cooperative. Well appearing and in no apparent painful distress HEENT Conjunctiva and sclera clear. ?Pupils equal round and reactive to light. ?No lymphadenopathy. ?Normal dentition. No oral or nasal ulcers noted. No evidence of discoid rash to the michelle of ears CHEST/RESPIRATORY SYSTEM Normal respiratory effort and able to speak in complete sentences. ?Clear to auscultation bilaterally. ?No crackles, rales, rhonchi, wheezes heard. CARDIAC SYSTEM Regular rate and rhythm. ?S1 and S2 heard no murmurs. ?Radial pulses intact bilaterally MSK Hands: ?Good career agent strength bilaterally. ?Heberden's nodes noted to DIPs bilaterally. ?No synovitis noted to the MCPs, PIPs or DIPs. ?No tenderness to palpation of these joints. Wrists: ?Full range of motion at the wrists without pain. ?No tenderness to palpation or synovitis noted to the wrists. Elbows: Full range of motion without pain. No tenderness, weakness, swelling, increased warmth or erythema. Shoulders: Full range of motion without pain. No tenderness, weakness, swelling, increased warmth or erythema. Knees: ?Full range of motion. ?No tenderness, swelling, increased warmth or erythema.?No effusion. Crepitations felt Ankles: Full range of motion. ?No tenderness, swelling, increased warmth or erythema.? Feet: ?Negative squeeze test. ?No tenderness to palpation or swelling of the MTPs. Tender points:??No tenderness to palpation of the neck, shoulders, chest, elbows, hips, buttocks or knees. SKIN Skin intact without rashes. Results Reviewed Results Reviewed: Laboratory Tests 04/06/22 05/12/24 07/23/24 14:26 15:08 09:24 WBC 7.9 RBC 4.65 Hgb 14.3 Hct 42.9 Plt Count 293 143 L D Sodium 140 Potassium 3.8 Chloride 109 H Carbon Dioxide 23 BUN 6 L Creatinine 0.68 AST 16 ALT 17 Alkaline Phosphatase 93 Total Protein 7.0 Albumin 4.0 25-OH Vitamin D Total 28 L DEXA 03/2023 FINDINGS: AP SPINE L1-L3 (excluding L4): The data of L1-L4 has been changed to exclude the L4 vertebral body, because sclerosis and metallic artifact at this level may cause overestimation of lumbar spine density. BMD 0.900 g/cm2, Z-score -1.2, T-score -2.3, osteopenia. LEFT FEMUR, NECK: BMD 0.624 g/cm2, Z-score -1.8, T-score -3.0, osteoporosis. LEFT FEMUR, TOTAL: BMD 0.768 g/cm2, Z-score -1.1, T-score -1.9, osteopenia. Assessment & Plan Assessment & Plan (1) Osteoporosis: Comment: DEXA 03/2023. AP Spine L1-L3 -2.3, left femur neck -3.0, left femur total -1.9 Started Alendronate 03/2023 - 08/2023. Did not tolerate IV Reclast started 08/2023 Code(s): M81.0 - Age-related osteoporosis without current pathological fracture Category: Medical Qualifiers: Osteoporosis type: age-related Presence of current pathological fracture: without current pathological fracture Qualified Code(s): M81.0 - Age-related osteoporosis without current pathological fracture Plan: #Osteoporosis Patient is a 63-year-old female with osteoporosis here today for follow up. Patient meeting criteria for osteoporosis based on highest T-score -3 at the hip. Started oral bisphosphonates but did not tolerate and so started on IV bisphosphonates. Had reaction to IV Reclast but this was not detrimental. She will likely need pretreatment for her IV Reclast with Zofran. Increased her vitamin-D from 2000 daily to 5000 daily. Plan - Increase Vit D 5000U daily - Continue Ca-Vit D supplement - IV reclast 5mg due - RTC 6 months - Labs before visit: CMP, Vit D (2) Encounter for monitoring bisphosphonate therapy: Comment: Started Alendronate 03/2023 - 08/2023. 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 Category: Medical Plan: #Long-term Use of Bisphosphonates Risks and benefits of bisphosphonates in the management of osteoporosis Benefits include improved bone density, decreased fracture risk Risks include atypical femoral fractures, GI upset, esophageal strictures Contraindicated in patients with a creatinine clearance < 30 to 35 ml/min Keep vitamin-D at least 35 ng/mL (3) Intravenous bisphosphonates causing adverse effect in therapeutic use: Code(s): T45.8X5A - Adverse effect of other primarily systemic and hematological agents, initial encounter Category: Medical Qualifiers: Encounter type: initial encounter Qualified Code(s): T45.8X5A - Adverse effect of other primarily systemic and hematological agents, initial encounter Plan: #Reaction to IV Reclast Patient with 2-3 day reaction after receiving IV Reclast. For next infusion we will add premedications including Tylenol and Zofran. Plan I spent 35 minutes reviewing the record and labs, seeing the patient, discussing the treatment plan and documenting in the medical record ? Orders: Orders Comprehensive Met. Panel 6 Months M81.0 - Age-related osteoporosis without current pathological fracture Vitamin D 25-OH Total 6 Months E55.9 - Vitamin D deficiency, unspecified Referrals Infusion Center Notification M81.0 - Age-related osteoporosis without current pathological fracture Medications: New cholecalciferol (vitamin D3) 125 mcg PO DAILY 90 caps 1RF E55.9 - Vitamin D deficiency, unspecified Discontinued cholecalciferol (vitamin D3) Discontinued Reason: Doctor's Order 25 mcg PO BID 90 days 180 caps 3RF E55.9 - Vitamin D deficiency, unspecified Coding Level of Care Code Est Pt Level 4 (23713) Complex EM visit Add On G2211 Diagnoses Age-related osteoporosis without current pathological fracture M81.0 Osteoporosis type: age-related Presence of current pathological fracture: without current pathological fracture Encounter for monitoring bisphosphonate therapy Z51.81; Z79.83 Intravenous bisphosphonates causing adverse effect in therapeutic use, initial encounter T45.8X5A Encounter type: initial encounter
[2024-08-24 11:20] VITALS: BP 140/82; PULSE 89; O2SAT 97; BMI 32.1
--- OUTSIDE RECORDS SUMMARY | 2024-08-24 12:08 | XMS_ITS | Clinical Summary ---
Author Organization [facility] Address [address] [place], [place] [address] Care Team Providers Care Plan Consultant Name Role Phone Chrissy Osborne MD Primary [...] age to complete this topic Care Teams Plan Consultant Relationship Specialty Start Date End Date Chrissy Osborne MD [address] [facility] , [address] [facility] Physician Associ D/B/A: [facility] [place] [id number] PCP - General Internal Medicine 11/16/16
== END 2024-08-24 11:51 | disposition home or self-care (01) ==
LOC: HO.RHE 10:47
PROVIDERS: Visit Provider Student in an Organized Health Care Education/Training Program
DX: M81.0 Age-related osteoporosis without current pathological fracture (principal); Z51.81 Encounter for therapeutic drug level monitoring; Z79.83 Long term (current) use of bisphosphonates; T45.8X5A Adverse effect of other primarily systemic and hematological agents, initial encounter
CPT/HCPCS: 99214; G2211

== ENCOUNTER → 2024-08-24 10:46 | Outpatient (BNVA) | payer MEDICARE, MEDICAID, SELFPAY | PROVIDERS: Visit Provider Student in an Organized Health Care Education/Training Program | DX: M81.0 Age-related osteoporosis without current pathological fracture (principal); Z51.81 Encounter for therapeutic drug level monitoring; Z79.83 Long term (current) use of bisphosphonates; T45.8X5D Adverse effect of other primarily systemic and hematological agents, subsequent encounter | CPT/HCPCS: 99212 ==

== ENCOUNTER 2024-08-26 13:00 | Outpatient (RCR) | payer MEDICARE, MEDICAID, SELFPAY ==
--- NOTE | 2024-07-29 14:54 | MHC.PT.EP ---
[facility] [place] [facility] [place] [facility] [place] Office [address] [phone] F: [phone] F: [phone] F: [phone] F: [phone] Physical Therapy Plan of Care Date of Evaluation: 07/29/24 Date of Surgery: Diagnosis: RIGHT ankle sprain (MD Dx) RIGHT ankle There is full-thickness tear peroneus longus and brevis tendons (retracted proximally) per MRI (PT Dx) RS Assessment: Oriana is a 63 y.o. female who is referred to PT by Carmita Alexandra PA-C, with Dx of RIGHT ankle sprain. Per MRI there is full-thickness tear of peroneus longus and brevis tendons (retracted proximally). Patient impairments include pain, antalgic gait, limited ankle ROM, R ankle weakness. Patient current functional limitations are pain and difficulty with ambulation, ascend/descend stairs, prolonged standing. She had a COMMUNICATIONS ENGINEER that helps her with cooking, cleaning, laundry, groceries, driving, put shoes on needs help, at times gets help bathing. Patient will benefit from skilled PT to address aforementioned impairments and functional limitations to meet established goals. Frequency and Duration: The patient will be seen 2x/week for 4 weeks Short Term Goals: 2 weeks Patient demonstrates consistency and independence with HEP to self manage symptoms. Snf Goals: 4 weeks Patient presents with increased ankle DF 0 degrees to ambulate with heel to toe gait pattern level surfaces with normalized gait pattern Patient presents with increased R ankle inv/ev strength 4/5 to improve SLS balance 5 seconds to improve walking unlevel surfaces Treatment Plan: Modalities to reduce pain, spasms and effusion. Manual therapy to restore motion and function. Therapeutic exercise to improve strength and flexibility. Neuromuscular re-education for posture and balance. Therapeutic activities to return to functional activities of daily living. Electronically signed by: Fatoumata Perry, PT, DPT Please sign and return to therapist. Thank you for your referral.
--- NOTE | 2024-10-02 15:49 | MHC.PT.DC ---
[facility] [place] Office [place] Office [place] Office [address] Sandip Glass [address] [phone] F: [phone] F: [phone] F: [phone] F: [phone] Physical Therapy Discharge Report Diagnosis: RIGHT ankle sprain (MD Dx) RIGHT ankle There is full-thickness tear peroneus longus and brevis tendons (retracted proximally) per MRI (PT Dx) RS Date of Surgery: Date of Evaluation: 07/29/24 Date of Discharge: 10/02/24 Treatments to Date: 5 Cancellations to Date: 2 No Shows to Date: 1 Discharge Status: Patient Elected to Stop Recommend MD Follow-up Discharge Summary: Oriana was seen for 5 PT sessions, she continued with subjective reports of constant ankle pain and had difficulty tolerating progressions to standing exercises, persisting with antalgic gait. She cancelled and discontinued PT at this time as she called to report she was in the hospital. She was planning on seeing ortho for her ankle soon. She is discharged from PT. Electronically signed by: Fatoumata Perry, PT, DPT Please sign and return to therapist. Thank you for your referral.
== END 2024-10-02 15:50 | disposition home or self-care (01) ==
LOC: HO.PT 13:00
PROVIDERS: PCP Internal Medicine; Visit Provider Physician Assistant
DX: S93.401D Sprain of unspecified ligament of right ankle, subsequent encounter (principal)
CPT/HCPCS: 97110; 97112; 97140; 97162; 97530

== ENCOUNTER 2024-09-17 09:29 | Outpatient (REF) | payer MEDICARE, MEDICAID, SELFPAY ==
--- OUTSIDE RECORDS SUMMARY | 2023-05-21 05:20 | XMS_ITS ---
Author Organization [facility] Address [address] [place] [address] Care Team Providers Care Jackscrew Man Name Role Phone Chrissy Osborne Primary Care Provider Kaushik Castano Jr [phone] REASON FOR VISIT screening colon Problems Problem Type SNOMED Code ICD Code Onset Dates Problem Status W/U Status Risk Notes Problem History of polyp of colon (situation) (016516870) Personal history of colonic polyps (Z86.010) Active confirmed Encounters Encounter Location Date Provider [place] [facility] [place] [address] [place], [place] [phone] 05/21/2023 Kaushik Ahumada Jr Encounter for screening [...] MELODY MILIAN EDOB: 1960 (64 yo F)Acc No.[id number]:05/21/2023 COLON WITH MAC Patient: MELODY WATT Provider: Lucero Ahumada MD :1960 A ge:62 Y S ex:Female Date:05/21/2023 Address:[address] [place] [address] [place] [address] Pcp:Chrissy Gao Subjective: * Chief Complaints: * [...] 05/21/2023 Generated for Jared mooney/Verito/Estrellitaitting on: 0 09/17/2024 09:56 AM EDT
--- OUTSIDE RECORDS SUMMARY | 2024-09-17 09:56 | XMS_ITS | Clinical Summary ---
Author Organization [facility] Address [address] [place], [place] [id number] Care Team Providers Care Ceramic Sprayer Name Role Phone Chrissy Osborne MD Primary [...] (1 of 2) 2010 Influenza Vaccine (#1) 2024 Pneumococcal Vaccine (1 of 1 - PCV) 2025 RSV Adult > 60+ Yrs or Pregn [...] age to complete this topic Care Teams Ceramic Sprayer Relationship Specialty Start Date End Date Chrissy Osborne MD [address] [facility] , [address] [facility] Physician Associ D/B/A: [facility] [place] [id number] PCP - General Internal Medicine 11/16/16
[2024-09-17 11:23] LABS: Blood Urea Nitrogen 9 mg/dL (9-16); Estimated Glomerular Filt Rate > 60
== END 2024-09-17 09:30 | disposition home or self-care (01) ==
LOC: HO.LAB 09:29
PROVIDERS: PCP Internal Medicine; Visit Provider Student in an Organized Health Care Education/Training Program
DX: M81.0 Age-related osteoporosis without current pathological fracture (principal)
CPT/HCPCS: 36415; 82565; 84520

== ENCOUNTER 2024-09-22 10:50 | Outpatient (RCR) | payer MEDICARE, MEDICAID, SELFPAY ==
[2024-09-22 10:54] VITALS: BP 140/76; PULSE 97; RESP 16; TEMP 36.8; O2SAT 100
== END 2024-09-22 13:40 | disposition home or self-care (01) ==
LOC: HO.INF 10:50
PROVIDERS: Visit Provider Student in an Organized Health Care Education/Training Program
DX: M81.0 Age-related osteoporosis without current pathological fracture (principal)
CPT/HCPCS: 96374; J3489

== ENCOUNTER 2024-09-29 14:45 | Outpatient (AMB) | payer MEDICARE, MEDICAID, SELFPAY ==
--- OUTSIDE RECORDS SUMMARY | 2023-05-21 05:20 | XMS_ITS ---
Author Organization [facility] Address [address] [place] [address] Care Team Providers Care Collator Operator Name Role Phone Chrissy Osborne Primary Care Provider Kaushik Castano Jr [phone] REASON FOR VISIT screening colon Problems Problem Type SNOMED Code ICD Code Onset Dates Problem Status W/U Status Risk Notes Problem History of polyp of colon (situation) (856030875) Personal history of colonic polyps (Z86.010) Active confirmed Encounters Encounter Location Date Provider Diagnosis [facility] [place] [address] [place], [place] [id number] 05/21/2023 Kaushik Ahumada Jr Encounter for screening [...] MELODY MILIAN EDOB: 1960 (64 yo F)Acc No.[id number]:05/21/2023 COLON WITH MAC Patient: MELODY WATT Provider: Lucero Ahumada MD :1960 A ge:62 Y S ex:Female Date:05/21/2023 Address:[address] [place] [address] [place] [address] Pcp:Chrissy Gao Subjective: * Chief Complaints: * [...] 05/21/2023 Generated for Jared mooney/Verito/Estrellitaitting on: 0 09/29/2024 03:54 PM EDT
--- NOTE | 2024-09-29 15:11 | A.OFFVIS_ITS ---
Intake Visit Reasons: B/L knee injections Intake Note: Oriana is a 64 year old female who presents today for a repeat injection for her right knee, last injection 03/26/24. Left knee was injected on 01/24/24. Patient reports her last injection gave her relief and would like to repeat. 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 Chito Guallpa this is a 64-year-old female who presents to the office today for routine follow up of bilateral chronic knee pain. She received cortisone injections and would like to repeat injections while in the office today. It has been greater than 3 months since her last injections. [facility] Medical History Intravenous bisphosphonates causing adverse effect in therapeutic use Encounter for monitoring bisphosphonate therapy History of colon polyps (~2012) Nicotine dependence, cigarettes, uncomplicated History of DVT (deep vein thrombosis) Migraines Asthma Chronic pain syndrome Postlaminectomy syndrome, cervical Cough COPD (chronic obstructive pulmonary disease) Allergic rhinitis Osteoarthritis of right hip Depression with anxiety Constipation due to opioid therapy GERD (gastroesophageal reflux disease) Hypovitaminosis D Lumbar degenerative disc disease Essential hypertension Surgical History (Reviewed 08/24/24 @ 11:20 by Kathleen Emerson [facility]) History of colonoscopy History of fusion of lumbar spine History of fusion of cervical spine History of appendectomy (~1990) History of total abdominal hysterectomy (~2011) History of esophagogastroduodenoscopy (EGD) (~2012) Status post insertion of nerve stimulator History of cholecystectomy (~2003) History of incisional hernia repair History of arthroscopy of both knees History of carpal tunnel surgery of right wrist History of carpal tunnel surgery of left wrist History of hemicolectomy Family History Father Diabetes Mother Diabetes Hypertension Sister Diabetes Breast cancer Rheumatoid arthritis Osteoporosis Maternal Uncle Prostate cancer Social History Housing: Apartment Alcohol intake: never Comment: movement only Patient Tobacco Use Status: Current everyday Tobacco user Tobacco use type: Cigarette Cigarettes Per Day: 4 e-Cigarette/Vaping Use: Never Used Second Hand Smoke Exposure: No service: No Current occupational status: disabled Cognitive needs: No Hearing needs: No Vision needs: Yes Review of Systems Const All systems reviewed & are unremarkable except as noted in HPI and below Physical Exam Extrem Other: Bilateral knees normal to inspection. No ecchymosis, erythema or joint effusion. Tenderness to palpation medial joint lines bilaterally. Range of motion 0-100 degrees. NVI. Office Procedures AMB Joint Injection/Aspiration Joint Injection/Aspiration Primary Site: right knee Secondary Site: left knee Injected: 80 mg of, DepoMedrol, with 8 mL of (2% plain lidocaine) and in the joint Approach Used: anterolateral Procedure: The patient tolerated the procedure well, but had some pain with the injection and there was some relief with the local anesthesia Coding 87170 - Bilateral Large Joint Procedure code (CPT) selection complete Assessment & Plan Assessment & Plan (1) Osteoarthritis of left knee: Code(s): M17.12 - Unilateral primary osteoarthritis, left knee Category: Medical Qualifiers: Osteoarthritis type: unspecified Qualified Code(s): M17.12 - Unilateral primary osteoarthritis, left knee (2) Osteoarthritis of right knee: Code(s): M17.11 - Unilateral primary osteoarthritis, right knee Category: Medical Plan The patient was offered a cortisone injection in bilateral knee with 80 mg of DepoMedrol. The patient was explained the risks, benefits, and alternatives to receiving this injection. After receiving consent for the injection, the patient had the procedure done while in the office today. The patient tolerated the procedure well with no complications. Follow-up will be PRN, or sooner if needed Coding Level of Care Code Est Pt Level 3 (46312) Diagnoses Osteoarthritis of left knee, unspecified osteoarthritis type M17.12 Osteoarthritis type: unspecified Osteoarthritis of right knee M17.11 CPT Codes Coding - 22733 - Bilateral Large Joint: 92350 - Bilateral Large Joint ([id number])
--- OUTSIDE RECORDS SUMMARY | 2024-09-29 15:54 | XMS_ITS | Clinical Summary ---
Author Organization [facility] Address [address] [place], [place] [id number] Care Team Providers Care Proof Press Operator Name Role Phone Chrissy Osborne MD [...] age to complete this topic Care Teams Proof Press Operator Relationship Specialty Start Date End Date Chrissy Osborne MD [address] [facility] , [address] [facility] Associ D/B/A: [facility] [place] [address] PCP - General Internal Medicine 11/16/16
== END 2024-09-29 16:11 | disposition home or self-care (01) ==
LOC: HO.HOS 14:46
PROVIDERS: PCP Internal Medicine; Visit Provider Physician Assistant
DX: M17.0 Bilateral primary osteoarthritis of knee (principal)
CPT/HCPCS: 20610; 99213

== ENCOUNTER → 2024-09-29 14:45 | Outpatient (BNVA) | payer MEDICARE, MEDICAID, SELFPAY | PROVIDERS: PCP Internal Medicine; Visit Provider Physician Assistant | DX: M17.0 Bilateral primary osteoarthritis of knee (principal); Z79.52 Long term (current) use of systemic steroids | CPT/HCPCS: 20610; 99212; J1010; J2003 ==

== ENCOUNTER 2024-11-04 07:32 | Outpatient (REF) | payer MEDICARE, MEDICAID, SELFPAY ==
--- OUTSIDE RECORDS SUMMARY | 2023-05-21 05:20 | XMS_ITS ---
Author Organization [facility] Address [address] [place] [address] Care Team Providers Care Hot Plate Plywood Press Operator Name Role Phone Chrissy Osborne Primary Care Provider Kaushik Castano Jr REASON FOR VISIT screening colon Problems Problem Type SNOMED Code ICD Code Onset Dates Problem Status W/U Status Risk Notes Problem Personal history of colonic polyps (Z86.010) Active confirmed Encounters Encounter Location Date Provider [place] [facility] [place] [address] [place], [place] [id number] 05/21/2023 Kaushik Ahumada Jr Encounter for screening colonoscopy Z12.11 ; Personal history of colonic polyps Z86.010 and Colon polyps K63.5 Assessments Encounter Date Diagnosis (ICD Code) Assessment Notes Treatment Notes Treatment Clinical Notes Section Notes 05/21/2023 Encounter for screening colonoscopy (ICD-10 - Z12.11) 05/21/2023 Personal history of colonic polyps (ICD-10 - Z86.010) 05/21/2023 Colon polyps (ICD-10 - K63.5) Plan Of Treatment No Information Progress Notes * MELODY MILIAN EDOB: 1960 (64 yo F)Acc No.[id number]:05/21/2023 COLON WITH MAC Patient: MELODY WATT Provider: Lucero Ahumada MD :1960 A ge:62 Y S ex:Female Date:05/21/2023 Address:[address] [place], [place] [id number] Pcp:Chrissy Gao Subjective: * Chief Complaints: * 1 . Screening colon. * Medical History: Objective: * Vitals: Assessment: * Assessment: 1. E ncounter for screening colonoscopy - Z12.11 (Primary) 2 . P ersonal history of colonic polyps - Z86.010 3 . C olon polyps - K63.5 Plan: * Treatment: * Procedure Codes: 4 5380 COLONOSCOPY AND BIOPSY, 0529F INTRVL 3+YRS PTS CLNSCP DOCD * * The named appointment provid er may or may not be the originator of this progress note, and it is not deemed complete until electronically signed by the appointment provider. Sign off status: Pending * Provider: Lucero Ahumada MD Date: 0 05/21/2023 Generated for Jared mooney/Verito/Estrellitaitting on: 0 11/04/2024 07:35 AM EDT
--- NOTE | ~2024-11-04 | CT_ITS ---
EXAMINATION: CT LUNG SCREENING HISTORY: F17.210 - Nicotine dependence, cigarettes, uncomplicated TECHNIQUE: Low dose axial images were obtained from the sternal notch to upper abdomen without IV contrast per standard departmental protocol. Sagittal and coronal reformatted images were also obtained and reviewed. One or more of the following techniques was used for dose reduction: Automated exposure control, adjustment of the mA and/or kV according to patient size, use of iterative reconstruction technique. DLP: 49 mGy-cm COMPARISON: Comparison is made with the prior examination dated 04/08/2023. FINDINGS: Lung nodules: Again seen is a 2 mm subpleural nodule in the right middle lobe (series 4, image 88), and a 3 mm nodule in the left lower lobe (series 4, image 88). There is scarring in the left lower lobe. No new pulmonary nodules are identified. Emphysema: none Coronary Calcification: mild Aortic Arch Calcification: mild Potentially Significant Incidentals : none Additional Chest Findings: There is no pleural or pericardial effusion. No mediastinal or axillary lymphadenopathy is identified. A spinal stimulator is seen in place. Visualized upper abdomen: The visualized portions of the liver, spleen, and adrenals have an unremarkable unenhanced appearance. CT/CT lung screening IMPRESSION: No suspicious pulmonary nodules are identified. LUNG-RADS ASSESSMENT: Lung-RADS 2: Benign MANAGEMENT: Continue annual screening with LDCT in 12 months Category S: N/A Electronically signed by: Kodak Roldan MD 11/04/2024 08:10 AM EDT
--- OUTSIDE RECORDS SUMMARY | 2024-11-04 07:36 | XMS_ITS | Patient Health Record ---
Author Organization [facility] Address [address] [place] [address] Care Team Providers Care Operation Supervisor Name Role Phone Chrissy Osborne Primary [...] Problem Status W/U Status Risk Notes Problem [id number] Colon cancer screening (Z12.11) Active confirmed Problem Personal history of colonic polyps (Z86.010) Active confirmed Plan Of Treatment Future Test Test Name Order Date COLONOSCOPY 04/22/2023 Insurance Providers Payer Name Payer Address Payer Phone Subscriber Number Group Number Insured Name Patient Relationship to Insured Coverage Start Date Coverage End Date MEDICARE OF [place] [address] [place] [address] [id number] MELODY CHAO Self - patient is the insured MEDICAID OF [facility] [address] [place] [address] [id number] MELODY CHAO Self - patient is the insured Medical (General) History Medical History History ICD Code Hypertension Hyperlipidemia Gastroesophageal reflux disease Disc disease Anxiety/depression Chronic opioid use Asthma Surgical History Surgery Date(Month/Year) Spinal stimulator, cervical 05/30
--- OUTSIDE RECORDS SUMMARY | 2024-11-04 07:36 | XMS_ITS | Clinical Summary ---
Author Organization [facility] Address [address] [place], [place] [id number] Care Team Providers Care Dry Heat Room Attendant Name Role Phone Chrissy Osborne MD Primary [...] on patient's age to complete this topic Insurance Payer Benefit Plan / Group Subscriber ID Effective Dates Phone Address Type [place] [id number] 2011-Pre sent [phone] [employer] [address] [place] [address] Medicare [place] [id number] 2016-Pre sent [address] [place] [address] Care Teams Dry Heat Room Attendant Relationship Specialty Start Date End Date Chrissy Osborne MD [address] [facility] , [address] [facility] Physician Associ D/B/A: [facility] [place] [address] PCP - General Internal Medicine 11/16/16
== END 2024-11-04 07:33 | disposition home or self-care (01) ==
LOC: HO.CT 07:32
PROVIDERS: PCP Internal Medicine; Visit Provider Physician Assistant Medical
DX: Z12.2 Encounter for screening for malignant neoplasm of respiratory organs (principal); F17.210 Nicotine dependence, cigarettes, uncomplicated
CPT/HCPCS: 71271

== ENCOUNTER → 2024-11-04 07:33 | Outpatient (BNV) | payer MEDICARE, MEDICAID, SELFPAY | PROVIDERS: PCP Internal Medicine; Visit Provider Radiology Diagnostic Radiology | DX: F17.210 Nicotine dependence, cigarettes, uncomplicated (principal) | CPT/HCPCS: 71271 ==

== ENCOUNTER 2024-12-11 09:16 | Outpatient (AMB) | payer MEDICARE, MEDICAID, SELFPAY ==
--- NOTE | 2024-12-11 09:18 | MHC.OFFVIS ---
Vital Signs 12/11/24 09:32 Height 5 ft 2 in Weight 179 lb BMI 32.7 BP 142/69 H Blood Pressure Location Lt brachial Position Sitting Pulse 104 H Intake Visit Reasons: Large lft breast mass Intake Note: Patient is seen in office for evaluation of a large left breast mass. 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 Technologist Required: No Sample Book Maker: Sample Book Maker Present Accompanied by: Family/Other Allergies topiramate (From TOPAMAX) Allergy (Severe, Verified 12/11/24 09:30) SWELLING barium sulfate Adverse Reaction (Intermediate, Verified 12/11/24 09:30) changes in behavior hydrocodone Adverse Reaction (Intermediate, Verified 12/11/24 09:30) Nausea metronidazole (Flagyl) Adverse Reaction (Intermediate, Verified 12/11/24 09:30) SOLUTION SPECIALIST, N/V morphine (MORPHINE) Adverse Reaction (Intermediate, Verified 12/11/24 09:30) HEADACHE Penicillins Adverse Reaction (Intermediate, Verified 12/11/24 09:30) Vomiting trazodone Adverse Reaction (Intermediate, Verified 12/11/24 09:30) Palpitations varenicline (From Chantix) Adverse Reaction (Mild, Verified 12/11/24 09:30) changes in behavior Medication List - Last Reconciled 12/11/24 by Chris Yen MD albuterol sulfate 90 mcg/actuation 2 puffs PO Q4H PRN albuterol sulfate 2.5 mg (3 mL) inhalation TID alprazolam 0.5 mg PO DAILY PRN 2 days aspirin (Adult Low Dose Aspirin) 81 mg PO DAILY calcium carbonate-vitamin D3 600 mg-20 mcg (800 unit) 1 tab PO BID cholecalciferol (vitamin D3) 125 mcg PO DAILY dexlansoprazole (Dexilant) 60 mg PO DAILY 90 days diphenhydramine HCl (Allergy (diphenhydramine)) 25 mg PO BEDTIME PRN 90 days escitalopram oxalate 10 mg PO DAILY 90 days fenofibrate 160 mg PO DAILY 90 days fluticasone furoate-vilanterol 100-25 mcg/dose (Breo Ellipta) 1 inh inhalation DAILY 30 days fluticasone propion-salmeterol 250-50 mcg/dose (Advair Diskus) 1 inh inhalation BID 30 days fluticasone propionate 50 mcg/actuation (Flonase Allergy Relief) 1 spray intranasal DAILY linaclotide (Linzess) 290 mcg PO DAILY 90 days lisinopril 20 mg PO DAILY montelukast 10 mg PO DAILY oxycodone 10 mg PO Q6H PRN 30 days Ventolin HFA 90 mcg/actuation (albuterol sulfate) 2 puffs inhalation Q6H PRN 30 days NS HPI Comments Details: 64-year-old female patient presenting for evaluation of a palpable left breast mass noted in the upper outer quadrant with the associated nipple discharge. Patient was evaluated in the walk-in clinic in the lump confirmed. She reports a prior history of a right breast lesion which required a needle biopsy performed at [facility]. The pathology was benign. She is no longer able to feel a lump in the left breast but does have pain in various areas of the left breast. She has not had discharge from the nipple for approximately 1 month. Her last mammogram performed on 03/02/2024 revealed a breast density category B, with no mammographic or sonographic evidence of malignancy. A complicated cyst was noted index who o'clock position left breast proximally 6 cm from the nipple measuring 3 x 2 x 2 mm (BI-RADS 2). Her family history is significant for a sister of breast cancer the age of 40. Another sister of an abdominal cancer possibly liver. She reached menarche at the age of 12 and is 6 para 5. Her 1st child was born when she was 14 years old. Her last period was in early after hysterectomy. [facility] Medical History Intravenous bisphosphonates causing adverse effect in therapeutic use Encounter for monitoring bisphosphonate therapy History of colon polyps (~2012) Nicotine dependence, cigarettes, uncomplicated History of DVT (deep vein thrombosis) Migraines Asthma Chronic pain syndrome Postlaminectomy syndrome, cervical Cough COPD (chronic obstructive pulmonary disease) Allergic rhinitis Osteoarthritis of right hip Depression with anxiety Constipation due to opioid therapy GERD (gastroesophageal reflux disease) Hypovitaminosis D Lumbar degenerative disc disease Essential hypertension Surgical History History of colonoscopy History of fusion of lumbar spine History of fusion of cervical spine History of appendectomy (~1990) History of total abdominal hysterectomy (~2011) History of esophagogastroduodenoscopy (EGD) (~2012) Status post insertion of nerve stimulator History of cholecystectomy (~2003) History of incisional hernia repair History of arthroscopy of both knees History of carpal tunnel surgery of right wrist History of carpal tunnel surgery of left wrist History of hemicolectomy Family History Father Diabetes Mother Diabetes Hypertension Sister Diabetes Breast cancer Rheumatoid arthritis Osteoporosis Maternal Uncle Prostate cancer Social History Housing: Apartment Alcohol intake: never Comment: movement only Patient Tobacco Use Status: Current everyday Tobacco user Tobacco use type: Cigarette Cigarettes Per Day: 4 e-Cigarette/Vaping Use: Never Used Second Hand Smoke Exposure: No service: No Current occupational status: disabled Cognitive needs: No Hearing needs: No Vision needs: Yes Female Reproductive History Menstrual Age of Menarche: 12 Total pregnancies: 6 Number of Living Children: 7 Review of Systems Const All systems reviewed & are unremarkable except as noted in HPI and below Physical Exam Vital Signs: BMI result Body Mass Index 32.7 Const General: cooperative and no acute distress Nutritional Appearance: well nourished Orientation/consciousness: patient oriented x3 Limitations: no limitations HEENT Head: Yes normocephalic and Yes atraumatic Ears: hearing grossly normal bilaterally Chest Other: Bilateral fibrocystic changes without a discrete mass noted Left breast: No skin change, no nipple retraction, no nipple discharge, no palpable mass, no enlarged lymph nodes, several areas of tenderness corresponding to fibrocystic changes. Right breast: No skin change, no nipple retraction, no nipple discharge, no palpable mass, no enlarged lymph nodes Resp Effort & Inspection: normal respiratory effort, no audible wheezes, no cough and no respiratory distress Cardio Jugular venous distension: no JVD GI Inspection: Yes normal to inspection Skin Other: Warm, dry, no rash Neuro General: patient oriented x3 Extrem General: Yes no clubbing, cyanosis or edema Assessment & Plan Assessment & Plan (1) Discharge from left nipple: Code(s): N64.52 - Nipple discharge Category: Medical (2) Breast pain, left: Code(s): N64.4 - Mastodynia Category: Medical Plan 64-year-old female patient presenting for evaluation of left breast pain and nipple discharge. A previously palpable breast masses now subsided in the left breast upper outer quadrant. Her family history is significant for a sister dying of breast cancer the age of 40. Mammogram dated 03/02/2024 with ultrasound revealed no mammographic or sonographic evidence of malignancy. Her age adjusted lifetime breast cancer risk (Tyrer-Cuzick) is 8.4%. Complicated cyst was identified by felt to be benign (BI-RADS 2). Examination today revealed tenderness in the left breast with mild fibrocystic change similar to the right side. No nipple discharge could be identified. No suspicious findings were identified. I would recommend a diagnostic mammogram of the left breast along with diagnostic ultrasound left breast. She will return in approximately 2 months for follow-up examination. Orders: Orders MM diagnostic mammo unilat LT Today N64.4 - Mastodynia, N64.52 - Nipple discharge US breast LT limited Today N64.4 - Mastodynia, N64.52 - Nipple discharge Coding Level of Care Code New Pt Level 4 (34773) Diagnoses Discharge from left nipple N64.52 Breast pain, left N64.4
[2024-12-11 09:32] VITALS: BP 142/69; PULSE 104; BMI 32.7
--- OUTSIDE RECORDS SUMMARY | 2024-12-11 09:44 | XMS_ITS | Patient Health Record ---
Author Organization [facility] Address [address] [place] [address] Care Team Providers Care Svp Innovation Partnerships Name Role Phone Chrissy Osborne Primary Care Provider UnavailKaushik Duenas Jr Unavailable [phone] Allergies No Known Allergies Reason For Referral [...] Problem Status W/U Status Risk Notes Problem [id number] Colon cancer screening (Z12.11) Active confirmed Problem History of polyp of colon (situation) (583556067) Personal history of colonic polyps (Z86.010) Active confirmed Plan Of Treatment Future Test Test Name Order Date COLONOSCOPY 04/22/2023 Insurance Providers Payer Name Payer Address Payer Phone Subscriber Number Group Number Insured Name Patient Relationship to Insured Coverage Start Date Coverage End Date MEDICARE OF [place] [address] [place] [address] [id number] MELODY CHAO Self - patient is the insured MEDICAID OF [facility] [address] [place] [address] [id number] MELODY CHAO Self - patient is the insured Medical (General) History Medical History History ICD Code Hypertension Hyperlipidemia Gastroesophageal reflux disease Disc disease Anxiety/depression Chronic opioid use Asthma Surgical History Surgery Date(Month/Year) Spinal stimulator, cervical 05/30
--- OUTSIDE RECORDS SUMMARY | 2024-12-11 09:44 | XMS_ITS | Clinical Summary ---
Author Organization [facility] Address [address] [place], [place] [id number] Care Team Providers Care Search Coordinator Name Role Phone Chrissy Osborne MD Primary [...] age to complete this topic Care Teams Search Coordinator Relationship Specialty Start Date End Date Chrissy Osborne MD [address] [facility] , [address] [facility] Physician Associ D/B/A: [facility] [place] [address] PCP - General Internal Medicine 11/16/16
--- OUTSIDE RECORDS SUMMARY | 2024-12-11 09:44 | XMS_ITS | Clinical Summary ---
Author Organization [facility] Address [address] [place] [phone] Phone Care Team Providers [employer] Lead Man Name Role Phone Pcp, Unknown Primary Care Provider Unavailabl e Allergies Active Allergy Reactions Criticality Noted Date Comments Morphine 12/18/2016 Topiramate 12/18/2016 Medications ALPRAZolam (XANAX) 0.5 MG tablet TAKE 1 TAB 45 MINUTES BEFORE TAKING THE AIRPLANE NEEDED FOR ANXIETY FOR 2 DAYS 11/02/2024 Active cholecalciferol (VITAMIN D3) 5,000 unit capsule Take 1 capsule by mouth every morning. 09/14/2024 Active fenofibrate (LOFIBRA) 160 MG tablet Take 1 tablet by mouth every morning. 11/02/2024 Active BREO ELLIPTA 100-25 mcg/dose inhaler INHALE 1 PUFF BY MOUTH EVERY DAY FOR COPD/ASTHMA 08/20/2024 Active lisinopril (PRINIVIL,ZESTR IL) 20 MG tablet Take 1 tablet by mouth every morning. 09/14/2024 Active montelukast (SINGULAIR) 10 mg tablet Take 1 tablet by mouth every morning. 10/22/2024 Active oxyCODONE HCl 10 mg Tab TAKE 1 TABLET ORALLY EVERY 6 HOURS NEEDED FOR PAIN FOR 30 DAYS 11/20/2024 Active aspirin 81 mg chewable tablet Take 81 mg by mouth daily. Active Active Problems Problem Noted Date Diagnosed Date Peroneal tendon rupture 11/26/2024 Encounters Date Type Department Care Team Description 11/26/2024 3:45 PM EDT Office Visit [facility] [address] [place] [phone] Osei Yousif MD Peroneal tendon rupture, right, sequela (Primary Dx); Right ankle pain 11/26/2024 3:07 PM EDT - 11/26/2024 11:59 PM EDT Hospital Encounter [facility] [address] [place] [address] Osei Yousif MD Discharge Disposition: Home or Self Care 11/13/2024 Ancillary Orders [facility],Outside Imaging [address] [place] [address] Unknown, UnknownMD from Last 3 Months Social History Tobacco Use Types Packs/Day Years Used Date Smoking Tobacco: Every Day Cigarettes Smokeless Tobacco: Never Alcohol Use Standard Drinks/Week Comments Not Currently 0 (1 standard drink = 0.6 oz pur e alcohol) Education Answer Date Recorded Are you interested in more education? Not on kaden e 11/11/2024 Are you concerned about learning? Not on file 11/11/2024 No 11/11/2024 No 11/11/2024 Digital Access Answer Date Recorded No 11/11/2024 No 11/11/2024 Reliable internet access at home? Not on file 11/11/2024 Device with a working camera? Not on file Comments Unknown Sex and Gender Information Value Date Recorded Sex Assigned at Not on file Legal Sex Female 3:15 PM EDT Gender Identity Not on file Sexual Orientation Not on file Last Filed Vital Signs Vital Sign Reading Time Taken Comments Blood Pressure - - Pulse - - Temperature - - Respiratory Rate - - Oxygen Saturation - - Inhaled Oxygen Concentration - - Weight 79.4 kg (175 lb) 11/26/2024 2:59 PM EDT Height 160 cm (5' 3 ) 11/26/2024 2:59 PM EDT Body Mass Index 31 11/26/2024 2:59 PM EDT Plan of Treatment Health Maintenance Due Date Last Done Comments CREATININE LEVEL 1960 LIPID PANEL 1960 POTASSIUM LEVEL 1960 DEPRESSION SCREENING 1972 SMOKING Hx and SMOKELESS TOBACCO SCREENING 1973 HEPATITIS C SCREENING 1978 HIV ONE-TIME SCREENING (18-65 YEARS) 1978 PAP SMEAR 1981 SCREENING FOR DIABETES 08/30/1995 MAMMOGRAM 2000 COLOGUARD 2005 COLONOSCOPY 2005 COLORECTAL CANCER SCREENING 2005 FIT TEST 2005 FOBT 2005 SIGMOIDOSCOPY 2005 VIRTUAL COLONOSCOPY 2005 ZOSTER VACCINES (1 of 2) 2010 INFLUENZA VACCINE (#1) 2024 4, 12/25/2022, 12/20/2021, Additional history exists COVID-19 VACCINE ( season) 2024 Adult Td,Tdap Booster 12/15/2025 12/16/2015, 011 RSV VACCINE (1 - 1-dose 75+ series) 08/30/2035 PNEUMOCOCCAL VACCINES (50+ years) Completed 12/25/2022, 11/28/2010, 02/28/2010 HEPATITIS A VACCINES Aged Out No long er eligible based on patient's age to complete this topic HIB VACCINES Aged Out No longer eligi ble based on patient's age to complete this topic MENINGOCOCCAL VACCINES (ACWY) Aged Out No longer eligible based on patient's age to complete this topic MENINGOCOCCAL VACCINES (B) Aged Out N o longer eligible based on patient's age to complete this topic Medical Devices Not on file Procedures Procedure Name Priority Date/Time Associated Diagnosis Comments XR ANKLE 3 OR MORE VIEWS (RIGHT) Routine 11/26/2024 3:23 PM EDT Right ankle pain from Last 3 Months Results * XR ANKLE 3 OR MORE VIEWS (RIGHT) (11/26/2024 3:23 PM EDT) Narrative SYSTEMGENERATED, DOCUMENTATION - 11/26/2024 3:23 PM EDT This image report has been auto-finalized and has not been read by a Radiologist. Interpretation has been included in the provider encounter note for this date of service. Osei Yousif MD IMG XR LOWER EXTREMITY Final Result from Last 3 Months Insurance [place] [employer] & [place] & B Care Teams [employer] Lead Man Relationship Specialty Start Date End Date Pcp, Unknown PCP - General 11/26/24 Additional Source Comments The information contained in this document represents components of the legal health record. It is not the complete legal health record.[facility]
== END 2024-12-11 10:09 | disposition home or self-care (01) ==
LOC: HO.HGS 09:17
PROVIDERS: PCP Internal Medicine; Referring Provider Family Medicine; Visit Provider Surgery
DX: N64.52 Nipple discharge (principal); N64.4 Mastodynia
CPT/HCPCS: 99204

== ENCOUNTER → 2024-12-11 09:16 | Outpatient (BNVA) | payer MEDICARE, MEDICAID, SELFPAY | PROVIDERS: PCP Internal Medicine; Referring Provider Family Medicine; Visit Provider Surgery | DX: N64.52 Nipple discharge (principal); N64.4 Mastodynia; Z80.3 Family history of malignant neoplasm of breast | CPT/HCPCS: 99202 ==